=== PATIENT | female | born 1960 | race Caucasian/White ===

== ENCOUNTER → 2020-06-29 17:49 | Outpatient (CLI) | payer MEDICAID, SELFPAY ==
[2020-06-29 18:55] LABS: Hemoglobin A1C 10.7 % (4.0-6.0)
== END ==
PROVIDERS: Visit Provider Family Medicine
DX: I10 Essential (primary) hypertension (principal); E11.9 Type 2 diabetes mellitus without complications; Z79.4 Long term (current) use of insulin
CPT/HCPCS: 83036

== ENCOUNTER 2020-08-17 12:07 | Emergency (ER) | payer MEDICAID, SELFPAY ==
[2020-08-17 12:38] VITALS: BP 177/90; PULSE 77; RESP 16; TEMP 37.2; O2SAT 99; BMI 42.9
--- NOTE | 2020-08-17 13:12 | HMH.EDUTC ---
[facility] Disposition Clinical Impression: Exposure to COVID-19 virus Disposition: Home, Self-Care Condition on Discharge: Good Instructions: Preventing the Spread of Coronavirus Discharge Instructions Additional Instructions: Drink plenty of fluids. Take tylenol for pain or fever. Follow up with your regular doctor. GO TO THE ER FOR ANY WORSENING SYMPTOMS Referrals: Oscar Hauser MD [Primary Care Provider] - Time of Disposition: 13:15 Medical Decision Making - Medical Records Medical records reviewed: No: I reviewed the patient's medical records. - Stevan Inquiry Pt receiving controlled substance: No Vital Signs: 08/17/20 12:38 08/17/20 13:59 Temperature 99 F 99 F Temperature Source Oral Oral Pulse Rate 77 Pulse Rate [Radial] 77 Respiratory Rate 16 16 Blood Pressure 177/90 H Blood Pressure [Right Arm] 177/90 H Blood Pressure Mean [Right Arm] 119 Blood Pressure Source Automatic Cuff Blood Pressure Source [Right Arm] Automatic Cuff Blood Pressure Position Sitting Blood Pressure Position [Right Arm] Sitting 02 Sat by Pulse Oximetry 99 Oxygen Delivery Method Room Air Room Air Orders (Tests/Meds): ORDERS Category Date Time Status Covid-19 Nasal PCR ([facility]) Routine Lab 08/17/20 12:50 Received [facility] HPI - General Stated complaint: Covid exposure Time Seen by Provider: 08/17/20 13:12 - History of Present Illness Provider Complaint: She states that she was exposed to covid by a family member. She denies any symptoms so far. - Related Data Home Medications Medication Instructions Recorded Confirmed albuterol sulfate 90 mcg/actuation INHALATION 05/17/20 06/29/20 aerosol inhaler allopurinol 100 mg tablet 100 mg PO DAILY tab 05/17/20 06/29/20 atorvastatin 80 mg tablet 80 mg PO DAILY tab 05/17/20 06/29/20 blood sugar diagnostic See Rx Instructions .ROUTE 05/17/20 06/29/20 .MEDSUPPLY #10 each buspirone 10 mg tablet 10 mg PO DAILY tab 05/17/20 06/29/20 ergocalciferol (vitamin D2) 1,250 1,250 mcg PO QWEEK cap 05/17/20 06/29/20 mcg (50,000 unit) capsule ferrous sulfate 325 mg (65 mg 325 mg PO DAILY tab 05/17/20 06/29/20 iron) tablet furosemide 80 mg tablet 80 mg PO DAILY tab 05/17/20 06/29/20 ibuprofen 800 mg tablet 800 mg PO TID tab 05/17/20 06/29/20 isosorbide mononitrate 60 mg mg PO 05/17/20 06/29/20 tablet,extended release 24 hr lancets 33 gauge See Rx Instructions .ROUTE 05/17/20 06/29/20 .MEDSUPPLY #100 each losartan 100 mg tablet 100 mg PO DAILY tab 05/17/20 06/29/20 metoprolol tartrate 50 mg tablet 50 mg PO DAILY tab 05/17/20 06/29/20 montelukast 10 mg tablet 10 mg PO QHS tab 05/17/20 06/29/20 omeprazole 20 mg capsule,delayed 20 mg PO DAILY cap 05/17/20 06/29/20 release pen needle, diabetic 31 gauge x See Rx Instructions .ROUTE 05/17/20 06/29/20/16 .MEDSUPPLY #1,200 each potassium chloride 10 mEq 10 meq PO DAILY tab 05/17/20 06/29/20 tablet,extended release(part/cryst) spironolactone 25 mg tablet 25 mg PO DAILY tab 05/17/20 06/29/20 albuterol sulfate 2.5 mg CONTINUOUS NEBULIZATION ml 06/29/20 06/29/20 insulin regular hum U-500 conc 130 unit SQ .AM and PM ml 06/29/20 06/29/20 metformin 500 mg tablet,extended 1,000 mg PO BID tab 06/29/20 06/29/20 release 24 hr nitroglycerin 0.4 mg sublingual mg SUBLINGUAL Q5-15M tab 06/29/20 06/29/20 tablet ranolazine 1,000 mg mg PO BID tab 06/29/20 06/29/20 tablet,extended release,12 hr rosuvastatin 40 mg tablet mg PO DAILY tab 06/29/20 06/29/20 Previous Rx's Medication Instructions Recorded oyuntkvnqs-merecangayjta-ooqjhysl 1 cap PO Q6H PRN #30 cap 05/17/20 50 mg-300 mg-40 mg capsule loratadine 10 mg tablet 10 mg PO DAILY #30 tab 05/17/20 ondansetron HCl 4 mg tablet 4 mg PO Q6H PRN #20 tab 05/17/20 amlodipine 10 mg tablet 10 mg PO DAILY #90 tab 06/29/20 fluoxetine 20 mg capsule 20 mg PO DAILY #90 cap 08/09/20 Allergies Allergy/AdvReac Type Severity Reaction Status D
[2020-08-17 13:59] VITALS: BP 177/90; PULSE 77; RESP 16; TEMP 37.2; O2SAT 99
--- NOTE | 2020-08-17 19:48 | PC.NURSE ---
Patient notified of positive COVID results.
== END 2020-08-17 14:00 | disposition home or self-care (01) ==
PROVIDERS: Emergency Provider Nurse Practitioner Family; PCP Family Medicine
DX: U07.1 COVID-19 (principal); F41.9 Anxiety disorder, unspecified; J44.9 Chronic obstructive pulmonary disease, unspecified; I25.10 Atherosclerotic heart disease of native coronary artery without angina pectoris; E11.9 Type 2 diabetes mellitus without complications; K21.9 Gastro-esophageal reflux disease without esophagitis; E78.5 Hyperlipidemia, unspecified; I10 Essential (primary) hypertension; N28.9 Disorder of kidney and ureter, unspecified; Z79.899 Other long term (current) drug therapy; Z90.710 Acquired absence of both cervix and uterus; Z88.0 Allergy status to penicillin; Z88.5 Allergy status to narcotic agent
CPT/HCPCS: 99201; U0003

== ENCOUNTER → 2020-10-24 07:53 | Outpatient (CLI) | payer MEDICAID, SELFPAY ==
--- NOTE | 2020-10-24 07:54 | US_ITS ---
PROCEDURE: US GALLBLADDER CLINICAL INDICATION: n/v Nausea and vomiting, diarrhea COMPARISON: No exams were available for comparison FINDINGS: Pancreas: Unremarkable/Not well seen Liver: Diffuse increased echogenicity of the liver with poor through transmission of sound consistent with hepatic steatosis. No focal liver lesion demonstrated. There is appropriate direction of blood flow within non dilated portal vein.There is appropriate direction of blood flow within a non dilated portal vein. Right kidney: Unremarkable appearing. No hydronephrosis. Gallbladder: No stones are evident. There is no gallbladder wall thickening. Common duct is normal in diameter. IMPRESSION: Negative gallbladder ultrasound. No stones evident. Fatty liver Dictated by: Dedrick Franklin MD 10/24/2020 11:31 Dedrick Franklin MD in [place] 10/24/2020 11:31
== END ==
PROVIDERS: PCP Family Medicine; Visit Provider Family Medicine
DX: R11.2 Nausea with vomiting, unspecified (principal)
CPT/HCPCS: 76705

== ENCOUNTER → 2021-06-04 15:18 | Outpatient (CLI) | payer MEDICAID, SELFPAY ==
[2021-06-04 15:26] LABS: Chloride 100 mmol/L (98-107)
[2021-06-04 15:27] LABS: Potassium 4.5 mmoL/L (3.5-5.1); Sodium 137 mmol/L (136-145)
[2021-06-04 15:29] LABS: Alanine Aminotransferase 21 U/L (12-78); Alkaline Phosphatase 148 U/L (38-126); Aspartate Amino Transferase 24 U/L (14-36); Bilirubin,Total 0.5 mg/dl (0.2-1.3); Blood Urea Nitrogen 15 mg/dl (7-17); Estimated Glomerular Filt Rate 85 ml/min (>60); GFR (African American) 103 ML/MIN (>60)
[2021-06-04 15:30] LABS: Albumin Level 3.5 g/dl (3.5-5.0); Albumin/Globulin Ratio 1.1 (1.1-1.8); Anion Gap 12.5 mEq/L (5-15); Calcium 8.4 mg/dl (8.4-10.2); Carbon Dioxide 29 mmol/L (22.0-30.0); Globulin 3.1 g/dL (1.3-3.2); Glucose 313 mg/dl (74-100); Total Protein,Serum 6.6 g/dl (6.3-8.2)
== END ==
PROVIDERS: Visit Provider Family Medicine
DX: E11.9 Type 2 diabetes mellitus without complications (principal); Z79.4 Long term (current) use of insulin
CPT/HCPCS: 80053; 83036

== ENCOUNTER 2021-06-14 12:27 | Outpatient (RCR) | payer MEDICAID, SELFPAY ==
--- NOTE | 2021-06-14 13:57 | HMH.SLDYSPHA ---
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 Does Patient Qualify for Service No Qualify/Failure Comment Additional infomation required to determine eligibility for skilled speech therapy services. PAYMENT REP recommending modified barium swallow study to be completed to determine current swallow function and if therapy is warranted. Recommendations PHYSICIAN CERTIFICATION: The specified therapy services are required, authorized, and reviewed every 30 days. Diet Recommendations Normal Liquid Type Recommendations Normal/Thin SL Swallow Guidelines Standard Aspiration Prec., Crush meds as allowed*,Reflux precautions Dysphagia Swallow Precautions/Strategies Sitting Upright (90 deg),Small Bites and Sips Plan Pt/Guardian verbally ack understanding Yes of dx/prognosis/goals Pt/Guardian verbally ack understanding Yes of/consent to tx prog G -code Required No Education Instructions provided General aspiriation precautions: small bites and sips, crushing pills as able, taking pills in pudding or applesauce. Pt/Caregiver able to recall information Able to recall/restate Reinforcement needed No Speech & Language HPI History Present Illness Description of Patient Problem Patient reports chocking with food and liquid following TIA in April. She reports her slurred speech has resolved at this time. Language [place] Lang/Spoken in Home Sinhala General Information General Current Food Consistancy Regular,Thin Liquids Dentition Good Dentition Oxygen Status Room Air Facial Symmetry Symmetrical Patient Orientation Person,Place,Time,Situation Ability to Follow Directions Excellent Communication Ability No Impairment Dysphagia:Food Presentation Evaluation Food Type Pureed,Mechanical Soft,Regular ,Liquid,Pudding Dysphagia Evaluation Summary
== END 2021-06-14 12:30 | disposition home or self-care (01) ==
LOC: ST 12:27
PROVIDERS: PCP Family Medicine; Visit Provider Family Medicine
DX: R47.81 Slurred speech (principal)
CPT/HCPCS: 92610

== ENCOUNTER → 2021-06-19 14:20 | Outpatient (CLI) | payer MEDICAID, SELFPAY ==
[2021-06-19 15:15] LABS: Chol/HDL Ratio 3.7 (1-3.5); Cholesterol 183 mg/dl (140-200); HDL Cholesterol 50 mg/dl (40-60); Triglycerides 232 mg/dl (30-150); VLDL Cholesterol 46 mg/dL (0-40)
[2021-06-19 15:27] LABS: Direct LDL Cholesterol 92.21 mg/dL (100-129)
[2021-06-19 15:28] LABS: 25-OH Vitamin D, Total 27.1 ng/mL (30-100)
[2021-06-19 15:30] LABS: Basophils % 0.3 % (0.1-2.0); Eosinophils # 0.3 K/mm3 (0.0-0.4); Eosinophils % 4.5 % (0.1-12.0); Hematocrit 36.5 % (37.0-47.0); Hemoglobin 11.7 g/dL (12.2-16.2); Lymphocytes # 1.4 K/mm3 (0.7-4.5); Mean Corpuscular HGB Conc 32.1 g/dL (31.8-35.4); Mean Corpuscular Hemoglobin 26.3 pg (27.0-31.2); Monocytes # 0.3 K/mm3 (0.1-1.0); Monocytes % 3.8 % (1.7-9.3); Neutrophils # 5.2 K/mm3 (1.8-7.8); Neutrophils % 72.3 % (37.0-80.0); Platelet Count 264 K/mm3 (142-424); Red Blood Count 4.46 M/mm3 (4.20-5.40); Red Cell Distribution Width 15.6 % (11.5-17.5); White Blood Count 7.1 K/mm3 (4.8-10.8)
[2021-06-19 15:33] LABS: T4 (Thyroxine) 9.2 ug/dl (5.53-11.0)
[2021-06-19 15:47] LABS: Thyroid Stimulating Hormone 0.58 uIU/mL (0.465-4.68)
[2021-06-19 16:17] LABS: Creatinine,Urine Random 78 mg/dL (Not Estab.)
[2021-06-19 20:47] LABS: Microalbumin/Creatinine Ratio 872.9
[2021-06-22 19:46] LABS: C-Peptide 5.9 ng/mL (1.1-4.4)
== END ==
PROVIDERS: Visit Provider Nurse Practitioner Family
DX: E11.9 Type 2 diabetes mellitus without complications (principal); K76.0 Fatty (change of) liver, not elsewhere classified; Z79.4 Long term (current) use of insulin; E55.9 Vitamin D deficiency, unspecified; Z79.899 Other long term (current) drug therapy; R79.82 Elevated C-reactive protein (CRP)
CPT/HCPCS: 80061; 82043; 82306; 82570; 84436; 84443; 84681; 85025

== ENCOUNTER → 2021-11-20 14:53 | Outpatient (CLI) | payer MEDICAID, SELFPAY ==
[2021-11-20 13:17] LABS: Basophils % 0.4 % (0.1-2.0); Eosinophils # 0.4 K/mm3 (0.0-0.4); Eosinophils % 4.6 % (0.1-12.0); Hematocrit 38.5 % (37.0-47.0); Hemoglobin 11.9 g/dL (12.2-16.2); Lymphocytes # 1.5 K/mm3 (0.7-4.5); Lymphocytes % 19.1 % (10-50); Mean Corpuscular Hemoglobin 24.2 pg (27.0-31.2); Mean Corpuscular Volume 77.9 fl (81-99); Mean Platelet Volume 7.5 fl (7.4-10.4); Monocytes # 0.3 K/mm3 (0.1-1.0); Monocytes % 3.6 % (1.7-9.3); Neutrophils # 5.8 K/mm3 (1.8-7.8); Neutrophils % 72.3 % (37.0-80.0); Platelet Count 318 K/mm3 (142-424); Red Blood Count 4.94 M/mm3 (4.20-5.40)
[2021-11-20 14:53] LABS: Hemoglobin A1C 8.2 % (4.0-6.0)
[2021-11-20 15:06] LABS: Chloride 101 mmol/L (98-107); Potassium 4.3 mmoL/L (3.5-5.1); Sodium 133 mmol/L (136-145)
[2021-11-20 15:08] LABS: Alanine Aminotransferase 27 U/L (12-78); Albumin Level 3.8 g/dl (3.5-5.0); Albumin/Globulin Ratio 1.3 (1.1-1.8); Alkaline Phosphatase 132 U/L (38-126); Anion Gap 9.3 mEq/L (5-15); Aspartate Amino Transferase 30 U/L (14-36); Bilirubin,Total 0.5 mg/dl (0.2-1.3); Blood Urea Nitrogen 28 mg/dl (7-17); Carbon Dioxide 27 mmol/L (22.0-30.0); Estimated Glomerular Filt Rate 64 ml/min (>60); GFR (African American) 77 ML/MIN (>60); Total Protein,Serum 6.8 g/dl (6.3-8.2)
[2021-11-20 15:09] LABS: Calcium 8.5 mg/dl (8.4-10.2); Chol/HDL Ratio 4.2 (1-3.5); Cholesterol 262 mg/dl (140-200); Glucose 225 mg/dl (74-100); HDL Cholesterol 63 mg/dl (40-60); Triglycerides 223 mg/dl (30-150); VLDL Cholesterol 45 mg/dL (0-40)
[2021-11-20 15:20] LABS: Direct LDL Cholesterol 152.69 mg/dL (100-129)
[2021-11-20 15:25] LABS: T4 (Thyroxine) 10.3 ug/dl (5.53-11.0)
[2021-11-20 15:38] LABS: Thyroid Stimulating Hormone 0.67 uIU/mL (0.465-4.68)
== END ==
PROVIDERS: Visit Provider Nurse Practitioner Family
DX: E11.9 Type 2 diabetes mellitus without complications (principal); Z79.4 Long term (current) use of insulin
CPT/HCPCS: 80053; 80061; 83036; 84436; 84443; 85025

== ENCOUNTER 2022-03-31 15:41 | Inpatient (IN) | payer MEDICAID, SELFPAY ==
[2022-03-31] VITALS (12 sets, daily range): BP systolic 132–177; BP diastolic 59–81; PULSE 64–75; RESP 15–23; TEMP 36.8–36.9; O2SAT 95–98; BMI 44.9; BMI 43.6
--- NOTE | 2022-03-31 15:44 | PC.NURSE ---
GLADYS IBANEZ at
--- NOTE | 2022-03-31 15:47 | HMH.EDNEU ---
ED Disposition Clinical Impression: Diabetes Cerebrovascular accident Qualifiers: CVA mechanism: unspecified Qualified Code(s): I63.9 - Cerebral infarction, unspecified Disposition: Admitted as Observation Condition on Discharge: Serious - Critical Care Critical Care Time: No Attestation: On , the high probability of a clinically significant, sudden or life threatening deterioration of the following system(s) required my full and direct attention, intervention and personal management. The time I documented below is in addition to time spent performing reported procedures but includes the following listed in this critical care notation. Medical Decision Making - Stevan Inquiry Pt receiving controlled substance: No Vital Signs: 03/31/22 15:42 03/31/22 16:27 03/31/22 16:47 Temperature 98.5 F Temperature Source Oral Pulse Rate 66 70 Pulse Rate [Right Radial] 75 Respiratory Rate 16 19 20 Blood Pressure 172/78 H 163/72 H Blood Pressure [Right Arm] 154/67 H Blood Pressure Mean 93 97 Blood Pressure Mean [Right Arm] 96 Blood Pressure Source [Right Arm] Automatic Cuff Blood Pressure Position [Right Arm] Sitting 02 Sat by Pulse Oximetry 97 96 95 Oxygen Delivery Method Room Air 03/31/22 16:57 Temperature Temperature Source Pulse Rate 65 Pulse Rate [Right Radial] Respiratory Rate 22 Blood Pressure 171/59 H Blood Pressure [Right Arm] Blood Pressure Mean 96 Blood Pressure Mean [Right Arm] Blood Pressure Source [Right Arm] Blood Pressure Position [Right Arm] 02 Sat by Pulse Oximetry 96 Oxygen Delivery Method - Lab Data Lab results reviewed: Yes: I reviewed the patient's lab results. Lab Results 03/31/22 15:52: WBC 9.4, RBC 5.16, Hgb 12.9, Hct 40.9, MCV 79.2 L, MCH 24.9 L, MCHC 31.5 L, RDW 17.2, Plt Count 351, MPV 7.8, Neut % (Auto) 76.0, Lymph % (Auto) 15.2, Jefferson % (Auto) 4.8, Eos % (Auto) 3.1, Baso % (Auto) 0.9, Neut # (Auto) 7.2, Lymph # (Auto) 1.4, Jefferson # (Auto) 0.5, Eos # (Auto) 0.3, Baso # (Auto) 0.1 03/31/22 15:52: Sodium 138, Potassium 3.9, Chloride 103, Carbon Dioxide 30, Anion Gap 8.9, BUN 13, Creatinine 0.90, Estimated Creat Clear 51, Estimated GFR 64, Est GFR ( Amer) 77, Glucose 131 H, Calcium 9.3, Total Bilirubin 0.5, AST 34, ALT 23, Alkaline Phosphatase 119, Troponin I < 0.01, Total Protein 7.6, Albumin 4.0, Globulin 3.6 H, Albumin/Globulin Ratio 1.1 03/31/22 15:52: PT 10.5, INR 0.92, APTT 29.1 03/31/22 15:57: POC Glucose 110 Result diagrams: 03/31/22 15:52 03/31/22 15:52 Orders (Tests/Meds): ORDERS Category Date Time Status Rapid PCR Covid and Flu A/B Stat Lab 03/31/22 16:51 Ordered Troponin I Q3H Lab 03/31/22 19:00 Ordered Troponin I Q3H Lab 03/31/22 22:00 Ordered - CT Data CT Scan: Head Time Received: 16:[address] Reviewed: Yes: I have viewed the radiologist's interpretation Preliminary Findings: Abnormal (Stable lacunar infarcts no acute disease) - ECG Data Tracing #1 I reviewed this ECG and interpreted as documented below: EKG was performed at 1620 p.m. It shows a normal sinus rhythm with a ventricular rate of 63 bpm there are no ST elevations or depressions. There is no acute ischemia. The intervals are otherwise normal. - Physician Consults Physician Consulted: Murtaza Time: 16:53 Reason -: Admission Comment/Response: Dr. Hauser has agreed to admit the patient to his service. He will order the MRI and physical therapy himself. Medical Decision Narrative: The patient presents to the emergency department complaining of left-sided weakness since Thursday. The patient's NIH stroke scale is 4. She is unable to walk. A CT of the head did not show any acute deficits or stroke. However, I suspect that the patient may have a stroke that is not yet visible on CT but could possibly be visible on MRI. Given the fact that the patient is unable to ambulate I feel that the patient needs to be admitted to the hospital for further work-up. I
--- NOTE | 2022-03-31 15:52 | XR_ITS ---
FINAL REPORT CLINICAL HISTORY: CVA, LEFT SIDED WEAKNESS FINDINGS: A single portable view of the chest was obtained. The heart size and pulmonary vascularity are within normal limits. The mediastinum is within normal limits. No acute pulmonary abnormality is identified. The bony thorax is intact. IMPRESSION: No active cardiopulmonary disease. Reviewed, Interpreted and Dictated by Jose Greene III, MD Transcribed by Yulia Howard Authenticated and [facility]
--- NOTE | 2022-03-31 15:52 | PC.NURSE ---
notified rad of CT head stroke protocol
--- NOTE | 2022-03-31 15:53 | CT_ITS ---
FINAL REPORT CLINICAL HISTORY: Left sided weakness (NIH SS 4) COMPARISON: 03/29/2022 FINDINGS: Axial images of the head were obtained without contrast. Coronal reformatted images were also obtained.This study was performed with techniques to keep radiation doses as low as reasonably achievable (ALARA). Individualized dose reduction techniques using automated exposure control or adjustment of mA and/or kV according to the patient''s size were employed. There are chronic lacunar infarcts in the bilateral periventricular white matter as well as a small chronic lacunar infarct at the left head of the caudate, stable from prior exam. There is no evidence of intracranial hemorrhage or mass. The ventricular size is within normal limits. There is no evidence of shift of the midline structures. No abnormal extra axial fluid collection is identified. No skull abnormality is seen on the bone window images. IMPRESSION: Stable, chronic lacunar infarcts. No acute intracranial abnormality. Reviewed, Interpreted and Dictated by Jose Greene III, MD Transcribed by Ashlyn Hopkins Authenticated and [facility]
--- NOTE | 2022-03-31 15:56 | PC.NURSE ---
pt to ct
[2022-03-31 16:04] LABS: POC Glucose,Bedside 110 (70-110)
[2022-03-31 16:05] LABS: Basophils # 0.1 K/mm3 (0-0.2); Basophils % 0.9 % (0.1-2.0); Eosinophils # 0.3 K/mm3 (0.0-0.4); Eosinophils % 3.1 % (0.1-12.0); Hematocrit 40.9 % (37.0-47.0); Hemoglobin 12.9 g/dL (12.2-16.2); Lymphocytes # 1.4 K/mm3 (0.7-4.5); Lymphocytes % 15.2 % (10-50); Mean Corpuscular HGB Conc 31.5 g/dL (31.8-35.4); Mean Corpuscular Hemoglobin 24.9 pg (27.0-31.2); Mean Corpuscular Volume 79.2 fl (81-99); Mean Platelet Volume 7.8 fl (7.4-10.4); Monocytes # 0.5 K/mm3 (0.1-1.0); Monocytes % 4.8 % (1.7-9.3); Neutrophils # 7.2 K/mm3 (1.8-7.8); Platelet Count 351 K/mm3 (142-424); Red Blood Count 5.16 M/mm3 (4.20-5.40); Red Cell Distribution Width 17.2 % (11.5-17.5); White Blood Count 9.4 K/mm3 (4.8-10.8)
[2022-03-31 16:15] LABS: Activated Partial Thrombo Time 29.1 seconds (22.8-30.6); INR 0.92 (0.9-1.1); Prothrombin Time 10.5 seconds (10.1-12.5)
--- NOTE | 2022-03-31 16:20 | ECG_ITS ---
APPROVED REPORT Exam: Resting ECG HR:63 bpm ECG Measurements Heart Rate 63 AXES NM 179 P 58 QRSd 86 QRS 7 QT 441 T 52 QTc 449 Conclusion SINUS RHYTHM MODERATE VOLTAGE CRITERIA FOR LVH, CONSIDER NORMAL VARIANT [MEETS CRITERIA IN ONE OF: R(aVL), S(V1), R(V5), R(V5/V6)+S(V1)] POSSIBLE ANTERIOR MYOCARDIAL INFARCTION , PROBABLY OLD [30 ms Q WAVE IN V3/V4, OR R < 0.2 mV IN V4] BORDERLINE ECG UNCONFIRMED REPORT Electronically signed by : Oliver Garcia MD 04/01/2022 21:38:51
[2022-03-31 16:30] LABS: Chloride 103 mmol/L (98-107)
[2022-03-31 16:31] LABS: Potassium 3.9 mmoL/L (3.5-5.1); Sodium 138 mmol/L (136-145)
[2022-03-31 16:33] LABS: Alanine Aminotransferase 23 U/L (12-78); Albumin/Globulin Ratio 1.1 (1.1-1.8); Alkaline Phosphatase 119 U/L (38-126); Aspartate Amino Transferase 34 U/L (14-36); Bilirubin,Total 0.5 mg/dl (0.2-1.3); Blood Urea Nitrogen 13 mg/dl (7-17); Creatinine Clearance Estimated 51 mL/min (50-200); Estimated Glomerular Filt Rate 64 ml/min (>60); GFR (African American) 77 ML/MIN (>60); Globulin 3.6 g/dL (1.3-3.2); Total Protein,Serum 7.6 g/dl (6.3-8.2)
[2022-03-31 16:34] LABS: Anion Gap 8.9 mEq/L (5-15); Calcium 9.3 mg/dl (8.4-10.2); Carbon Dioxide 30 mmol/L (22.0-30.0); Glucose 131 mg/dl (74-100)
--- NOTE | 2022-03-31 16:50 | PC.NURSE ---
GLADYS IBANEZ speaking with Dr. Hauser
[2022-03-31 16:52] LABS: Troponin I < 0.01 ng/ml (0.00-0.034)
--- NOTE | 2022-03-31 16:53 | PC.NURSE ---
notified warehouse attendant of admission
[2022-03-31 17:08] LABS: Coronavirus 19, PCR Not Detected (NotDetected); Influenza A, PCR Not Detected (NotDetected); Influenza B, PCR Not Detected (NotDetected)
--- NOTE | 2022-03-31 17:41 | PC.NURSE ---
Called report to RANDY Flores
--- NOTE | 2022-03-31 17:50 | PC.NURSE ---
AWAITING ORDERS FROM ER AT THIS TIME. ER STAFF MADE AWARE PT HAS NO MEDICATION ORDERS
--- NOTE | 2022-03-31 19:14 | P.CONPHA_ITS ---
[facility] Pharmacy VTE Monitoring - Patient Demographics Admission date: 03/31/22 Report Date: 03/31/22 Time: 19:15 Allergies/Adverse Reactions: Patient Allergies lisinopril Allergy (Severe, Verified 03/24/22 10:00) Hives strawberry Allergy (Severe, Verified 03/31/22 18:39) Anaphylaxis codeine Adverse Reaction (Severe, Verified 03/24/22 10:00) Vomiting Penicillins Adverse Reaction (Severe, Verified 03/24/22 10:00) Vomiting Height: 1.63 m Weight: 115.269 kg Patient Problems: Current Active Problems Cerebrovascular accident (Acute) Diabetes (Chronic) - VTE Risk Labs: VTE Related Lab Results Hgb 12.9 g/dL (12.2-16.2) 03/31/22 15:52 Hct 40.9 % (37.0-47.0) 03/31/22 15:52 Plt Count 351 K/mm3 (142-424) 03/31/22 15:52 PT 10.5 seconds (10.1-12.5) 03/31/22 15:52 INR 0.92 (0.9-1.1) 03/31/22 15:52 APTT 29.1 seconds (22.8-30.6) 03/31/22 15:52 BUN 13 mg/dl (7-17) 03/31/22 15:52 Creatinine 0.90 mg/dl (0.52-1.04) 03/31/22 15:52 Estimated Creat Clear 51 mL/min (50-200) 03/31/22 15:52 VTE Risk Level: Moderate Risk Clinical Trial Participant: No - Prophylaxis VTE Prophylaxis Ordered?: Yes Types of VTE Prophylaxis: TEDS Knee High
--- NOTE | 2022-03-31 22:51 | PC.NURSE ---
FSBS 159. PT REFUSES INSULIN (ORDERED MISS PER PROTOCOL). PT HAS DEXCOM AND INSULIN PUMP SHE MANAGES AT HOME. WILL RECHECK IN AM SCHEDULED.
[2022-03-31 23:14] LABS: POC Glucose,Bedside 159 (70-110)
[2022-04-01 04:00] VITALS: BP 147/80; PULSE 61; RESP 20; TEMP 36.7; O2SAT 96
[2022-04-01 04:09] VITALS: BMI 43.3
--- NOTE | 2022-04-01 04:57 | PC.NURSE ---
PT HAS RESTED T/O SHIFT WITH NO C/O VOICED. NO ACUTE CHANGES FROM PREVIOUS ASSESSMENT, VITAL SIGNS STABLE. WILL CONTINUE TO MONITOR.
[2022-04-01 06:32] LABS: POC Glucose,Bedside 162 (70-110)
[2022-04-01 08:00] VITALS: BP 143/66; PULSE 64; RESP 18; TEMP 36.6; O2SAT 95
--- NOTE | 2022-04-01 08:17 | CA_ITS ---
FINAL REPORT TECHNIQUE: Color Doppler, duplex Doppler and faustin scale sonography of the bilateral neck arterial vasculature was performed. Velocities were measured in the carotid arteries. Stenosis evaluation based on the validated velocity criteria. CLINICAL HISTORY: L Side weakness, HTN, Heart murmur FINDINGS: The peak systolic velocity of the right common carotid artery is 70 cm/s. The peak systolic velocity of the right internal carotid artery is 73 cm/s and end diastolic velocity 15 cm/s. The ICA/CCA ratio is 1.34. A small amount of plaque is present. The right external carotid artery is patent. The right vertebral artery is patent with antegrade flow. The peak systolic velocity of the left common carotid artery is 64 cm/s. The peak systolic velocity of the left internal carotid artery is 92 cm/s and end diastolic velocity 22 cm/s. The ICA/CCA ratio is 1.60. A small amount of plaque is present. The left external carotid artery is patent.The left vertebral artery is patent with antegrade flow. IMPRESSION: Less than 50% bilateral carotid stenoses. Bilateral patent vertebral arteries with antegrade flow. If indicated, CTA or MRA could further evaluate. Reviewed, Interpreted and Dictated by Jose Greene III, MD Transcribed by Loretta Lancaster Authenticated and [facility]
--- NOTE | 2022-04-01 08:17 | CA_ITS ---
APPROVED REPORT EXAM: Comprehensive 2D, Doppler, and color-flow Echocardiogram Astrobiologist: ADRIANE Castellanos, RVS Ht: 5 ft 4 in Wt: 254lbs BSA: 2.17 BP: 000/00 mmHg Indications: TIA, Murmur, HTN, obesity,DM, COPD, HLD 2D Dimensions Aortic Root 2.91 cm LA Volume 91.00 mL Left Atrium 3.90 cm LA Volume Index 41.90 mL/m2 (M/F) 16-34 LVOT 2.17 cm (M/F) 1.5-2.5 M-Mode Dimensions RVDd 2.14 cm (0.9-2.6) LA Diam 4.60 cm (1.9-4.0) LVDd 5.10 cm (3.5-5.7) Ao Diam 2.95 cm (2.0-3.7) LVDs 3.53 cm (3.5-5.7) IVSd 1.14 cm (0.6-1.1) PWd 1.18 cm (0.6-1.1) EF (Teich) 58.10% EPSs 0.77 cm FS 30.80% EDV (Teich) 123.80 mL TAPSE 1.98 (<1.7) ESV (Teich) 51.90 mL LV Diastology E Decel Time 203.00 (160-240 msec) E/A Ratio 1.28 MED E' 5.60 (< 7 cm/sec) MED A' 6.50 cm/s E'/MED E' Ratio 18.18 (>14) LAT E' 6.40 (<10 cm/sec) LAT A' 6.00 cm/s E/LAT E' Ratio 15.91 (>14) Aortic Valve LVOT Max 112.00 (70-110 cm/s) LVOT VTI 26.29 cm AO Peak GR. 8.10 mmHg AO VTI 170.87 (18-25 cm) Mitral Valve MV A Velocity 79.00 (40-130 cm/s) E/A Ratio 1.28 MV Decel. Time 203.00 (160-240 ms) Pulmonary Valve PV Peak Velocity 97.00 (50-150 cm/s) NV End VMAX 168.00 cm/s Tricuspid Valve TR P. Velocity 233.00 cm/s RAP Estimate 10.00 mmHg RVSP 31.80 mmHg Left Ventricle Left atrium is mildly enlarged, left ventricle is normal size, mild concentric left ventricular, estimated ejection fraction 55% with no regional wall motion abnormality, grade 2 diastolic dysfunction seen with tissue Doppler evidence of raise left atrial pressure. Right Ventricle Right atrium and right ventricle are normal size and contractility. Aortic Valve Aortic valve is minimally thickened and calcified without aortic stenosis or aortic insufficiency. Mitral Valve Mitral valve leaflets are minimally thickened, there is mild mitral regurgitation. Tricuspid Valve Tricuspid grossly normal, there is mild tricuspid regurgitation, tricuspid regurgitation jet velocity is inadequate for calculation of the right ventricular systolic pressure. Pulmonic Valve Pulmonic valve is poorly visualized. Great Vessels Aortic root is normal size. Inferior vena cava is poorly visualized. Pericardium No significant pericardial effusion noted. Conclusion 1. Mildly enlarged atrium, normal left ventricular size mild concentric left ventricular hypertrophy, estimated ejection fraction 55% with no regional wall motion abnormality, grade 2 diastolic dysfunction seen with tissue Doppler evidence of raise left atrial pressure. 2. Mild mitral and tricuspid regurgitation. 3. No significant pericardial effusion noted. 4. Inferior vena cava is poorly visualized. Electronically signed by : Lenny Brooks MD 04/01/2022 18:38:06
[2022-04-01 11:11] LABS: POC Glucose,Bedside 221 (70-110)
[2022-04-01 11:38] VITALS: BP 148/91; PULSE 65; RESP 18; TEMP 36.9; O2SAT 97
--- NOTE | 2022-04-01 13:20 | ECG_ITS ---
APPROVED REPORT Exam: Resting ECG HR:61 bpm ECG Measurements Heart Rate 61 AXES OH 183 P 52 QRSd 85 QRS 3 QT 470 T 66 QTc 474 Conclusion SINUS RHYTHM PROLONGED QT INTERVAL ABNORMAL ECG UNCONFIRMED REPORT Electronically signed by : Oliver Garcia MD 04/02/2022 17:28:27
--- NOTE | 2022-04-01 13:49 | HMH.HP ---
*Admission Date: 03/31/22 *Chief complaint: Left-sided weakness *History of present illness: 61-year-old female patient presented to the [facility] emergency department with reports of left-sided weakness since Thursday, the patient's NIH stroke scale was 4, she was unable to walk. CT of the head did not show any acute activities but did show older lacunar infarcts. She was outside the thrombolytic window as she was last known to be normal 4 days prior. She was seen at another emergency department on Thursday for this and was told it was due to her sciatic nerve. She has had a TIA in the past and has been on Plavix, she also reports missing several doses in the last week. [facility] History I have reviewed the patient's past medical history: Yes Medical History: Reports:: Anxiety, Asthma, Chronic Obstructive Pulmonary Disease (COPD), Coronary Artery Disease, Diabetes Mellitus Type 2, Gastroesophageal Reflux Disease(GERD), Hyperlipidemia, Hypertension, Renal Disease, Transient Ischemic Attacks (TIA) *Have you ever received a pneumonia vaccine?: Yes *Have you received a flu vaccine this season?: Yes Other Medical History: Reports: Arthritis Laterality Cases: Bilateral: Carpal Tunnel Release Other Surgeries: Yes: Hysterectomy-Total, Tubal Ligation Amputation: No Fractures: No - *Social History Smoking Status: Never smoker Alcohol Intake: never Substance Use Type: denies use *Occupational Status:: retired Housing: house *Travel in the last 8 weeks: None - Psychiatric History Pschychiatric History:: Reports:: Anxiety Family Hx:: No significant family history Review of Systems - Review of Systems Review of systems:: pertinent systems reviewed and negative unless documented below - Constitutional Reports fatigue, Denies fever(s) - Eyes Denies blurry vision, Denies double vision, Denies discharge - ENT Denies abnormal hearing, Denies ear discharge, Denies hearing loss - *Cardiovascular Denies chest pain, Denies chest pain at rest - *Respiratory Denies chest congestion, Denies cough, Denies shortness of breath - *Gastrointestinal Denies abdominal pain, Denies change in bowel habits - *Musculoskeletal Denies joint pain, Denies decreased muscle mass - Integumentary/Breasts Denies change in skin color, Denies new lesions - *Neurologic Reports localized weakness, Reports weakness, Denies headache(s) - Psychiatric Denies anxiety, Denies difficulty concentrating, Denies irritability - Endocrine Denies cold intolerance, Denies increased thirst - Hematologic/Lymphatic Denies easy bleeding, Denies easy bruising - Allergic/Immunologic Denies GI upset with certain foods, Denies tongue swelling Meds Home Medications Medication Instructions Recorded Confirmed Type allopurinol 100 mg tablet 100 mg PO DAILY tab 05/17/20 03/31/22 History ferrous sulfate 325 mg (65 mg 325 mg PO BID tab 05/17/20 04/01/22 History iron) tablet spironolactone 25 mg tablet 25 mg PO DAILY tab 05/17/20 03/31/22 History diltiazem HCl 120 mg 120 mg PO DAILY cap 12/03/21 03/31/22 History capsule,extended release 24 hr nitroglycerin 0.4 mg sublingual 0.4 mg SUBLINGUAL Q5-15M PRN #10 12/27/21 03/31/22 Rx tablet tab gabapentin 100 mg capsule 100 mg PO TID PRN #90 cap 03/24/22 03/31/22 Rx Clopidogrel Bisulfate [Plavix] 75 mg PO DAILY 03/31/22 03/31/22 History Famotidine 40 mg PO BID 03/31/22 03/31/22 History Fluoxetine HCl [Prozac] 20 mg PO DAILY 03/31/22 03/31/22 History Hydralazine HCl 50 mg PO TID 03/31/22 03/31/22 History Isosorbide Mononitrate [Isosorbide 120 mg PO DAILY 03/31/22 03/31/22 History Mononitrate ER] Losartan Potassium [Cozaar 100mg 100 mg PO DAILY 03/31/22 03/31/22 History Tablets] Metformin HCl [Metformin HCl ER] 1,000 mg PO BID 03/31/22 03/31/22 History Metoprolol Succinate [Metoprolol 100 mg PO BID 03/31/22 03/31/22 History Succinate 100mg Tablet*] Pramipexole Di-HCl [Mirapex] 0.125 m
[2022-04-01 15:11] VITALS: BMI 43.3
[2022-04-01 16:00] VITALS: BP 162/68; PULSE 65; RESP 18; TEMP 36.9; O2SAT 97
[2022-04-01 16:28] LABS: POC Glucose,Bedside 242 (70-110)
--- NOTE | 2022-04-01 18:34 | PC.NURSE ---
pt was just transferred from ob area to room 203
[2022-04-01 20:00] VITALS: BP 136/62; PULSE 65; RESP 18; TEMP 36.7; O2SAT 96
[2022-04-01 20:58] LABS: POC Glucose,Bedside 197 (70-110)
[2022-04-02 03:57] VITALS: BP 149/69; PULSE 59; RESP 16; TEMP 36.4; O2SAT 97
--- NOTE | 2022-04-02 04:40 | PC.NURSE ---
Pt has rested well tonight. Pt voiced no c/o thus far in shift. Pt has been up multiple times to [place] to void with x2 assist. Pt remains on RA with O2 sat 96-97%.
[2022-04-02 04:55] VITALS: BMI 43.4
[2022-04-02 06:04] LABS: POC Glucose,Bedside 176 (70-110)
[2022-04-02 08:00] VITALS: BP 158/60; PULSE 58; RESP 18; TEMP 36.4; O2SAT 99
--- NOTE | 2022-04-02 09:20 | P.PN_ITS ---
Internal Medicine - PN: Subj *Date: 04/02/22 *Time: 13:43 Interval history: 61-year-old female patient sitting up in bed resting quietly, she denies any chest pain or shortness of breath during the night. Today she does appear weaker in her left upper extremity, is able to lift off the bed several inches and left lower extremity is weak, but able to lift off bed. Exam Vital signs and Labs for Last 24 Hours: Temp Pulse Resp BP Pulse Ox 97.6 F 59 L 16 149/69 H 97 04/02/22 03:57 04/02/22 03:57 04/02/22 03:57 04/02/22 03:57 04/02/22 03:57 Laboratory Results - last 24 hr 04/01/22 11:03: POC Glucose 221 H 04/01/22 16:20: POC Glucose 242 H 04/01/22 20:32: POC Glucose 197 H 04/02/22 05:51: POC Glucose 176 H I & O for Last 24 hours: Intake & Output 03/30/22 03/31/22 04/01/22 04/02/22 23:59 23:59 23:59 23:59 Intake Total 120 / 240 360 / 360 360 / 360 Output Total 400 / 400 Balance 120 / 240 -40 / -40 360 / 360 Weight 254 lb 2 oz 253 lb 15.913 oz 254 lb 6 oz - Constitutional no acute distress - *Routine HEENT Exam Head: Present: normocephalic Eye: Present: EOMI ENT: Present: mucous membranes moist - *Routine Neck Exam Present: trachea midline. Absent: tracheal deviation - *Routine Respiratory Exam Present: CTA bilaterally. Absent: accessory muscle use - *Routine Cardiovascular Exam Present: RRR - *Routine Abdominal Exam Present: soft, normoactive bowel sounds. Absent: tenderness, firm - *Routine Extremities Exam Present: edema. Absent: cyanosis, clubbing, full ROM - *Routine Skin Exam Present: intact, dry. Absent: cyanosis, erythema - *Routine Neurological Exam Present: alert, oriented X3 Weaker than right Able to lift right upper extremity off bed several inches Able to lift left lower extremity off bed several inches - Routine Psychiatric Exam Present: normal affect, normal thought process. Absent: visual hallucinations Assessment and Plan (1) Cerebrovascular accident Status: Acute Qualifiers: CVA mechanism: unspecified Qualified Code(s): I63.9 - Cerebral infarction, unspecified Category: Medical Code(s): I63.9 - Cerebral infarction, unspecified (2) Morbid obesity with body mass index (BMI) of 40.0 to 44.9 in adult Status: Acute Category: Medical Code(s): E66.01 - Morbid (severe) obesity due to excess calories; Z68.41 - Body mass index [BMI] 40.0-44.9, adult (3) Type 2 diabetes mellitus Status: Chronic Qualifiers: Diabetes mellitus nursing home insulin use: with nursing home use Diabetes mellitus complication status: with circulatory complication Diabetes mellitus complication detail: with other circulatory complications Qualified Code(s): E11.59 - Type 2 diabetes mellitus with other circulatory complications Category: Medical Code(s): E11.9 - Type 2 diabetes mellitus without complica tions - Assessment and plan all Dx Assessment and Plan for all problems:: Rounded with Dr. Hutchinson, all orders per Dr. Hutchinson: 1. We will consult PT/OT 2. Consult speech
--- NOTE | 2022-04-02 09:49 | SW/DCPLANNER ---
Addendum entered by Shirley Galicia 04/02/22 14:13: Updated patient information has been faxed to [facility]. Original Note: I spoke with this patient this AM regarding discharge plans. Patient stated that she does reside at home with her daughter. Daughter does work during the day and patient is home alone. Patient is unable to walk at this time: PT/OT has been ordered. I discussed with the patient the need for rehab once medically stable for discharge. I explained how patient could benefit from [facility]: patient is agreeable with this plan. Patient information will be faxed to [facility] this AM.
--- NOTE | 2022-04-02 10:03 | HMH.OTEV ---
OT Inpatient Evaluation Rehab OT IP Evaluation Start: 04/02/22 09:05 Freq: ONCE Status: Complete Protocol: Document 04/02/22 09:53 JUAN LUISYOHANNES (Rec: 04/02/22 10:03 DILIP [id number]) Rehab OT IP Assessment Subjective History 61-year-old female patient presented to the [facility] emergency department with reports of left-sided weakness since Thursday, the patient's NIH stroke scale was 4, she was unable to walk. CT of the head did not show any acute activities but did show older lacunar infarcts. She was outside the thrombolytic window as she was last known to be normal 4 days prior. She was seen at another emergency department on Thursday for this and was told it was due to her sciatic nerve. She has had a TIA in the past and has been on Plavix, she also reports missing several doses in the last week. On 03/31/22, Patient recieved a head CT scan with findings of: Stable, chronic lacunar infarcts. No acute intracranial. abnormality. Patient lives with dtr in a trailer that has 5-6 DARR[address]. Patient stated of occ use a rollator for longer walks for outside appts 2* pain in B knees. Patient was independent with ADLs prior to admission. Patient was currently living with her brother ~2 months to care for him until hospitalized. [facility] History I have reviewed the patient's past medical history: Yes Medical History: Reports:: Anxiety, Asthma, Chronic Obstructive Pulmonary Disease (COPD), Coronary Artery Disease, Diabetes Mellitus Type 2, Gastroesoph
--- NOTE | 2022-04-02 10:27 | PC.NURSE ---
rounded on patient. no concerns noted. stated she felt she understood diagnosis, and medications well. no concerns with care. states shes been offered baths and educated on importance. no needs voiced at this time.
--- NOTE | 2022-04-02 10:33 | PC.NURSE ---
Addendum entered by Maritza Floyd RN 04/02/22 15:23: PT TOLERATED SITTING UP IN THE CHAIR FOR A FEW HOURS THIS SHIFT. Original Note: PT IS RESTING IN BED. NO COMPLAINTS OF DISCOMFORT. CONTINUES TO HAVE SIGNIFICANT LEFT SIDED WEAKNESS. PT IS A 2 ASSIST TO GET UP TO THE BSC AND UNDERSTANDS THE IMPORTANCE OF GETTING OOB MUCH POSSIBLE. PT WILL HAVE A PT/OT EVAL THIS SHIFT. LUNG SOUNDS DIMINISHED. ABDOMEN SOFT/OBESE WITH ACTIVE BOWEL SOUNDS. PT STATED HER LAST BOWEL MOVEMENT WAS YESTERDAY. WILL CONTINUE TO MONITOR.
[2022-04-02 11:07] LABS: POC Glucose,Bedside 253 (70-110)
--- NOTE | 2022-04-02 11:47 | HMH.PTEV ---
Physical Therapy Evaluation Rehab PT IP Evaluation Start: 04/02/22 09:04 Freq: ONCE Status: Active Protocol: Document 04/02/22 11:43 AMELIE (Rec: 04/02/22 11:47 AMELIE [id number]) Subjective/History History History 1-year-old female patient presented to the [facility] emergency department with reports of left-sided weakness since Thursday, the patient's NIH stroke scale was 4, she was unable to walk. CT of the head did not show any acute activities but did show older lacunar infarcts. She was outside the thrombolytic window as she was last known to be normal 4 days prior. She was seen at another emergency department on Thursday for this and was told it was due to her sciatic nerve. She has had a TIA in the past and has been on Plavix, she also reports missing several doses in the last week. Subjective Subjective Pt reports she is having trouble moving LUE and she needs help to sit up and transfer Rehab PT IP Eval Objective Appearance Patient Orientation Place,Name,Birthday,Year, Situation Difficulty following instructions none Speech Pattern Appropriate Ambulation Patient Able to Ambulate Yes Ambulation Observation IP General Gait Pattern Observation Narrow Based Gait,Shuffling Step,Decrease Weight Bear (L) Ambulation Distance (feet) 3 Ambulation Assistive Device None Ambulation Ability Minimal x 1 (25% assist), Moderate x 1 (50% assist) Balance Ability to Arise Unable Sitting Balance Leans or slides in chair Standing Balance Unsteady Dynamic Sitting Balance Ability Fair Dynamic Standing Balance Ability Zero Transfers Bed Transfer Ability Minimal x 1 (25% assist) Chair Transfer Ability Minimal x 1 (25% assist) Sit to Stand Bed Transfer Ability Minimal x 1 (25% assist), Moderate x 1 (50% assist) Sit to Stand Chair Transfer Ability Minimal x 1 (25% assist), Moderate x 1 (50%
[2022-04-02 16:00] VITALS: BP 101/54; PULSE 75; RESP 18; TEMP 36.7; O2SAT 94
--- NOTE | 2022-04-02 16:02 | HMH.SLDYSPHA ---
Speech & Language Evaluation Speech/Language Dysphagia Evaluation Start: 04/02/22 15:53 Freq: ONCE Status: Active Protocol: Document 04/02/22 15:53 KERRIEVERONICAFABIENNEABHISHEK (Rec: 04/02/22 16:02 GERALDINE [id number]) Dysphagia Assess/Goals/Plan Assessment Date of Evaluation: 04/02/22 Evaluation Type Initial Certification Assessment/Problems CVA Does Patient Qualify for Service No Qualify/Failure Comment Based on results of CSE, pt does not require further skilled ST services at this time. Recommendations PHYSICIAN CERTIFICATION: The specified therapy services are required, authorized, and reviewed every 30 days. Diet Recommendations Normal Liquid Type Recommendations Normal/Thin SL Swallow Guidelines Standard Aspiration Prec.,Eat at slow rate,Reflux precautions Dysphagia Swallow Precautions/Strategies Sitting Upright (90 deg),Small Bites and Sips Place Food on Right side of Mouth Plan Pt/Guardian verbally ack understanding Yes of dx/prognosis/goals Pt/Guardian verbally ack understanding Yes of/consent to tx prog G -code Required No Education Instructions provided Pt and family were educated on the results of the CSE and diet recommendations. Pt/Caregiver able to recall information Able to recall/restate Reinforcement needed No Speech & Language HPI History Present Illness Description of Patient Problem Pt is a 61 y.o. female who came from home complaining of left-sided weakness of 4 days prior to arriving at [facility]. Upon arrival, NIH was 4 and was unable to walk. Pt has a Hx of TIA. PMH is significant for anxiety, asthma, COPD, CAD, DM2, GERD, HLD, Renal Disease, TIA. Head CT revealed stable, chronic lacunar infarcts. Chest x-ray was clear. Rehab Services Assessed Speech therapy Is this evaluation r/t stroke? Yes General Information General Current Food Consistancy Regular,Thin Liquids Dentition Good Dentition Oxygen Status Room Air Facial Symmetry Asymmetrical Ability to Follow Directions Excellent Communication Ability No Impairment Dysphagia:Food Presentation Evaluation Food Type Pureed,Regular,Liquid,Pudding Normal/Thin Liquid Response Coughin
[2022-04-02 17:11] LABS: POC Glucose,Bedside 273 (70-110)
[2022-04-02 21:00] LABS: POC Glucose,Bedside 263 (70-110)
[2022-04-03] VITALS: BP 145/77; PULSE 68; RESP 18; TEMP 36.9; O2SAT 94
[2022-04-03 04:00] VITALS: BP 126/67; PULSE 64; RESP 18; TEMP 36.3; O2SAT 98
[2022-04-03 04:55] VITALS: BMI 43.2
[2022-04-03 05:57] LABS: POC Glucose,Bedside 198 (70-110)
--- NOTE | 2022-04-03 06:19 | PC.NURSE ---
Pt rested well this shift. No acute changes. Pt voiced no c/o of discomfort. Left sided weakness remains present. Pt is x2 assist to BSC.
[2022-04-03 07:09] LABS: Basophils % 0.2 % (0.1-2.0); Eosinophils # 0.3 K/mm3 (0.0-0.4); Eosinophils % 2.7 % (0.1-12.0); Hematocrit 38.5 % (37.0-47.0); Hemoglobin 12.3 g/dL (12.2-16.2); Lymphocytes # 1.5 K/mm3 (0.7-4.5); Lymphocytes % 14.9 % (10-50); Mean Corpuscular HGB Conc 31.9 g/dL (31.8-35.4); Mean Corpuscular Hemoglobin 23.9 pg (27.0-31.2); Mean Corpuscular Volume 74.7 fl (81-99); Mean Platelet Volume 7.4 fl (7.4-10.4); Monocytes # 0.5 K/mm3 (0.1-1.0); Monocytes % 5.2 % (1.7-9.3); Neutrophils # 7.5 K/mm3 (1.8-7.8); Neutrophils % 76.8 % (37.0-80.0); Platelet Count 382 K/mm3 (142-424); Red Blood Count 5.15 M/mm3 (4.20-5.40); Red Cell Distribution Width 15.9 % (11.5-17.5); White Blood Count 9.8 K/mm3 (4.8-10.8)
[2022-04-03 07:10] LABS: Chloride 99 mmol/L (98-107); Potassium 4.1 mmoL/L (3.5-5.1); Sodium 135 mmol/L (136-145)
[2022-04-03 07:13] LABS: Blood Urea Nitrogen 41 mg/dl (7-17); Creatinine Clearance Estimated 34 mL/min (50-200); Estimated Glomerular Filt Rate 35 ml/min (>60); GFR (African American) 43 ML/MIN (>60)
[2022-04-03 07:14] LABS: Anion Gap 10.1 mEq/L (5-15); Carbon Dioxide 30 mmol/L (22.0-30.0); Glucose 224 mg/dl (74-100)
[2022-04-03 08:00] VITALS: BP 117/66; PULSE 73; RESP 20; TEMP 36.6; O2SAT 94
--- NOTE | 2022-04-03 10:14 | HMH.ACPN2 ---
Internal Medicine - PN: Subj *Date: 04/03/22 *Time: 10:37 Interval history: 61-year-old female patient sitting up in bed resting quietly, she denies any chest pain or shortness of breath during the night. Continuing with right-sided weakness Exam Vital signs and Labs for Last 24 Hours: Temp Pulse Resp BP Pulse Ox 97.8 F 73 20 117/66 94 L 04/03/22 08:00 04/03/22 08:00 04/03/22 08:00 04/03/22 08:00 04/03/22 08:00 Laboratory Results - last 24 hr 04/02/22 11:00: POC Glucose 253 H 04/02/22 17:03: POC Glucose 273 H 04/02/22 20:28: POC Glucose 263 H 04/03/22 05:48: POC Glucose 198 H 04/03/22 06:30: WBC 9.8, RBC 5.15, Hgb 12.3, Hct 38.5, MCV 74.7 L, MCH 23.9 L, MCHC 31.9, RDW 15.9, Plt Count 382, MPV 7.4, Neut % (Auto) 76.8, Lymph % (Auto) 14.9, [place] % (Auto) 5.2, Eos % (Auto) 2.7, Baso % (Auto) 0.2, Neut # (Auto) 7.5, Lymph # (Auto) 1.5, [place] # (Auto) 0.5, Eos # (Auto) 0.3, Baso # (Auto) 0.0 04/03/22 06:30: Sodium 135 L, Potassium 4.1, Chloride 99, Carbon Dioxide 30, Anion Gap 10.1, BUN 41 H D, Creatinine 1.50 H D, Estimated Creat Clear 34, Estimated GFR 35 L, Est GFR ( Amer) 43 L D, Glucose 224 H, Calcium 9.0 I & O for Last 24 hours: Intake & Output 03/31/22 04/01/22 04/02/22 04/03/22 23:59 23:59 23:59 23:59 Intake Total 120 / 240 360 / 360 1080 / 1080 360 / 360 Output Total 400 / 400 500 / 500 Balance 120 / 240 -40 / -40 580 / 580 360 / 360 Weight 254 lb 2 oz 253 lb 15.913 oz 254 lb 6 oz 253 lb 6 oz - Constitutional no acute distress - *Routine HEENT Exam Head: Present: normocephalic Eye: Present: EOMI ENT: Present: mucous membranes moist - *Routine Neck Exam Present: trachea midline. Absent: tracheal deviation - *Routine Respiratory Exam Present: CTA bilaterally. Absent: accessory muscle use - *Routine Cardiovascular Exam Present: RRR - *Routine Abdominal Exam Present: soft, normoactive bowel sounds. Absent: tenderness, firm - *Routine Extremities Exam Present: edema, full ROM, pulses intact. Absent: cyanosis, clubbing - *Routine Skin Exam Present: intact, dry. Absent: cyanosis, erythema - *Routine Neurological Exam Present: alert, oriented X3 Continuing right-sided weakness - Routine Psychiatric Exam Present: normal affect, normal thought process Assessment and Plan (1) Cerebrovascular accident Status: Acute Qualifiers: CVA mechanism: unspecified Qualified Code(s): I63.9 - Cerebral infarction, unspecified Category: Medical Code(s): I63.9 - Cerebral infarction, unspecified (2) Morbid obesity with body mass index (BMI) of 40.0 to 44.9 in adult Status: Acute Category: Medical Code(s): E66.01 - Morbid (severe) obesity due to excess calories; Z68.41 - Body mass index [BMI] 40.0-44.9, adult (3) Type 2 diabetes mellitus Status: Chronic Qualifiers: Diabetes mellitus long-term insulin use: with long-term use Diabetes mellitus complication status: with circulatory complication Diabetes mellitus complication detail: with other circulatory complications Qualified Code(s): E11.59 - Type 2 diabetes mellitus with other circulatory complications Category: Medical Code(s): E11.9 - Type 2 diabetes mellitus without complications - Assessment and plan all Dx Assessment and Plan for all problems:: Rounded with Dr. Hauser, all orders per Dr. Hauser: 1. Case management working on rehab facility placement
--- NOTE | 2022-04-03 11:44 | DIET.NUTRFU ---
Speech completed swallow study yesterday, regular thin is recommended. Keeping food to right side of mouth d/t left side weakness. Meal intake has been good at 75% at meals and is independent with setup of trays.
[2022-04-03 11:58] LABS: POC Glucose,Bedside 303 (70-110)
[2022-04-03 13:29] VITALS: BP 101/45; PULSE 75
--- NOTE | 2022-04-03 14:23 | PC.NURSE ---
Called and spoke with Elyssa, to make Dr. Hauser aware @ [phone] in RE to pt's L sided weakness and facial droop appearing to be worse. MRI is being scheduled.
--- NOTE | 2022-04-03 14:39 | CARE MANAGER ---
Patient has been accepted by [facility]. They have submitted to insurance and we await authorization.
--- NOTE | 2022-04-03 14:49 | MR_ITS ---
FINAL REPORT CLINICAL HISTORY: CVA.INCREASING WEAKNESS IN LEFT SIDE. FACIAL DROOP. FINDINGS: Multiplanar MR imaging of the brain was performed without contrast. There is mild age-appropriate atrophy. There are scattered foci of increased T2 signal in the cerebral white matter that have a nonspecific appearance but likely represent moderate chronic ischemic/gliotic changes. There is no evidence of intracranial hemorrhage or mass. No abnormal ventricular dilatation is identified. No abnormal extra-axial fluid collection is seen. There are several chronic lacunar infarcts. There is a 20 mm right periventricular focus of restricted diffusion consistent with an acute infarct. The posterior fossa and brainstem are unremarkable. Normal major vessel vascular flow voids are seen. IMPRESSION: Acute infarct in the right periventricular region. Findings were reported to patient's nurse Asha Dave on 04/03/2022 at 4:45 p.m.. Age-appropriate atrophy and moderate chronic ischemic/gliotic changes. Reviewed, Interpreted and Dictated by Jose Greene III, MD Transcribed by Loretta Lancaster Authenticated and [facility]
--- NOTE | 2022-04-03 14:49 | PC.NURSE ---
Dr. Hauser also stated to d/c gabapentin. Noted.
--- NOTE | 2022-04-03 14:56 | PC.NURSE ---
rounded on patient. remains to have l sided weakness. is able to feel touch on left side. eager for mri for hopefully a more conclusive result. no questions or concerns at this time. family off floor. educated for her or family to let us know if any concerns or questions do arise.
--- NOTE | 2022-04-03 15:38 | PC.NURSE ---
Pt off floor at this time for MRI.
[2022-04-03 16:00] VITALS: BP 115/77; PULSE 72; RESP 22; TEMP 36.5; O2SAT 93
[2022-04-03 16:46] LABS: POC Glucose,Bedside 225 (70-110)
--- NOTE | 2022-04-03 19:31 | PC.NURSE ---
Called Dr. Flanagan consulting database administrator with results of the MRI showing an acute infarct per report, Loretta stated infarct was ischemic, from central radiology. Dr. Flanagan did order asa 325 mg x 1 and 81 mg q day.
[2022-04-03 20:00] VITALS: BP 120/62; PULSE 69; RESP 21; TEMP 36.6; O2SAT 96
[2022-04-03 20:35] LABS: POC Glucose,Bedside 232 (70-110)
--- NOTE | 2022-04-04 03:17 | PC.NURSE ---
Patient ambulated to the bedside commode with 2 assist. Left side remains flaccid. Patient states she can feel me touch her. Patient tolerated it fairly. No acute changes thus far.
[2022-04-04 04:00] VITALS: BP 106/39; PULSE 60; RESP 20; TEMP 36.4; O2SAT 95
[2022-04-04 05:00] VITALS: BMI 43.4
[2022-04-04 05:56] LABS: POC Glucose,Bedside 246 (70-110)
[2022-04-04 07:22] LABS: Basophils % 0.3 % (0.1-2.0); Eosinophils # 0.3 K/mm3 (0.0-0.4); Hematocrit 38.2 % (37.0-47.0); Hemoglobin 12.1 g/dL (12.2-16.2); Lymphocytes # 1.6 K/mm3 (0.7-4.5); Lymphocytes % 19.1 % (10-50); Mean Corpuscular HGB Conc 31.8 g/dL (31.8-35.4); Mean Corpuscular Hemoglobin 23.8 pg (27.0-31.2); Mean Corpuscular Volume 75.1 fl (81-99); Mean Platelet Volume 8.1 fl (7.4-10.4); Monocytes # 0.5 K/mm3 (0.1-1.0); Monocytes % 5.4 % (1.7-9.3); Neutrophils # 6.2 K/mm3 (1.8-7.8); Neutrophils % 72.2 % (37.0-80.0); Platelet Count 358 K/mm3 (142-424); Red Blood Count 5.09 M/mm3 (4.20-5.40); Red Cell Distribution Width 15.8 % (11.5-17.5); White Blood Count 8.5 K/mm3 (4.8-10.8)
[2022-04-04 07:39] LABS: Anion Gap 9.5 mEq/L (5-15); Blood Urea Nitrogen 61 mg/dl (7-17); Carbon Dioxide 35 mmol/L (22.0-30.0); Chloride 97 mmol/L (98-107); Creatinine Clearance Estimated 30 mL/min (50-200); Estimated Glomerular Filt Rate 31 ml/min (>60); GFR (African American) 37 ML/MIN (>60); Glucose 221 mg/dl (74-100); Potassium 4.5 mmoL/L (3.5-5.1); Sodium 137 mmol/L (136-145)
[2022-04-04 07:44] VITALS: BP 114/53; PULSE 64; RESP 17; TEMP 36.5; O2SAT 95
[2022-04-04 08:00] VITALS: O2SAT 92
--- NOTE | 2022-04-04 10:39 | PC.NURSE ---
water pitcher Patient received a new fresh water pitcher 1040 04/04/2022 Wilma Mccoy SRNA
--- NOTE | 2022-04-04 10:51 | PC.NURSE ---
Patient in chair Juliane Gray and Soha assisted with putting patient in chair from the bed side. 1052 04/04/2022 Wilma Mccoy SRNA
[2022-04-04 11:33] LABS: POC Glucose,Bedside 236 (70-110)
--- NOTE | 2022-04-04 12:44 | PC.NURSE ---
ROUNDED ON PATIENT. ASSISTED WITH OPENING THINGS ON LUNCH TRAY. SHE FEELS SHE HAS AN UNDERSTANDING OF DIAGNOSIS AND MEDICATIONS. NO COMPLAINTS. DID ASK IF IT WAS POSSIBLE TO DISCHARGE THURSDAY OR THURSDAY. DID EDUCATE THAT USUALLY ONCE MD FELT PATIENT WAS MEDICALLY STABLE HE WOULD DISCHARGE THEN ESPECIALLY WITH A SAFE PLACE TO GO, BUT WOULD MENTION THIS TO CASE MANAGEMENT AND THEY WOULD COME OVER TO ANSWER ANY QUESTIONS OR CONCERNS. NO OTHER NEEDS VOICED AT THIS TIME.
--- NOTE | 2022-04-04 14:59 | CARE MANAGER ---
Addendum entered by Guerita Cates RN 04/04/22 15:02: Call weekend phone with any issues @ [phone]. Original Note: I spoke with Monet at [facility]. Patient has authorization and will have a bed tomorrow, Thursday 04/05. Patient will be going to the stroke unit. Fax DC summary to [phone] and [phone] and call report to [phone].
[2022-04-04 15:16] VITALS: BP 100/42; PULSE 65; RESP 16; TEMP 36.6; O2SAT 92
--- NOTE | 2022-04-04 15:47 | HMH.ACPN2 ---
Internal Medicine - PN: Subj *Date: 04/04/22 *Time: 08:47 Interval history: 61-year-old female patient sitting up in chair, she denies any chest pain or shortness of breath during night. Today she is unable to move her left upper extremity or left lower extremity. MRI revealed acute infarct in the right periventricular area Exam Vital signs and Labs for Last 24 Hours: Temp Pulse Resp BP Pulse Ox 97.8 F 65 16 100/42 L 92 L 04/04/22 15:16 04/04/22 15:16 04/04/22 15:16 04/04/22 15:16 04/04/22 15:16 Laboratory Results - last 24 hr 04/03/22 16:36: POC Glucose 225 H 04/03/22 20:27: POC Glucose 232 H 04/04/22 05:50: POC Glucose 246 H 04/04/22 07:15: WBC 8.5, RBC 5.09, Hgb 12.1 L, Hct 38.2, MCV 75.1 L, MCH 23.8 L, MCHC 31.8, RDW 15.8, Plt Count 358, MPV 8.1, Neut % (Auto) 72.2, Lymph % (Auto) 19.1, [place] % (Auto) 5.4, Eos % (Auto) 3.0, Baso % (Auto) 0.3, Neut # (Auto) 6.2, Lymph # (Auto) 1.6, [place] # (Auto) 0.5, Eos # (Auto) 0.3, Baso # (Auto) 0.0 04/04/22 07:15: Sodium 137, Potassium 4.5, Chloride 97 L, Carbon Dioxide 35 H, Anion Gap 9.5, BUN 61 H D, Creatinine 1.70 H, Estimated Creat Clear 30, Estimated GFR 31 L, Est GFR ( Amer) 37 L, Glucose 221 H, Calcium 9.0 04/04/22 11:24: POC Glucose 236 H I & O for Last 24 hours: Intake & Output 04/01/22 04/02/22 04/03/22 04/04/22 23:59 23:59 23:59 23:59 Intake Total 360 / 360 1080 / 1080 600 / 600 480 / 480 Output Total 400 / 400 500 / 500 Balance -40 / -40 580 / 580 600 / 600 480 / 480 Weight 253 lb 15.913 oz 254 lb 6 oz 253 lb 6 oz 254 lb 2.735 oz - Constitutional no acute distress - *Routine HEENT Exam Head: Present: normocephalic Eye: Present: EOMI ENT: Present: mucous membranes moist - *Routine Neck Exam Present: trachea midline. Absent: tracheal deviation - *Routine Respiratory Exam Present: CTA bilaterally. Absent: accessory muscle use - *Routine Cardiovascular Exam Present: RRR - *Routine Abdominal Exam Present: soft, normoactive bowel sounds. Absent: tenderness, rebound - *Routine Extremities Exam Present: pulses intact. Absent: cyanosis, clubbing, full ROM Comments: Unable to move left upper extremity left lower extremity - *Routine Skin Exam Present: intact, dry. Absent: cyanosis, erythema - *Routine Neurological Exam Present: alert, oriented X3. Absent: normal reflexes Assessment and Plan (1) Cerebrovascular accident Status: Acute Qualifiers: CVA mechanism: unspecified Qualified Code(s): I63.9 - Cerebral infarction, unspecified Category: Medical Code(s): I63.9 - Cerebral infarction, unspecified (2) Morbid obesity with body mass index (BMI) of 40.0 to 44.9 in adult Status: Acute Category: Medical Code(s): E66.01 - Morbid (severe) obesity due to excess calories; Z68.41 - Body mass index [BMI] 40.0-44.9, adult (3) Type 2 diabetes mellitus Status: Chronic Qualifiers: Diabetes mellitus penitentiary insulin use: with long term care administrator use Diabetes mellitus complication status: with circulatory complication Diabetes mellitus complication detail: with other circulatory complications Qualified Code(s): E11.59 - Type 2 diabetes mellitus with other circulatory complications Category: Medical Code(s): E11.9 - Type 2 diabetes mellitus without complications - Assessment and plan all Dx Assessment and Plan for all problems:: Rounded with Dr. Hutchinson, all orders per Dr. Hutchinson: 1. Case management working on placement
[2022-04-04 16:59] LABS: POC Glucose,Bedside 300 (70-110)
--- NOTE | 2022-04-04 17:16 | PC.NURSE ---
patient has been provided with a new ice pitcher and trash has been taken out
--- NOTE | 2022-04-04 17:27 | PC.NURSE ---
Juliane and I gave patient a bath. 1620 04/04/2022 Wilma Mccoy
--- NOTE | 2022-04-04 19:02 | PC.NURSE ---
patient refused taking IV out and placing new one since she is leaving tomorrow for [facility]
[2022-04-04 20:00] VITALS: BP 104/48; PULSE 65; RESP 20; TEMP 36.8; O2SAT 95
[2022-04-04 20:30] VITALS: BP 133/64; PULSE 66; O2SAT 95
[2022-04-04 21:47] LABS: POC Glucose,Bedside 268 (70-110)
[2022-04-05 03:56] VITALS: BP 111/58; PULSE 65; RESP 20; TEMP 36.6; O2SAT 94
--- NOTE | 2022-04-05 04:00 | PC.NURSE ---
pt rested well through the night, pt NIH is at 9; pt is unable to move left arm or leg but still states sensation upon touch; +pedal and radial pulses to left side, pt alert and oriented x4; mild left sided facial droop noted, gag and swallow reflex intact, pt requires 4 assist to get up to bsc, no changes from previous assessment
[2022-04-05 05:00] VITALS: BMI 43.4
[2022-04-05 07:18] LABS: POC Glucose,Bedside 193 (70-110)
[2022-04-05 07:19] LABS: Basophils # 0.1 K/mm3 (0-0.2); Basophils % 1.7 % (0.1-2.0); Eosinophils # 0.3 K/mm3 (0.0-0.4); Eosinophils % 3.6 % (0.1-12.0); Hematocrit 38.2 % (37.0-47.0); Hemoglobin 11.6 g/dL (12.2-16.2); Lymphocytes # 1.4 K/mm3 (0.7-4.5); Lymphocytes % 16.5 % (10-50); Mean Corpuscular HGB Conc 30.3 g/dL (31.8-35.4); Mean Corpuscular Hemoglobin 23.8 pg (27.0-31.2); Mean Corpuscular Volume 78.5 fl (81-99); Mean Platelet Volume 8.2 fl (7.4-10.4); Monocytes # 0.5 K/mm3 (0.1-1.0); Monocytes % 6.4 % (1.7-9.3); Neutrophils # 5.9 K/mm3 (1.8-7.8); Neutrophils % 71.8 % (37.0-80.0); Platelet Count 338 K/mm3 (142-424); Red Blood Count 4.87 M/mm3 (4.20-5.40); Red Cell Distribution Width 17.2 % (11.5-17.5); White Blood Count 8.2 K/mm3 (4.8-10.8)
[2022-04-05 07:25] LABS: Anion Gap 8.7 mEq/L (5-15); Blood Urea Nitrogen 62 mg/dl (7-17); Calcium 8.9 mg/dl (8.4-10.2); Carbon Dioxide 32 mmol/L (22.0-30.0); Chloride 100 mmol/L (98-107); Creatinine Clearance Estimated 36 mL/min (50-200); Estimated Glomerular Filt Rate 38 ml/min (>60); GFR (African American) 46 ML/MIN (>60); Glucose 196 mg/dl (74-100); Potassium 4.7 mmoL/L (3.5-5.1); Sodium 136 mmol/L (136-145)
[2022-04-05 07:37] VITALS: BP 109/49; PULSE 69; RESP 17; TEMP 36.6; O2SAT 92
--- NOTE | 2022-04-05 09:13 | HMH.DCSUM ---
General - General Admission date:: 03/31/22 Discharge date: 04/05/22 HPI HPI: 61-year-old female patient presented to the [facility] emergency department with reports of left-sided weakness since Thursday, the patient's NIH stroke scale was 4, she was unable to walk. CT of the head did not show any acute activities but did show older lacunar infarcts. She was outside the thrombolytic window as she was last known to be normal 4 days prior. She was seen at another emergency department on Thursday for this and was told it was due to her sciatic nerve. She has had a TIA in the past and has been on Plavix, she also reports missing several doses in the last week. Hospital Course Hospital Course: pt was admitted from ed with onset of lt upper and lower weakness with hx of cva in past and on asa and plavix - pt has been compliant with meds - ct in the ed was neg for acute cva- pt with diastolic dysfunction on echo and stable carotid doppler with prolonged qt on ekg with no a fib - pt with progressive sx of cva and has marked dec use of lt upper and lt lower ext and mri showed -rt acute cva - pt will be transferred to [facility] for eval and rehab treatment Objective Vital signs: Temp Pulse Resp BP Pulse Ox 97.8 F 69 17 109/49 L 92 L 04/05/22 07:37 04/05/22 07:37 04/05/22 07:37 04/05/22 07:37 04/05/22 07:37 no acute distress, obese - *Routine HEENT Exam Head: Present: normocephalic Eye: Present: EOMI, PERRL ENT: Present: mucous membranes dry - *Routine Neck Exam Present: supple. Absent: JVD - *Routine Respiratory Exam Present: decreased breath sounds - *Routine Cardiovascular Exam Present: RRR, murmur, S4 - *Routine Abdominal Exam Present: soft - *Routine Extremities Exam Absent: calf tenderness - *Routine Skin Exam Present: intact - *Routine Neurological Exam Present: alert, oriented X3, sensory deficit, motor deficit, facial asymmetry, normal speech. Absent: moving all extremities - Routine Psychiatric Exam Present: cooperative Results Labs on day of discharge: Labs from last 24 hours 04/05/22 04/05/22 04/05/22 06:30 06:26 06:26 WBC 8.2 RBC 4.87 Hgb 11.6 L Hct 38.2 MCV 78.5 L MCH 23.8 L MCHC 30.3 L RDW 17.2 Plt Count 338 MPV 8.2 Neut % (Auto) 71.8 Lymph % (Auto) 16.5 [place] % (Auto) 6.4 Eos % (Auto) 3.6 Baso % (Auto) 1.7 Neut # (Auto) 5.9 Lymph # (Auto) 1.4 [place] # (Auto) 0.5 Eos # (Auto) 0.3 Baso # (Auto) 0.1 Sodium 136 Potassium 4.7 Chloride 100 Carbon Dioxide 32 H Anion Gap 8.7 BUN 62 H Creatinine 1.40 H Estimated Creat Clear 36 Estimated GFR 38 L Est GFR ( Amer) 46 L D Glucose 196 H POC Glucose 193 H Calcium 8.9 04/04/22 04/04/22 04/04/22 20:20 16:51 11:24 WBC RBC Hgb Hct MCV MCH MCHC RDW Plt Count MPV Neut % (Auto) Lymph % (Auto) [place] % (Auto) Eos % (Auto) Baso % (Auto) Neut # (Auto) Lymph # (Auto) [place] # (Auto) Eos # (Auto) Baso # (Auto) Sodium Potassium Chloride Carbon Dioxide Anion Gap BUN Creatinine Estimated Creat Clear Estimated GFR Est GFR ( Amer) Glucose POC Glucose 268 H 300 H 236 H Calcium DS: Diagnosis - Discharge Diagnosis (1) Cerebrovascular accident Status: Acute (2) Morbid obesity with body mass index (BMI) of 40.0 to 44.9 in adult Status: Acute (3) Type 2 diabetes mellitus Status: Chronic (4) Diastolic dysfunction Status: Acute (5) Prolonged Q-T interval on ECG Status: Acute (6) Multiple lacunar infarcts Status: Acute (7) Renal insufficiency Status: Acute Discharge Plan - Patient Discharge Instructions ACTIVITY: Continue current activity DIET: continue same diet Patient Instructions: DI for Stroke-Ischemic, Right B
--- NOTE | 2022-04-05 11:13 | PC.NURSE ---
Called report to wilberto PADILLA
--- NOTE | 2022-04-05 11:20 | PC.NURSE ---
recording clerk called EMS for transport
--- NOTE | 2022-04-05 11:40 | PC.NURSE ---
Called [facility] that EMS has been contacted for transport
--- NOTE | 2022-04-08 14:14 | CARE MANAGER ---
Patient is at [facility] for rehab. Denies any questions or concerns. Rafael PADILLA
== END 2022-04-05 11:52 | DRG 65 ==
LOC: ER 16:56 → 2ND 17:17 → OB 20:01 → 2ND 04-01 15:43
PROVIDERS: Nurse Practitioner Family; Admitting Provider Family Medicine; Emergency Provider Emergency Medicine; PCP Family Medicine; Visit Provider Family Medicine
DX: I63.81 Other cerebral infarction due to occlusion or stenosis of small artery (principal); Z68.41 Body mass index [BMI] 40.0-44.9, adult; G81.94 Hemiplegia, unspecified affecting left nondominant side; E66.01 Morbid (severe) obesity due to excess calories; J44.9 Chronic obstructive pulmonary disease, unspecified; E11.9 Type 2 diabetes mellitus without complications; I25.10 Atherosclerotic heart disease of native coronary artery without angina pectoris; I10 Essential (primary) hypertension; Z79.4 Long term (current) use of insulin; Z79.01 Long term (current) use of anticoagulants; R29.704 NIHSS score 4; Z79.84 Long term (current) use of oral hypoglycemic drugs; K21.9 Gastro-esophageal reflux disease without esophagitis; E78.5 Hyperlipidemia, unspecified; Z86.73 Personal history of transient ischemic attack (TIA), and cerebral infarction without residual deficits; M19.90 Unspecified osteoarthritis, unspecified site
CPT/HCPCS: 36415; 70450; 70551; 71045; 80048; 80053; 82962; 84484; 85025; 85610; 85730; 92610; 93005; 93306; 93880; 97110; 97162; 97165; 97530; 99285; C9803; U0003; U0005

== ENCOUNTER → 2023-05-20 21:42 | Outpatient (CLI) | payer MEDICAID, SELFPAY ==
[2023-05-20 18:57] LABS: Basophils % 0.1 % (0.1-2.0); Eosinophils # 0.2 K/mm3 (0.0-0.4); Eosinophils % 1.5 % (0.1-12.0); Hematocrit 39.9 % (37.0-47.0); Hemoglobin 12.5 g/dL (12.2-16.2); Lymphocytes # 1.2 K/mm3 (0.7-4.5); Mean Corpuscular HGB Conc 31.4 g/dL (31.8-35.4); Mean Corpuscular Hemoglobin 24.8 pg (27.0-31.2); Mean Platelet Volume 8.4 fl (7.4-10.4); Monocytes # 0.4 K/mm3 (0.1-1.0); Monocytes % 4.4 % (1.7-9.3); Neutrophils # 8.2 K/mm3 (1.8-7.8); Neutrophils % 82.1 % (37.0-80.0); Platelet Count 337 K/mm3 (142-424); Red Blood Count 5.05 M/mm3 (4.20-5.40); Red Cell Distribution Width 16.2 % (11.5-17.5)
[2023-05-20 19:07] LABS: Alanine Aminotransferase 22 U/L (12-78); Albumin Level 3.5 g/dl (3.5-5.0); Albumin/Globulin Ratio 1.1 (1.1-1.8); Alkaline Phosphatase 156 U/L (38-126); Anion Gap 13.9 mEq/L (5-15); Aspartate Amino Transferase 23 U/L (14-36); Bilirubin,Total 0.5 mg/dl (0.2-1.3); Blood Urea Nitrogen 17 mg/dl (7-17); Calcium 8.9 mg/dl (8.4-10.2); Carbon Dioxide 30 mmol/L (22.0-30.0); Chloride 97 mmol/L (98-107); Chol/HDL Ratio 5.5 (1-3.5); Cholesterol 246 mg/dl (140-200); Estimated Glomerular Filt Rate 72 ml/min (>60); GFR (African American) 88 ML/MIN (>60); Globulin 3.2 g/dL (1.3-3.2); Glucose 332 mg/dl (74-100); HDL Cholesterol 45 mg/dl (40-60); Potassium 3.9 mmoL/L (3.5-5.1); Sodium 137 mmol/L (136-145); Total Protein,Serum 6.7 g/dl (6.3-8.2); Triglycerides 279 mg/dl (30-150); VLDL Cholesterol 56 mg/dL (0-40)
[2023-05-20 19:18] LABS: Direct LDL Cholesterol 130.01 mg/dL (100-129)
[2023-05-20 19:19] LABS: Hemoglobin A1C 11.8 % (4.0-6.0)
[2023-05-20 19:38] LABS: Thyroid Stimulating Hormone 0.79 uIU/mL (0.465-4.68)
== END ==
PROVIDERS: PCP Family Medicine; Visit Provider Family Medicine
DX: E11.9 Type 2 diabetes mellitus without complications (principal); Z79.4 Long term (current) use of insulin; Z79.899 Other long term (current) drug therapy
CPT/HCPCS: 80053; 80061; 83036; 84443; 85025

== ENCOUNTER → 2023-07-16 23:25 | Outpatient (CLI) | payer MEDICAID, SELFPAY | PROVIDERS: PCP Family Medicine; Visit Provider Family Medicine | DX: N39.0 Urinary tract infection, site not specified (principal); B96.29 Other Escherichia coli [E. coli] as the cause of diseases classified elsewhere | CPT/HCPCS: 87086 ==

== ENCOUNTER 2024-01-26 14:01 | Outpatient (CLI) | payer MEDICAID, SELFPAY ==
[2024-01-26 14:35] LABS: Basophils % 0.5 % (0.1-2.0); Eosinophils # 0.3 K/mm3 (0.0-0.4); Eosinophils % 3.8 % (0.1-12.0); Hematocrit 35.8 % (37.0-47.0); Hemoglobin 11.1 g/dL (12.2-16.2); Lymphocytes # 1.2 K/mm3 (0.7-4.5); Mean Corpuscular Hemoglobin 24.4 pg (27.0-31.2); Mean Corpuscular Volume 78.7 fl (81-99); Mean Platelet Volume 7.9 fl (7.4-10.4); Monocytes # 0.3 K/mm3 (0.1-1.0); Monocytes % 3.9 % (1.7-9.3); Neutrophils # 5.5 K/mm3 (1.8-7.8); Neutrophils % 74.8 % (37.0-80.0); Platelet Count 330 K/mm3 (142-424); Red Blood Count 4.55 M/mm3 (4.20-5.40); Red Cell Distribution Width 16.7 % (11.5-17.5); Reticulocyte % (Auto) 1.8 % (0.9-3.2); White Blood Count 7.4 K/mm3 (4.8-10.8)
[2024-01-26 15:28] LABS: Chloride 103 mmol/L (98-107); Potassium 3.6 mmoL/L (3.5-5.1); Sodium 138 mmol/L (136-145)
[2024-01-26 15:30] LABS: Alanine Aminotransferase 23 U/L (12-78); Aspartate Amino Transferase 25 U/L (14-36); Blood Urea Nitrogen 19 mg/dl (7-17); Estimated Glomerular Filt Rate 72 ml/min (>60); GFR (African American) 88 ML/MIN (>60)
[2024-01-26 15:31] LABS: Albumin Level 3.3 g/dl (3.5-5.0); Alkaline Phosphatase 136 U/L (38-126); Anion Gap 8.6 mEq/L (5-15); Bilirubin,Total 0.5 mg/dl (0.2-1.3); Calcium 8.9 mg/dl (8.4-10.2); Carbon Dioxide 30 mmol/L (22.0-30.0); Globulin 3.2 g/dL (1.3-3.2); Glucose 296 mg/dl (74-100); Iron 48 ug/dL (37-170); Total Protein,Serum 6.5 g/dl (6.3-8.2)
[2024-01-26 15:40] LABS: Total Iron Binding Capacity 196 ug/dL (265-497)
[2024-01-26 16:06] LABS: Ferritin 115 ng/ml (11.1-264)
[2024-01-26 16:52] LABS: Lactate Dehydrogenase 183 U/L (313-618)
[2024-01-26 17:57] LABS: Folate 6.68 ng/mL; Vitamin B12 483 pg/mL (239-931)
[2024-01-28 10:42] LABS: Haptoglobin 323 mg/dL (37-355)
== END 2024-01-26 23:59 | disposition home or self-care (01) ==
LOC: LAB 14:02
PROVIDERS: PCP Family Medicine; Visit Provider Internal Medicine Medical Oncology
DX: D50.9 Iron deficiency anemia, unspecified (principal); D64.9 Anemia, unspecified
CPT/HCPCS: 36415; 80053; 82607; 82728; 82746; 83010; 83540; 83550; 83615; 85025; 85044; 86880

== ENCOUNTER 2024-05-15 15:55 | Emergency (ER) | payer MEDICAID, SELFPAY ==
[2024-05-15 15:55] VITALS: BP 186/88; PULSE 65; RESP 16; TEMP 36.8; O2SAT 94; BMI 42.9
[2024-05-15 15:59] VITALS: BP 184/95; PULSE 61; RESP 16; O2SAT 96
--- NOTE | 2024-05-15 16:00 | ECG_ITS ---
APPROVED REPORT Exam: Resting ECG HR:63 bpm ECG Measurements Heart Rate 63 AXES TN 180 P 51 QRSd 85 QRS -1 QT 439 T 39 QTc 447 Conclusion SINUS RHYTHM MODERATE VOLTAGE CRITERIA FOR LVH, CONSIDER NORMAL VARIANT [MEETS CRITERIA IN ONE OF: R(aVL), S(V1), R(V5), R(V5/V6)+S(V1)] NONSPECIFIC T-WAVE ABNORMALITY BORDERLINE ECG Electronically signed by : PRINCE SHABAZZ, 05/15/2024 23:28:19
--- NOTE | 2024-05-15 16:05 | PC.NURSE ---
DR SHABAZZ AT BEDSIDE
--- NOTE | 2024-05-15 16:10 | CT_ITS ---
PROCEDURE INFORMATION: Exam: CT Head Without Contrast Exam date and time: 05/15/2024 4:26 PM Age: 64 years old Clinical indication: Pain; Headache not specified; Additional info: kirk ALMANZAR stroke TECHNIQUE: Imaging protocol: Computed tomography of the head without contrast. Radiation optimization: All CT scans at this facility use at least one of these dose optimization techniques: automated exposure control; mA and/or kV adjustment per patient size (includes targeted exams where dose is matched to clinical indication); or iterative reconstruction. COMPARISON: MR HEAD/BRAIN WO CON 04/03/2022 3:49 PM FINDINGS: Brain: Age-related involutional changes and chronic microvascular ischemic disease. Small chronic infarct involving the right basal ganglia. No evidence for acute transcortical infarct. No mass effect or midline shift. No extra-axial collection. No acute intracranial hemorrhage. Basal cisterns are patent. Cerebral ventricles: No ventriculomegaly. Paranasal sinuses: Visualized sinuses are unremarkable. No fluid levels. Mastoid air cells: Visualized mastoid air cells are well aerated. Bones: Unremarkable. No acute fracture. Soft tissues: Unremarkable. IMPRESSION: No hydrocephalus, acute intracranial hemorrhage, or mass effect.
--- NOTE | 2024-05-15 16:17 | ED_ITS ---
Discharge Plan Disposition Patient Disposition: Home, Self-Care Chief Complaint: Headache Prescriptions Prescriptions: No Action nitroglycerin 0.4 mg tablet, sublingual 0.4 mg sublingual Q5-15M PRN (Reason: chest pain) Qty: 10 0RF Rx Instructions: do not exceed 3 doses per episode cyanocobalamin (vitamin B-12) 1,000 mcg tablet 1,000 mcg PO DAILY Patient Comments: TAKE ONE TABLET BY MOUTH EVERY DAY exenatide microspheres 2 mg/0.85 mL auto-injector 2 mg SQ WEEKLY Qty: 3.4 10RF hydrocodone-acetaminophen 7.5-325 mg tablet 1 tab PO BID PRN (Reason: pain) Qty: 60 0RF Rx Instructions: use prn pain and half-whole before therapy if needed docusate sodium 100 mg capsule 100 mg PO DAILY Qty: 30 10RF gabapentin 100 mg capsule 100 mg PO TID PRN (Reason: pain) Qty: 90 5RF allopurinol 100 mg tablet 100 mg PO DAILY Qty: 90 3RF aspirin 81 mg tablet,delayed release (DR/EC) 81 mg PO DAILY Qty: 100 3RF isosorbide mononitrate 120 mg tablet extended release 24 hr 120 mg PO DAILY Qty: 90 3RF torsemide 10 mg tablet 10 mg PO DAILY Qty: 90 3RF clopidogrel 75 mg tablet 75 mg PO DAILY Qty: 90 3RF losartan 100 mg tablet 100 mg PO DAILY Qty: 90 3RF loratadine 10 mg tablet 10 mg PO DAILY Qty: 90 3RF metformin 500 mg tablet extended release 24 hr See Rx Instructions .ROUTE .COMPLEX Qty: 180 3RF Dose Instruction: TAKE TWO TABLETS BY MOUTH TWICE DAILY Rx Instructions: TAKE TWO TABLETS BY MOUTH TWICE DAILY metoprolol succinate 100 mg tablet extended release 24 hr 100 mg PO BID Qty: 180 3RF pramipexole 0.125 mg tablet 0.125 mg PO DAILY Qty: 90 3RF atorvastatin [Lipitor] 40 mg tablet 40 mg PO DAILY Qty: 90 3RF trazodone 150 mg tablet 150 mg PO HS Qty: 90 3RF (DME) OneTouch Verio test strips Strip See Rx Instructions .Route Qty: 100 2RF Rx Instructions: Test 4 times daily or As directed albuterol sulfate 2.5 mg /3 mL (0.083 %) solution for nebulization 2.5 mg continuous nebulization Q6H PRN (Reason: shortness of breath or wheezing) Qty: 180 3RF ferrous sulfate [FeroSul] 325 mg (65 mg iron) tablet See Rx Instructions .ROUTE .COMPLEX Qty: 180 3RF Dose Instruction: TAKE ONE TABLET BY MOUTH TWICE DAILY Rx Instructions: TAKE ONE TABLET BY MOUTH TWICE DAILY famotidine 40 mg tablet 40 mg PO BID Qty: 180 3RF fluoxetine 20 mg capsule 20 mg PO DAILY Qty: 90 3RF ranolazine 1,000 mg tablet extended release 12 hr 1,000 mg PO BID Qty: 180 3RF benzonatate 200 mg capsule 200 mg PO TID PRN (Reason: cough) Qty: 90 3RF diltiazem HCl 240 mg capsule,extended release 24hr See Rx Instructions .ROUTE .COMPLEX Qty: 90 3RF Dose Instruction: TAKE ONE CAPSULE BY MOUTH EVERY DAY Rx Instructions: TAKE ONE CAPSULE BY MOUTH EVERY DAY hydralazine 50 mg tablet See Rx Instructions .ROUTE .COMPLEX Qty: 90 3RF Dose Instruction: TAKE ONE TABLET BY MOUTH THREE TIMES DAILY Rx Instructions: TAKE ONE TABLET BY MOUTH THREE TIMES DAILY (DME) Dexcom G6 Transmitter Device See Rx Instructions .ROUTE .COMPLEX Qty: 1 1RF Dose Instruction: APPLY ONE TRANSMITTER DIRECTED ON TOP OF SENSOR AND REPLACE EVERY 90 DAYS Rx Instructions: APPLY ONE TRANSMITTER DIRECTED ON TOP OF SENSOR AND REPLACE EVERY 90 DAYS insulin lispro 100 UNIT/ML cartridge 0 unit SQ DIRECTED Rx Instructions: INSULIN PUMP Referrals Follow up/Referrals: Oscar Hauser MD [Primary Care Provider] - See instructions Activity Restrictions/Add. Instructions Additional Instructions/Restrictions: At this time it was felt you are safe to be discharged home. If new or worsening symptoms please do not hesitate to return the emergency department. Clinical Impressions Clinical Impression: Headache Print Language Print Language: Yoruba Discharge ED Provider: Daniel Foster General Adult HPI General Chief complaint: Headache Stated complaint: MIGRAINE Time Seen by Provider: 05/15/24 16:00 Mode of Arrival: EMS Source of Information: Patient Limitations: No Limitations Description of Symptoms (Recalled from ER Triage Doc. by RN): Patient reports having a migraine since yesterday. Also complains of her chest feeling funny and vomiting. Zofran 4mg given enroute. History of Present Illness HPI narrative: Patient is a 64-year-old female past medical history of recurrent headaches, previous CVA with left-sided residual, insulin-dependent diabetes who presents emergency department for evaluation of headache. Denies cough, dysuria, abdominal pain, chest pain. Of note she stated her chest felt funny to nursing staff but denies chest pain to me. Currently she has a right-sided hemicranial headache that is moderate to severe in intensity. It is refractory to Zofran and Tylenol at home. No trauma. With respect to her functional baseline she is at her baseline, she has no use of her left upper extremity with exception of wiggling her hand, no functional use of her left lower extremity although some muscles are able to fire. She has no reported visual complaints, no reported speech changes or functional status changes. No other acute complaints at this time Related Data Home Medications ?Medication ?Instructions ?Recorded ?Confirmed insulin lispro 100 unit/mL 0 unit SQ DIRECTED Diabetes 04/01/22 01/26/24 subcutaneous cartridge cyanocobalamin (vitamin B-12) 1,000 mcg PO DAILY 06/11/22 01/26/24 1,000 mcg tablet Previous Rx's ?Medication ?Instructions ?Recorded nitroglycerin 0.4 mg sublingual 0.4 mg sublingual Q5-15M PRN chest 12/27/21 tablet pain #10 tabs blood sugar diagnostic (OneTouch #100 ea 05/09/22 Verio test strips) exenatide microspheres 2 mg/0.85 2 mg (0.85 mL) SQ WEEKLY Diabetes 06/20/22 mL subcutaneous auto-injector #3.4 mL albuterol sulfate 2.5 mg/3 mL 2.5 mg (3 mL) continuous 10/15/22 (0.083 %) solution for nebulization nebulization Q6H PRN shortness of breath or wheezing #180 mL allopurinol 100 mg tablet 100 mg PO DAILY GOUT #90 tabs 05/20/23 aspirin 81 mg tablet,delayed 81 mg PO DAILY #100 tabs 05/20/23 release atorvastatin 40 mg tablet (Lipitor) 40 mg PO DAILY #90 tabs 05/20/23 clopidogrel 75 mg tablet 75 mg PO DAILY cva #90 tabs 05/20/23 isosorbide mononitrate 120 mg 120 mg PO DAILY heart #90 tabs 05/20/23 tablet,extended release 24 hr loratadine 10 mg tablet 10 mg PO DAILY #90 tabs 05/20/23 losartan 100 mg tablet 100 mg PO DAILY Cholesterol #90 05/20/23 tabs metformin 500 mg tablet,extended See Rx Instructions .Route 05/20/23 release 24 hr .COMPLEX #180 tabs metoprolol succinate 100 mg 100 mg PO BID High blood pressure 05/20/23 tablet,extended release 24 hr #180 tabs pramipexole 0.125 mg tablet 0.125 mg PO DAILY RLS #90 tabs 05/20/23 torsemide 10 mg tablet 10 mg PO DAILY #90 tabs 05/20/23 trazodone 150 mg tablet 150 mg PO HS #90 tabs 05/20/23 docusate sodium 100 mg capsule 100 mg PO DAILY #30 caps 07/16/23 hydrocodone 7.5 mg-acetaminophen 1 tab PO BID PRN pain #60 tabs 07/16/23 325 mg tablet ferrous sulfate 325 mg (65 mg See Rx Instructions .Route 07/20/23 iron) tablet (FeroSul) .COMPLEX #180 tabs gabapentin 100 mg capsule 100 mg PO TID PRN pain #90 caps 11/25/23 famotidine 40 mg tablet 40 mg PO BID stomach #180 tabs 12/21/23 fluoxetine 20 mg capsule 20 mg PO DAILY mood #90 caps 12/21/23 ranolazine 1,000 mg 1,000 mg PO BID heart #180 tabs 12/21/23 tablet,extended release,12 hr benzonatate 200 mg capsule 200 mg PO TID PRN cough #90 caps 01/18/24 diltiazem HCl 240 mg See Rx Instructions .Route 02/18/24 capsule,extended release 24 hr .COMPLEX #90 caps hydralazine 50 mg tablet See Rx Instructions .Route 02/18/24 .COMPLEX #90 tabs blood-glucose transmitter (Dexcom #1 ea 03/30/24 G6 Transmitter device) Allergies Allergy/AdvReac Type Severity Reaction Status Date / Time lisinopril Allergy Severe Hives Verified 01/26/24 13:36 strawberry Allergy Severe Anaphylaxis Verified 01/26/24 13:36 codeine AdvReac Severe Vomiting Verified 01/26/24 13:36 Penicillins AdvReac Severe Vomiting Verified 01/26/24 13:36 [facility] Disclaimer: The information contained in this section may have been updated after the patient was seen, as this information can be updated by other users. Medical History Arthritis Renal disease HTN (hypertension), benign HLD (hyperlipidemia) GERD (gastroesophageal reflux disease) COPD (chronic obstructive pulmonary disease) Asthma Anxiety Type 2 diabetes mellitus TIA (transient ischemic attack) Surgical History H/O tubal ligation H/O total hysterectomy History of carpal tunnel release of both wrists Social History Smoking Status: Never smoker alcohol intake: never substance use type: denies use current occupational status: retired Travel in the last 8 weeks: None housing: house ROS Obtained: Yes Systems reviewed as appropriate & no additional complaints except as documented Physical Exam General General appearance: alert and in no apparent distress Head Head exam: atraumatic and normocephalic Eye Eye exam: Present PERRL and EOMI ENT ENT exam: Present mucous membranes moist and other (No trismus) Neck Neck exam: Present normal inspection and full ROM Chest Chest inspection: Present normal inspection and symmetric chest wall rise Respiratory Respiratory exam: Present normal lung sounds bilaterally; Absent respiratory distress Cardiovascular Cardiovascular exam: Present regular rate and normal rhythm Abdominal Exam Abdominal exam: Present soft; Absent tenderness Extremities Exam Extremities exam: Present normal inspection Neurological Exam Neurological exam: Present alert, oriented X3, CN II-XII intact and motor sensory deficit (1 out of 5 strength left upper extremity, 0 out of 5 strength left lower extremity. 5 out of 5 strength right upper and right lower extremity.) Psychiatric Psychiatric exam: Present normal affect Skin Skin exam: Present warm and dry Medical Decision Making Stevan Inquiry Pt receiving controlled substance: No Vital Signs: 05/15/24 15:55 05/15/24 15:59 05/15/24 17:00 Temperature 98.2 F Temperature Source Oral Pulse Rate 61 65 Pulse Rate [Radial] 65 Respiratory Rate 16 16 16 Blood Pressure 184/95 H 183/87 H Blood Pressure [Right Arm] 186/88 H Blood Pressure Mean [Right Arm] 120 Blood Pressure Source Automatic Cuff Blood Pressure Source [Right Arm] Automatic Cuff Blood Pressure Position Supine Blood Pressure Position [Right Arm] Sitting 02 Sat by Pulse Oximetry 94 L 96 94 L Oxygen Delivery Method Room Air Room Air Room Air Lab Data Lab Results 05/15/24 15:53: WBC 10.2, RBC 4.70, Hgb 11.5 L, Hct 37.5, MCV 79.6 L, MCH 24.4 L , MCHC 30.7 L, RDW 16.5, Plt Count 345, MPV 8.7, Neut % (Auto) 83.5 H, Lymph % (Auto) 11.2, [place] % (Auto) 2.5, Eos % (Auto) 2.2, Baso % (Auto) 0.6, Neut # (Auto) 8.5 H, Lymph # (Auto) 1.1, [place] # (Auto) 0.3, Eos # (Auto) 0.2, Baso # (Auto) 0.1, Sodium 133 L, Potassium 4.7, Chloride 104, Carbon Dioxide 25, Anion Gap 8.7, BUN 18 H, Creatinine 0.90, Estimated Creat Clear 49, Estimated GFR 63, Est GFR ( Amer) 76, Glucose 329 H, Calcium 8.4, Magnesium 1.8, Total Bilirubin 0.7, AST 31, ALT 21, Alkaline Phosphatase 126, Troponin I < 0.01, Total Protein 6.3, Albumin 3.2 L, Globulin 3.1, Albumin/Globulin Ratio 1.0 L 05/15/24 15:53 05/15/24 15:53 Orders (Tests/Meds): ED MEDICATIONS Discontinued Medications Generic Name Dose Route Start Last Admin Trade Name Manuelitoq PRN Reason Stop Dose Admin Acetaminophen 1,000 mg 05/15/24 16:10 05/15/24 16:37 Acetaminophen 1,000mg/100ml Vial IV 05/15/24 16:11 1,000 mg ONCE ONE Administration Diphenhydramine HCl 25 mg 05/15/24 16:10 05/15/24 16:37 Diphenhydramine 50mg/Ml Vial IV 05/15/24 16:11 25 mg ONCE ONE Administration Lactated Ringer's 1,000 mls @ 999 mls/hr 05/15/24 16:10 05/15/24 16:37 Lactated Ringer's 1000 Ml Bag IV 05/15/24 17:10 999 mls/hr .Q1H1M ONE Administration Prochlorperazine Edisylate 5 mg 05/15/24 16:10 05/15/24 16:37 Prochlorperazine 10mg/2ml Vial IV 05/15/24 16:11 5 mg ONCE ONE Administration ORDERS Category Date Time Status CT head/brain wo con Stat Cat Scan 05/15/24 16:10 Completed CBC w/Auto Diff [Complete Blood Count Auto Diff] Stat Lab 05/15/24 15:53 Completed CMP [Comprehensive Metabolic Panel] Stat Lab 05/15/24 15:53 Completed MG [Magnesium] Stat Lab 05/15/24 15:53 Completed Trop I [Troponin I] Stat Lab 05/15/24 15:53 Completed UA [Urinalysis and Microscopic] Stat Lab 05/15/24 16:11 Ordered ECG Data Tracing #1: Independently interpreted by me rate is 63, rhythm is regular, axis is normal, no ST elevation in anatomical contiguous leads, QTc 447. Medical Decision Narrative: In summary patient is a 64-year-old female past medical history described above presents emergency department for evaluation of a headache. Patient is hemodynamically stable nontoxic-appearing upon arrival, afebrile with a baseline neurologic exam without acute deficits. Differential diagnosis includes hemorrhagic conversion of infarct space from previous stroke, migraine, viral syndrome, among others. Workup be conducted with hematologic labs, urinalysis, CT of the head without IV contrast. Initial inventions include IV Tylenol, Compazine, diphenhydramine, crystalloid bolus. With reports of chest discomfort and nursing had right-sided hemicranial headache atypical ACS will be ruled out with EKG and troponin. Workup reviewed by me, hematologic labs are nonactionable, sugars 329 without elevated anion gap and corrected sodium is normal, no ELIEZER or critical electrolyte abnormality. CT imaging informally visualized by me, no large acute or cranial hemorrhage. Formal read shows no acute pathology. Initial troponin undetectably low. On repeat evaluation patient was resting comfortably in bed with significant improvement in symptoms. Given this patient is appropriate for discharge at this time was given return precautions. Critical Care Critical Care Time Critical Care Time: No
[2024-05-15 16:18] LABS: Basophils # 0.1 K/mm3 (0-0.2); Basophils % 0.6 % (0.1-2.0); Eosinophils # 0.2 K/mm3 (0.0-0.4); Eosinophils % 2.2 % (0.1-12.0); Hematocrit 37.5 % (37.0-47.0); Hemoglobin 11.5 g/dL (12.2-16.2); Lymphocytes # 1.1 K/mm3 (0.7-4.5); Lymphocytes % 11.2 % (10-50); Mean Corpuscular HGB Conc 30.7 g/dL (31.8-35.4); Mean Corpuscular Hemoglobin 24.4 pg (27.0-31.2); Mean Corpuscular Volume 79.6 fl (81-99); Mean Platelet Volume 8.7 fl (7.4-10.4); Monocytes # 0.3 K/mm3 (0.1-1.0); Monocytes % 2.5 % (1.7-9.3); Neutrophils # 8.5 K/mm3 (1.8-7.8); Neutrophils % 83.5 % (37.0-80.0); Platelet Count 345 K/mm3 (142-424); Red Cell Distribution Width 16.5 % (11.5-17.5); White Blood Count 10.2 K/mm3 (4.8-10.8)
--- NOTE | 2024-05-15 16:18 | PC.NURSE ---
PT TO CT
[2024-05-15 16:19] LABS: Chloride 104 mmol/L (98-107)
[2024-05-15 16:20] LABS: Albumin Level 3.2 g/dl (3.5-5.0); Potassium 4.7 mmoL/L (3.5-5.1); Sodium 133 mmol/L (136-145)
[2024-05-15 16:22] LABS: Blood Urea Nitrogen 18 mg/dl (7-17); Creatinine Clearance Estimated 49 mL/min (50-200); Estimated Glomerular Filt Rate 63 ml/min (>60); GFR (African American) 76 ML/MIN (>60)
[2024-05-15 16:23] LABS: Alanine Aminotransferase 21 U/L (12-78); Alkaline Phosphatase 126 U/L (38-126); Anion Gap 8.7 mEq/L (5-15); Aspartate Amino Transferase 31 U/L (14-36); Bilirubin,Total 0.7 mg/dl (0.2-1.3); Calcium 8.4 mg/dl (8.4-10.2); Carbon Dioxide 25 mmol/L (22.0-30.0); Globulin 3.1 g/dL (1.3-3.2); Glucose 329 mg/dl (74-100); Magnesium 1.8 mg/dl (1.6-2.3); Total Protein,Serum 6.3 g/dl (6.3-8.2)
--- NOTE | 2024-05-15 16:29 | PC.NURSE ---
PT RETURNED FROM CT
[2024-05-15] MEDS: diphenhydrAMINE 50MG/ML VIAL 25 MG IV (16:37)
[2024-05-15] MEDS: PROCHLORPERAZINE 10MG/2ML VIAL 5 MG IV (16:37)
[2024-05-15] MEDS: LACTATED RINGERS 1000ML 1,000 ML 999 ML IV (16:37)
[2024-05-15] MEDS: ACETAMINOPHEN 1,000MG/100ML VIAL 1000 MG IV (16:37)
[2024-05-15 16:41] LABS: Troponin I < 0.01 ng/ml (0.00-0.034)
[2024-05-15 17:00] VITALS: BP 183/87; PULSE 65; RESP 16; O2SAT 94
[2024-05-15 18:00] VITALS: BP 175/90; PULSE 63; RESP 18; TEMP 36.7; O2SAT 95
== END 2024-05-15 18:00 | disposition home or self-care (01) ==
PROVIDERS: Emergency Provider Emergency Medicine; PCP Family Medicine
DX: R51.9 Headache, unspecified (principal); E11.65 Type 2 diabetes mellitus with hyperglycemia; K21.9 Gastro-esophageal reflux disease without esophagitis; E78.5 Hyperlipidemia, unspecified; I10 Essential (primary) hypertension; I69.354 Hemiplegia and hemiparesis following cerebral infarction affecting left non-dominant side; Z79.4 Long term (current) use of insulin
CPT/HCPCS: 70450; 80053; 83735; 84484; 85025; 93005; 96361; 96374; 96375; 99284; J0131; J0780; J1200; J7120

== ENCOUNTER 2024-09-27 11:20 | Emergency (ER) | payer MEDICAID, SELFPAY ==
[2024-09-27] VITALS (7 sets, daily range): BP systolic 146–170; BP diastolic 66–95; PULSE 63–71; RESP 16–22; TEMP 36.7–36.8; O2SAT 93–100; BMI 47.2
--- NOTE | 2024-09-27 11:21 | ECG_ITS ---
APPROVED REPORT Exam: Resting ECG HR:68 bpm ECG Measurements Heart Rate 68 AXES ME 189 P 51 QRSd 71 QRS 69 QT 384 T 108 QTc 401 Conclusion SINUS RHYTHM NONSPECIFIC T-WAVE ABNORMALITY BORDERLINE ECG Electronically signed by : PRINCE SHABAZZ, 09/27/2024 15:38:01
--- NOTE | 2024-09-27 11:42 | CT_ITS ---
PROCEDURE INFORMATION: Exam: CTA Chest With Contrast Exam date and time: 09/27/2024 12:29 PM Age: 64 years old Clinical indication: Shortness of breath; Additional info: SOB, self reported clot in neck on ac recently TECHNIQUE: Imaging protocol: Computed tomographic angiography of the chest with contrast. Exam focused on the arteries. 3D rendering (Not supervised by radiologist): MIP and/or 3D reconstructed images were created by the technologist. Radiation optimization: All CT scans at this facility use at least one of these dose optimization techniques: automated exposure control; mA and/or kV adjustment per patient size (includes targeted exams where dose is matched to clinical indication); or iterative reconstruction. Contrast material: ISOVUE 370; Contrast volume: 70 ml; Contrast route: INTRAVENOUS (IV); COMPARISON: CR XR CHEST PORTABLE 03/31/2022 4:06 PM FINDINGS: Pulmonary arteries: Normal. No pulmonary emboli. Aorta: Vascular calcifications of the transverse aorta Veins: Reflux of contrast within the distended hepatic veins Lungs: See Pleural spaces finding. Pleural spaces: Large right and left pleural effusions with basilar consolidation: Atelectasis versus infiltrates. Heart: Cardiomegaly. Small amount of fluid within the superior pericardial recess. Lymph nodes: A number of nonspecific lymph nodes within the mediastinum including the anterior mediastinum. Largest in the region of the aortic pulmonary window of 2 cm. Follow-up. Kidneys: Renal cyst within the visualized portions of the kidneys Bones/joints: Unremarkable. No acute fracture. Soft tissues: Soft tissues are unremarkable. Other findings: No dissection. No visualized embolism as characterized to the proximal segmental level. Consider alternative form of imaging if indicated. Mild thickening of the septa. IMPRESSION: 1. No dissection. No visualized embolism as characterized to the proximal segmental level. Consider alternative form of imaging if indicated. 2. Large right and left pleural effusions with basilar consolidation: Atelectasis versus infiltrates. Prominence of the interstitium. Cardiomegaly. Pulmonary edema. 3. A number of nonspecific lymph nodes within the mediastinum including the anterior mediastinum. Largest in the region of the aortic pulmonary window of 2 cm. Follow-up. COMMENTS: Consistent with the [employer]'s Incidental Findings Committee white paper (J Am Holland Radiol 2018): Any incidental renal lesion less than 1 cm or classified as too small to characterize, or any incidental cystic renal lesion characterized as simple-appearing, is likely benign. No follow-up imaging is recommended for these lesions per consensus recommendations based on imaging criteria.
--- NOTE | 2024-09-27 11:55 | ED_ITS ---
Discharge Plan Disposition Patient Disposition: Home, Self-Care Chief Complaint: Shortness of Breath/Dyspnea Prescriptions Prescriptions: No Action cyanocobalamin (vitamin B-12) 1,000 mcg tablet 1,000 mcg PO DAILY Patient Comments: TAKE ONE TABLET BY MOUTH EVERY DAY exenatide microspheres 2 mg/0.85 mL auto-injector 2 mg SQ WEEKLY Qty: 3.4 10RF docusate sodium 100 mg capsule 100 mg PO DAILY Qty: 30 10RF Nurtec ODT 75 mg tablet,disintegrating 75 mg PO ONCE Qty: 15 10RF Rx Instructions: take at onset of migraine albuterol sulfate 2.5 mg /3 mL (0.083 %) solution for nebulization 2.5 mg continuous nebulization Q6H PRN (Reason: shortness of breath or wheezing) Qty: 180 3RF albuterol sulfate 90 mcg/actuation HFA aerosol inhaler 2 puff inhalation QID PRN (Reason: shortness of breath or wheezing) Qty: 8.5 12RF allopurinol 100 mg tablet 100 mg PO DAILY Qty: 90 3RF aspirin 81 mg tablet,delayed release (DR/EC) 81 mg PO DAILY Qty: 100 3RF atorvastatin [Lipitor] 40 mg tablet 40 mg PO DAILY Qty: 90 3RF clopidogrel 75 mg tablet 75 mg PO DAILY Qty: 90 3RF diltiazem HCl 240 mg capsule,extended release 24hr See Rx Instructions .ROUTE .COMPLEX Qty: 90 3RF Dose Instruction: TAKE ONE CAPSULE BY MOUTH EVERY DAY Rx Instructions: TAKE ONE CAPSULE BY MOUTH EVERY DAY famotidine 40 mg tablet 40 mg PO BID Qty: 180 3RF ferrous sulfate [FeroSul] 325 mg (65 mg iron) tablet See Rx Instructions .ROUTE .COMPLEX Qty: 180 3RF Dose Instruction: TAKE ONE TABLET BY MOUTH TWICE DAILY Rx Instructions: TAKE ONE TABLET BY MOUTH TWICE DAILY fluoxetine 20 mg capsule 20 mg PO DAILY Qty: 90 3RF gabapentin 100 mg capsule 100 mg PO TID PRN (Reason: pain) Qty: 90 5RF hydralazine 50 mg tablet See Rx Instructions .ROUTE .COMPLEX Qty: 90 3RF Dose Instruction: TAKE ONE TABLET BY MOUTH THREE TIMES DAILY Rx Instructions: TAKE ONE TABLET BY MOUTH THREE TIMES DAILY hydrocodone-acetaminophen 7.5-325 mg tablet 1 tab PO BID PRN (Reason: pain) Qty: 60 0RF Rx Instructions: use prn pain and half-whole before therapy if needed isosorbide mononitrate 120 mg tablet extended release 24 hr 120 mg PO DAILY Qty: 90 3RF losartan 100 mg tablet 100 mg PO DAILY Qty: 90 3RF metformin 500 mg tablet extended release 24 hr See Rx Instructions .ROUTE .COMPLEX Qty: 180 0RF Dose Instruction: TAKE TWO TABLETS BY MOUTH TWICE DAILY Rx Instructions: TAKE TWO TABLETS BY MOUTH TWICE DAILY metoprolol succinate 100 mg tablet extended release 24 hr 100 mg PO BID Qty: 180 3RF pramipexole 0.125 mg tablet 0.125 mg PO DAILY Qty: 90 3RF ranolazine 1,000 mg tablet extended release 12 hr 1,000 mg PO BID Qty: 180 3RF torsemide 10 mg tablet 10 mg PO DAILY Qty: 90 3RF (DME) OneTouch Verio test strips Strip See Rx Instructions .Route Qty: 100 2RF Rx Instructions: Test 4 times daily or As directed benzonatate 200 mg capsule 200 mg PO TID PRN (Reason: cough) Qty: 90 3RF (DME) Dexcom G6 Transmitter Device See Rx Instructions .ROUTE .COMPLEX Qty: 1 1RF Dose Instruction: APPLY ONE TRANSMITTER DIRECTED ON TOP OF SENSOR AND REPLACE EVERY 90 DAYS Rx Instructions: APPLY ONE TRANSMITTER DIRECTED ON TOP OF SENSOR AND REPLACE EVERY 90 DAYS loratadine [Allergy Relief (loratadine)] 10 mg tablet See Rx Instructions .ROUTE .COMPLEX Qty: 90 3RF Dose Instruction: TAKE ONE TABLET BY MOUTH EVERY DAY Rx Instructions: TAKE ONE TABLET BY MOUTH EVERY DAY ascorbic acid (vitamin C) 500 mg capsule 500 mg PO .qd Qty: 100 12RF insulin lispro 100 UNIT/ML cartridge 0 unit SQ DIRECTED Rx Instructions: INSULIN PUMP Referrals Follow up/Referrals: Oscar Hauser MD [Primary Care Provider] - See instructions Activity Restrictions/Add. Instructions Additional Instructions/Restrictions: At this time it was felt you are safe to be discharged home. If new or worsening symptoms please do not hesitate to return the emergency department. As discussed please take your torsemide as you were prescribed previously and call and schedule an appointment with your adobe block maker next week to be seen. You have water around your lungs and on your lungs due to heart failure and the water pill should help. It was also noticed that you have a few enlarged lymph nodes in your chest which need to be monitored, just make sure that you are family doctor keeps an eye on these. Clinical Impressions Clinical Impression: CHF (congestive heart failure), Volume overload, Mediastinal adenopathy Print Language Print Language: Vincentian Discharge ED Provider: Daniel Foster HPI General Chief Complaint: Shortness of Breath/Dyspnea Stated Complaint: SOB Time Seen by Provider: 09/27/24 11:24 Mode of Arrival: EMS Source of Information: Patient and EMS Limitations: No Limitations Description of Symptoms (Recalled from ER Triage Doc. by RN): pt began to have worsening soa last night while laying flat, then today began to have neck pain on the right side upon triage, pt has hx of left side deficits from prior stroke, pt was told on 09/09 by [facility] that she has a bloos clot in her neck and she was started on eliquis, pt is alox4 and stable upon triage on 2L of 02 via nasal cannula History of Present Illness HPI narrative: Patient is 64-year-old female with past medical history of CVA with left-sided residual, a clot in her neck on direct oral anticoagulation, insulin-dependent diabetes who presents emergency department for evaluation of shortness of breath. Patient began having shortness of breath last night worse while lying down. She does not have chest pain when asked. However she says she has had some intermittent Anisocoria in her chest as well as pain in the right side of her neck. The clot was found in the left side of her neck and she was reportedly on anticoagulation for this. She denies trauma, asymmetric swelling of her neck, new neurologic deficits compared to her baseline. No other acute complaints at this time. Related Data Home Medications ?Medication ?Instructions ?Recorded ?Confirmed insulin lispro 100 unit/mL 0 unit SQ DIRECTED Diabetes 04/01/22 05/27/24 subcutaneous cartridge cyanocobalamin (vitamin B-12) 1,000 mcg PO DAILY 06/11/22 05/27/24 1,000 mcg tablet Previous Rx's ?Medication ?Instructions ?Recorded blood sugar diagnostic (OneTouch #100 ea 05/09/22 Verio test strips) exenatide microspheres 2 mg/0.85 2 mg (0.85 mL) SQ WEEKLY Diabetes 06/20/22 mL subcutaneous auto-injector #3.4 mL docusate sodium 100 mg capsule 100 mg PO DAILY #30 caps 07/16/23 benzonatate 200 mg capsule 200 mg PO TID PRN cough #90 caps 01/18/24 blood-glucose transmitter (Dexcom #1 ea 03/30/24 G6 Transmitter device) albuterol sulfate 2.5 mg/3 mL 2.5 mg (3 mL) continuous 05/27/24 (0.083 %) solution for nebulization nebulization Q6H PRN shortness of breath or wheezing #180 mL albuterol sulfate 90 mcg/actuation 2 puff inhalation QID PRN 05/27/24 aerosol inhaler shortness of breath or wheezing #8.5 grams allopurinol 100 mg tablet 100 mg PO DAILY GOUT #90 tabs 05/27/24 aspirin 81 mg tablet,delayed 81 mg PO DAILY #100 tabs 05/27/24 release atorvastatin 40 mg tablet (Lipitor) 40 mg PO DAILY #90 tabs 05/27/24 clopidogrel 75 mg tablet 75 mg PO DAILY cva #90 tabs 05/27/24 diltiazem HCl 240 mg See Rx Instructions .Route 05/27/24 capsule,extended release 24 hr .COMPLEX #90 caps famotidine 40 mg tablet 40 mg PO BID stomach #180 tabs 05/27/24 ferrous sulfate 325 mg (65 mg See Rx Instructions .Route 05/27/24 iron) tablet (FeroSul) .COMPLEX #180 tabs fluoxetine 20 mg capsule 20 mg PO DAILY mood #90 caps 05/27/24 gabapentin 100 mg capsule 100 mg PO TID PRN pain #90 caps 05/27/24 hydralazine 50 mg tablet See Rx Instructions .Route 05/27/24 .COMPLEX #90 tabs hydrocodone 7.5 mg-acetaminophen 1 tab PO BID PRN pain #60 tabs 05/27/24 325 mg tablet isosorbide mononitrate 120 mg 120 mg PO DAILY heart #90 tabs 05/27/24 tablet,extended release 24 hr losartan 100 mg tablet 100 mg PO DAILY Cholesterol #90 05/27/24 tabs metformin 500 mg tablet,extended See Rx Instructions .Route 05/27/24 release 24 hr .COMPLEX #180 tabs metoprolol succinate 100 mg 100 mg PO BID High blood pressure 05/27/24 tablet,extended release 24 hr #180 tabs pramipexole 0.125 mg tablet 0.125 mg PO DAILY RLS #90 tabs 05/27/24 ranolazine 1,000 mg 1,000 mg PO BID heart #180 tabs 05/27/24 tablet,extended release,12 hr rimegepant 75 mg disintegrating 75 mg PO ONCE #15 tabs 05/27/24 tablet (Nurtec ODT) torsemide 10 mg tablet 10 mg PO DAILY #90 tabs 05/27/24 loratadine 10 mg tablet (Allergy See Rx Instructions .Route 06/16/24 Relief (loratadine)) .COMPLEX #90 ea ascorbic acid (vitamin C) 500 mg 500 mg PO .qd #100 caps 08/11/24 capsule Allergies Allergy/AdvReac Type Severity Reaction Status Date / Time lisinopril Allergy Severe Hives Verified 05/27/24 15:15 strawberry Allergy Severe Anaphylaxis Verified 05/27/24 15:15 codeine AdvReac Severe Vomiting Verified 05/27/24 15:15 Penicillins AdvReac Severe Vomiting Verified 05/27/24 15:15 [facility] Disclaimer: The information contained in this section may have been updated after the patient was seen, as this information can be updated by other users. Medical History Arthritis Renal disease HTN (hypertension), benign HLD (hyperlipidemia) GERD (gastroesophageal reflux disease) COPD (chronic obstructive pulmonary disease) Asthma Anxiety Type 2 diabetes mellitus TIA (transient ischemic attack) Surgical History H/O tubal ligation H/O total hysterectomy History of carpal tunnel release of both wrists Social History Smoking Status: Never smoker alcohol intake: never substance use type: denies use current occupational status: retired Travel in the last 8 weeks: None housing: house Have you lived/traveled outside [place] in past 30 days?: No Contact w/someone who lives/traveled outside US past 30 days?: No Exposure to someone with infectious disease in past 14 days?: No Do you have a fever (greater than 100.4 F or 38 C)?: No Have you tested positive for COVID-19: No Exposed to someone with COVID-19 in past 14 days?: No Do you have a sore throat?: No Do you have a cough?: No Do you have any weakness?: No Do you have any diarrhea?: No Are you experiencing any unusual bleeding?: No Do you have any muscle aches/pain?: No Do you have any abdominal pain?: No Are you experiencing loss of taste or smell?: No Other Medical History Have you received the Flu Vaccine for this season: No Have you received the Pneumonia Vaccine: No ROS Obtained: Yes Systems reviewed as appropriate & no additional complaints except as documented Physical Exam General General appearance: alert and in no apparent distress Head Head exam: atraumatic and normocephalic Eye Eye exam: Present PERRL and EOMI ENT ENT exam: Present mucous membranes moist Neck Neck exam: Present normal inspection and full ROM; Absent tenderness Chest Chest inspection: Present normal inspection and symmetric chest wall rise Respiratory Respiratory exam: Present normal lung sounds bilaterally; Absent respiratory distress Cardiovascular Cardiovascular exam: Present regular rate and normal rhythm Abdominal Exam Abdominal exam: Present soft; Absent tenderness Extremities Exam Extremities exam: Present normal inspection Neurological Exam Neurological exam: Present alert, oriented X3, CN II-XII intact and other (Left upper extremity left lower extremity. 5 out of 5 strength right upper and right lower extremity.) Psychiatric Psychiatric exam: Present normal affect Skin Skin exam: Present warm and dry HEART Score HEART Score HEART Score assessment performed?: Yes History (anamnesis): Slightly suspicious ECG: Normal Age: 45-65 years Risk factors: Atherosclerosis history Troponin: </= normal limit HEART Score: 3 Critical Care Critical Care Time Critical Care Time: No Medical Decision Making Stevan Inquiry Pt receiving controlled substance: No Vital Signs Vital Signs: 09/27/24 11:20 09/27/24 12:01 09/27/24 12:52 Temperature 98.1 F Temperature Source Oral Pulse Rate 69 69 Pulse Rate [Left Radial] 71 Respiratory Rate 20 22 20 Blood Pressure 146/66 H 157/86 H Blood Pressure [Right Arm] 169/84 H Blood Pressure Mean [Right Arm] 112 02 Sat by Pulse Oximetry 100 97 93 L Oxygen Delivery Method Nasal Cannula Room Air Room Air Lab Data Labs: Lab Results 09/27/24 11:35: WBC 10.6, RBC 3.92 L, Hgb 9.2 L, Hct 30.6 L, MCV 78.1 L, MCH 23.5 L, MCHC 30.1 L, RDW 16.0, Plt Count 364, MPV 10.6 H, Neut % (Auto) 83.8 H, Lymph % (Auto) 9.8 L, Harding % (Auto) 3.0, Eos % (Auto) 2.5, Baso % (Auto) 0.5, N eut # (Auto) 8.9 H, Lymph # (Auto) 1.0, Harding # (Auto) 0.3, Eos # (Auto) 0.3, Baso # (Auto) 0.1, Sodium 131 L, Potassium 4.6, Chloride 103, Carbon Dioxide 24, Anion Gap 8.6, BUN 22 H, Creatinine 1.20 H, Estimated Creat Clear 41, Estimated GFR 45 L, Est GFR ( Amer) 55 L, Glucose 346 H, Calcium 8.5, Total Bilirubin 0.7, AST 27, ALT 19, Alkaline Phosphatase 141 H, Troponin I < 0.01, N T-Pro-B Natriuret Pep 37709 H, Total Protein 6.6, Albumin 3.3 L, Globulin 3.3 H, Albumin/Globulin Ratio 1.0 L 09/27/24 11:45: VBG pH 7.34, VBG pCO2 45.8, VBG pO2 44.8 H, VBG HCO3 24.0, VBG Total CO2 25.4, VBG O2 Saturation 74.7 H, VBG Base Excess -1.8, VBG Lactic Acid 1.6 09/27/24 11:50: SARS-CoV-2 (PCR) Not detected, Influenza A Untype (PCR) Not detected, Influenza Type B (PCR) Not detected 09/27/24 11:35 09/27/24 11:35 Response Orders (Tests/Meds): ED MEDICATIONS Discontinued Medications Generic Name Dose Route Start Last Admin Trade Name Freq PRN Reason Stop Dose Admin Aspirin 324 mg 09/27/24 11:42 09/27/24 12:09 Aspirin 81mg Chewable Tablet PO 09/27/24 11:43 324 mg ONCE ONE Administration Furosemide 40 mg 09/27/24 11:53 09/27/24 12:10 Furosemide 40mg/4ml Vial IV 09/27/24 11:54 40 mg ONCE ONE Administration Iopamidol 150 ml 09/27/24 12:54 09/27/24 12:55 Iopamidol-370 (76%);100ml Bottle IV 09/27/24 12:55 150 ml ONCE ONE Administration Sodium Chloride 10 ml 09/27/24 12:54 09/27/24 12:55 Sodium Chloride 0.9% 10ml Syr (Rad Only) IV 09/27/24 12:55 10 ml ONCE ONE Administration Sodium Chloride 100 ml 09/27/24 12:54 09/27/24 12:55 0.9 % Sodium Chloride 50 Ml Vial IV 09/27/24 12:55 100 ml ONCE ONE Administration ORDERS Category Date Time Status CT angio chest PE protocol Stat Cat Scan 09/27/24 11:[address] angio neck Stat Cat Scan 09/27/24 11:58 Completed POCUS Point of Care (ER Only) Stat Exams 09/27/24 12:25 Ordered BNP [NT Pro Brain Natriuretic Pep.] Stat Lab 09/27/24 11:35 Completed CBC w/Auto Diff [Complete Blood Count Auto Diff] Stat Lab 09/27/24 11:35 Completed CMP [Comprehensive Metabolic Panel] Stat Lab 09/27/24 11:35 Completed Rapid PCR Covid and Flu A/B Stat Lab 09/27/24 11:50 Completed Trop I [Troponin I] Stat Lab 09/27/24 11:35 Completed Troponin I Q3H Lab 09/27/24 14:45 Ordered Troponin I Q3H Lab 09/27/24 17:45 Ordered VBG [Venous Blood Gas] Stat RT 09/27/24 11:45 Completed ECG Data Tracing #1: ECG Narrative: Independently interpreted by me rate is 68, rhythm is regular, axis is normal, no ST elevation in anatomical contiguous leads, QTc 401. MDM Narrative Medical Decision Narrative: In summary patient is 64-year-old female with past medical history described above who presents emergency department for evaluation of chest discomfort shortness of breath while lying down, right-sided neck pain. Patient is hemodynamically stable nontoxic-appearing upon arrival, afebrile. With the specter her chest discomfort and shortness of breath further discussion was had with patient, she does take a water pill that is torsemide for which she has been noncompliant. Given that her shortness of breath is while she lays down I suspect volume overload. She was on 2 L nasal cannula on EMS transport however I remove this upon arrival and she has stable oxygen saturations greater than 90% so it is unclear what happened prehospital either way she is not truly hypoxemic on my evaluation. With the specter neck pain differential includes musculoskeletal strain, spontaneous cervical artery dissection, among others. Differential with regards to chest discomfort and shortness of breath with clot in neck include pulmonary embolism, ACS, CHF, viral syndrome, among others. Overall workup will be conducted with hematologic labs, EKG, serial troponins, CT angio neck and chest. Patient has neurologic exam consistent with her baseline therefore CVA was considered but workup with regards to this will be deferred based on history and physical. Initial inventions include aspirin, Lasix. Initial workup reviewed by me, hematologic labs remarkable for chronic anemia I have any clinical evidence of bleeding, compensated acid-base status. Patient has elevated glucose without evidence of DKA, pseudohyponatremia which when corrected is extremely mild true hyponatremia, BNP is 12,000 initial troponin undetectably low. Upon repeat evaluation patient continued to saturate greater than 90% on room air, viral swab negative. Upon repeat questioning patient continued to have no chest pain throughout her stay in the emergency department. Given that the funny feeling in her chest have been going on for longer than 6 hours I think a single troponin is appropriate to rule out ACS. CT imaging informally visualized by me, bilateral pleural effusions. Formal read shows no evidence of dissection no large PE, large bilateral pleural effusions with cardiomegaly and pulmonary edema as well as nonspecific lymph nodes in the mediastinum which were relayed to the patient. CT angio neck no evidence of acute carotid or vertebral pathology. [id number] ultrasound at bedside shows decreased ejection fraction no large pericardial effusion. Although patient has bilateral pleural effusions she is not significantly tachypneic and is saturating greater than 90% on room air. Patient is appropriate for discharge at this time and will be compliant with her torsemide as it is prescribed and will follow-up with her adobe block maker next week was given multiple return precautions verbalized understanding. [id number] ultrasound of the cardiac region Indication: Shortness of breath Identified cardiac views: Cardiac parasternal long and parasternal short axis Findings: Cardiac activity present, decreased ejection fraction, no large pericardial effusion Impression: From above Images were saved to permanent archive The study was technically adequate CPT: 34014 This study was performed by me, and I personally interpreted all images/videos. Based on my clinical judgement, these images were adequate and did not necessitate further imaging.
[2024-09-27 11:56] LABS: Lactate Venous 1.6 mmol/L (0.4-2.0); VBG Base Excess -1.8 mmol/L (-2.4-2.3); VBG Oxygen Saturation 74.7 % (50-70); VBG PCO2 45.8 mmol/L (35-51); VBG PH 7.34 mmol/L (7.31-7.41); VBG PO2 44.8 mmol/L (28-40); VBG Total CO2 25.4 mmol/L (23-27)
[2024-09-27 11:56] LABS: Chloride 103 mmol/L (98-107)
[2024-09-27 11:57] LABS: Coronavirus 19, PCR Not Detected (NotDetected); Influenza A, PCR Not Detected (NotDetected); Influenza B, PCR Not Detected (NotDetected)
[2024-09-27 11:57] LABS: Albumin Level 3.3 g/dl (3.5-5.0); Potassium 4.6 mmoL/L (3.5-5.1); Sodium 131 mmol/L (136-145)
--- NOTE | 2024-09-27 11:58 | CT_ITS ---
PROCEDURE INFORMATION: Exam: CTA Head With Contrast, Arteriography Exam date and time: 09/27/2024 12:37 PM Age: 64 years old Clinical indication: Pain; Other: Neck; Additional info: R neck pain TECHNIQUE: Imaging protocol: Computed tomographic angiography of the head with contrast. Exam focused on the arteries. 3D rendering (Not supervised by radiologist): MIP and/or 3D reconstructed images were created by the technologist. Radiation optimization: All CT scans at this facility use at least one of these dose optimization techniques: automated exposure control; mA and/or kV adjustment per patient size (includes targeted exams where dose is matched to clinical indication); or iterative reconstruction. COMPARISON: CT HEAD/BRAIN WO CON 05/15/2024 4:26 PM FINDINGS: ANTERIOR CIRCULATION: Right internal carotid artery: Atherosclerotic calcifications are seen involving the right paraclinoid internal carotid artery. There is mild stenosis of the proximal right supraclinoid ICA. Right middle cerebral artery: The right middle cerebral artery is patent. There is moderate stenosis involving multiple right M2 and M3 branches. Right anterior cerebral artery: No occlusion or significant stenosis. No aneurysm. Left internal carotid artery: Atherosclerotic calcifications are seen involving the left paraclinoid ICA. There is no significant stenosis. No aneurysm. Left middle cerebral artery: No occlusion or significant stenosis. No aneurysm. Left anterior cerebral artery: No occlusion or significant stenosis. No aneurysm. POSTERIOR CIRCULATION: Right vertebral artery: Minor calcified plaque is noted in the proximal right V4 segment. There is no significant stenosis. Left vertebral artery: There is minimal atherosclerotic narrowing of the left V4 segment. Basilar artery: No occlusion or significant stenosis. No aneurysm. Right posterior cerebral artery: There is severe stenosis of the proximal right posterior cerebral artery (P2 segment). Left posterior cerebral artery: There is severe stenosis of the proximal left posterior cerebral artery (P2 segment). Veins: The venous sinuses are patent. Brain: No definite mass, cerebral edema, or midline shift. Cerebral ventricles: No ventriculomegaly. Bones/joints: Unremarkable. No acute fracture. Soft tissues: Unremarkable. IMPRESSION: 1. No large vessel occlusion 2. 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 Exam focused on the cervical segments of the vasculature. 3D rendering (Not supervised by radiologist): MIP and/or 3D reconstructed images were created by the technologist. Radiation optimization: All CT scans at this facility use at least one of these dose optimization techniques: automated exposure control; mA and/or kV adjustment per patient size (includes targeted exams where dose is matched to clinical indication); or iterative reconstruction. Contrast material: ISOVUE; Contrast volume: 80 ml; Contrast route: INTRAVENOUS (IV); COMPARISON: CT ANGIO CHEST PE PROTOCOL 09/27/2024 12:29 PM FINDINGS: Right common carotid artery: The distal right common carotid artery is retropharyngeal in location. Right internal carotid artery: Atherosclerotic calcifications are present within the proximal right internal carotid artery. There is no stenosis. Right internal carotid artery is retropharyngeal in location. Right external carotid artery: No occlusion or stenosis of the origin. Left common carotid artery: The distal left common carotid artery is retropharyngeal in location. Left internal carotid artery: The left internal carotid artery is retropharyngeal in location. There is no stenosis. Left external carotid artery: Mild calcified plaque is noted at the left external carotid artery origin. There is no stenosis. Right vertebral artery: No stenosis. No dissection or occlusion. Left vertebral artery: No stenosis. No dissection or occlusion. Soft tissues: Normal. No significant soft tissue swelling. Bones/joints: Moderate degenerative changes of the cervical spine are present. Lungs: Mild pulmonary and interstitial edema is noted. Pleural spaces: Moderate bilateral pleural effusions are present. IMPRESSION: 1. No carotid or vertebral artery stenosis within the neck 2. Pulmonary and interstitial edema with moderate bilateral pleural effusions REFERENCES: NASCET CRITERIA. The degree of stenosis in the cervical segment of the internal carotid artery is based on NASCET criteria. Normal is no stenosis. Mild is less than 50% stenosis. Moderate is 50-69% stenosis. Severe is 70% to 99% stenosis. Total occlusion is no detectable patent lumen.
[2024-09-27 11:59] LABS: Alanine Aminotransferase 19 U/L (12-78); Alkaline Phosphatase 141 U/L (38-126); Anion Gap 8.6 mEq/L (5-15); Aspartate Amino Transferase 27 U/L (14-36); Basophils # 0.1 K/mm3 (0-0.2); Basophils % 0.5 % (0.1-2.0); Bilirubin,Total 0.7 mg/dl (0.2-1.3); Blood Urea Nitrogen 22 mg/dl (7-17); Carbon Dioxide 24 mmol/L (22.0-30.0); Creatinine Clearance Estimated 41 mL/min (50-200); Eosinophils # 0.3 K/mm3 (0.0-0.4); Eosinophils % 2.5 % (0.1-12.0); Estimated Glomerular Filt Rate 45 ml/min (>60); GFR (African American) 55 ML/MIN (>60); Globulin 3.3 g/dL (1.3-3.2); Hematocrit 30.6 % (37.0-47.0); Hemoglobin 9.2 g/dL (12.2-16.2); Lymphocytes % 9.8 % (10-50); Mean Corpuscular HGB Conc 30.1 g/dL (31.8-35.4); Mean Corpuscular Hemoglobin 23.5 pg (27.0-31.2); Mean Corpuscular Volume 78.1 fl (81-99); Mean Platelet Volume 10.6 fl (7.4-10.4); Monocytes # 0.3 K/mm3 (0.1-1.0); Neutrophils # 8.9 K/mm3 (1.8-7.8); Neutrophils % 83.8 % (37.0-80.0); Platelet Count 364 K/mm3 (142-424); Red Blood Count 3.92 M/mm3 (4.20-5.40); Total Protein,Serum 6.6 g/dl (6.3-8.2); White Blood Count 10.6 K/mm3 (4.8-10.8)
[2024-09-27 12:00] LABS: Calcium 8.5 mg/dl (8.4-10.2); Glucose 346 mg/dl (74-100)
[2024-09-27 12:09] LABS: NT Pro Brain Natriuretic Pep. 12000 pg/mL (0-125)
[2024-09-27] MEDS: ASPIRIN 81MG CHEWABLE TABLET 324 MG PO (12:09)
[2024-09-27] MEDS: FUROSEMIDE 40MG/4ML VIAL 40 MG IV (12:10)
[2024-09-27 12:21] LABS: Troponin I < 0.01 ng/ml (0.00-0.034)
[2024-09-27] MEDS: 0.9 % SODIUM CHLORIDE 50 ML VIAL 100 ML IV (12:55)
[2024-09-27] MEDS: IOPAMIDOL-370 (76%);100ML BOTTLE 150 ML IV (12:55)
[2024-09-27] MEDS: SODIUM CHLORIDE 0.9% 10ML SYR (RAD ONLY) 10 ML IV (12:55)
== END 2024-09-27 14:35 | disposition home or self-care (01) ==
PROVIDERS: Emergency Provider Emergency Medicine; PCP Family Medicine
DX: E87.70 Fluid overload, unspecified (principal); I50.9 Heart failure, unspecified; R59.0 Localized enlarged lymph nodes; R06.02 Shortness of breath; M54.2 Cervicalgia; R07.89 Other chest pain
CPT/HCPCS: 70498; 71275; 80053; 82803; 83880; 84484; 85025; 87636; 93005; 96374; 99285; J1940; Q9967

== ENCOUNTER 2024-11-16 13:34 | Inpatient (IN) | payer MEDICAID, SELFPAY ==
[2024-11-16] VITALS (8 sets, daily range): BP systolic 121–171; BP diastolic 67–92; PULSE 62–72; RESP 13–22; TEMP 36.5–37; O2SAT 94–98; BMI 39.4; BMI 40.1
--- NOTE | 2024-11-16 13:42 | ECG_ITS ---
APPROVED REPORT Exam: Resting ECG HR:71 bpm ECG Measurements Heart Rate 71 AXES DE 185 P 45 QRSd 93 QRS 36 QT 441 T 151 QTc 463 Conclusion SINUS RHYTHM NONSPECIFIC T-WAVE ABNORMALITY PROLONGED QT INTERVAL ABNORMAL ECG Electronically signed by : LOC MCGILL, 11/16/2024 15:56:03
[2024-11-16 13:49] LABS: Coronavirus 19, PCR Not Detected (NotDetected); Influenza A, PCR Not Detected (NotDetected); Influenza B, PCR Not Detected (NotDetected)
--- NOTE | 2024-11-16 13:56 | ED_ITS ---
<Statement entered by Laura Stevenson DO - 11/16/24 15:55> I was consulted by the JUANA, and we discussed the complexity of the problems being addressed. I approved the treatment and management plan for this patient's care in the emergency department, thus performing a substantive portion of the medical decision making. I performed bedside cardiac ultrasound, which was concerning for significantly reduced EF when compared to prior echocardiogram. Difficult to determine with limitations of body habitus. Laura Stevenson DO Discharge Plan Disposition Patient Disposition: Admitted Condition: Good Clinical Impressions Clinical Impression: Acute exacerbation of chronic heart failure Discharge ED Provider: Laura Stevenson HPI <PANCHO Lang - Last Filed: 11/16/24 20:43> General Chief Complaint: Shortness of Breath/Dyspnea Stated Complaint: SOA Time Seen by Provider: 11/16/24 13:39 Mode of Arrival: EMS Source of Information: Patient Limitations: Physical Limitations Description of Symptoms (Recalled from ER Triage Doc. by RN): Patient with complaint of increased shortness of breath that started a couple of days ago and just got worse today. History of Present Illness HPI narrative: Patient presents for evaluation of dyspnea. Patient states that she has had dyspnea for a couple of days but it has progressed and significantly worse today. Patient does have a history of CHF although I do unsure what her heart failure status is the last echo I can review was 55% from 2021. Patient however at baseline does not wear oxygen but does have left-sided hemiparesis from a stroke in 2023 and requires distant for all of her activities of daily living including independent ambulation which she cannot do. 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 In any event patient denies fever chills hemoptysis hematochezia melena nausea vomiting diarrhea. Related Data Home Medications ?Medication ?Instructions ?Recorded ?Confirmed insulin lispro 100 unit/mL 0 unit SQ DIRECTED 04/01/22 11/16/24 subcutaneous cartridge albuterol sulfate 90 mcg/actuation 2 puff inhalation Q4HP PRN 11/16/24 11/16/24 aerosol inhaler shortness of breath or wheezing allopurinol 100 mg tablet 100 mg PO DAILY 11/16/24 11/16/24 apixaban 5 mg tablet (Eliquis) 5 mg PO BID 11/16/24 11/16/24 aspirin 81 mg tablet,delayed 81 mg PO DAILY 11/16/24 11/16/24 release budesonide-formoterol HFA 160 2 puff inhalation BID 11/16/24 11/16/24 mcg-4.5 mcg/actuation aerosol inhaler (Symbicort) clopidogrel 75 mg tablet 75 mg PO DAILY 11/16/24 11/16/24 diltiazem HCl 240 mg 240 mg PO DAILY 11/16/24 11/16/24 capsule,extended release 24 hr famotidine 40 mg tablet 40 mg PO BID 11/16/24 11/16/24 ferrous sulfate 325 mg (65 mg 325 mg PO BID 11/16/24 11/16/24 iron) tablet (FeroSul) fluoxetine 20 mg capsule 20 mg PO DAILY 11/16/24 11/16/24 gabapentin 100 mg capsule 100 mg PO TID 11/16/24 11/16/24 hydralazine 50 mg tablet 50 mg PO TID 11/16/24 11/16/24 isosorbide mononitrate 120 mg 120 mg PO DAILY 11/16/24 11/16/24 tablet,extended release 24 hr loratadine 10 mg tablet (Allergy 10 mg PO DAILY 11/16/24 11/16/24 Relief (loratadine)) losartan 100 mg tablet 100 mg PO DAILY 11/16/24 11/16/24 metformin 500 mg tablet,extended 1,000 mg PO BID 11/16/24 11/16/24 release 24 hr metoprolol succinate 100 mg 100 mg PO BID 11/16/24 11/16/24 tablet,extended release 24 hr montelukast 10 mg tablet 10 mg PO PM 11/16/24 11/16/24 pramipexole 0.125 mg tablet 0.125 mg PO DAILY 11/16/24 11/16/24 ranolazine 1,000 mg 1,000 mg PO BID 11/16/24 11/16/24 tablet,extended release,12 hr tiotropium bromide 18 mcg capsule 1 cap inhalation DAILY 11/16/24 11/16/24 with inhalation device (Spiriva with HandiHaler) torsemide 10 mg tablet 20 mg PO DAILY 11/16/24 11/16/24 Previous Rx's ?Medication ?Instructions ?Recorded blood sugar diagnostic (OneTouch #100 ea 05/09/22 Verio test strips) blood-glucose transmitter (Dexcom #1 ea 03/30/24 G6 Transmitter device) atorvastatin 40 mg tablet (Lipitor) 40 mg PO DAILY #90 tabs 05/27/24 Allergies Allergy/AdvReac Type Severity Reaction Status Date / Time lisinopril Allergy Severe Hives Verified 11/16/24 14:58 strawberry Allergy Severe Anaphylaxis Verified 11/16/24 14:58 codeine AdvReac Severe Vomiting Verified 11/16/24 14:58 Penicillins AdvReac Severe Vomiting Verified 11/16/24 14:58 PFS <PANCHO Lang - Last Filed: 11/16/24 20:43> [facility] Disclaimer: The information contained in this section may have been updated after the patient was seen, as this information can be updated by other users. Medical History Arthritis Renal disease HTN (hypertension), benign HLD (hyperlipidemia) GERD (gastroesophageal reflux disease) COPD (chronic obstructive pulmonary disease) Asthma Anxiety Type 2 diabetes mellitus TIA (transient ischemic attack) Surgical History H/O tubal ligation H/O total hysterectomy History of carpal tunnel release of both wrists Social History Smoking Status: Never smoker alcohol intake: never substance use type: denies use current occupational status: retired Travel in the last 8 weeks: None housing: house Have you lived/traveled outside [place] in past 30 days?: No Contact w/someone who lives/traveled outside US past 30 days?: No Exposure to someone with infectious disease in past 14 days?: No Do you have a fever (greater than 100.4 F or 38 C)?: No Have you tested positive for COVID-19: No Exposed to someone with COVID-19 in past 14 days?: No Do you have a sore throat?: No Do you have a cough?: No Do you have any weakness?: No Do you have any diarrhea?: No Are you experiencing any unusual bleeding?: No Do you have any muscle aches/pain?: No Do you have any abdominal pain?: No Are you experiencing loss of taste or smell?: No Other Medical History Have you received the Flu Vaccine for this season: No Have you received the Pneumonia Vaccine: No <PANHCO Lang - Last Filed: 11/16/24 20:43> ROS Obtained: Yes Systems reviewed as appropriate & no additional complaints except as documented Physical Exam <PANCHO Lang - Last Filed: 11/16/24 20:43> General General appearance: alert and in no apparent distress Respiratory Respiratory exam: Absent normal lung sounds bilaterally (End expiratory rales), respiratory distress or accessory muscle use Cardiovascular Cardiovascular exam: Present regular rate Neurological Exam Neurological exam: Present alert and oriented X3 HEART Score <PANCHO Lang - Last Filed: 11/16/24 20:43> HEART Score HEART Score assessment performed?: No History (anamnesis): Slightly suspicious ECG: Normal Age: >65 years Risk factors: Atherosclerosis history Troponin: </= normal limit HEART Score: 4 Procedures <Laura Stevenson DO - Last Filed: 11/16/24 15:54> Limited Ultrasound Findings:: Limited cardiac ultrasound Indication: Shortness of breath Identified cardiac views: [-Cardiac parasternal long axis] [-Cardiac parasternal short axis] Findings: [-Cardiac activity present -Gross wall motion abnormal with concern for CHF, no obvious focal wall motion abnormality -Pericardial effusion absent -Right heart strain absent] Impression: -[From above] Images were saved to permanent archive The study was technically adequate CPT: 08881 This study was performed by me, and I personally interpreted all images/videos. Based on my clinical judgement, these images were adequate and did not necessitate further imaging. Critical Care <PANCHO Lang - Last Filed: 11/16/24 20:43> Critical Care Time Critical Care Time: Yes Attestation: On 11/16/24, the high probability of a clinically significant, sudden or life threatening deterioration of the following system(s) required my full and direct attention, intervention and personal management. The time I documented below is in addition to time spent performing reported procedures but includes the following listed in this critical care notation. Total Time Total Critical Care Time: 35 Medical Decision Making <PANCHO Lang Last Filed: 11/16/24 20:43> Medical Records Medical records reviewed: Yes I reviewed the patient's medical records. Stevan Inquiry Pt receiving controlled substance: No Vital Signs Vital Signs: 11/16/24 13:35 11/16/24 13:50 11/16/24 14:00 Temperature 97.8 F Temperature Source Oral Pulse Rate 70 66 Pulse Rate [Radial] 72 Respiratory Rate 18 13 Blood Pressure 169/90 H 171/90 H Blood Pressure [Right Arm] 130/73 Blood Pressure Mean [Right Arm] 92 Blood Pressure Source [Right Arm] Automatic Cuff Blood Pressure Position [Right Arm] Sitting 02 Sat by Pulse Oximetry 94 L 95 96 Oxygen Delivery Method Room Air 11/16/24 14:31 11/16/24 15:00 11/16/24 16:08 Temperature 98.6 F Temperature Source Pulse Rate 64 62 63 Pulse Rate [Radial] Respiratory Rate 21 22 20 Blood Pressure 155/80 H 132/92 H 148/70 H Blood Pressure [Right Arm] Blood Pressure Mean [Right Arm] Blood Pressure Source [Right Arm] Blood Pressure Position [Right Arm] 02 Sat by Pulse Oximetry 95 96 Oxygen Delivery Method Room Air Lab Data Lab results reviewed: Yes I reviewed the patient's lab results. Labs: Lab Results 11/16/24 13:46: SARS-CoV-2 (PCR) Not detected, Influenza A Untype (PCR) Not detected, Influenza Type B (PCR) Not detected 11/16/24 13:50: WBC 9.9, RBC 4.17 L, Hgb 9.5 L, Hct 31.6 L, MCV 75.8 L, MCH 22.8 L, MCHC 30.1 L, RDW 16.3, Plt Count 349, MPV 10.6 H, Neut % (Auto) 81.6 H, Lymph % (Auto) 12.2, Scott % (Auto) 3.8, Eos % (Auto) 1.6, Baso % (Auto) 0.6, Neut # (Auto) 8.1 H, Lymph # (Auto) 1.2, Scott # (Auto) 0.4, Eos # (Auto) 0.2, Baso # (Auto) 0.1, Sodium 135 L, Potassium 3.5, Chloride 102, Carbon Dioxide 28, Anion Gap 8.5, BUN 18 H, Creatinine 1.20 H, Estimated Creat Clear 78, Estimated GFR 45 L, Est GFR ( Amer) 55 L, Glucose 338 H, Calcium 8.2 L, Total Bilirubin 0.6, AST 22, ALT 17, Alkaline Phosphatase 124, Troponin I < 0.01, NT-Pro-B Natriuret Pep 77484 H, Total Protein 5.9 L, Albumin 3.0 L, Globulin 2.9, A lbumin/Globulin Ratio 1.0 L, HCV Ab JUAN FRANCISCO w/Rflx PCR Qn Negative, HIV Ag/Ab Combo Qual Negative 11/16/24 13:58: VBG pH 7.36, VBG pCO2 46.4, VBG pO2 34.0, VBG HCO3 25.6, VBG Total CO2 27.0, VBG O2 Saturation 57.6, VBG Base Excess 0.2, VBG Lactic Acid 1.6 11/16/24 13:50 11/16/24 13:50 Response Orders (Tests/Meds): ED MEDICATIONS Generic Name Dose Route Start Last Admin Trade Name Freq PRN Reason Stop Dose Admin Acetaminophen 650 mg 11/16/24 18:59 Acetaminophen 325mg Tab PO 12/16/24 18:58 Q4HP PRN Fever or Mild Pain (1-3) Enoxaparin Sodium 40 mg 11/17/24 09:00 Enoxaparin 40mg/0.4ml Syringe SUBCUT 12/17/24 08:59 DAILY [facility] Insulin Human Lispro 0 unit 11/16/24 21:00 Humalog 100 Units/Ml 10ml Vial (Ssi) SUBCUT 12/16/24 20:59 ACHS DEJA Protocol Ondansetron HCl 4 mg 11/16/24 19:05 Ondansetron 4mg/2ml Vial IV 12/16/24 19:04 Q6HP PRN Nausea Discontinued Medications Generic Name Dose Route Start Last Admin Trade Name Freq PRN Reason Stop Dose Admin Furosemide 80 mg 11/16/24 14:39 11/16/24 15:10 Furosemide 40mg/4ml Vial IV 11/16/24 14:40 80 mg ONCE ONE Administration ORDERS Category Date Time Status Chest XR -- portable [XR chest portable] Stat Exams 11/16/24 14:07 Completed POCUS Point of Care (ER Only) Stat Exams 11/16/24 14:51 Completed POCUS Point of Care (ER Only) Stat Exams 11/16/24 15:01 Completed Complete Blood Count Auto Diff Stat Lab 11/16/24 13:50 Completed Comprehensive Metabolic Panel Stat Lab 11/16/24 13:50 Completed HIV Combo Stat Lab 11/16/24 13:50 Completed Hepatitis C Ab Qual. W/ RFX Stat Lab 11/16/24 13:50 Completed NT Pro Brain Natriuretic Pep. Stat Lab 11/16/24 13:50 Completed Rapid PCR Covid and Flu A/B Stat Lab 11/16/24 13:46 Completed Troponin I Q3H Lab 11/16/24 17:13 Completed Troponin I Q3H Lab 11/16/24 20:00 Ordered Troponin I Stat Lab 11/16/24 13:50 Completed VBG [Venous Blood Gas] Stat RT 11/16/24 13:58 Completed MDM Narrative Medical Decision Narrative: In summary patient is a 64-year-old female who presents to the emergency department for evaluation of dyspnea. Patient is hemodynamically stable upon arrival, afebrile. At 94% on room air. Patient has dependent edema +3 patient has end expiratory rales in the bilateral bases of her lungs however she does not have any increased work of breathing. Body habitus precludes accurate assessment of anasarca.. Differential diagnosis includes viral or bacterial upper respiratory tract infection versus CHF exacerbation versus ACS etc. Initial workup will be conducted with hematologic labs twelve-lead EKG plain film chest x-ray POCUS. Initial interventions include supplemental O2 for now continuous pulse oximetry and cardiac monitoring, DuoNeb Decadron. Initial workup reviewed by me shows that her white count is normal hemoglobin hematocrit 9.5 and 31.6 respectively with an absolute neutrophil count of 8.1, VBG shows a pH of 7.36, BUN is 18 creatinine is 1.2 GFR is 45 serum glucose 338 troponins are negative x 2 however her NT proBNP is elevated at 26,700 and COVID and flu are negative. My informal interpretation of her plain film chest x-ray shows vascular crowding versus pulmonary edema but no overt effusions or focal infiltrates and her POCUS showed a decreased ejection fraction but was hard to calculate. At this point I have dosed the patient with 30 mg of Lasix IV push and this appears to be a volume overload situation. Given this I had interactive discussion with hospital medicine regarding patient DELGADO management of findings and she will be admitted for further evaluation and care cardiology consultation and likely echocardiogram <Laura Stevenson, DO - Last Filed: 11/16/24 15:54> Vital Signs Vital Signs: 11/16/24 13:35 11/16/24 13:50 11/16/24 14:00 Temperature 97.8 F Temperature Source Oral Pulse Rate 70 66 Pulse Rate [Radial] 72 Respiratory Rate 18 13 Blood Pressure 169/90 H 171/90 H Blood Pressure [Right Arm] 130/73 Blood Pressure Mean [Right Arm] 92 Blood Pressure Source [Right Arm] Automatic Cuff Blood Pressure Position [Right Arm] Sitting 02 Sat by Pulse Oximetry 94 L 95 96 Oxygen Delivery Method Room Air 11/16/24 14:31 11/16/24 15:00 11/16/24 16:08 Temperature 98.6 F Temperature Source Pulse Rate 64 62 63 Pulse Rate [Radial] Respiratory Rate 21 22 20 Blood Pressure 155/80 H 132/92 H 148/70 H Blood Pressure [Right Arm] Blood Pressure Mean [Right Arm] Blood Pressure Source [Right Arm] Blood Pressure Position [Right Arm] 02 Sat by Pulse Oximetry 95 96 Oxygen Delivery Method Room Air Lab Data Labs: Lab Results 11/16/24 13:46: SARS-CoV-2 (PCR) Not detected, Influenza A Untype (PCR) Not detected, Influenza Type B (PCR) Not detected 11/16/24 13:50: WBC 9.9, RBC 4.17 L, Hgb 9.5 L, Hct 31.6 L, MCV 75.8 L, MCH 22.8 L, MCHC 30.1 L, RDW 16.3, Plt Count 349, MPV 10.6 H, Neut % (Auto) 81.6 H, Lymph % (Auto) 12.2, Scott % (Auto) 3.8, Eos % (Auto) 1.6, Baso % (Auto) 0.6, Neut # (Auto) 8.1 H, Lymph # (Auto) 1.2, Scott # (Auto) 0.4, Eos # (Auto) 0.2, Baso # (Auto) 0.1, Sodium 135 L, Potassium 3.5, Chloride 102, Carbon Dioxide 28, Anion Gap 8.5, BUN 18 H, Creatinine 1.20 H, Estimated Creat Clear 78, Estimated GFR 45 L, Est GFR ( Amer) 55 L, Glucose 338 H, Calcium 8.2 L, Total Bilirubin 0.6, AST 22, ALT 17, Alkaline Phosphatase 124, Troponin I < 0.01, NT-Pro-B Natriuret Pep 33565 H, Total Protein 5.9 L, Albumin 3.0 L, Globulin 2.9, A lbumin/Globulin Ratio 1.0 L, HCV Ab JUAN FRANCISCO w/Rflx PCR Qn Negative, HIV Ag/Ab Combo Qual Negative 11/16/24 13:58: VBG pH 7.36, VBG pCO2 46.4, VBG pO2 34.0, VBG HCO3 25.6, VBG Total CO2 27.0, VBG O2 Saturation 57.6, VBG Base Excess 0.2, VBG Lactic Acid 1.6 Response Orders (Tests/Meds): ED MEDICATIONS Generic Name Dose Route Start Last Admin Trade Name Freq PRN Reason Stop Dose Admin Acetaminophen 650 mg 11/16/24 18:59 Acetaminophen 325mg Tab PO 12/16/24 18:58 Q4HP PRN Fever or Mild Pain (1-3) Enoxaparin Sodium 40 mg 11/17/24 09:00 Enoxaparin 40mg/0.4ml Syringe SUBCUT 12/17/24 08:59 DAILY [facility] Insulin Human Lispro 0 unit 11/16/24 21:00 Humalog 100 Units/Ml 10ml Vial (Ssi) SUBCUT 12/16/24 20:59 ACHS [facility] Protocol Ondansetron HCl 4 mg 11/16/24 19:05 Ondansetron 4mg/2ml Vial IV 12/16/24 19:04 Q6HP PRN Nausea Discontinued Medications Generic Name Dose Route Start Last Admin Trade Name Freq PRN Reason Stop Dose Admin Furosemide 80 mg 11/16/24 14:39 11/16/24 15:10 Furosemide 40mg/4ml Vial IV 11/16/24 14:40 80 mg ONCE ONE Administration ORDERS Category Date Time Status Chest XR -- portable [XR chest portable] Stat Exams 11/16/24 14:07 Completed POCUS Point of Care (ER Only) Stat Exams 11/16/24 14:51 Completed POCUS Point of Care (ER Only) Stat Exams 11/16/24 15:01 Completed Complete Blood Count Auto Diff Stat Lab 11/16/24 13:50 Completed Comprehensive Metabolic Panel Stat Lab 11/16/24 13:50 Completed HIV Combo Stat Lab 11/16/24 13:50 Completed Hepatitis C Ab Qual. W/ RFX Stat Lab 11/16/24 13:50 Completed NT Pro Brain Natriuretic Pep. Stat Lab 11/16/24 13:50 Completed Rapid PCR Covid and Flu A/B Stat Lab 11/16/24 13:46 Completed Troponin I Q3H Lab 11/16/24 17:13 Completed Troponin I Q3H Lab 11/16/24 20:00 Ordered Troponin I Stat Lab 11/16/24 13:50 Completed VBG [Venous Blood Gas] Stat RT 11/16/24 13:58 Completed ECG Data Tracing #1: Attestation: I reviewed this ECG and interpreted as documented below: ECG Narrative: Normal sinus rhythm with a ventricular to 71 bpm. Nonspecific T wave abnormality but no acute STEMI. Prolonged QT interval with a QTc of 463 ms ECG initial impression date: 11/16/24 ECG initial impression time: 13:45
[2024-11-16 14:03] LABS: Basophils # 0.1 K/mm3 (0-0.2); Basophils % 0.6 % (0.1-2.0); Eosinophils # 0.2 K/mm3 (0.0-0.4); Eosinophils % 1.6 % (0.1-12.0); Hematocrit 31.6 % (37.0-47.0); Hemoglobin 9.5 g/dL (12.2-16.2); Lymphocytes # 1.2 K/mm3 (0.7-4.5); Lymphocytes % 12.2 % (10-50); Mean Corpuscular HGB Conc 30.1 g/dL (31.8-35.4); Mean Corpuscular Hemoglobin 22.8 pg (27.0-31.2); Mean Corpuscular Volume 75.8 fl (81-99); Mean Platelet Volume 10.6 fl (7.4-10.4); Monocytes # 0.4 K/mm3 (0.1-1.0); Monocytes % 3.8 % (1.7-9.3); Neutrophils # 8.1 K/mm3 (1.8-7.8); Neutrophils % 81.6 % (37.0-80.0); Platelet Count 349 K/mm3 (142-424); Red Blood Count 4.17 M/mm3 (4.20-5.40); Red Cell Distribution Width 16.3 % (11.5-17.5); White Blood Count 9.9 K/mm3 (4.8-10.8)
--- NOTE | 2024-11-16 14:07 | XR_ITS ---
FINAL REPORT CLINICAL HISTORY: Dyspnea COMPARISON: 03/31/2022 FINDINGS: A portable view of the chest was obtained. Cardiomegaly is present. Mild pulmonary vascular congestion is noted. There are bibasilar opacities, slightly greater on the right than the left, that may represent atelectasis. There is no pleural effusion or pneumothorax. IMPRESSION: Cardiomegaly, with pulmonary vascular congestion and bibasilar opacities that may represent atelectasis. Reviewed, Interpreted and Dictated by Della Koenig MD Transcribed by Ryann Ochoa Authenticated and . [facility]
[2024-11-16 14:10] LABS: Chloride 102 mmol/L (98-107); Sodium 135 mmol/L (136-145)
[2024-11-16 14:11] LABS: Potassium 3.5 mmoL/L (3.5-5.1)
[2024-11-16 14:13] LABS: Alanine Aminotransferase 17 U/L (12-78); Alkaline Phosphatase 124 U/L (38-126); Anion Gap 8.5 mEq/L (5-15); Aspartate Amino Transferase 22 U/L (14-36); Bilirubin,Total 0.6 mg/dl (0.2-1.3); Blood Urea Nitrogen 18 mg/dl (7-17); Carbon Dioxide 28 mmol/L (22.0-30.0); Creatinine Clearance Estimated 78 mL/min (50-200); Estimated Glomerular Filt Rate 45 ml/min (>60); GFR (African American) 55 ML/MIN (>60); Globulin 2.9 g/dL (1.3-3.2); Total Protein,Serum 5.9 g/dl (6.3-8.2)
[2024-11-16 14:14] LABS: Calcium 8.2 mg/dl (8.4-10.2); Glucose 338 mg/dl (74-100)
[2024-11-16 14:16] LABS: Lactate Venous 1.6 mmol/L (0.4-2.0); VBG Base Excess 0.2 mmol/L (-2.4-2.3); VBG HCO3 25.6 mmol/L (23-30); VBG Oxygen Saturation 57.6 % (50-70); VBG PCO2 46.4 mmol/L (35-51); VBG PH 7.36 mmol/L (7.31-7.41)
[2024-11-16 14:23] LABS: NT Pro Brain Natriuretic Pep. 26700 pg/mL (0-125)
[2024-11-16 14:59] LABS: HIV Combo NEGATIVE (Negative)
[2024-11-16 15:08] LABS: Hepatitis C Ab Qual. W/ RFX NEGATIVE (Negative)
[2024-11-16] MEDS: FUROSEMIDE 40MG/4ML VIAL 80 MG IV (15:10)
--- NOTE | 2024-11-16 15:15 | PC.NURSE ---
ROUNDED ON THE PT. THE PT VOICES THAT SHE DOES NOT NEED ANYTHING AT THIS TIME. CALL LIGHT IS WITHIN REACH OF THE PT.
--- NOTE | 2024-11-16 15:40 | PC.NURSE ---
spoke with warehouse worker for bed request
--- NOTE | 2024-11-16 16:07 | HMH.PHAINT1 ---
Pharmacy Intervention Comments: MEDICATION RECONCILIATION COMPLETED ON PATIENT USING EXTERNAL FILL HISTORY FROM PHARMACY, BRANDEN REPORT, AND LIST FROM PCP OFFICE. -CARLA MACDONALDD
--- NOTE | 2024-11-16 16:10 | PC.NURSE ---
called report to jodi rodriguez on 2nd floor rn
--- NOTE | 2024-11-16 16:17 | PC.NURSE ---
Patient in room and needs nothing at this time.
--- NOTE | 2024-11-16 16:23 | PC.NURSE ---
arrived by stretcher from ED
[2024-11-16 17:55] LABS: Troponin I < 0.01 ng/ml (0.00-0.034)
[2024-11-16 20:24] LABS: Troponin I < 0.01 ng/ml (0.00-0.034)
[2024-11-16] MEDS: humaLOG 100 UNITS/ML 10ML VIAL (SSI) SUBCUT (20:38)
[2024-11-16 20:40] LABS: POC Glucose,Bedside 327 (70-110)
--- NOTE | 2024-11-16 21:18 | EXP.HP ---
History of Present Illness *History of present illness: Faiza Waters is a 64-year-old female with a medical history significant for HFpEF, type 2 diabetes, CVA with left-sided weakness, asthma, hypertension who presents with shortness of breath. She states it is more prominent when she is try to fall asleep. Denies fever/chills, coughing, chest pain, abdominal pain. Workup in the ED significant for BNP 26,700, with CXR showing pulmonary edema. Case discussed with ED provider and decision was made to admit patient for HFpEF exacerbation. [facility] Disclaimer: The information contained in this section may have been updated after the patient was seen, as this information can be updated by other users. Medical History Arthritis Renal disease HTN (hypertension), benign HLD (hyperlipidemia) GERD (gastroesophageal reflux disease) COPD (chronic obstructive pulmonary disease) Asthma Anxiety Type 2 diabetes mellitus TIA (transient ischemic attack) Surgical History H/O tubal ligation H/O total hysterectomy History of carpal tunnel release of both wrists Social History Smoking Status: Never smoker alcohol intake: never substance use type: denies use current occupational status: retired Travel in the last 8 weeks: None housing: house Have you lived/traveled outside US in past 30 days?: No Contact w/someone who lives/traveled outside US past 30 days?: No Exposure to someone with infectious disease in past 14 days?: No Do you have a fever (greater than 100.4 F or 38 C)?: No Have you tested positive for COVID-19: No Exposed to someone with COVID-19 in past 14 days?: No Do you have a sore throat?: No Do you have a cough?: No Do you have any weakness?: No Do you have any diarrhea?: No Are you experiencing any unusual bleeding?: No Do you have any muscle aches/pain?: No Do you have any abdominal pain?: No Are you experiencing loss of taste or smell?: No Other Medical History Have you received the Flu Vaccine for this season: No Have you received the Pneumonia Vaccine: No Meds Home Medications and Allergies Home Medications ?Medication ?Instructions ?Recorded ?Confirmed ?Type insulin lispro 100 unit/mL 0 unit SQ DIRECTED 04/01/22 11/16/24 History subcutaneous cartridge blood sugar diagnostic (OneTouch #100 ea 05/09/22 11/16/24 Rx Verio test strips) blood-glucose transmitter (Dexcom #1 ea 03/30/24 11/16/24 Rx G6 Transmitter device) atorvastatin 40 mg tablet (Lipitor) 40 mg PO DAILY #90 tabs 05/27/24 11/16/24 Rx albuterol sulfate 90 mcg/actuation 2 puff inhalation Q4HP PRN 11/16/24 11/16/24 History aerosol inhaler shortness of breath or wheezing allopurinol 100 mg tablet 100 mg PO DAILY 11/16/24 11/16/24 History apixaban 5 mg tablet (Eliquis) 5 mg PO BID 11/16/24 11/16/24 History aspirin 81 mg tablet,delayed 81 mg PO DAILY 11/16/24 11/16/24 History release budesonide-formoterol HFA 160 2 puff inhalation BID 11/16/24 11/16/24 History mcg-4.5 mcg/actuation aerosol inhaler (Symbicort) clopidogrel 75 mg tablet 75 mg PO DAILY 11/16/24 11/16/24 History diltiazem HCl 240 mg 240 mg PO DAILY 11/16/24 11/16/24 History capsule,extended release 24 hr famotidine 40 mg tablet 40 mg PO BID 11/16/24 11/16/24 History ferrous sulfate 325 mg (65 mg 325 mg PO BID 11/16/24 11/16/24 History iron) tablet (FeroSul) fluoxetine 20 mg capsule 20 mg PO DAILY 11/16/24 11/16/24 History gabapentin 100 mg capsule 100 mg PO TID 11/16/24 11/16/24 History hydralazine 50 mg tablet 50 mg PO TID 11/16/24 11/16/24 History isosorbide mononitrate 120 mg 120 mg PO DAILY 11/16/24 11/16/24 History tablet,extended release 24 hr loratadine 10 mg tablet (Allergy 10 mg PO DAILY 11/16/24 11/16/24 History Relief (loratadine)) losartan 100 mg tablet 100 mg PO DAILY 11/16/24 11/16/24 History metformin 500 mg tablet,extended 1,000 mg PO BID 11/16/24 11/16/24 History release 24 hr metoprolol succinate 100 mg 100 mg PO BID 11/16/24 11/16/24 History tablet,extended release 24 hr montelukast 10 mg tablet 10 mg PO PM 11/16/24 11/16/24 History pramipexole 0.125 mg tablet 0.125 mg PO DAILY 11/16/24 11/16/24 History ranolazine 1,000 mg 1,000 mg PO BID 11/16/24 11/16/24 History tablet,extended release,12 hr tiotropium bromide 18 mcg capsule 1 cap inhalation DAILY 11/16/24 11/16/24 History with inhalation device (Spiriva with HandiHaler) torsemide 10 mg tablet 20 mg PO DAILY 11/16/24 11/16/24 History New Prescriptions to Start Prescriptions: Allergies Allergy/AdvReac Type Severity Reaction Status Date / Time lisinopril Allergy Severe Hives Verified 11/16/24 14:58 strawberry Allergy Severe Anaphylaxis Verified 11/16/24 14:58 codeine AdvReac Severe Vomiting Verified 11/16/24 14:58 Penicillins AdvReac Severe Vomiting Verified 11/16/24 14:58 Exam Data for Last 24 hours Vital signs and Labs for Last 24 Hours: Temp Pulse Resp BP Pulse Ox O2 Del Method 97.8 F 62 16 157/72 H 97 Room Air 11/16/24 16:23 11/16/24 16:23 11/16/24 16:23 11/16/24 16:23 11/16/24 16:23 11/16/24 17:00 Laboratory Results - last 24 hr 11/16/24 13:46: SARS-CoV-2 (PCR) Not detected, Influenza A Untype (PCR) Not detected, Influenza Type B (PCR) Not detected 11/16/24 13:50: WBC 9.9, RBC 4.17 L, Hgb 9.5 L, Hct 31.6 L, MCV 75.8 L, MCH 22.8 L, MCHC 30.1 L, RDW 16.3, Plt Count 349, MPV 10.6 H, Neut % (Auto) 81.6 H, Lymph % (Auto) 12.2, [place] % (Auto) 3.8, Eos % (Auto) 1.6, Baso % (Auto) 0.6, Neut # (Auto) 8.1 H, Lymph # (Auto) 1.2, [place] # (Auto) 0.4, Eos # (Auto) 0.2, Baso # (Auto) 0.1, Sodium 135 L, Potassium 3.5, Chloride 102, Carbon Dioxide 28, Anion Gap 8.5, BUN 18 H, Creatinine 1.20 H, Estimated Creat Clear 78, Estimated GFR 45 L, Est GFR ( Amer) 55 L, Glucose 338 H, Calcium 8.2 L, Total Bilirubin 0.6, AST 22, ALT 17, Alkaline Phosphatase 124, Troponin I < 0.01, NT-Pro-B Natriuret Pep 90432 H, Total Protein 5.9 L, Albumin 3.0 L, Globulin 2.9, Albumin/Globulin Ratio 1.0 L, HCV Ab JUAN FRANCISCO w/Rflx PCR Qn Negative, HIV Ag/Ab Combo Qual Negative 11/16/24 13:58: VBG pH 7.36, VBG pCO2 46.4, VBG pO2 34.0, VBG HCO3 25.6, VBG Total CO2 27.0, VBG O2 Saturation 57.6, VBG Base Excess 0.2, VBG Lactic Acid 1.6 11/16/24 17:13: Troponin I < 0.01 11/16/24 20:28: POC Glucose 327 H* I & O for Last 24 hours: Intake & Output 11/13/24 11/14/24 11/15/24 11/16/24 23:59 23:59 23:59 23:59 Intake Total 280 / 280 Balance 280 / 280 Weight 106.623 kg Constitutional Constitutional: no acute distress and obese *Routine HEENT Exam Head: Present normocephalic Eye: Present EOMI and PERRL ENT: Present mucous membranes moist *Routine Neck Exam Neck: Present supple; Absent lymphadenopathy *Routine Respiratory Exam Respiratory: Present CTA bilaterally *Routine Cardiovascular Exam Cardiovascular: Present RRR *Routine Abdominal Exam Abdominal: Present soft and normoactive bowel sounds; Absent tenderness *Routine Rectal Exam Rectal:: deferred *Routine Genitalia Exam Genitalia:: deferred *Routine Extremities Exam Extremities: Absent cyanosis, clubbing or edema *Routine Skin Exam Skin: Present warm; Absent rash *Routine Neurological Exam Neurological: Present alert and oriented X3 Assessment and Plan *Assessment and plan (1) Acute exacerbation of chronic heart failure: Status: Acute Category: Medical Code(s): I50.9 - Heart failure, unspecified Plan Faiza Waters is a 64-year-old female with a medical history significant for HFpEF, type 2 diabetes, CVA with left-sided weakness, asthma, hypertension who presents with shortness of breath. She states it is more prominent when she is try to fall asleep. Denies fever/chills, coughing, chest pain, abdominal pain. Workup in the ED significant for BNP 26,700, with CXR showing pulmonary edema. Case discussed with ED provider and decision was made to admit patient HFpEF exacerbation and orthopnea. #HFpEF exacerbation ? Presents with orthopnea, BNP 26,700, CXR showing pulmonary edema. Currently on room air. ? ECHO in March 2022 revealed grade 2 diastolic dysfunction. ? IV Lasix 40 mg twice daily. Follow-up urine output, kidney function, electrolytes. ? Follow-up repeat ECHO. #Type 2 diabetes ? LDSSI, ACHS glucose checks. ? Lantus 20 units nightly. Continue metformin. ? Follow-up hemoglobin A1c. #History of CVA with left-sided weakness ? Aspirin, statin. Hold Plavix for now. Unclear why patient is on triple therapy. ? Daughter is primary tobacco drying machine operator at home, helps patient get in wheelchair to get around. #? A-fib ? Will need to follow-up with patient regarding diagnosis. ? Rate controlled. Continue metoprolol, Eliquis. Hold diltiazem for now. Full code Eliquis 5 mg twice daily
[2024-11-16 21:51] LABS: Troponin I < 0.01 ng/ml (0.00-0.034)
[2024-11-16] MEDS: INSULIN GLARGINE 100 UNITS/ML 10ML VIAL 20 UNIT SUBCUT (22:24)
[2024-11-16] MEDS: POTASSIUM CHLORIDE 20MEQ/15ML UDC 40 MEQ PO (23:42)
[2024-11-17] VITALS (8 sets, daily range): BP systolic 112–152; BP diastolic 66–83; PULSE 55–71; RESP 16–20; TEMP 36.7–36.8; O2SAT 1–100; BMI 40.1
[2024-11-17] MEDS: POTASSIUM CHLORIDE 20MEQ/15ML UDC 40 MEQ PO (05:15)
--- NOTE | 2024-11-17 06:10 | CA_ITS ---
APPROVED REPORT EXAM: Comprehensive 2D, Doppler, and color-flow Echocardiogram Liquor Maker: ADRIANE Castellanos, RVS Ht: 5 ft 3 in Wt: 235lbs BSA: 2.07 BP: 157/72 mmHg Indications: CHF,MR,TR, DIASTOLIC DYSFUNCTION, CVA W/ left sided weakness, DM, HTN, COPD Echo Enhancing Agent Comments: Limited windows due to body habitua, Patient seated upright in chair with Left arm in fixed position to chest wall. 2D Dimensions IVSd 1.35 cm LVEF (Visual) 26.30 % PWd 1.29 cm LA Volume 128.50 mL LVDd 5.06 cm LA Volume Index 62.678126 mL/m2 (M/F) 16-34 LVDs 4.44 cm Left Atrium 4.70 cm M-Mode Dimensions RVDd 4.04 cm (0.9-2.6) LA Diam 4.33 cm (1.9-4.0) LVDd 4.56 cm (3.5-5.7) LVDs 4.39 cm (3.5-5.7) IVSd 1.50 cm (0.6-1.1) PWd 1.31 cm (0.6-1.1) EF (Teich) 23.80% EPSs 1.55 cm FS 11.00% EDV (Teich) 114.40 mL TAPSE 1.78 (<1.7) ESV (Teich) 87.20 mL LV Diastology E Decel Time 187 (160-240 msec) E/A Ratio 4.07 MED A' 2.90 cm/s LAT A' 4.90 cm/s Aortic Valve LUTHER Index 0.72 cm2/m2 AoV Peak Kameron. 86.0 (50-130 cm/s) AO Peak GR. 2.90 mmHg AO Mean GR. 1.50 (<5 mmHg) AO VTI 13.3 (18-25 cm) LUTHER (VTI) 1.53 (2.5-4.5 cm2) Mitral Valve MV A Velocity 22.0 (40-130 cm/s) E/A Ratio 4.07 Pulmonary Valve ND End VMAX 170.0 cm/s Tricuspid Valve TR P. Velocity 291.00 cm/s RAP Estimate 10.00 mmHg RVSP 44.00 mmHg Left Ventricle The left ventricle is moderately dilated. Left ventricular systolic function is severely decreased. There is increased LV wall thickness There is severe global hypokinesis present. LVEF is 25%. Grade 2 diastolic dysfunction is present. Right Ventricle Right ventricle is mildly dilated. Right ventricle is mildly to moderately hypokinetic. Atria Left atrium is mildly dilated. Right atrium is mildly dilated. There is no Doppler evidence of interatrial shunt. Aortic Valve The aortic valve is mildly thickened. Trace aortic regurgitation. There is no aortic valvular stenosis. Mitral Valve The mitral valve leaflets are mildly thickened. No evidence of mitral valve stenosis. Mild mitral regurgitation. Tricuspid Valve Tricuspid valve is grossly normal in structure and function. Mild tricuspid regurgitation. RVSP is 30-35 mmHg. Pulmonic Valve The pulmonary valve is normal in structure. Mild pulmonic regurgitation. Great Vessels The aortic root is normal in size. The ascending aorta is not well-visualized. The IVC is dilated, collapses < 50% with respirophasic variation. RA pressures estimated at 15 mmHg. Pericardium There is no pericardial effusion. Other Information Study Quality: Fair Conclusion Mild LV dilation with severe reduction in LV systolic function (LVEF 25%). Grade 2 diastolic dysfunction is present. Mild RV dilation with mild to moderate reduction in RV function. Biatrial dilation. MR, mild TR, mild PI. RVSP 30-35 mmHg. Electronically signed by : Adrianne Brown MD 11/17/2024 14:38:10
[2024-11-17] MEDS: humaLOG 100 UNITS/ML 10ML VIAL (SSI) SUBCUT ×4 (06:20→21:35)
[2024-11-17 06:36] LABS: POC Glucose,Bedside 215 (70-110)
[2024-11-17 06:56] LABS: Basophils # 0.1 K/mm3 (0-0.2); Basophils % 0.5 % (0.1-2.0); Eosinophils # 0.3 K/mm3 (0.0-0.4); Eosinophils % 3.3 % (0.1-12.0); Hematocrit 31.6 % (37.0-47.0); Hemoglobin 9.4 g/dL (12.2-16.2); Lymphocytes % 20.3 % (10-50); Mean Corpuscular HGB Conc 29.7 g/dL (31.8-35.4); Mean Corpuscular Hemoglobin 22.5 pg (27.0-31.2); Mean Corpuscular Volume 75.8 fl (81-99); Mean Platelet Volume 10.5 fl (7.4-10.4); Monocytes # 0.5 K/mm3 (0.1-1.0); Monocytes % 5.3 % (1.7-9.3); Neutrophils # 6.7 K/mm3 (1.8-7.8); Neutrophils % 70.1 % (37.0-80.0); Platelet Count 355 K/mm3 (142-424); Red Blood Count 4.17 M/mm3 (4.20-5.40); Red Cell Distribution Width 16.3 % (11.5-17.5); White Blood Count 9.6 K/mm3 (4.8-10.8)
[2024-11-17 07:28] LABS: Albumin Level 2.9 g/dl (3.5-5.0); Chloride 104 mmol/L (98-107)
[2024-11-17 07:29] LABS: Potassium 4.9 mmoL/L (3.5-5.1); Sodium 134 mmol/L (136-145)
[2024-11-17 07:31] LABS: Alanine Aminotransferase 17 U/L (12-78); Alkaline Phosphatase 91 U/L (38-126); Anion Gap 8.9 mEq/L (5-15); Aspartate Amino Transferase 25 U/L (14-36); Bilirubin,Total 0.3 mg/dl (0.2-1.3); Blood Urea Nitrogen 20 mg/dl (7-17); Carbon Dioxide 26 mmol/L (22.0-30.0); Creatinine Clearance Estimated 64 mL/min (50-200); Estimated Glomerular Filt Rate 35 ml/min (>60); GFR (African American) 42 ML/MIN (>60); Globulin 2.9 g/dL (1.3-3.2); Glucose 209 mg/dl (74-100); Total Protein,Serum 5.8 g/dl (6.3-8.2)
[2024-11-17 07:32] LABS: Magnesium 1.6 mg/dl (1.6-2.3)
--- NOTE | 2024-11-17 07:50 | PC.NURSE ---
Pt. is alert and orientated x 4. Pt. on 2 liters [place] oxygen, Pt. had a good night. resting comfortably. Potassium was slightly low ;had 2 doses of oral liquid potassium. Pt, was unable to swallow the pills. Pt. assisted up to chair for breakfast. VSS. Personal items and call sandhu in reach.
[2024-11-17] MEDS: GABAPENTIN 100MG CAPSULE 100 MG PO ×3 (08:39→21:32)
[2024-11-17] MEDS: ALLOPURINOL 100MG TABLET 100 MG PO (08:39)
[2024-11-17] MEDS: CEFTRIAXONE 1 GM 1 GM in 0.9 % SODIUM CHLORIDE 50 ML IV (08:39)
[2024-11-17] MEDS: FLUOXETINE 20MG CAPSULE 20 MG PO (08:40)
[2024-11-17] MEDS: FUROSEMIDE 40MG/4ML VIAL 40 MG IV (08:40)
[2024-11-17] MEDS: METOPROLOL SUCCINATE XL 100MG TABLET 100 MG PO ×2 (08:40→21:39)
[2024-11-17] MEDS: METFORMIN 500MG TABLET 1000 MG PO ×2 (08:40→17:21)
[2024-11-17] MEDS: ENOXAPARIN 40MG/0.4ML SYRINGE 40 MG SUBCUT ×2 (08:42→22:12)
[2024-11-17] MEDS: AZITHROMYCIN 500 MG in 0.9 % SODIUM CHLORIDE 250 ML 250 MG IV (09:35)
[2024-11-17 10:34] LABS: Hemoglobin A1C 11.3 % (4.0-6.0)
--- NOTE | 2024-11-17 11:08 | ECG_ITS ---
APPROVED REPORT Exam: Resting ECG HR:73 bpm ECG Measurements Heart Rate 73 AXES OH 165 P 50 QRSd 76 QRS 48 QT 380 T 92 QTc 406 Conclusion SINUS RHYTHM NONSPECIFIC T-WAVE ABNORMALITY BORDERLINE ECG UNCONFIRMED REPORT Electronically signed by : Oliver Garcia MD 11/18/2024 15:50:16
[2024-11-17 11:32] LABS: POC Glucose,Bedside 258 (70-110)
[2024-11-17 11:52] LABS: Troponin I < 0.01 ng/ml (0.00-0.034)
--- NOTE | 2024-11-17 13:00 | P.CONCA_ITS ---
History of Present Illness History of Present Illness Consult date: 11/17/24 Requesting physician: Mark Esparza Consult reason: congestive heart failure Chief complaint: SOA History of present illness: 64-year-old white female without known cardiovascular disease but BMI of 40, status post CVA 2 years ago with residual left-sided hemiparesis requiring assistance with ADLs. She also has high blood pressure, hypercholesterolemia and very poorly controlled diabetes. Patient has seen cardiology in [place] previously and states she had a heart cath about 6 months ago but everything was okay. She cannot clarify whether she has history of heart failure or any significant valve disease. Patient presented to the emergency room complaining of several months worsening shortness of breath which is severely worse over the past several days. In emergency room she was found to have a proBNP of 26,700. Chest x-ray shows cardiomegaly with pulmonary vascular congestion and bibasilar opacities that may represent atelectasis. Serial troponins are normal. Her A1c is 11. Patient was admitted by hospital service for further workup and management. Preliminary echo this morning shows severely reduced EF which would be a new diagnosis for patient. [facility] Disclaimer: The information contained in this section may have been updated after the patient was seen, as this information can be updated by other users. Medical History Arthritis Renal disease HTN (hypertension), benign HLD (hyperlipidemia) GERD (gastroesophageal reflux disease) COPD (chronic obstructive pulmonary disease) Asthma Anxiety Type 2 diabetes mellitus TIA (transient ischemic attack) Surgical History H/O tubal ligation H/O total hysterectomy History of carpal tunnel release of both wrists Social History Smoking Status: Never smoker alcohol intake: never substance use type: denies use current occupational status: retired Travel in the last 8 weeks: None housing: house Have you lived/traveled outside US in past 30 days?: No Contact w/someone who lives/traveled outside US past 30 days?: No Exposure to someone with infectious disease in past 14 days?: No Do you have a fever (greater than 100.4 F or 38 C)?: No Have you tested positive for COVID-19: No Exposed to someone with COVID-19 in past 14 days?: No Do you have a sore throat?: No Do you have a cough?: No Do you have any weakness?: No Do you have any diarrhea?: No Are you experiencing any unusual bleeding?: No Do you have any muscle aches/pain?: No Do you have any abdominal pain?: No Are you experiencing loss of taste or smell?: No Review of Systems Constitutional Constitutional: Reports fatigue and Reports weakness Eyes Eyes: Denies loss of vision ENT Ears, Nose, Mouth, and Throat: Denies hearing loss and Denies vertigo *Cardiovascular Cardiovascular: Denies chest pain, Reports dyspnea and Denies syncope *Respiratory Respiratory: Denies cough and Reports dyspnea *Gastrointestinal Gastrointestinal: Denies change in stool character, Denies nausea and Denies vomiting *Musculoskeletal Musculoskeletal: Denies muscle weakness Integumentary/Breasts Skin/Breast: Denies changing lesions *Neurologic Neurologic: Denies loss of vision, Denies syncope, Denies vertigo and Reports weakness Endocrine Endocrine: Reports fatigue Exam Data for Last 24 hours Vital signs and Labs for Last 24 Hours: Temp Pulse Resp BP Pulse Ox O2 Del Method O2 Flow Rate 98.3 F 68 19 152/66 H 93 L Room Air 2 11/17/24 08:00 11/17/24 08:00 11/17/24 08:00 11/17/24 08:00 11/17/24 11:00 11/17/24 11:00 11/17/24 09:00 Laboratory Results - last 24 hr 11/16/24 13:46: SARS-CoV-2 (PCR) Not detected, Influenza A Untype (PCR) Not detected, Influenza Type B (PCR) Not detected 11/16/24 13:50: WBC 9.9, RBC 4.17 L, Hgb 9.5 L, Hct 31.6 L, MCV 75.8 L, MCH 22.8 L, MCHC 30.1 L, RDW 16.3, Plt Count 349, MPV 10.6 H, Neut % (Auto) 81.6 H, Lymph % (Auto) 12.2, [place] % (Auto) 3.8, Eos % (Auto) 1.6, Baso % (Auto) 0.6, Neut # (Auto) 8.1 H, Lymph # (Auto) 1.2, [place] # (Auto) 0.4, Eos # (Auto) 0.2, Baso # (Auto) 0.1, Sodium 135 L, Potassium 3.5, Chloride 102, Carbon Dioxide 28, Anion Gap 8.5, BUN 18 H, Creatinine 1.20 H, Estimated Creat Clear 78, Estimated GFR 45 L, Est GFR ( Amer) 55 L, Glucose 338 H, Calcium 8.2 L, Total Bilirubin 0.6, AST 22, ALT 17, Alkaline Phosphatase 124, Troponin I < 0.01, NT-Pro-B Natriuret Pep 75686 H, Total Protein 5.9 L, Albumin 3.0 L, Globulin 2.9, Albumin/Globulin Ratio 1.0 L, HCV Ab JUAN FRANCISCO w/Rflx PCR Qn Negative, HIV Ag/Ab Combo Qual Negative 11/16/24 13:58: VBG pH 7.36, VBG pCO2 46.4, VBG pO2 34.0, VBG HCO3 25.6, VBG Total CO2 27.0, VBG O2 Saturation 57.6, VBG Base Excess 0.2, VBG Lactic Acid 1.6 11/16/24 17:13: Troponin I < 0.01 11/16/24 20:28: POC Glucose 327 H* 11/16/24 21:19: Troponin I < 0.01 11/17/24 06:10: POC Glucose 215 H 11/17/24 06:22: WBC 9.6, RBC 4.17 L, Hgb 9.4 L, Hct 31.6 L, MCV 75.8 L, MCH 22.5 L, MCHC 29.7 L, RDW 16.3, Plt Count 355, MPV 10.5 H, Neut % (Auto) 70.1, Lymph % (Auto) 20.3, [place] % (Auto) 5.3, Eos % (Auto) 3.3, Baso % (Auto) 0.5, Neut # (Auto) 6.7, Lymph # (Auto) 2.0, [place] # (Auto) 0.5, Eos # (Auto) 0.3, Baso # (Auto) 0.1, Sodium 134 L, Potassium 4.9 D, Chloride 104, Carbon Dioxide 26, Anion Gap 8.9, BUN 20 H, Creatinine 1.50 H D, Estimated Creat Clear 64, Estimated GFR 35 L, Est GFR ( Amer) 42 L D, Glucose 209 H D, Hemoglobin A1c 11.3 H, Calcium 8.0 L, Magnesium 1.6, Total Bilirubin 0.3, AST 25, ALT 17, Alkaline Phosphatase 91, Total Protein 5.8 L, Albumin 2.9 L, Globulin 2.9, Albumin/Globulin Ratio 1.0 L 11/17/24 11:19: POC Glucose 258 H, Troponin I < 0.01 I & O for Last 24 hours: Intake & Output 11/14/24 11/15/24 11/16/24 11/17/24 23:59 23:59 23:59 23:59 Intake Total 280 / 640 720 / 720 Output Total 800 / 1300 500 / 500 Balance -520 / -660 220 / 220 Weight 235 lb 1 oz 235 lb 4.8 oz Constitutional Constitutional: no acute distress, obese and cooperative *Routine HEENT Exam Eye: Present PERRL *Routine Respiratory Exam Respiratory: Present CTA bilaterally; Absent accessory muscle use, wheezes or crackles Comments: Reduced breath sounds bilaterally *Routine Cardiovascular Exam Cardiovascular: Present RRR, Normal S1 and Normal S2; Absent murmur, gallop or rubs *Routine Abdominal Exam Abdominal: Present soft; Absent tenderness *Routine Extremities Exam Extremities: Present pulses intact; Absent cyanosis or edema *Routine Skin Exam Skin: Present intact; Absent erythema or wounds *Routine Neurological Exam Neurological: Present alert and oriented X3 Routine Psychiatric Exam Psychiatric: Present cooperative Meds Home Medications and Allergies Home Medications ?Medication ?Instructions ?Recorded ?Confirmed ?Type insulin lispro 100 unit/mL 0 unit SQ DIRECTED 04/01/22 11/16/24 History subcutaneous cartridge blood sugar diagnostic (OneTouch #100 ea 05/09/22 11/16/24 Rx Verio test strips) blood-glucose transmitter (Dexcom #1 ea 03/30/24 11/16/24 Rx G6 Transmitter device) atorvastatin 40 mg tablet (Lipitor) 40 mg PO DAILY #90 tabs 05/27/24 11/16/24 Rx albuterol sulfate 90 mcg/actuation 2 puff inhalation Q4HP PRN 11/16/24 11/16/24 History aerosol inhaler shortness of breath or wheezing allopurinol 100 mg tablet 100 mg PO DAILY 11/16/24 11/16/24 History apixaban 5 mg tablet (Eliquis) 5 mg PO BID 11/16/24 11/16/24 History aspirin 81 mg tablet,delayed 81 mg PO DAILY 11/16/24 11/16/24 History release budesonide-formoterol HFA 160 2 puff inhalation BID 11/16/24 11/16/24 History mcg-4.5 mcg/actuation aerosol inhaler (Symbicort) clopidogrel 75 mg tablet 75 mg PO DAILY 11/16/24 11/16/24 History diltiazem HCl 240 mg 240 mg PO DAILY 11/16/24 11/16/24 History capsule,extended release 24 hr famotidine 40 mg tablet 40 mg PO BID 11/16/24 11/16/24 History ferrous sulfate 325 mg (65 mg 325 mg PO BID 11/16/24 11/16/24 History iron) tablet (FeroSul) fluoxetine 20 mg capsule 20 mg PO DAILY 11/16/24 11/16/24 History gabapentin 100 mg capsule 100 mg PO TID 11/16/24 11/16/24 History hydralazine 50 mg tablet 50 mg PO TID 11/16/24 11/16/24 History isosorbide mononitrate 120 mg 120 mg PO DAILY 11/16/24 11/16/24 History tablet,extended release 24 hr loratadine 10 mg tablet (Allergy 10 mg PO DAILY 11/16/24 11/16/24 History Relief (loratadine)) losartan 100 mg tablet 100 mg PO DAILY 11/16/24 11/16/24 History metformin 500 mg tablet,extended 1,000 mg PO BID 11/16/24 11/16/24 History release 24 hr metoprolol succinate 100 mg 100 mg PO BID 11/16/24 11/16/24 History tablet,extended release 24 hr montelukast 10 mg tablet 10 mg PO PM 11/16/24 11/16/24 History pramipexole 0.125 mg tablet 0.125 mg PO DAILY 11/16/24 11/16/24 History ranolazine 1,000 mg 1,000 mg PO BID 11/16/24 11/16/24 History tablet,extended release,12 hr tiotropium bromide 18 mcg capsule 1 cap inhalation DAILY 11/16/24 11/16/24 History with inhalation device (Spiriva with HandiHaler) torsemide 10 mg tablet 20 mg PO DAILY 11/16/24 11/16/24 History New Prescriptions to Start Prescriptions: Allergies Allergy/AdvReac Type Severity Reaction Status Date / Time lisinopril Allergy Severe Hives Verified 11/16/24 14:58 strawberry Allergy Severe Anaphylaxis Verified 11/16/24 14:58 codeine AdvReac Severe Vomiting Verified 11/16/24 14:58 Penicillins AdvReac Severe Vomiting Verified 11/16/24 14:58 Assessment and Plan *Assessment and plan (1) Acute HFrEF (heart failure with reduced ejection fraction): Status: Acute Category: Medical Code(s): I50.21 - Acute systolic (congestive) heart failure (2) Morbid obesity with body mass index (BMI) of 40.0 to 44.9 in adult: Status: Acute Category: Medical Code(s): E66.01 - Morbid (severe) obesity due to excess calories; Z68.41 - Body mass index [BMI] 40.0-44.9, adult (3) Type 2 diabetes mellitus: Status: Chronic Qualifiers: Diabetes mellitus complication detail: with other circulatory complications Diabetes mellitus complication status: with circulatory complication Diabetes mellitus long-term insulin use: with long-term use Qualified Code(s): E11.59 - Type 2 diabetes mellitus with other circulatory complications Category: Medical Code(s): E11.9 - Type 2 diabetes mellitus without complications (4) Cerebrovascular accident: Status: Acute Qualifiers: CVA mechanism: unspecified Qualified Code(s): I63.9 - Cerebral infarction, unspecified Category: Medical Code(s): I63.9 - Cerebral infarction, unspecified Plan Acute HFrEF - new dx with ProBNP 26, pulm vacsular congestion, GOMEZ, orthopnea - prelim ECHO shows severely reduced EF, final report pending - Plan: change Lasix 40 BID to Bumex 2mg TID. Add Irbesartan, Aldactone. Jardiance and Entresto later. - Obtain LHC/ECHO results from [place] Morbid Obesity, BMI 40 - life limiting - consider GLP-1 outpatient DM-II - poorly controlled with A1C 11 Hx of CVA with left hemiparesis - requires assistance with all ADLs Htn - resume metoprolol - add irbesartan and aldactone Plan: Diurese, med adjustments as above. Further plans pending final ECHO read and review of records from [facility].
[2024-11-17] MEDS: MAGNESIUM SULFATE IN WATER 2 GM/50 ML PIGGYBACK IV ×2 (13:38→14:33)
--- NOTE | 2024-11-17 14:18 | CA_ITS ---
FINAL REPORT TECHNIQUE: Graded compression, spectral analysis and ultrasound images of the venous system of the upper extremity were obtained. CLINICAL HISTORY: Patient states she was diagnosed with a DVT in her neck in September 2024 at outside hospital. She states she began taking Eliquis for treatment, to which she is still taking. DM, obesity, paralysis to left side. Left arm is in a fixed position with limited mobility. Ultrasound is ordered for IJV, subclavian vein, and proximal axillary vein to assess DVT. FINDINGS: The jugular vein, subclavian vein, axillary vein, brachial vein, cephalic vein and basilic venous system are fully compressible and demonstrate no evidence of thrombosis. IMPRESSION: No evidence of thrombosis of the venous system of the left upper extremity. Reviewed, Interpreted and Dictated by Gina Myers MD Transcribed by Loretta Lancaster Authenticated and [facility]
[2024-11-17] MEDS: SPIRONOLACTONE 25MG TABLET 25 MG PO (15:12)
[2024-11-17] MEDS: BUMETANIDE 1 MG TABLET 2 MG PO ×2 (15:13→21:33)
--- NOTE | 2024-11-17 15:36 | EXP.PN ---
Subjective *Date: 11/17/24 *Time: 15:36 Interval history: Patient feels slightly better today, but did have orthopnea overnight. Improved with 2 L nasal cannula. ECHO LVEF 25%, cardiology consulted, aggressively diuresing. May need C. Exam Data for Last 24 hours Vital signs and Labs for Last 24 Hours: Temp Pulse Resp BP Pulse Ox O2 Del Method O2 Flow Rate 98.3 F 68 19 152/66 H 93 L Nasal Cannula 1 11/17/24 08:00 11/17/24 08:00 11/17/24 08:00 11/17/24 08:00 11/17/24 11:00 11/17/24 13:00 11/17/24 13:00 Laboratory Results - last 24 hr 11/16/24 13:50: Troponin I < 0.01 11/16/24 17:13: Troponin I < 0.01 11/16/24 20:28: POC Glucose 327 H* 11/16/24 21:19: Troponin I < 0.01 11/17/24 06:10: POC Glucose 215 H 11/17/24 06:22: WBC 9.6, RBC 4.17 L, Hgb 9.4 L, Hct 31.6 L, MCV 75.8 L, MCH 22.5 L, MCHC 29.7 L, RDW 16.3, Plt Count 355, MPV 10.5 H, Neut % (Auto) 70.1, Lymph % (Auto) 20.3, [place] % (Auto) 5.3, Eos % (Auto) 3.3, Baso % (Auto) 0.5, Neut # (Auto) 6.7, Lymph # (Auto) 2.0, [place] # (Auto) 0.5, Eos # (Auto) 0.3, Baso # (Auto) 0.1, Sodium 134 L, Potassium 4.9 D, Chloride 104, Carbon Dioxide 26, Anion Gap 8.9, BUN 20 H, Creatinine 1.50 H D, Estimated Creat Clear 64, Estimated GFR 35 L, Est GFR ( Amer) 42 L D, Glucose 209 H D, Hemoglobin A1c 11.3 H, Calcium 8.0 L, Magnesium 1.6, Total Bilirubin 0.3, AST 25, ALT 17, Alkaline Phosphatase 91, Total Protein 5.8 L, Albumin 2.9 L, Globulin 2.9, Albumin/Globulin Ratio 1.0 L 11/17/24 11:19: POC Glucose 258 H, Troponin I < 0.01 I & O for Last 24 hours: Intake & Output 11/14/24 11/15/24 11/16/24 11/17/24 23:59 23:59 23:59 23:59 Intake Total 280 / 640 720 / 720 Output Total 800 / 1300 500 / 500 Balance -520 / -660 220 / 220 Weight 106.623 kg 106.73 kg Constitutional Constitutional: no acute distress *Routine HEENT Exam Head: Present normocephalic Eye: Present EOMI and PERRL ENT: Present mucous membranes moist *Routine Neck Exam Neck: Present supple; Absent lymphadenopathy *Routine Respiratory Exam Respiratory: Present CTA bilaterally *Routine Cardiovascular Exam Cardiovascular: Present RRR *Routine Abdominal Exam Abdominal: Present soft and normoactive bowel sounds; Absent tenderness *Routine Extremities Exam Extremities: Absent cyanosis, clubbing or edema *Routine Skin Exam Skin: Present warm; Absent rash *Routine Neurological Exam Neurological: Present alert and oriented X3 Assessment and Plan *Assessment and plan (1) Acute exacerbation of chronic heart failure: Status: Acute Category: Medical Code(s): I50.9 - Heart failure, unspecified Plan Faiza Waters is a 64-year-old female with a medical history significant for HFpEF, type 2 diabetes, CVA with left-sided weakness, asthma, hypertension who presents with shortness of breath. She states it is more prominent when she is try to fall asleep. Denies fever/chills, coughing, chest pain, abdominal pain. Workup in the ED significant for BNP 26,700, with CXR showing pulmonary edema. Case discussed with ED provider and decision was made to admit patient HFpEF exacerbation and orthopnea. #Acute hypoxic respiratory failure #HFrEF exacerbation, new onset ? Presents with orthopnea, BNP 26,700, CXR showing pulmonary edema. ? ECHO in March 2022 revealed grade 2 diastolic dysfunction. ? ECHO 11/17/2024 LVEF 25%, G2DD. ? Discussed with cardiology, swapped Lasix for Bumex, started spironolactone, irbesartan. ? May require inpatient LHC, will further discuss with cardiology. ? Started Bumex 2 mg 3 times daily, spironolactone 25 mg, irbesartan 150 mg (though held this afternoon due to soft pressures). ? Currently on 1 L nasal cannula, wean as tolerated. ? Follow-up urine output, kidney function, electrolytes. #Type 2 diabetes ? Hemoglobin A1c 11.3, well above goal. ? LDSSI, ACHS glucose checks. ? Increased Lantus 30 units nightly. Continue metformin. ? Will consider starting SGLT2i once more euvolemic as above. #History of CVA with left-sided weakness ? Aspirin, statin. Hold Plavix for now. Unclear why patient is on triple therapy. ? Daughter is primary senior foreman at home, helps patient get in wheelchair to get around. #? A-fib ? Will need to follow-up with patient regarding diagnosis. ? Rate controlled. Continue metoprolol, Eliquis. Hold diltiazem for now. Full code Eliquis 5 mg twice daily
--- NOTE | 2024-11-17 15:36 | PC.NURSE ---
at 1100 patient stated she felt dizzy and like she was going to pass out. i assessed vital signs. Blood pressure 94/50, heart rate 68, O2 on 2 LNC 98%. MD notified. EKG and troponin obtained per MD. patients blood sugar was 258, treated per DEC. no pain reported. reassessed patient at 1120, blood pressure 104/60, HR 70s, O2 96% 1LNC. no c/o dizziness during this time.
[2024-11-17 16:58] LABS: D-Dimer 0.64 ug/mL (0.0-0.5)
[2024-11-17 17:25] LABS: POC Glucose,Bedside 203 (70-110)
[2024-11-17] MEDS: BUDESONIDE FORMOTEROL IH (18:39)
[2024-11-17] MEDS: [UNRECOGNIZED DRUG - OTHER] IH (18:39)
--- NOTE | 2024-11-17 19:14 | PC.NURSE ---
o2 room air saturation lying flat was 93% at 1100.
[2024-11-17] MEDS: PRAMIPEXOLE 0.125MG TABLET 0.125 MG PO (21:32)
[2024-11-17] MEDS: ATORVASTATIN 40MG TABLET 40 MG PO (21:32)
[2024-11-17] MEDS: INSULIN GLARGINE 100 UNITS/ML 3ML FLEXPEN 30 UNIT SUBCUT (21:34)
[2024-11-17 21:39] LABS: POC Glucose,Bedside 214 (70-110)
[2024-11-18] VITALS (10 sets, daily range): BP systolic 101–135; BP diastolic 55–76; PULSE 63–85; RESP 16–20; TEMP 36.3–37.2; O2SAT 94–100; BMI 40.4
--- NOTE | 2024-11-18 05:12 | PC.NURSE ---
Pt. has been alert and orientated x 4. Pt. is on 1 liter of oxygen per N/C for comfort. Pt. has had a good shift. She has slept soundly and comfortable. Pt. able to help some with turning side to side. Pt. has a purewick and has had good urine output. Pt. Blood sugers remain elevated covered with Insulin. Pt. was up to chair yesterday and did well. VSS. Personal items and call sandhu in reach.
[2024-11-18] MEDS: [UNRECOGNIZED DRUG - OTHER] IH ×2 (06:01→18:28)
[2024-11-18] MEDS: BUDESONIDE FORMOTEROL IH ×2 (06:01→18:28)
[2024-11-18 06:50] LABS: POC Glucose,Bedside 133 (70-110)
[2024-11-18 07:07] LABS: Chloride 101 mmol/L (98-107); Sodium 135 mmol/L (136-145)
[2024-11-18 07:09] LABS: Alanine Aminotransferase 15 U/L (12-78); Aspartate Amino Transferase 22 U/L (14-36); Blood Urea Nitrogen 25 mg/dl (7-17); Creatinine Clearance Estimated 48 mL/min (50-200); Estimated Glomerular Filt Rate 25 ml/min (>60); GFR (African American) 30 ML/MIN (>60)
[2024-11-18 07:10] LABS: Alkaline Phosphatase 112 U/L (38-126); Bilirubin,Total 0.2 mg/dl (0.2-1.3); Calcium 8.1 mg/dl (8.4-10.2); Carbon Dioxide 28 mmol/L (22.0-30.0); Glucose 130 mg/dl (74-100); Magnesium 2.3 mg/dl (1.6-2.3)
[2024-11-18] MEDS: ENOXAPARIN 40MG/0.4ML SYRINGE 40 MG SUBCUT (07:33)
[2024-11-18] MEDS: FLUOXETINE 20MG CAPSULE 20 MG PO (07:34)
[2024-11-18] MEDS: SPIRONOLACTONE 25MG TABLET 25 MG PO (07:34)
[2024-11-18] MEDS: ALLOPURINOL 100MG TABLET 100 MG PO (07:34)
[2024-11-18] MEDS: IRBESARTAN 150MG TAB 150 MG PO (07:34)
[2024-11-18] MEDS: GABAPENTIN 100MG CAPSULE 100 MG PO ×3 (07:34→20:46)
[2024-11-18] MEDS: BUMETANIDE 1 MG TABLET 2 MG PO ×2 (07:35→07:36)
[2024-11-18] MEDS: METFORMIN 500MG TABLET 1000 MG PO ×2 (07:35→16:03)
[2024-11-18] MEDS: METOPROLOL SUCCINATE XL 100MG TABLET 100 MG PO ×2 (08:03→20:46)
[2024-11-18 08:42] LABS: Basophils # 0.1 K/mm3 (0-0.2); Basophils % 0.6 % (0.1-2.0); Eosinophils # 0.3 K/mm3 (0.0-0.4); Eosinophils % 3.1 % (0.1-12.0); Hemoglobin 9.5 g/dL (12.2-16.2); Lymphocytes # 2.2 K/mm3 (0.7-4.5); Lymphocytes % 24.9 % (10-50); Mean Corpuscular HGB Conc 28.8 g/dL (31.8-35.4); Mean Corpuscular Hemoglobin 22.5 pg (27.0-31.2); Mean Corpuscular Volume 78.2 fl (81-99); Monocytes # 0.4 K/mm3 (0.1-1.0); Monocytes % 4.7 % (1.7-9.3); Neutrophils # 5.8 K/mm3 (1.8-7.8); Neutrophils % 66.5 % (37.0-80.0); Platelet Count 358 K/mm3 (142-424); Red Blood Count 4.22 M/mm3 (4.20-5.40); Red Cell Distribution Width 16.4 % (11.5-17.5); White Blood Count 8.8 K/mm3 (4.8-10.8)
--- NOTE | 2024-11-18 09:53 | P.PN_ITS ---
Subjective Subjective Date: 11/18/24 Time: 09:00 Interval history: Patient reports subjective improvement in shortness of breath but has developed significant cough. Lower extremity edema is resolved. I/O indicates +2 L which I think is an error. Her echo does confirm EF 25% which is global and not a wall motion abnormality. Left upper extremity venous negative for DVT Exam Data for Last 24 hours Vital signs and Labs for Last 24 Hours: Temp Pulse Resp BP Pulse Ox O2 Del Method O2 Flow Rate 98.0 F 67 18 123/70 97 Nasal Cannula 1 11/18/24 07:51 11/18/24 07:51 11/18/24 07:51 11/18/24 07:51 11/18/24 07:51 11/18/24 08:22 11/18/24 08:22 Laboratory Results - last 24 hr 11/17/24 06:22: Hemoglobin A1c 11.3 H 11/17/24 11:19: POC Glucose 258 H, Troponin I < 0.01 11/17/24 14:28: D-Dimer 0.64 H 11/17/24 17:18: POC Glucose 203 H 11/17/24 21:21: POC Glucose 214 H 11/18/24 05:49: WBC 8.8, RBC 4.22, Hgb 9.5 L, Hct 33.0 L, MCV 78.2 L, MCH 22.5 L , MCHC 28.8 L, RDW 16.4, Plt Count 358, MPV 11.0 H, Neut % (Auto) 66.5, Lymph % (Auto) 24.9, [place] % (Auto) 4.7, Eos % (Auto) 3.1, Baso % (Auto) 0.6, Neut # (Auto) 5.8, Lymph # (Auto) 2.2, [place] # (Auto) 0.4, Eos # (Auto) 0.3, Baso # (Auto) 0.1, Sodium 135 L, Chloride 101, Carbon Dioxide 28, BUN 25 H, Creatinine 2.00 H D, Estimated Creat Clear 48, Estimated GFR 25 L, Est GFR ( Amer) 30 L D, Glucose 130 H D, Calcium 8.1 L, Magnesium 2.3 D, Total Bilirubin 0.2, AST 22, ALT 15, Alkaline Phosphatase 112, Total Protein 6.0 L, Albumin 3.0 L, Globulin 3.0, Albumin/Globulin Ratio 1.0 L 11/18/24 06:31: POC Glucose 133 H Temp Pulse Resp BP Pulse Ox O2 Del Method O2 Flow Rate 98.3 F 68 19 152/66 H 93 L Room Air 2 11/17/24 08:00 11/17/24 08:00 11/17/24 08:00 11/17/24 08:00 11/17/24 11:00 11/17/24 11:00 11/17/24 09:00 Laboratory Results - last 24 hr 11/16/24 13:46: SARS-CoV-2 (PCR) Not detected, Influenza A Untype (PCR) Not detected, Influenza Type B (PCR) Not detected 11/16/24 13:50: WBC 9.9, RBC 4.17 L, Hgb 9.5 L, Hct 31.6 L, MCV 75.8 L, MCH 22.8 L, MCHC 30.1 L, RDW 16.3, Plt Count 349, MPV 10.6 H, Neut % (Auto) 81.6 H, Lymph % (Auto) 12.2, [place] % (Auto) 3.8, Eos % (Auto) 1.6, Baso % (Auto) 0.6, Neut # (Auto) 8.1 H, Lymph # (Auto) 1.2, [place] # (Auto) 0.4, Eos # (Auto) 0.2, Baso # (Auto) 0.1, Sodium 135 L, Potassium 3.5, Chloride 102, Carbon Dioxide 28, Anion Gap 8.5, BUN 18 H, Creatinine 1.20 H, Estimated Creat Clear 78, Estimated GFR 45 L, Est GFR ( Amer) 55 L, Glucose 338 H, Calcium 8.2 L, Total Bilirubin 0.6, AST 22, ALT 17, Alkaline Phosphatase 124, Troponin I < 0.01, NT-Pro-B Natriuret Pep 76039 H, Total Protein 5.9 L, Albumin 3.0 L, Globulin 2.9, Albumin/Globulin Ratio 1.0 L, HCV Ab JUAN [place]ANC[place] w/Rflx PCR Qn Negative, HIV Ag/Ab Combo Qual Negative 11/16/24 13:58: VBG pH 7.36, VBG pCO2 46.4, VBG pO2 34.0, VBG HCO3 25.6, VBG Total CO2 27.0, VBG O2 Saturation 57.6, VBG Base Excess 0.2, VBG Lactic Acid 1.6 11/16/24 17:13: Troponin I < 0.01 11/16/24 20:28: POC Glucose 327 H* 11/16/24 21:19: Troponin I < 0.01 11/17/24 06:10: POC Glucose 215 H 11/17/24 06:22: WBC 9.6, RBC 4.17 L, Hgb 9.4 L, Hct 31.6 L, MCV 75.8 L, MCH 22.5 L, MCHC 29.7 L, RDW 16.3, Plt Count 355, MPV 10.5 H, Neut % (Auto) 70.1, Lymph % (Auto) 20.3, [place] % (Auto) 5.3, Eos % (Auto) 3.3, Baso % (Auto) 0.5, Neut # (Auto) 6.7, Lymph # (Auto) 2.0, [place] # (Auto) 0.5, Eos # (Auto) 0.3, Baso # (Auto) 0.1, Sodium 134 L, Potassium 4.9 D, Chloride 104, Carbon Dioxide 26, Anion Gap 8.9, BUN 20 H, Creatinine 1.50 H D, Estimated Creat Clear 64, Estimated GFR 35 L, Est GFR ( Amer) 42 L D, Glucose 209 H D, Hemoglobin A1c 11.3 H, Calcium 8.0 L, Magnesium 1.6, Total Bilirubin 0.3, AST 25, ALT 17, Alkaline Phosphatase 91, Total Protein 5.8 L, Albumin 2.9 L, Globulin 2.9, Albumin/Globulin Ratio 1.0 L 11/17/24 11:19: POC Glucose 258 H, Troponin I < 0.01 I & O for Last 24 hours: Intake & Output 11/15/24 11/16/24 11/17/24 11/18/24 23:59 23:59 23:59 23:59 Intake Total 280 / 640 1500 / 1800 780 / 780 Output Total 800 / 1300 1000 / 1000 550 / 550 Balance -520 / -660 500 / 800 230 / 230 Weight 235 lb 1 oz 235 lb 4.8 oz 236 lb 6.4 oz Intake & Output 11/14/24 11/15/24 11/16/24/13/25 23:59 23:59 23:59 23:59 Intake Total 280 / 640 720 / 720 Output Total 800 / 1300 500 / 500 Balance -520 / -660 220 / 220 Weight 235 lb 1 oz 235 lb 4.8 oz Constitutional Constitutional: no acute distress and cooperative *Routine HEENT Exam Eye: Present PERRL *Routine Respiratory Exam Respiratory: Present CTA bilaterally, wheezes and crackles; Absent accessory muscle use Comments: Reduced breath sounds bilaterally *Routine Cardiovascular Exam Cardiovascular: Present RRR, Normal S1 and Normal S2; Absent murmur, gallop or rubs *Routine Abdominal Exam Abdominal: Present soft; Absent tenderness *Routine Extremities Exam Extremities: Present pulses intact; Absent cyanosis or edema *Routine Skin Exam Skin: Present intact; Absent erythema or wounds *Routine Neurological Exam Neurological: Present alert and oriented X3 Routine Psychiatric Exam Psychiatric: Present cooperative Progress Note: A&P Assessment and plan (1) Acute HFrEF (heart failure with reduced ejection fraction): Status: Acute (2) Type 2 diabetes mellitus: Status: Chronic (3) Cerebrovascular accident: Status: Acute (4) Multiple lacunar infarcts: Status: Acute (5) Morbid obesity with body mass index (BMI) of 40.0 to 44.9 in adult: Status: Acute (6) Deep vein thrombosis (DVT) of left upper extremity: Status: Acute Assessment and Plan Assessment and Plan for All Diagnoses:: Acute HFrEF, NICM - new dx with ProBNP 26k, pulm vacsular congestion, GOMEZ, orthopnea, EF 25% - ECHO shows new globally reduced EF. Was normal on ECHO 06/2024 in [place]. - LHC 07/2024 [place] - Trivial CAD, preserved EDP and LV function - Plan: reduce Bumex to 1mg TID, Change Irbesartan to Entresto, Continue Aldactone, add Jardiance. Pt agreeable to LifeVest. - LHC <6 mo ago showed trivial CAD, no utility in repeating LHC here. Will obtain outpatient cardiac MRI to help evaluate etiology of CM. Morbid Obesity, BMI 40 - life limiting - consider GLP-1 outpatient DM-II - poorly controlled with A1C 11 - add Jardiance for CV benefit - consider GLP-1 given BMI 40 Hx of CVA with left hemiparesis - requires assistance with all ADLs LUE DVT - jugular and subclavian veins per Venous 09[place] - repeat Venous here is neg - continue Eliquis Htn - resume metoprolol - add Entresto and Aldactone Cough/Wheeze - check CT Chest CV Summary 11/18: Continue diuresis, initiate GDMT for HF. Order LifeVest. Evaluate cough/wheeze with CT. I expect she may be here through the weekend.
--- NOTE | 2024-11-18 09:54 | CT_ITS ---
FINAL REPORT CLINICAL HISTORY: soa, wheeze, cough COMPARISON: 09/27/2024 FINDINGS: CT CHEST without contrast TECHNIQUE: Axial CT without contrast There has been resolved interstitial edema since the prior exam. There is resolved pleural effusion since the prior exam. Small pericardial effusion is stable. There is resolved lymphadenopathy since prior exam. Lymphadenopathy was probably related to CHF. Limited images of the upper abdomen revealed a upper pole right renal cyst. IMPRESSION: No acute findings. Resolved CHF from prior exam. This study was performed using automated techniques to achieve radiation exposure as low as reasonably achievable Reviewed, Interpreted and Dictated by Gina Myers MD Transcribed by Loretta Lancaster Authenticated and [facility]
[2024-11-18 10:15] LABS: POC Glucose,Bedside 249 (70-110)
[2024-11-18] MEDS: humaLOG 100 UNITS/ML 10ML VIAL (SSI) SUBCUT ×3 (10:22→20:42)
[2024-11-18 10:47] LABS: Anion Gap 10.1 mEq/L (5-15); Potassium 4.1 mmoL/L (3.5-5.1)
[2024-11-18] MEDS: APIXABAN 5MG TABLET 5 MG PO ×2 (11:27→20:47)
[2024-11-18] MEDS: EMPAGLIFLOZIN 10MG TABLET 10 MG PO (11:27)
[2024-11-18] MEDS: BUMETANIDE 1 MG TABLET PO ×2 (11:39→22:08)
--- NOTE | 2024-11-18 14:57 | PC.NURSE ---
Pt is aox4, 02-1L nc for comfort, fsbg achs, ef 25%, strict I & O's, Left sided weakness from old cva, 20g L FA SL, purewick in place for diuresis, cardiac ada diet, cardiology following and recommends pt have a life vest at d/c.
[2024-11-18 16:11] LABS: POC Glucose,Bedside 208 (70-110)
--- NOTE | 2024-11-18 18:45 | XR_ITS ---
PROCEDURE INFORMATION: Exam: XR Chest Exam date and time: 11/18/2024 6:54 PM Age: 64 years old Clinical indication: Cough and shortness of breath; Additional info: SOB, increased cough TECHNIQUE: Imaging protocol: Radiologic exam of the chest. Views: 1 view. COMPARISON: CT CHEST WO CON 11/18/2024 10:33 AM FINDINGS: Lungs: Bilateral perihilar opacities. Small right lower lobe calcified granuloma. Pleural spaces: No large pleural effusion. No pneumothorax. Heart/Mediastinum: Cardiomegaly. Calcified atherosclerotic changes of the thoracic aorta. Bones/joints: No acute findings. IMPRESSION: 1. Bilateral perihilar opacities which may be seen with pulmonary edema infection in the acute setting. 2. Cardiomegaly.
[2024-11-18] MEDS: IPRATROPIUM/ALBUTEROL 3 ML NEB IH ×2 (19:07→23:51)
[2024-11-18] MEDS: INSULIN GLARGINE 100 UNITS/ML 3ML FLEXPEN 30 UNIT SUBCUT (20:42)
[2024-11-18 20:44] LABS: Adenovirus,PCR Not Detected (NotDetected); Bordetella Pertussis Not Detected (NotDetected); Chlamydophila Pneumoniae, PCR Not Detected (NotDetected); Coronavirus 19, PCR Not Detected (NotDetected); Coronavirus 229E Not Detected (NotDetected); Coronavirus NL63 Not Detected (NotDetected); Coronavirus OC43 Not Detected (NotDetected); Coronovirus HKU1,PCR Not Detected (NotDetected); Human Metapneumovirus Not Detected (NotDetected); Influenza A, PCR Not Detected (NotDetected); Influenza AH1, 2009 Not Detected (NotDetected); Influenza AH1, PCR Not Detected (NotDetected); Influenza AH3,PCR Not Detected (NotDetected); Influenza B, PCR Not Detected (NotDetected); Mycoplasma Pneumoniae, PCR Not Detected (NotDetected); Parainfluenza 1, PCR Not Detected (NotDetected); Parainfluenza 2, PCR Not Detected (NotDetected); Parainfluenza 3, PCR Not Detected (NotDetected); Parainfluenza 4, PCR Not Detected (NotDetected); Respiratory Syncytial Virus Not Detected (NotDetected); Rhinovirus/Enterovirus Not Detected (NotDetected)
[2024-11-18] MEDS: CEFTRIAXONE 1 GM 1 GM in 0.9 % SODIUM CHLORIDE 50 ML IV (20:45)
[2024-11-18] MEDS: DOXYCYCLINE HYCLATE 100 MG in 0.9 % SODIUM CHLORIDE 250 ML 166.667 MG IV (20:45)
[2024-11-18] MEDS: PRAMIPEXOLE 0.125MG TABLET 0.125 MG PO (20:46)
[2024-11-18] MEDS: RANOLAZINE 500MG ER TABLET 1000 MG PO (20:47)
[2024-11-18] MEDS: SACUBITRIL/VALSARTAN 24-26MG TABLET 1 EACH PO (20:47)
[2024-11-18] MEDS: ATORVASTATIN 40MG TABLET 40 MG PO (20:47)
[2024-11-18] MEDS: BENZONATATE 100MG CAPSULE 100 MG PO (20:54)
--- NOTE | 2024-11-18 21:42 | EXP.PN ---
Subjective *Date: 11/24/24 *Time: 18:29 Exam Data for Last 24 hours Vital signs and Labs for Last 24 Hours: Temp Pulse Resp BP Pulse Ox O2 Del Method O2 Flow Rate 97.6 F 77 18 101/55 L 100 Nasal Cannula 2 11/18/24 19:50 11/18/24 19:50 11/18/24 19:50 11/18/24 19:50 11/18/24 19:50 11/18/24 19:50 11/18/24 19:50 Laboratory Results - last 24 hr 11/18/24 05:49: WBC 8.8, RBC 4.22, Hgb 9.5 L, Hct 33.0 L, MCV 78.2 L, MCH 22.5 L, MCHC 28.8 L, RDW 16.4, Plt Count 358, MPV 11.0 H, Neut % (Auto) 66.5, Lymph % (Auto) 24.9, [place] % (Auto) 4.7, Eos % (Auto) 3.1, Baso % (Auto) 0.6, Neut # (Auto) 5.8, Lymph # (Auto) 2.2, [place] # (Auto) 0.4, Eos # (Auto) 0.3, Baso # (Auto) 0.1, Sodium 135 L, Potassium 4.1, Chloride 101, Carbon Dioxide 28, Anion Gap 10.1, BUN 25 H, Creatinine 2.00 H D, Estimated Creat Clear 48, Estimated GFR 25 L, Est GFR ( Amer) 30 L D, Glucose 130 H D, Calcium 8.1 L, Magnesium 2.3 D, Total Bilirubin 0.2, AST 22, ALT 15, Alkaline Phosphatase 112, Total Protein 6.0 L, Albumin 3.0 L, Globulin 3.0, Albumin/Globulin Ratio 1.0 L 11/18/24 06:31: POC Glucose 133 H 11/18/24 10:08: POC Glucose 249 H 11/18/24 16:04: POC Glucose 208 H I & O for Last 24 hours: Intake & Output 11/15/24 11/16/24 11/17/24 11/18/24 23:59 23:59 23:59 23:59 Intake Total 280 / 640 1500 / 1800 1170 / 1170 Output Total 800 / 1300 1000 / 1000 1350 / 1350 Balance -520 / -660 500 / 800 -180 / -180 Weight 106.623 kg 106.73 kg 107.229 kg Constitutional Constitutional: no acute distress *Routine HEENT Exam Head: Present normocephalic Eye: Present EOMI and PERRL ENT: Present mucous membranes moist *Routine Neck Exam Neck: Present supple; Absent lymphadenopathy *Routine Respiratory Exam Respiratory: Present CTA bilaterally *Routine Cardiovascular Exam Cardiovascular: Present RRR *Routine Abdominal Exam Abdominal: Present soft and normoactive bowel sounds; Absent tenderness *Routine Extremities Exam Extremities: Absent cyanosis, clubbing or edema *Routine Skin Exam Skin: Present warm; Absent rash *Routine Neurological Exam Neurological: Present alert and oriented X3 Assessment and Plan *Assessment and plan (1) Acute exacerbation of chronic heart failure: Status: Acute Category: Medical Code(s): I50.9 - Heart failure, unspecified Plan Faiza Waters is a 64-year-old female with a medical history significant for HFpEF, type 2 diabetes, CVA with left-sided weakness, asthma, hypertension who presents with shortness of breath. She states it is more prominent when she is try to fall asleep. Denies fever/chills, coughing, chest pain, abdominal pain. Workup in the ED significant for BNP 26,700, with CXR showing pulmonary edema. Case discussed with ED provider and decision was made to admit patient HFpEF exacerbation and orthopnea. #Acute hypoxic respiratory failure #HFrEF exacerbation, new onset ? Presents with orthopnea, BNP 26,700, CXR showing pulmonary edema. ? ECHO in March 2022 revealed grade 2 diastolic dysfunction. ? ECHO 11/17/2024 LVEF 25%, G2DD. ? Discussed with cardiology, started GDMT today. [facility] 4 months ago with insignificant CAD. ? Decreased Bumex to 1 mg 3 times a day given bump in renal function, continue spironolactone. Cardiology started Entresto Farxiga. ? Patient agreeable to LifeVest. ? Currently on 1 L nasal cannula, wean as tolerated. ? Follow-up urine output, kidney function, electrolytes. #Suspected community-acquired pneumonia ? Continue ceftriaxone, doxycycline day 2. #Type 2 diabetes ? Hemoglobin A1c 11.3, well above goal. ? LDSSI, ACHS glucose checks. ? Increased Lantus 30 units nightly. Continue metformin. ? Will consider starting SGLT2i once more euvolemic as above. #History of CVA with left-sided weakness ? Aspirin, statin. Hold Plavix for now. Unclear why patient is on triple therapy. ? Daughter is primary acute care certified nursing assistant at home, helps patient get in wheelchair to get around. # History of left IJ DVT ? Continue Eliquis 5 mg twice daily. Repeat venous Doppler negative here. Full code Eliquis 5 mg twice daily
[2024-11-18 22:38] LABS: POC Glucose,Bedside 205 (70-110)
[2024-11-19] VITALS (48 sets, daily range): BP systolic 57–163; BP diastolic 35–97; PULSE 32–87; RESP 16–29; TEMP 36.1–38.1; O2SAT 82–100; BMI 40.4; BMI 41.1
[2024-11-19 06:04] LABS: POC Glucose,Bedside 211 (70-110)
[2024-11-19] MEDS: [UNRECOGNIZED DRUG - OTHER] IH (06:31)
[2024-11-19] MEDS: BUDESONIDE FORMOTEROL IH (06:31)
[2024-11-19] MEDS: IPRATROPIUM/ALBUTEROL 3 ML NEB IH ×3 (06:32→18:28)
[2024-11-19] MEDS: humaLOG 100 UNITS/ML 10ML VIAL (SSI) SUBCUT ×2 (06:47→12:11)
--- NOTE | 2024-11-19 06:49 | PC.NURSE ---
pt has been on RA t/o the night. tolerated well with o2 sats above 94%.
[2024-11-19 07:47] LABS: Albumin Level 3.2 g/dl (3.5-5.0); Chloride 100 mmol/L (98-107)
[2024-11-19 07:48] LABS: Potassium 5.4 mmoL/L (3.5-5.1); Sodium 133 mmol/L (136-145)
[2024-11-19 07:50] LABS: Alanine Aminotransferase 45 U/L (12-78); Alkaline Phosphatase 130 U/L (38-126); Anion Gap 15.4 mEq/L (5-15); Aspartate Amino Transferase 96 U/L (14-36); Bilirubin,Total 0.3 mg/dl (0.2-1.3); Blood Urea Nitrogen 36 mg/dl (7-17); Carbon Dioxide 23 mmol/L (22.0-30.0); Creatinine Clearance Estimated 42 mL/min (50-200); Estimated Glomerular Filt Rate 21 ml/min (>60); GFR (African American) 26 ML/MIN (>60)
[2024-11-19 07:51] LABS: Globulin 3.1 g/dL (1.3-3.2); Glucose 221 mg/dl (74-100); Total Protein,Serum 6.3 g/dl (6.3-8.2)
[2024-11-19 07:52] LABS: Basophils % 0.2 % (0.1-2.0); Eosinophils % 0.1 % (0.1-12.0); Hematocrit 34.2 % (37.0-47.0); Hemoglobin 10.2 g/dL (12.2-16.2); Lymphocytes # 0.5 K/mm3 (0.7-4.5); Lymphocytes % 5.4 % (10-50); Mean Corpuscular HGB Conc 29.8 g/dL (31.8-35.4); Mean Corpuscular Hemoglobin 22.2 pg (27.0-31.2); Mean Corpuscular Volume 74.5 fl (81-99); Mean Platelet Volume 10.7 fl (7.4-10.4); Monocytes # 0.4 K/mm3 (0.1-1.0); Monocytes % 4.4 % (1.7-9.3); Neutrophils # 7.4 K/mm3 (1.8-7.8); Neutrophils % 89.3 % (37.0-80.0); Platelet Count 365 K/mm3 (142-424); Red Blood Count 4.59 M/mm3 (4.20-5.40); Red Cell Distribution Width 16.4 % (11.5-17.5); White Blood Count 8.3 K/mm3 (4.8-10.8)
[2024-11-19] MEDS: METFORMIN 500MG TABLET 1000 MG PO ×2 (09:10→16:55)
[2024-11-19] MEDS: EMPAGLIFLOZIN 10MG TABLET 10 MG PO (09:11)
[2024-11-19] MEDS: RANOLAZINE 500MG ER TABLET 1000 MG PO (09:11)
[2024-11-19] MEDS: BENZONATATE 100MG CAPSULE 100 MG PO ×2 (09:11→12:10)
[2024-11-19] MEDS: APIXABAN 5MG TABLET 5 MG PO (09:11)
[2024-11-19] MEDS: ALLOPURINOL 100MG TABLET 100 MG PO (09:11)
[2024-11-19] MEDS: GABAPENTIN 100MG CAPSULE 100 MG PO ×2 (09:11→12:10)
[2024-11-19] MEDS: METOPROLOL SUCCINATE XL 100MG TABLET 100 MG PO (09:11)
[2024-11-19] MEDS: ASPIRIN EC 81MG TABLET 81 MG PO (09:11)
[2024-11-19] MEDS: FLUOXETINE 20MG CAPSULE 20 MG PO (09:11)
[2024-11-19] MEDS: DOXYCYCLINE HYCLATE 100 MG in 0.9 % SODIUM CHLORIDE 250 ML 166.667 MG IV ×2 (09:32→21:15)
--- NOTE | 2024-11-19 13:00 | XR_ITS ---
PROCEDURE INFORMATION: Exam: XR Chest Exam date and time: 11/19/2024 1:14 PM Age: 64 years old Clinical indication: Other: Change in mental status TECHNIQUE: Imaging protocol: Radiologic exam of the chest. Views: 1 view. Total images: 1 COMPARISON: CR XR CHEST PORTABLE 11/18/2024 6:54 PM FINDINGS: Lungs: Atelectatic changes right lung base. No focal pneumonia. Granulomatous density noted within the right lower lobe. Pleural spaces: No pleural effusion. No pneumothorax. Heart/Mediastinum: Heart demonstrates mild diffuse enlargement. Vasculature: Mild atherosclerotic disease. Diaphragm: There is nonspecific elevation of the right hemidiaphragm. Bones/joints: No acute findings IMPRESSION: 1. Mild cardiomegaly. 2. Atelectatic changes right lung base. 3. No focal pneumonia.
--- NOTE | 2024-11-19 13:01 | ECG_ITS ---
APPROVED REPORT Exam: Resting ECG HR:74 bpm ECG Measurements Heart Rate 74 AXES AR 183 P 37 QRSd 93 QRS 19 QT 413 T 95 QTc 440 Conclusion SINUS RHYTHM Late R wave progression NONSPECIFIC T-WAVE ABNORMALITY ABNORMAL ECG UNCONFIRMED REPORT Electronically signed by : Oliver Garcia MD 11/20/2024 13:03:38
--- NOTE | 2024-11-19 13:12 | CT_ITS ---
PROCEDURE INFORMATION: Exam: CT Head Without Contrast Exam date and time: 11/19/2024 1:25 PM Age: 64 years old Clinical indication: Altered mental status/memory loss; Additional info: AMS TECHNIQUE: Imaging protocol: Computed tomography of the head without contrast. Total images: 1118 Radiation optimization: All CT scans at this facility use at least one of these dose optimization techniques: automated exposure control; mA and/or kV adjustment per patient size (includes targeted exams where dose is matched to clinical indication); or iterative reconstruction. COMPARISON: CT HEAD/BRAIN WO CON 05/15/2024 4:26 PM FINDINGS: Brain: Age-related atrophy and chronic white matter ischemic changes, with no evidence of an acute intracranial abnormality. No hemorrhage, mass effect or midline shift. Old lacunar infarctions noted within the left caudate nucleus and right basal ganglia. Cerebral ventricles: No ventriculomegaly. Paranasal sinuses: Visualized sinuses are unremarkable. No fluid levels. Mastoid air cells: Mastoid air cells are clear bilaterally. Nasal cavity: [id number] nasal septal deviation. Bones: Unremarkable. No acute fracture. Soft tissues: No acute changes Vasculature: Mild atherosclerotic disease. IMPRESSION: 1. Age-related atrophy and chronic white matter ischemic changes, with no evidence of an acute intracranial abnormality. 2. No hemorrhage, mass effect or midline shift. 3. Old lacunar infarctions noted within the left caudate nucleus and right basal ganglia.
[2024-11-19 13:20] LABS: Lactate Venous 1.8 mmol/L (0.4-2.0); VBG Base Excess -2.2 mmol/L (-2.4-2.3); VBG HCO3 21.2 mmol/L (23-30); VBG Oxygen Saturation 98.1 % (50-70); VBG PCO2 28.5 mmol/L (35-51); VBG PH 7.49 mmol/L (7.31-7.41); VBG PO2 109.2 mmol/L (28-40); VBG Total CO2 22.1 mmol/L (23-27)
[2024-11-19 13:24] LABS: Chloride 101 mmol/L (98-107); Sodium 132 mmol/L (136-145)
[2024-11-19 13:27] LABS: Blood Urea Nitrogen 36 mg/dl (7-17); Carbon Dioxide 24 mmol/L (22.0-30.0); Creatinine Clearance Estimated 44 mL/min (50-200); Estimated Glomerular Filt Rate 22 ml/min (>60); GFR (African American) 27 ML/MIN (>60)
[2024-11-19 13:28] LABS: Glucose 164 mg/dl (74-100)
[2024-11-19] MEDS: ACETAMINOPHEN 325MG TAB 650 MG PO (16:20)
[2024-11-19] MEDS: VANCOMYCIN CONSULT REQUEST 1 EACH NOTAPPLIC (17:26)
[2024-11-19] MEDS: CEFEPIME HCL 2 GM in 0.9 % SODIUM CHLORIDE 100 ML IV (17:56)
--- NOTE | 2024-11-19 18:12 | P.PN_ITS ---
Subjective *Date: 11/19/24 *Time: 18:12 Interval history: Patient lethargic today with fever 100.5. Started vancomycin, cefepime. Respiratory panel negative. Exam Data for Last 24 hours Vital signs and Labs for Last 24 Hours: Temp Pulse Resp BP Pulse Ox O2 Del Method O2 Flow Rate 100.5 F H 64 18 117/94 H 95 Room Air 2 11/19/24 16:00 11/19/24 16:00 11/19/24 16:00 11/19/24 16:00 11/19/24 16:00 11/19/24 17:00 11/18/24 19:50 Laboratory Results - last 24 hr 11/18/24 19:40: Chlamy pneumoniae PCR Not detected, Adenovirus (PCR) Not detected, B. pertussis DNA (PCR) Not detected, Coronavirus OC43 (PCR) Not detected, Coronavirus HKU1 (PCR) Not detected, Coronavirus 229E (PCR) Not detected, SARS-CoV-2 (PCR) Not detected, Coronavirus NL63 (PCR) Not detected, Human Metapneumovir PCR Not detected, Influenza A (H1) PCR Not detected, Influ A (H1N1/09) PCR Not detected, Influenza A (H3) PCR Not detected, Influenza Type A (PCR) Not detected, Influenza Type B (PCR) Not detected, M. pneumoniae (PCR) Not detected, Parainfluenza 1 (PCR) Not detected, Parainfluenza 2 (PCR) Not detected, Parainfluenza 3 (PCR) Not detected, Parainfluenza 4 (PCR) Not detected, RSV (PCR) Not detected, Entero/Rhino (PCR) Not detected 11/18/24 20:35: POC Glucose 205 H 11/19/24 05:46: POC Glucose 211 H 11/19/24 07:15: WBC 8.3, RBC 4.59, Hgb 10.2 L, Hct 34.2 L, MCV 74.5 L, MCH 22.2 L, MCHC 29.8 L, RDW 16.4, Plt Count 365, MPV 10.7 H, Neut % (Auto) 89.3 H, Lymph % (Auto) 5.4 L, [place] % (Auto) 4.4, Eos % (Auto) 0.1, Baso % (Auto) 0.2, Neut # (Auto) 7.4, Lymph # (Auto) 0.5 L, [place] # (Auto) 0.4, Eos # (Auto) 0.0, Baso # (Auto) 0.0, Sodium 133 L, Potassium 5.4 H D, Chloride 100, Carbon Dioxide 23, Anion Gap 15.4 H, BUN 36 H D, Creatinine 2.30 H, Estimated Creat Clear 42, Estimated GFR 21 L, Est GFR ( Amer) 26 L, Glucose 221 H, Calcium 8.0 L, Magnesium 2.0 D, Total Bilirubin 0.3, AST 96 H D, ALT 45 D, Alkaline Phosphatase 130 H, Total Protein 6.3, Albumin 3.2 L, Globulin 3.1, Albumin/Globulin Ratio 1.0 L 11/19/24 13:01: VBG pH 7.49 H, VBG pCO2 28.5 L, VBG pO2 109.2 H, VBG HCO3 21.2 L , VBG Total CO2 22.1 L, VBG O2 Saturation 98.1 H, VBG Base Excess -2.2, VBG Lactic Acid 1.8 11/19/24 13:09: Sodium 132 L, Potassium 5.0, Chloride 101, Carbon Dioxide 24, Anion Gap 12.0, BUN 36 H, Creatinine 2.20 H, Estimated Creat Clear 44, Estimated GFR 22 L, Est GFR ( Amer) 27 L, Glucose 164 H D, Calcium 8.0 L I & O for Last 24 hours: Intake & Output 11/16/24 11/17/24 11/18/24 11/19/24 23:59 23:59 23:59 23:59 Intake Total 280 / 640 1500 / 1800 1170 / 1170 420 / 420 Output Total 800 / 1300 1000 / 1000 1350 / 1350 1200 / 1200 Balance -520 / -660 500 / 800 -180 / -180 -780 / -780 Weight 106.623 kg 106.73 kg 107.229 kg 107.558 kg Constitutional Comments: Very somnolent, but arousable. Answering questions. *Routine HEENT Exam Head: Present normocephalic Eye: Present EOMI and PERRL ENT: Present mucous membranes moist *Routine Neck Exam Neck: Present supple; Absent lymphadenopathy *Routine Respiratory Exam Respiratory: Present CTA bilaterally *Routine Cardiovascular Exam Cardiovascular: Present RRR *Routine Abdominal Exam Abdominal: Present soft and normoactive bowel sounds; Absent tenderness *Routine Extremities Exam Extremities: Absent cyanosis, clubbing or edema Comments: Chronic left-sided weakness from CVA. *Routine Skin Exam Skin: Present warm; Absent rash *Routine Neurological Exam Neurological: Present alert Assessment and Plan *Assessment and plan (1) Acute exacerbation of chronic heart failure: Status: Acute Category: Medical Code(s): I50.9 - Heart failure, unspecified Plan Faiza Waters is a 64-year-old female with a medical history significant for HFpEF, type 2 diabetes, CVA with left-sided weakness, asthma, hypertension who presents with shortness of breath. She states it is more prominent when she is try to fall asleep. Denies fever/chills, coughing, chest pain, abdominal pain. Workup in the ED significant for BNP 26,700, with CXR showing pulmonary edema. Case discussed with ED provider and decision was made to admit patient HFpEF exacerbation and orthopnea. #Acute metabolic encephalopathy #Fever of unknown origin #Suspected community-acquired pneumonia ? Patient more lethargic today. ? CBC, CMP, VBG, CT head unremarkable to suggest etiology. Respiratory panel negative yesterday. ? Patient's creatinine did bump from 2-2.3 overnight, holding acute gabapentin in the setting of renal failure which may be contributory. ? However, patient did have a fever of 100.5 this afternoon. ? Follow-up blood, sputum cultures. ? Started vancomycin, cefepime day 1. Continue doxycycline. Discontinued ceftriaxone. ? Continue to monitor. Follow-up repeat CBC in the morning. #Acute hypoxic respiratory failure #HFrEF exacerbation, new onset ? Presents with orthopnea, BNP 26,700, CXR showing pulmonary edema. ? ECHO in March 2022 revealed grade 2 diastolic dysfunction. ? ECHO 11/17/2024 LVEF 25%, G2DD. ? Discussed with cardiology, started GDMT. [facility] 4 months ago with insignificant CAD so no plans to repeat. ? Continue Entresto, Farxiga 10 mg. ? LifeVest ordered and ready to be placed. Will contact rep tomorrow if patient is more stable. ? Weaned to room air saturating 95%. ? Follow-up urine output, kidney function, electrolytes. #Type 2 diabetes ? Hemoglobin A1c 11.3, well above goal. ? LDSSI, ACHS glucose checks. ? Increased Lantus 35 units nightly. Continue metformin, Farxiga. #History of CVA with left-sided weakness ? Aspirin, statin. Hold Plavix for now. Unclear why patient is on triple therapy. ? Daughter is primary ignition specialist at home, helps patient get in wheelchair to get around. # History of left IJ DVT ? Continue Eliquis 5 mg twice daily. Repeat venous Doppler negative here. Full code Eliquis 5 mg twice daily
[2024-11-19] MEDS: VANCOMYCIN HCL 2,000 MG in 0.9 % SODIUM CHLORIDE 250 ML 125 MG IV (18:31)
--- NOTE | 2024-11-19 18:52 | PC.NURSE ---
Patient has slept all day. Patient will wake up when you say her name and is able to answer all orientation questions appropriately. MD notified earlier today around 1230 and multiple orders entered (VBG, CT of head, chest xray, EKG, vitals obtained, FSBS) and carried out. VSS throughout the day. Fever was noted on 1600 vitals and MD notified. Blood cultures obtained and antibiotics broadened. Urinalysis ordered but no urine output. Asked MD if he wanted to straight cath patient and was told not to. New respiratory swab also obtained. Oxygen stable on room air all day. Daughter aware of patient's changes and request whomever is the nurse taking care of her to be called for any changes/updates.
--- NOTE | 2024-11-19 20:21 | PC.NURSE ---
Patient's blood pressure on the automatic datascope for 20:00 vital signs was 82/40. I took a manual blood pressure for the patient; the reading was 82/59. Glucose was checked and the reading was 107. Currently, patient's blood pressure was taken to adjust her to the datascope to take every 2 hours. The additional automatic reading was 69/39. Other vital signs were stable (see vital sign assessment for 20:20). Arie LUI was paged at this time to inform her about this occurrence. Patient remains lethargic and is difficult to arouse; eyes open for a few seconds before the patient falls back to resting. No verbal responses at this time. Patient transferred to the ICU per Arie LUI request. Pending new orders.
--- NOTE | 2024-11-19 20:47 | PC.NURSE ---
Pt arrived to ICU unit via bed @20:30
[2024-11-19 20:51] LABS: Basophils % 0.2 % (0.1-2.0); Hematocrit 31.5 % (37.0-47.0); Hemoglobin 9.4 g/dL (12.2-16.2); Lymphocytes % 16.4 % (10-50); Mean Corpuscular HGB Conc 29.8 g/dL (31.8-35.4); Mean Corpuscular Hemoglobin 22.5 pg (27.0-31.2); Mean Corpuscular Volume 75.4 fl (81-99); Mean Platelet Volume 10.5 fl (7.4-10.4); Monocytes # 0.7 K/mm3 (0.1-1.0); Monocytes % 11.7 % (1.7-9.3); Neutrophils # 4.1 K/mm3 (1.8-7.8); Neutrophils % 71.2 % (37.0-80.0); Platelet Count 282 K/mm3 (142-424); Red Blood Count 4.18 M/mm3 (4.20-5.40); Red Cell Distribution Width 16.5 % (11.5-17.5); White Blood Count 5.8 K/mm3 (4.8-10.8)
--- NOTE | 2024-11-19 20:51 | PC.NURSE ---
Arie LUI requested [id number] that the patient's PO medications (patient unable to swallow due to lethargy/mentation at this time) and insulins are to be held at this time. Intravenous antibiotics to be given as accordingly per DEC.
[2024-11-19 20:53] LABS: VBG Base Excess -5.4 mmol/L (-2.4-2.3); VBG HCO3 18.2 mmol/L (23-30); VBG Oxygen Saturation 96.5 % (50-70); VBG PCO2 25.4 mmol/L (35-51); VBG PH 7.47 mmol/L (7.31-7.41); VBG PO2 83.6 mmol/L (28-40)
[2024-11-19 21:01] LABS: Anion Gap 15.8 mEq/L (5-15); Blood Urea Nitrogen 42 mg/dl (7-17); Calcium 7.8 mg/dl (8.4-10.2); Carbon Dioxide 21 mmol/L (22.0-30.0); Chloride 99 mmol/L (98-107); Creatinine Clearance Estimated 42 mL/min (50-200); Estimated Glomerular Filt Rate 21 ml/min (>60); GFR (African American) 26 ML/MIN (>60); Glucose 101 mg/dl (74-100); Potassium 4.8 mmoL/L (3.5-5.1); Sodium 131 mmol/L (136-145)
[2024-11-19 21:05] LABS: Lactic Acid 2.4 mmol/L (0.7-2.1)
[2024-11-19 21:06] LABS: C-Reactive Protein 23.3 mg/L (0-4)
[2024-11-19] MEDS: VANCOMYCIN HCL 750 MG in 0.9 % SODIUM CHLORIDE 250 ML 125 MG IV (21:15)
[2024-11-19 21:19] LABS: POC Glucose,Bedside 123 (70-110)
[2024-11-19 21:19] LABS: POC Glucose,Bedside 92 (70-110)
[2024-11-19 21:20] LABS: Procalcitonin 0.974 ng/mL (0.0-2.0)
[2024-11-19 21:24] LABS: Erythrocyte Sedimentation Rate 57 mm/hr (0-30)
--- NOTE | 2024-11-19 21:24 | PC.NURSE ---
Edouard Catheter placed @21:00 by Rafael PADILLA
[2024-11-19] MEDS: DEXTROSE 50% 50ML SYRINGE (CRASH CART) 50 ML IVP (21:28)
[2024-11-19] MEDS: 0.9 % SODIUM CHLORIDE 250 ML IV (21:30)
[2024-11-19] MEDS: NOREPINEPHRINE BITARTRATE/D5W 8 MG/250 ML PLAST..BAG 15 MG IV (21:54)
[2024-11-19 22:10] LABS: Microscopic, Urine URINE MICROSCOPIC (MICROSCOPIC)
[2024-11-19] MEDS: HYDROCORTISONE SOD SUCCINATE 100MG VIAL 100 MG IV (22:12)
[2024-11-19] MEDS: DOBUTAMINE HCL/D5W 250 ML 8.2 MG IV (22:12)
[2024-11-19 22:13] LABS: Appearance,Urine CLEAR (Clear); Bilirubin,Urine Negative (Negative); Blood, Urine TRACE-I (Negative); Color,Urine YELLOW (Yellow); Glucose,Urine (UA) 3+ (Negative); Ketones,Urine Negative (Negative); Leukocyte Esterase,Urine Negative (Negative); Nitrate,Urine Negative (Negative); PH,Urine 5.5 (5.0-8.5); Protein,Urine 3+ (Negative); Specific Gravity, Urine 1.025 (1.005-1.030); Urobilinogen,Urine 0.2 EU/dl (0.2)
[2024-11-19 22:14] LABS: Albumin Level 2.8 g/dl (3.5-5.0)
[2024-11-19 22:17] LABS: Alanine Aminotransferase 86 U/L (12-78); Aspartate Amino Transferase 160 U/L (14-36); Bilirubin,Unconjugated 0.1 mg/dL (0.0-1.1); Total Protein,Serum 5.6 g/dl (6.3-8.2)
[2024-11-19 22:18] LABS: Alkaline Phosphatase 94 U/L (38-126); Bilirubin,Direct 0.2 mg/dl (0.0-0.4); Bilirubin,Total 0.2 mg/dl (0.2-1.3)
[2024-11-19 22:23] LABS: Barbiturates Screen,Urine Negative ng/ml (<200)
[2024-11-19 22:24] LABS: Amphetamine/Metha Screen,Urine Negative ng/ml (<1000); Benzodiazepines Screen,Urine Negative ng/ml (<200)
[2024-11-19 22:25] LABS: Cannabinoid Screen,Urine Negative ng/ml (<50)
[2024-11-19 22:26] LABS: Cocaine Screen,Urine Negative ng/ml (<300); Methadone Screen,Urine Negative ng/ml (<300); WBC,Urine Occasional #/hpf (0-3)
[2024-11-19 22:27] LABS: Bacteria,Urine Trace /lpf; Opiate Screen,Urine Negative ng/ml (<300); Phencyclidine Screen,Urine Negative ng/ml (<25)
[2024-11-19] MEDS: VASOPRESSIN 40 UNIT in 0.9 % SODIUM CHLORIDE 100 ML 4.59 UNIT IV (22:57)
[2024-11-19 23:00] LABS: Ammonia 44 umol/L (9-30)
[2024-11-20] VITALS (75 sets, daily range): BP systolic 103–174; BP diastolic 43–94; PULSE 44–91; RESP 14–30; TEMP 36.5–38.8; O2SAT 85–99; BMI 41.1; BMI 41.0
[2024-11-20] MEDS: IPRATROPIUM/ALBUTEROL 3 ML NEB IH ×4 (00:10→18:19)
[2024-11-20 00:43] LABS: ABG Base Excess -15.6 mmol/L (-2.4-2.3); ABG HCO3 11.5 mmhg (22.0-26.0); ABG Oxygen Saturation 93 % (90-100); ABG PCO2 26.5 mmhg (35.0-45.0); ABG PH 7.26 mmol/L (7.35-7.45); ABG PO2 80.2 mmhg (80-100); ABG TCO2 12.3 mmhg (23-27)
[2024-11-20 00:54] LABS: Reflex Lactic Add Lactic Reflex
--- NOTE | 2024-11-20 00:56 | EXP.EVENT.NO ---
I was asked to bedside of this patient by the hospitalist who was requesting arterial line placement. I briefly reviewed the patient's records which demonstrates she is admitted for CHF exacerbation. Hospitalist reported that patient had decompensated and was started on vasopressors and they were having difficulty obtaining consistent peripheral cuff blood pressures. She was requesting arterial line for continued blood pressure monitoring, ABGs. I initially went to bedside around 2315 and evaluated the patient, prepared for arterial line placement. Unfortunately I was then called away from bedside back to the ER due to a trauma alert. I returned to bedside around 0020 and again prepared for arterial line. Arterial line was successfully placed and patient tolerated procedure well with good waveform confirmed. See procedure note below. Procedure: Arterial line Indication: Unstable cuff pressures, multiple vasopressors, need for close blood pressure monitoring and frequent ABGs Consent: Emergent situation Procedure details: Appropriate vessel was identified using ultrasound. Most appropriate location was right femoral due to vessel accessibility and caliber Site was cleaned multiple times with chlorhexidine which was allowed to dry. Maximum sterile technique was followed. Patient was appropriately draped. Ultrasound probe cover was used along with sterile gel. Ultrasound images were saved to the permanent archive. Real-time ultrasound guidance was used for placement of right femoral arterial line. Seldinger technique. 18-gauge, 16 cm right femoral line placed on first attempt. Biopatch applied. Sutured in place. Waveform confirmed. Sterile Tegaderm applied. Post procedure details: Peripheral pulses intact, no evidence of hematoma or active bleeding at the site. Neurovascular status unchanged. Patient tolerated procedure well.
[2024-11-20] MEDS: SODIUM BICARB 8.4% 50ML SYRINGE (CRASH CART) 100 MEQ IV (01:01)
[2024-11-20 01:08] LABS: Basophils % 0.4 % (0.1-2.0); Hematocrit 41.1 % (37.0-47.0); Lymphocytes # 1.1 K/mm3 (0.7-4.5); Lymphocytes % 10.1 % (10-50); Mean Corpuscular HGB Conc 28.7 g/dL (31.8-35.4); Mean Corpuscular Hemoglobin 22.5 pg (27.0-31.2); Mean Corpuscular Volume 78.3 fl (81-99); Monocytes # 0.6 K/mm3 (0.1-1.0); Monocytes % 5.7 % (1.7-9.3); Neutrophils # 9.2 K/mm3 (1.8-7.8); Neutrophils % 82.2 % (37.0-80.0); Platelet Count 370 K/mm3 (142-424); Red Blood Count 5.25 M/mm3 (4.20-5.40); Red Cell Distribution Width 16.9 % (11.5-17.5); White Blood Count 11.2 K/mm3 (4.8-10.8)
--- NOTE | 2024-11-20 01:08 | PC.NURSE ---
Arterial line (right femoral access) performed by Sveta Price MD at the bedside (see MD event note).
[2024-11-20 01:15] LABS: Hemoglobin 11.8 g/dL (12.2-16.2)
[2024-11-20 01:19] LABS: Anion Gap 25.7 mEq/L (5-15); Blood Urea Nitrogen 41 mg/dl (7-17); Chloride 101 mmol/L (98-107); Creatinine Clearance Estimated 20 mL/min (50-200); Estimated Glomerular Filt Rate 20 ml/min (>60); GFR (African American) 25 ML/MIN (>60); Glucose 155 mg/dl (74-100); INR 1.38 (0.9-1.1); Sodium 129 mmol/L (136-145)
[2024-11-20 01:21] LABS: Carbon Dioxide 10 mmol/L (22.0-30.0)
[2024-11-20] MEDS: 0.9 % SODIUM CHLORIDE 1000ML 1,000 ML 999 ML IV (01:21)
[2024-11-20 01:22] LABS: Potassium 7.7 mmoL/L (3.5-5.1)
[2024-11-20] MEDS: INSULIN HUMAN REGULAR 100 UNITS/ML 10ML VIAL 10 UNIT IVP ×2 (01:30→06:44)
[2024-11-20] MEDS: DEXTROSE 50% 50ML SYRINGE (CRASH CART) 50 ML IVP ×2 (01:31→06:48)
[2024-11-20] MEDS: CALCIUM GLUC IN NACL, ISO-OSM 1 GM/50 ML BAG IV ×2 (01:35→06:45)
[2024-11-20 01:47] LABS: POC Glucose,Bedside 107 (70-110)
[2024-11-20 01:47] LABS: POC Glucose,Bedside 128 (70-110)
[2024-11-20 01:47] LABS: POC Glucose,Bedside 180 (70-110)
[2024-11-20] MEDS: ALBUTEROL SULFATE 1.25 MG/3 ML VIAL.NEB IH (01:48)
[2024-11-20] MEDS: ALBUTEROL 0.083% 2.5 MG/3 ML NEB IH (01:49)
[2024-11-20 02:20] LABS: POC Glucose,Bedside 243 (70-110)
--- NOTE | 2024-11-20 02:38 | P.EN_ITS ---
Notified by bedside RN last night of blood pressure of 81/40 with repeat blood pressure of 60 systolic. Patient moved to the ICU for higher level of care. Patient was noted earlier in the day to be encephalopathic and workup initiated. Patient is being treated currently with broad-spectrum antibiotics. Levophed initiated with mild improvement in blood pressure. After conversation with overnight attending, it was felt that patient may be in cardiogenic shock versus septic shock. Labs obtained and notable for respiratory alkalosis, potassium of 4.8, creatinine of 2.3, lactic of 2.4. Mildly elevated CRP and ESR. Dobutamine initiated for contractility but no improvement noted in blood pressure. Patient then transitioned over to Levophed and vasopressin with improvement in blood pressure. Given labile noninvasive pressures, arterial line was placed for hemodynamic monitoring by ER provider. First set of labs and ABG obtained at that time and notable for now metabolic acidosis with pH of 7.24, potassium of 7.7, lactic acid of 7. Notable peaked T waves on bedside monitor. Patient medicated with bicarb, IV fluids, insulin, D50, calcium gluconate and albuterol. Patient did have improvement in cardiac rhythm at the bedside. Patient remains on Levophed and vasopressin, after speaking again with our overnight attending, it was felt that she would benefit from milrinone given likely cardiogenic shock, ordered. Ampicillin was also added to cover for [employer] infections empirically. Medical optimization is ongoing. Spoke with patient's daughter Jennifer who also spoke with her sister and they wish for everything possibly done for their mother. She remains a full code at this time.
[2024-11-20 03:31] LABS: ABG HCO3 15.5 mmhg (22.0-26.0); ABG Oxygen Saturation 99 % (90-100); ABG PCO2 28.5 mmhg (35.0-45.0); ABG PH 7.35 mmol/L (7.35-7.45); ABG PO2 146.4 mmhg (80-100); ABG TCO2 16.4 mmhg (23-27); Oxygen 4 %
[2024-11-20] MEDS: MILRINONE LACTATE 20 MG in 0.9 % SODIUM CHLORIDE 80 ML 4.1 MG IV (04:16)
[2024-11-20] MEDS: ACETAMINOPHEN 650MG SUPPOSITORY 650 MG RC (04:38)
[2024-11-20 05:12] LABS: POC Glucose,Bedside 163 (70-110)
[2024-11-20 05:55] LABS: Basophils % 0.2 % (0.1-2.0); Hematocrit 37.9 % (37.0-47.0); Hemoglobin 11.3 g/dL (12.2-16.2); Lymphocytes # 0.8 K/mm3 (0.7-4.5); Lymphocytes % 2.8 % (10-50); Mean Corpuscular HGB Conc 29.8 g/dL (31.8-35.4); Mean Corpuscular Hemoglobin 22.5 pg (27.0-31.2); Mean Corpuscular Volume 75.5 fl (81-99); Mean Platelet Volume 10.6 fl (7.4-10.4); Monocytes % 3.6 % (1.7-9.3); Neutrophils # 24.4 K/mm3 (1.8-7.8); Neutrophils % 92.3 % (37.0-80.0); Platelet Count 405 K/mm3 (142-424); Red Blood Count 5.02 M/mm3 (4.20-5.40); Red Cell Distribution Width 16.7 % (11.5-17.5); White Blood Count 26.4 K/mm3 (4.8-10.8)
[2024-11-20 05:56] LABS: MANUAL DIFFERENTIAL MANUAL DIFFERENTIAL (MANUAL DIFF)
--- NOTE | 2024-11-20 06:00 | XR_ITS ---
PROCEDURE INFORMATION: Exam: XR Chest Exam date and time: 11/20/2024 2:06 AM Age: 64 years old Clinical indication: Shortness of breath TECHNIQUE: Imaging protocol: Radiologic exam of the chest. Views: 1 view. COMPARISON: CR XR CHEST PORTABLE 11/19/2024 1:14 PM FINDINGS: Lungs: Possible bibasilar atelectasis. Tiny calcified granuloma right lung base. No consolidation. Pleural spaces: Unremarkable. No pleural effusion. No pneumothorax. Heart/Mediastinum: Mild cardiomegaly. Vasculature: Unremarkable. Bones/joints: Unremarkable. IMPRESSION: No focal infiltrate or overt failure.
[2024-11-20 06:06] LABS: Albumin Level 2.8 g/dl (3.5-5.0); Chloride 102 mmol/L (98-107); Sodium 131 mmol/L (136-145)
[2024-11-20 06:08] LABS: Anion Gap 19.2 mEq/L (5-15); Blood Urea Nitrogen 46 mg/dl (7-17); Carbon Dioxide 16 mmol/L (22.0-30.0); Creatinine Clearance Estimated 19 mL/min (50-200); Estimated Glomerular Filt Rate 19 ml/min (>60); GFR (African American) 22 ML/MIN (>60)
[2024-11-20 06:09] LABS: Alanine Aminotransferase 418 U/L (12-78); Alkaline Phosphatase 105 U/L (38-126); Bilirubin,Total 0.6 mg/dl (0.2-1.3); Calcium 7.1 mg/dl (8.4-10.2); Glucose 161 mg/dl (74-100); Total Protein,Serum 5.6 g/dl (6.3-8.2)
[2024-11-20 06:18] LABS: Aspartate Amino Transferase 1180 U/L (14-36)
[2024-11-20 06:19] LABS: Lactic Acid 4.1 mmol/L (0.7-2.1); Potassium 6.2 mmoL/L (3.5-5.1)
[2024-11-20 06:20] LABS: Globulin 2.8 g/dL (1.3-3.2)
[2024-11-20 07:02] LABS: ABG Base Excess -9.4 mmol/L (-2.4-2.3); ABG HCO3 16.4 mmhg (22.0-26.0); ABG Oxygen Saturation 100 % (90-100); ABG PCO2 31.2 mmhg (35.0-45.0); ABG PH 7.34 mmol/L (7.35-7.45); ABG PO2 321.1 mmhg (80-100); ABG TCO2 17.4 mmhg (23-27)
[2024-11-20 07:03] LABS: Allen's Test Non Applicable; Oxygen 4LPM NC %; Source A-Line
[2024-11-20 07:11] LABS: Anisocytosis 1+; Lymphocytes % 2 % (10-50); Monocytes % 1 % (2-9); Neutrophils % 97 % (42-76); Platelet Estimate Normal; Total Cells Counted 100
--- NOTE | 2024-11-20 07:47 | CT_ITS ---
PROCEDURE INFORMATION: Exam: CT Abdomen And Pelvis Without Contrast Exam date and time: 11/20/2024 10:31 AM Age: 64 years old Clinical indication: Other: Septic shock TECHNIQUE: Imaging protocol: Computed tomography of the abdomen and pelvis without contrast. Radiation optimization: All CT scans at this facility use at least one of these dose optimization techniques: automated exposure control; mA and/or kV adjustment per patient size (includes targeted exams where dose is matched to clinical indication); or iterative reconstruction. COMPARISON: CT CHEST WO CON 11/18/2024 10:33 AM FINDINGS: Tubes, catheters and devices: Arterial catheter in the right groin with its tip in the external iliac artery. Lungs: New atelectasis adjacent to the major fissure involving the right middle lobe having the appearance of minimal atelectasis incompletely visualized. Pleural spaces: Small new right pleural effusion. Heart: Small pericardial effusion which appears similar to the previous CT scan. Liver: Liver is enlarged at 200 mm. Gallbladder and biliary ducts: Questionable small gallstone. No ductal dilation. Pancreas: The pancreas appears atrophic. Inflammatory changes in the right upper quadrant including surrounding the pancreas with a small amount of fluid in the superior aspect of the left paracolic gutter. Raises the question of possible pancreatitis. Spleen: Normal. No splenomegaly. Adrenal glands: Normal. No mass. Kidneys and ureters: No hydronephrosis. No nephrolithiasis. 31 x 30 mm lesion at the superior pole the right kidney having [place] -6. Possibly a cyst but indeterminate without contrast. Stomach and bowel: Diverticula without evidence of acute diverticulitis. Appendix: No evidence of appendicitis. Intraperitoneal space: Unremarkable. No free air. No significant fluid collection. Vasculature: Unremarkable. No abdominal aortic aneurysm. Lymph nodes: Unremarkable. No enlarged lymph nodes. Urinary bladder: Edouard catheter in a decompressed urinary bladder. Reproductive: Unremarkable as visualized. Bones/joints: Arthritic changes noted in the spine without definite fracture on the limited evaluation of the sagittal imaging which was performed to the table and not the patient who was rotated. Soft tissues: Unremarkable. IMPRESSION: 1. Haziness in the mesentery on this noncontrast study in the right upper quadrant including around an atrophic appearing pancreas. Questionable pancreatitis or other mesenteric inflammatory process. 2. Indeterminate right superior pole renal lesion. Presumptively a cyst but not definitively evaluated without contrast study. 3. Small gallstone? 4. Lung base abnormalities with a pericardial effusion as above. COMMENTS: Consistent with the [employer]'s Incidental Findings Committee white paper (J Am [employer] Radiol 2018): Any incidental renal lesion less than 1 cm or classified as too small to characterize, or any incidental cystic renal lesion characterized as simple-appearing, is likely benign. No follow-up imaging is recommended for these lesions per consensus recommendations based on imaging criteria.
[2024-11-20] MEDS: LACTATED RINGERS 1000ML 1,000 ML 70 ML IV (08:28)
--- NOTE | 2024-11-20 08:33 | PC.NURSE ---
nasal cannula turned down to 1L at 0808
[2024-11-20 08:40] LABS: Adenovirus,PCR Not Detected (NotDetected); Bordetella Pertussis Not Detected (NotDetected); Chlamydophila Pneumoniae, PCR Not Detected (NotDetected); Coronavirus 19, PCR Not Detected (NotDetected); Coronavirus 229E Not Detected (NotDetected); Coronavirus NL63 Not Detected (NotDetected); Coronavirus OC43 Not Detected (NotDetected); Coronovirus HKU1,PCR Not Detected (NotDetected); Human Metapneumovirus Not Detected (NotDetected); Influenza A, PCR Not Detected (NotDetected); Influenza AH1, PCR Not Detected (NotDetected); Influenza AH3,PCR Not Detected (NotDetected); Influenza B, PCR Not Detected (NotDetected); Mycoplasma Pneumoniae, PCR Not Detected (NotDetected); Parainfluenza 1, PCR Not Detected (NotDetected); Parainfluenza 2, PCR Not Detected (NotDetected); Parainfluenza 3, PCR Not Detected (NotDetected); Parainfluenza 4, PCR Not Detected (NotDetected); Respiratory Syncytial Virus Not Detected (NotDetected); Rhinovirus/Enterovirus Not Detected (NotDetected)
[2024-11-20 08:51] LABS: Erythrocyte Sedimentation Rate 14 mm/hr (0-30)
[2024-11-20 09:08] LABS: Procalcitonin 1.94 ng/mL (0.0-2.0)
[2024-11-20] MEDS: CEFEPIME HCL 1 GM in 0.9 % SODIUM CHLORIDE 50 ML IV ×2 (09:13→20:59)
--- NOTE | 2024-11-20 09:14 | P.CONPHA_ITS ---
Pharmacy Consult Date: 11/20/24 Time: 09:14 Referring provider: DR. MCKEON Reason for Consult:: VANCOMYCIN DOSING Allergies Allergy/AdvReac Type Severity Reaction Status Date / Time lisinopril Allergy Severe Hives Verified 11/16/24 14:58 strawberry Allergy Severe Anaphylaxis Verified 11/16/24 14:58 codeine AdvReac Severe Vomiting Verified 11/16/24 14:58 Penicillins AdvReac Severe Vomiting Verified 11/16/24 14:58 Home Medications ?Medication ?Instructions ?Recorded ?Confirmed ?Type insulin lispro 100 unit/mL 0 unit SQ DIRECTED 04/01/22 11/16/24 History subcutaneous cartridge blood sugar diagnostic (OneTouch #100 ea 05/09/22 11/16/24 Rx Verio test strips) blood-glucose transmitter (Dexcom #1 ea 03/30/24 11/16/24 Rx G6 Transmitter device) atorvastatin 40 mg tablet (Lipitor) 40 mg PO DAILY #90 tabs 05/27/24 11/16/24 Rx albuterol sulfate 90 mcg/actuation 2 puff inhalation Q4HP PRN 11/16/24 11/16/24 History aerosol inhaler shortness of breath or wheezing allopurinol 100 mg tablet 100 mg PO DAILY 11/16/24 11/16/24 History apixaban 5 mg tablet (Eliquis) 5 mg PO BID 11/16/24 11/16/24 History aspirin 81 mg tablet,delayed 81 mg PO DAILY 11/16/24 11/16/24 History release budesonide-formoterol HFA 160 2 puff inhalation BID 11/16/24 11/16/24 History mcg-4.5 mcg/actuation aerosol inhaler (Symbicort) clopidogrel 75 mg tablet 75 mg PO DAILY 11/16/24 11/16/24 History diltiazem HCl 240 mg 240 mg PO DAILY 11/16/24 11/16/24 History capsule,extended release 24 hr famotidine 40 mg tablet 40 mg PO BID 11/16/24 11/16/24 History ferrous sulfate 325 mg (65 mg 325 mg PO BID 11/16/24 11/16/24 History iron) tablet (FeroSul) fluoxetine 20 mg capsule 20 mg PO DAILY 11/16/24 11/16/24 History gabapentin 100 mg capsule 100 mg PO TID 11/16/24 11/16/24 History hydralazine 50 mg tablet 50 mg PO TID 11/16/24 11/16/24 History isosorbide mononitrate 120 mg 120 mg PO DAILY 11/16/24 11/16/24 History tablet,extended release 24 hr loratadine 10 mg tablet (Allergy 10 mg PO DAILY 11/16/24 11/16/24 History Relief (loratadine)) losartan 100 mg tablet 100 mg PO DAILY 11/16/24 11/16/24 History metformin 500 mg tablet,extended 1,000 mg PO BID 11/16/24 11/16/24 History release 24 hr metoprolol succinate 100 mg 100 mg PO BID 11/16/24 11/16/24 History tablet,extended release 24 hr montelukast 10 mg tablet 10 mg PO PM 11/16/24 11/16/24 History pramipexole 0.125 mg tablet 0.125 mg PO DAILY 11/16/24 11/16/24 History ranolazine 1,000 mg 1,000 mg PO BID 11/16/24 11/16/24 History tablet,extended release,12 hr tiotropium bromide 18 mcg capsule 1 cap inhalation DAILY 11/16/24 11/16/24 History with inhalation device (Spiriva with HandiHaler) torsemide 10 mg tablet 20 mg PO DAILY 11/16/24 11/16/24 History New Prescriptions to Start Prescriptions: Height: 1.63 m Weight: 109.361 kg Laboratory Results:: Laboratory Results - last 24 hr 11/19/24 11:21: POC Glucose 180 H 11/19/24 13:01: VBG pH 7.49 H, VBG pCO2 28.5 L, VBG pO2 109.2 H, VBG HCO3 21.2 L , VBG Total CO2 22.1 L, VBG O2 Saturation 98.1 H, VBG Base Excess -2.2, VBG Lactic Acid 1.8 11/19/24 13:09: Sodium 132 L, Potassium 5.0, Chloride 101, Carbon Dioxide 24, Anion Gap 12.0, BUN 36 H, Creatinine 2.20 H, Estimated Creat Clear 44, Estimated GFR 22 L, Est GFR ( Amer) 27 L, Glucose 164 H D, Calcium 8.0 L 11/19/24 16:49: POC Glucose 128 H 11/19/24 20:11: POC Glucose 107 11/19/24 20:18: VBG pH 7.47 H, VBG pCO2 25.4 L, VBG pO2 83.6 H, VBG HCO3 18.2 L, VBG Total CO2 19.0 L, VBG O2 Saturation 96.5 H, VBG Base Excess -5.4 L, VBG Lactic Acid 3.0 H 11/19/24 20:40: WBC 5.8 D, RBC 4.18 L, Hgb 9.4 L, Hct 31.5 L, MCV 75.4 L, MCH 22.5 L, MCHC 29.8 L, RDW 16.5, Plt Count 282, MPV 10.5 H, Neut % (Auto) 71.2, Lymph % (Auto) 16.4, [place] % (Auto) 11.7 H, Eos % (Auto) 0.0 L, Baso % (Auto) 0.2, Neut # (Auto) 4.1, Lymph # (Auto) 1.0, [place] # (Auto) 0.7, Eos # (Auto) 0.0, Baso # (Auto) 0.0, ESR 57 H, Sodium 131 L, Potassium 4.8, Chloride 99, Carbon Dioxide 21 L, Anion Gap 15.8 H, BUN 42 H, Creatinine 2.30 H, Estimated Creat Clear 42, Estimated GFR 21 L, Est GFR ( Amer) 26 L, Glucose 101 H D, Lactate 2.4 H, Calcium 7.8 L, Total Bilirubin 0.2, Direct Bilirubin 0.2, Conjugated Bilirubin 0.0, Indirect Bilirubin 0.0, Unconjugated Bilirubin 0.1, AST 160 H D, ALT 86 H D, Alkaline Phosphatase 94, C-Reactive Protein 23.3 H, Tot al Protein 5.6 L, Albumin 2.8 L D, Procalcitonin 0.974 11/19/24 20:54: POC Glucose 92 11/19/24 21:00: Urine Color Yellow, Urine Appearance Clear, Urine pH 5.5, Ur Specific [place] 1.025, Urine Protein 3+ A, Urine Glucose (UA) 3+, Urine Ketones Negative, Urine Blood Trace-i, Urine Nitrate Negative, Urine Bilirubin Negative, Urine Urobilinogen 0.2, Ur Leukocyte Esterase Negative, Urine RBC 3-5, Urine WBC Occasional, Ur Squamous Epith Cells 3-5, Urine Bacteria Trace, Urine Opiates Screen Negative, Urine Methadone Screen Negative, Ur Barbituates Screen Negative, Ur Phencyclidine Scrn Negative, Ur Amphetamines Screen Negative, U Benzodiazepines Scrn Negative, Urine Cocaine Screen Negative, U Marijuana (THC) Screen Negative 11/19/24 21:12: POC Glucose 123 H 11/19/24 22:01: POC Glucose 243 H 11/19/24 22:45: Ammonia 44 H 11/20/24 00:41: ABG pH 7.26 L, ABG pCO2 26.5 L, ABG pO2 80.2, ABG HCO3 11.5 L, ABG Total CO2 12.3 L, ABG O2 Saturation 93, ABG Base Excess -15.6 L 11/20/24 00:50: WBC 11.2 H D, RBC 5.25 D, Hgb 11.8 L D, Hct 41.1, MCV 78.3 L, MCH 22.5 L, MCHC 28.7 L, RDW 16.9, Plt Count 370 D, MPV 11.0 H, Neut % (Auto) 82.2 H, Lymph % (Auto) 10.1, [place] % (Auto) 5.7, Eos % (Auto) 0.0 L, Baso % (Auto) 0.4, Neut # (Auto) 9.2 H, Lymph # (Auto) 1.1, [place] # (Auto) 0.6, Eos # (Auto) 0.0, Baso # (Auto) 0.0, PT 15.0 H, INR 1.38 H, Sodium 129 L, Potassium 7.7 H* D, Chloride 101, Carbon Dioxide 10 L D, Anion Gap 25.7 H, BUN 41 H, Creatinine 2.40 H, Estimated Creat Clear 20, Estimated GFR 20 L, Est GFR ( Amer) 25 L, Glucose 155 H D, Lactate 6.0 H, Calcium 7.0 L 11/20/24 03:30: Specimen Source al, O2 % 4, ABG pH 7.35, ABG pCO2 28.5 L, ABG pO2 146.4 H, ABG HCO3 15.5 L, ABG Total CO2 16.4 L, ABG O2 Saturation 99, ABG Base Excess -10.0 L 11/20/24 05:05: POC Glucose 163 H 11/20/24 05:45: WBC 26.4 H* D, RBC 5.02, Hgb 11.3 L, Hct 37.9, MCV 75.5 L, MCH 22.5 L, MCHC 29.8 L, RDW 16.7, Plt Count 405, MPV 10.6 H, Neut % (Auto) 92.3 H, Lymph % (Auto) 2.8 L, [place] % (Auto) 3.6, Eos % (Auto) 0.0 L, Baso % (Auto) 0.2, Neut # (Auto) 24.4 H, Lymph # (Auto) 0.8, [place] # (Auto) 1.0, Eos # (Auto) 0.0, Baso # (Auto) 0.0, Total Counted 100, Neutrophils % (Manual) 97 H, Lymphocytes % (Manual) 2 L, Monocytes % (Manual) 1 L, Platelet Estimate Normal, Anisocytosis 1+, ESR 14, Sodium 131 L, Potassium 6.2 H*, Chloride 102, Carbon Dioxide 16 L, Anion Gap 19.2 H, BUN 46 H, Creatinine 2.60 H, Estimated Creat Clear 19, Estimated GFR 19 L*, Est GFR ( Amer) 22 L, Glucose 161 H, Lactate 4.1 H, Calcium 7.1 L, Magnesium 2.0, Total Bilirubin 0.6, AST 1180 H* D, ALT 418 H*, Alkaline Phosphatase 105, C-Reactive Protein 21.0 H, Total Protein 5.6 L, Albumin 2.8 L, Globulin 2.8, Albumin/Globulin Ratio 1.0 L 11/20/24 06:23: Specimen Source A-line, O2 % 4lpm nc, ABG pH 7.34 L, ABG pCO2 31.2 L, ABG pO2 321.1 H, ABG HCO3 16.4 L, ABG Total CO2 17.4 L, ABG O2 Saturation 100, ABG Base Excess -9.4 L, Dedrick Test Non applicable Medical History: Medical History (Updated 11/18/24 @ 09:56 by PANCHO Dubon) Arthritis Renal disease HTN (hypertension), benign HLD (hyperlipidemia) GERD (gastroesophageal reflux disease) COPD (chronic obstructive pulmonary disease) Asthma Anxiety Type 2 diabetes mellitus TIA (transient ischemic attack) Assessment and Plan Assessment and plan all Dx Assessment and Plan for all problems:: Pharmacokinetic dosing service Objective: Patient: Floor: Age: 64 yo Serum creatinine: 2.6 mg/dL Height: 64.2 Inches Weight (kg): 109.4 Assessment: IBW (kg): 55.16 Dosing wt(kg): 109.4 Estimated Creatinine clearance (ml/min): 19.0 CRCL method: Cockcroft and Gault using ibw(default). Drug selected: Vancomycin Loading dose (mg): 0 Vd (liters): 87.5 (factor used: 0.8 L/kg) Cole (hr-1): 0.020 Half life (hrs): 34.66 Recommended dose: 2000 mg Interval: 48 hrs Infusion time (hrs): 2.0 Predicted peak (mcg/mL): 36.3 Predicted trough (mcg/mL): 14.47 Total body weight is being used for vancomycin dosing. Recommendations: Give Vancomycin 2000 mg q 48 hrs with an expected Cpeak of 36.3 mcg/ml and an expected Ctrough of 14.47 mcg/ml ----Vanco only - ignore for aminoglycosides----- CLvanco= 1.75 L/hr AUC 0-24 /ASHLEY Data: ASHLEY 0.5 mcg/mL: AUC/ASHLEY: 1142.9 ASHLEY 1.0 mcg/mL: AUC/ASHLEY: 571.4 --------- ASHLEY 1.5 mcg/mL: AUC/ASHLEY: 381.0 ASHLEY 2.0 mcg/mL: AUC/ASHLEY: 285.7
[2024-11-20] MEDS: AMPICILLIN/SULBACTAM 3 GM in 0.9 % SODIUM CHLORIDE 100 ML IV ×2 (09:52→20:58)
--- NOTE | 2024-11-20 11:12 | PC.NURSE ---
0751 - Art line zeroed at this time. Site inspected. 1104 - After returning back from CT, art line zeroed and line inspected.
[2024-11-20 11:37] LABS: POC Glucose,Bedside 195 (70-110)
[2024-11-20] MEDS: humaLOG 100 UNITS/ML 10ML VIAL (SSI) SUBCUT ×3 (11:37→21:09)
--- NOTE | 2024-11-20 12:15 | PC.NURSE ---
Pt awake, alert but does not remember the events/timeline of yesterday into this morning. Re-oriented pt easily. Pt requested to call daughter on her cell phone, nurse assisted pt in doing so. Pt sat up in bed conversing w/ daughter appropriately. Pt weaned to room air as well, w/ no s/s of resp distress. Pressors weaned appropriately per protocol. PT currently sitting up in bed being fed lunch by staff. Call sandhu w/in reach. Bed alarm in place. Plan of care ongoing.
[2024-11-20 13:45] LABS: Influenza AH1, 2009 Detected (NotDetected)
[2024-11-20] MEDS: BENZONATATE 100MG CAPSULE 100 MG PO (13:45)
[2024-11-20] MEDS: NOREPINEPHRINE BITARTRATE/D5W 8 MG/250 ML PLAST..BAG 7.5 MG IV (14:03)
[2024-11-20] MEDS: VASOPRESSIN 40 UNIT in 0.9 % SODIUM CHLORIDE 100 ML IV (14:39)
[2024-11-20] MEDS: OSELTAMIVIR PHOSPHATE 6MG/ML ORAL SUSP 60ML 30 MG PO (14:40)
[2024-11-20 15:14] LABS: Albumin Level 2.7 g/dl (3.5-5.0); Chloride 101 mmol/L (98-107); Potassium 5.1 mmoL/L (3.5-5.1); Sodium 133 mmol/L (136-145)
[2024-11-20 15:17] LABS: Alkaline Phosphatase 102 U/L (38-126); Anion Gap 15.1 mEq/L (5-15); Bilirubin,Total 0.4 mg/dl (0.2-1.3); Blood Urea Nitrogen 52 mg/dl (7-17); Carbon Dioxide 22 mmol/L (22.0-30.0); Creatinine Clearance Estimated 18 mL/min (50-200); Estimated Glomerular Filt Rate 18 ml/min (>60); GFR (African American) 21 ML/MIN (>60); Globulin 2.7 g/dL (1.3-3.2); Total Protein,Serum 5.4 g/dl (6.3-8.2)
[2024-11-20 15:18] LABS: Calcium 7.4 mg/dl (8.4-10.2); Glucose 231 mg/dl (74-100)
[2024-11-20 15:35] LABS: Alanine Aminotransferase 958 U/L (12-78); Aspartate Amino Transferase 2654 U/L (14-36)
--- NOTE | 2024-11-20 15:50 | PC.NURSE ---
Stanley on hold @ [address] Pascal @ 2037
[2024-11-20 16:45] LABS: PTT Heparin (inpatient only) 32.6 Seconds (50-75)
[2024-11-20] MEDS: HEPARIN DRIP CONSULT 1 EACH NOTAPPLIC (16:50)
[2024-11-20 16:59] LABS: POC Glucose,Bedside 225 (70-110)
[2024-11-20] MEDS: 0.9 % SODIUM CHLORIDE 1000ML 500 ML 999 ML IV (17:23)
[2024-11-20] MEDS: HEPARIN SODIUM,PORCINE/D5W 500 ML 10 UNIT IV (17:34)
[2024-11-20] MEDS: HEPARIN SODIUM 5,000 UNIT/ML VIAL 5000 UNIT IV (17:34)
[2024-11-20 17:59] LABS: Lipase 20 U/L (23-300)
[2024-11-20] MEDS: PRAMIPEXOLE 0.125MG TABLET 0.125 MG PO (20:59)
[2024-11-20] MEDS: INSULIN GLARGINE 100 UNITS/ML 3ML FLEXPEN 30 UNIT SUBCUT (21:06)
[2024-11-20 21:53] LABS: Albumin Level 2.5 g/dl (3.5-5.0); Chloride 100 mmol/L (98-107); Potassium 4.8 mmoL/L (3.5-5.1); Sodium 132 mmol/L (136-145)
[2024-11-20 21:56] LABS: Albumin/Globulin Ratio 0.9 (1.1-1.8); Alkaline Phosphatase 93 U/L (38-126); Anion Gap 11.8 mEq/L (5-15); Bilirubin,Total 0.4 mg/dl (0.2-1.3); Blood Urea Nitrogen 53 mg/dl (7-17); Calcium 7.2 mg/dl (8.4-10.2); Carbon Dioxide 25 mmol/L (22.0-30.0); Creatinine Clearance Estimated 18 mL/min (50-200); Estimated Glomerular Filt Rate 17 ml/min (>60); GFR (African American) 21 ML/MIN (>60); Globulin 2.7 g/dL (1.3-3.2); Glucose 214 mg/dl (74-100); Total Protein,Serum 5.2 g/dl (6.3-8.2)
[2024-11-20 22:05] LABS: Alanine Aminotransferase 1006 U/L (12-78); PTT Heparin (inpatient only) 50.2 Seconds (50-75)
--- NOTE | 2024-11-20 22:10 | P.PN_ITS ---
Subjective *Date: 11/20/24 *Time: 22:10 Interval history: Patient's mentation has significantly improved today, back to baseline. No abdominal pain, chest pain, shortness of breath. LFTs plateaued, reassuring for stabilizing ischemic hepatitis. Possible Budd-Chiari syndrome, meningitis. N.p.o. at midnight for LP in the morning. Exam Data for Last 24 hours Vital signs and Labs for Last 24 Hours: Temp Pulse Resp BP Pulse Ox O2 Del Method O2 Flow Rate 97.9 F 61 16 119/61 95 Room Air 1 11/20/24 21:00 11/20/24 21:00 11/20/24 21:00 11/20/24 21:00 11/20/24 21:00 11/20/24 21:00 11/20/24 12:30 Laboratory Results - last 24 hr 11/19/24 11:21: POC Glucose 180 H 11/19/24 16:49: POC Glucose 128 H 11/19/24 20:11: POC Glucose 107 11/19/24 20:40: Total Bilirubin 0.2, Direct Bilirubin 0.2, Conjugated Bilirubin 0.0, Indirect Bilirubin 0.0, Unconjugated Bilirubin 0.1, AST 160 H D, ALT 86 H D , Alkaline Phosphatase 94, Total Protein 5.6 L, Albumin 2.8 L D 11/19/24 21:00: Urine Color Yellow, Urine Appearance Clear, Urine pH 5.5, Ur Specific [place] 1.025, Urine Protein 3+ A, Urine Glucose (UA) 3+, Urine Ketones Negative, Urine Blood Trace-i, Urine Nitrate Negative, Urine Bilirubin Negative, Urine Urobilinogen 0.2, Ur Leukocyte Esterase Negative, Urine RBC 3-5, Urine WBC Occasional, Ur Squamous Epith Cells 3-5, Urine Bacteria Trace, Urine Opiates Screen Negative, Urine Methadone Screen Negative, Ur Barbituates Screen Negative, Ur Phencyclidine Scrn Negative, Ur Amphetamines Screen Negative, U Benzodiazepines Scrn Negative, Urine Cocaine Screen Negative, U Marijuana (THC) Screen Negative 11/19/24 22:01: POC Glucose 243 H 11/19/24 22:45: Ammonia 44 H 11/20/24 00:41: ABG pH 7.26 L, ABG pCO2 26.5 L, ABG pO2 80.2, ABG HCO3 11.5 L, ABG Total CO2 12.3 L, ABG O2 Saturation 93, ABG Base Excess -15.6 L 11/20/24 00:50: WBC 11.2 H D, RBC 5.25 D, Hgb 11.8 L D, Hct 41.1, MCV 78.3 L, MCH 22.5 L, MCHC 28.7 L, RDW 16.9, Plt Count 370 D, MPV 11.0 H, Neut % (Auto) 82.2 H, Lymph % (Auto) 10.1, [place] % (Auto) 5.7, Eos % (Auto) 0.0 L, Baso % (Auto) 0.4, Neut # (Auto) 9.2 H, Lymph # (Auto) 1.1, [place] # (Auto) 0.6, Eos # (Auto) 0.0, Baso # (Auto) 0.0, PT 15.0 H, INR 1.38 H, Sodium 129 L, Potassium 7.7 H* D, Chloride 101, Carbon Dioxide 10 L D, Anion Gap 25.7 H, BUN 41 H, Creatinine 2.40 H, Estimated Creat Clear 20, Estimated GFR 20 L, Est GFR ( Amer) 25 L, Glucose 155 H D, Lactate 6.0 H, Calcium 7.0 L 11/20/24 03:30: Specimen Source al, O2 % 4, ABG pH 7.35, ABG pCO2 28.5 L, ABG pO2 146.4 H, ABG HCO3 15.5 L, ABG Total CO2 16.4 L, ABG O2 Saturation 99, ABG Base Excess -10.0 L 11/20/24 05:05: POC Glucose 163 H 11/20/24 05:45: WBC 26.4 H* D, RBC 5.02, Hgb 11.3 L, Hct 37.9, MCV 75.5 L, MCH 22.5 L, MCHC 29.8 L, RDW 16.7, Plt Count 405, MPV 10.6 H, Neut % (Auto) 92.3 H, Lymph % (Auto) 2.8 L, [place] % (Auto) 3.6, Eos % (Auto) 0.0 L, Baso % (Auto) 0.2, Neut # (Auto) 24.4 H, Lymph # (Auto) 0.8, [place] # (Auto) 1.0, Eos # (Auto) 0.0, Baso # (Auto) 0.0, Total Counted 100, Neutrophils % (Manual) 97 H, Lymphocytes % (Manual) 2 L, Monocytes % (Manual) 1 L, Platelet Estimate Normal, Anisocytosis 1+, ESR 14, Sodium 131 L, Potassium 6.2 H*, Chloride 102, Carbon Dioxide 16 L, Anion Gap 19.2 H, BUN 46 H, Creatinine 2.60 H, Estimated Creat Clear 19, Estimated GFR 19 L*, Est GFR ( Amer) 22 L, Glucose 161 H, Lactate 4.1 H, Calcium 7.1 L, Magnesium 2.0, Total Bilirubin 0.6, AST 1180 H* D, ALT 418 H*, Alkaline Phosphatase 105, C-Reactive Protein 21.0 H, Total Protein 5.6 L, Albumin 2.8 L, Globulin 2.8, Albumin/Globulin Ratio 1.0 L, Procalcitonin 1.94 11/20/24 06:23: Specimen Source A-line, O2 % 4lpm nc, ABG pH 7.34 L, ABG pCO2 31.2 L, ABG pO2 321.1 H, ABG HCO3 16.4 L, ABG Total CO2 17.4 L, ABG O2 Saturation 100, ABG Base Excess -9.4 L, Dedrick Test Non applicable 11/20/24 08:15: Chlamy pneumoniae PCR Not detected, Adenovirus (PCR) Not detected, B. pertussis DNA (PCR) Not detected, Coronavirus OC43 (PCR) Not detected, Coronavirus HKU1 (PCR) Not detected, Coronavirus 229E (PCR) Not detected, SARS-CoV-2 (PCR) Not detected, Coronavirus NL63 (PCR) Not detected, Human Metapneumovir PCR Not detected, Influenza A (H1) PCR Not detected, Influ A (H1N1/09) PCR Detected A, Influenza A (H3) PCR Not detected, Influenza Type A (PCR) Not detected, Influenza Type B (PCR) Not detected, M. pneumoniae (PCR) Not detected, Parainfluenza 1 (PCR) Not detected, Parainfluenza 2 (PCR) Not detected, Parainfluenza 3 (PCR) Not detected, Parainfluenza 4 (PCR) Not detected, RSV (PCR) Not detected, Entero/Rhino (PCR) Not detected 11/20/24 11:30: POC Glucose 195 H 11/20/24 15:00: Sodium 133 L, Potassium 5.1, Chloride 101, Carbon Dioxide 22, Anion Gap 15.1 H, BUN 52 H, Creatinine 2.70 H, Estimated Creat Clear 18, Estimated GFR 18 L*, Est GFR ( Amer) 21 L, Glucose 231 H D, Calcium 7.4 L , Total Bilirubin 0.4, AST 2654 H* D, ALT 958 H*, Alkaline Phosphatase 102, Total Protein 5.4 L, Albumin 2.7 L, Globulin 2.7, Albumin/Globulin Ratio 1.0 L, Lipase 20 L 11/20/24 16:10: APTT 32.6 L 11/20/24 16:51: POC Glucose 225 H 11/20/24 21:40: APTT 50.2, Sodium 132 L, Potassium 4.8, Chloride 100, Carbon Dioxide 25, Anion Gap 11.8, BUN 53 H, Creatinine 2.80 H, Estimated Creat Clear 18, Estimated GFR 17 L*, Est GFR ( Amer) 21 L, Glucose 214 H, Calcium 7.2 L, Total Bilirubin 0.4, ALT 1006 H*, Alkaline Phosphatase 93, Total Protein 5.2 L, Albumin 2.5 L, Globulin 2.7, Albumin/Globulin Ratio 0.9 L I & O for Last 24 hours: Intake & Output 11/17/24 11/18/24 11/19/24 11/20/24 23:59 23:59 23:59 23:59 Intake Total 1500 / 1800 1170 / 1170 488.284 / 1025.999 9579.837 / 2820.837 Output Total 1000 / 1000 1350 / 1350 1440 / 1440 800 / 800 Balance 500 / 800 -180 / -180 -951.716 / -284.316 8056.837 / 2020.837 Weight 106.73 kg 107.229 kg 109.361 kg 109 kg Microbiology Reports for the Last 24 Hours: Microbiology 11/19/24 18:00 Blood Blood Culture - Preliminary NO GROWTH AFTER 24 HOURS 11/19/24 17:50 Blood Blood Culture - Preliminary NO GROWTH AFTER 24 HOURS *Routine HEENT Exam Head: Present normocephalic Eye: Present EOMI and PERRL ENT: Present mucous membranes moist *Routine Neck Exam Neck: Present supple; Absent lymphadenopathy *Routine Respiratory Exam Respiratory: Present CTA bilaterally *Routine Cardiovascular Exam Cardiovascular: Present RRR *Routine Abdominal Exam Abdominal: Present soft and normoactive bowel sounds; Absent tenderness *Routine Extremities Exam Extremities: Absent cyanosis, clubbing or edema Comments: Chronic left-sided weakness from CVA. *Routine Skin Exam Skin: Present warm; Absent rash *Routine Neurological Exam Neurological: Present alert Assessment and Plan *Assessment and plan (1) Acute exacerbation of chronic heart failure: Status: Acute Category: Medical Code(s): I50.9 - Heart failure, unspecified Plan Faiza Waters is a 64-year-old female with a medical history significant for HFpEF, type 2 diabetes, CVA with left-sided weakness, asthma, hypertension who presents with shortness of breath. She states it is more prominent when she is try to fall asleep. Denies fever/chills, coughing, chest pain, abdominal pain. Workup in the ED significant for BNP 26,700, with CXR showing pulmonary edema. Case discussed with ED provider and decision was made to admit patient HFpEF exacerbation and orthopnea. 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 On 11/19/2024, patient exhibited lethargy, very somnolent. Further workup with CT head, CT chest, CBC, CMP, VBG did not reveal remarkable findings at that time. However, patient did have a fever of 100.5 later in the afternoon. Started vancomycin, cefepime. Later in the evening, patient's pressures dropped to MAPs mid 50s. Transferred to ICU, maxed on Levophed but had continued hypotension. Given HFrEF, started dobutamine which worsened hypotension. Discontinued. Started vasopressin with improvement in MAP greater than 65. Also received hydrocortisone 100 mg at stress dose steroid. Small fluid boluses were also administered as patient likely got over diuresed and is now in ATN. Spoke with Dr. Hernandez and agreed with plan of care. Patient's mentation eventually improved, back to baseline this morning. Tested positive for influenza A. ? Weaned off Levophed, vasopressin, milrinone. ? However, AST/ALT greatly elevated today. Bilirubin, ALP normal. AST 2398/ALT 1006 currently, slowly improving. Likely ischemic hepatitis given profound hypertension last night. Continue IV and oral fluid rehydration. ? CT abdomen/pelvis noncontrast revealed nonspecific RUQ findings, atrophic pancreas, and likely right renal infarct. No gross signs of infection. ? Patient's LFTs were worsening earlier in the day in spite of normal pressures. Concern for Budd-Chiari syndrome. After extensive discussion with Dr. Barone, decision was made to start empiric heparin drip and follow-up with liver Doppler in the morning. Unable to do this over the weekend. ? WBC 26.4, though patient received hydrocortisone 100 mg last night. ? Though influenza might have played a role in septic shock, at this time it seems out of proportion. Meningitis still a concern. Will consult anesthesiology for lumbar puncture in the morning. N.p.o. at midnight. ? Continue vancomycin, cefepime, ampicillin for empiric meningitis coverage. ? Continue Tamiflu day 10/09. ? Continue NAC 6000 mg daily. ? Follow-up liver Doppler. ? Fire Sprinkler Designer consulted, pending further perspective. #ELIEZER, ATN ? Worsened renal failure likely secondary to initial overdiuresis, then profound hypotension overnight. ? Creatinine 2.8, baseline 1.2. ? Hyperkalemia treated, currently stable at 4.8. Currently auto diuresing, appropriate urine output. ? Continue IV and oral fluid rehydration. ? Follow-up morning CMP. Closely follow urine output, electrolytes. ? Hold diuretics. #HFrEF ? ECHO in March 2022 revealed grade 2 diastolic dysfunction. ? ECHO 11/17/2024 LVEF 25%, G2DD. ? Was initially started on GDMT and diuresis, holding these at this time given sepsis, ATN, ischemic hepatitis. #Type 2 diabetes ? Hemoglobin A1c 11.3, well above goal. ? LDSSI, ACHS glucose checks. ? Continue Lantus 35 units nightly. Discontinued metformin, Farxiga at this time given above . #History of CVA with left-sided weakness ? Aspirin, holding statin. Hold Plavix for now. Unclear why patient is on triple therapy. ? Daughter is primary dragline engineer at home, helps patient get in wheelchair to get around. # History of left IJ DVT ?Heparin drip for now. Repeat venous Doppler negative here. Full code Heparin drip
[2024-11-20 22:17] LABS: Aspartate Amino Transferase 2398 U/L (14-36)
[2024-11-21] VITALS (47 sets, daily range): BP systolic 110–197; BP diastolic 49–105; PULSE 62–83; RESP 14–26; TEMP 36.6–39.5; O2SAT 87–99; BMI 42.1
--- NOTE | 2024-11-21 | US_ITS ---
FINAL REPORT TECHNIQUE: Sonographic images of the right upper quadrant were obtained. CLINICAL HISTORY: E[facility]ATED LABS - ? BUDD CHIARI SYNDROME COMPARISON: CT dated 11/20/2024 and ultrasound dated 10/24/2020 FINDINGS: PANCREAS: Unremarkable. LIVER: Homogeneous. No focal hepatic lesion. No intrahepatic biliary ductal dilatation. The portal and hepatic veins are patent with normal directional flow. GALLBLADDER: The gallbladder is present. No gallstones are visualized. The gallbladder wall is thickened. There is possibly a small amount of pericholecystic fluid. COMMON DUCT: 4 mm. Normal for age. RIGHT KIDNEY: The right kidney measures 12.4 cm. There is no hydronephrosis. There are several renal cysts. FREE FLUID: None. IMPRESSION: Gallbladder wall thickening and a small amount of pericholecystic fluid, no gallstones but acalculous, cholecystitis not excluded. Right renal cysts. Portal and hepatic veins patent with normal directional flow. Reviewed, Interpreted and Dictated by Della Koenig MD Transcribed by Jennifer Young Authenticated and [facility]
[2024-11-21] MEDS: IPRATROPIUM/ALBUTEROL 3 ML NEB IH ×4 (00:30→18:39)
[2024-11-21 05:03] LABS: Basophils % 0.1 % (0.1-2.0); Hematocrit 31.5 % (37.0-47.0); Lymphocytes % 10.9 % (10-50); Mean Corpuscular HGB Conc 29.8 g/dL (31.8-35.4); Mean Corpuscular Hemoglobin 22.3 pg (27.0-31.2); Mean Corpuscular Volume 74.6 fl (81-99); Mean Platelet Volume 11.6 fl (7.4-10.4); Monocytes # 0.3 K/mm3 (0.1-1.0); Monocytes % 2.7 % (1.7-9.3); Neutrophils # 8.2 K/mm3 (1.8-7.8); Platelet Count 256 K/mm3 (142-424); Red Blood Count 4.22 M/mm3 (4.20-5.40); Red Cell Distribution Width 16.6 % (11.5-17.5); White Blood Count 9.5 K/mm3 (4.8-10.8)
[2024-11-21 05:09] LABS: Hemoglobin 9.4 g/dL (12.2-16.2)
[2024-11-21 05:10] LABS: Albumin Level 2.5 g/dl (3.5-5.0); Chloride 102 mmol/L (98-107); Potassium 5.4 mmoL/L (3.5-5.1); Sodium 133 mmol/L (136-145)
[2024-11-21 05:13] LABS: Albumin/Globulin Ratio 0.8 (1.1-1.8); Alkaline Phosphatase 64 U/L (38-126); Anion Gap 9.4 mEq/L (5-15); Bilirubin,Total 0.7 mg/dl (0.2-1.3); Blood Urea Nitrogen 57 mg/dl (7-17); Calcium 7.1 mg/dl (8.4-10.2); Carbon Dioxide 27 mmol/L (22.0-30.0); Creatinine Clearance Estimated 19 mL/min (50-200); Estimated Glomerular Filt Rate 19 ml/min (>60); GFR (African American) 22 ML/MIN (>60); Glucose 108 mg/dl (74-100); Total Protein,Serum 5.5 g/dl (6.3-8.2)
[2024-11-21 05:17] LABS: PTT Heparin (inpatient only) 33.9 Seconds (50-75)
[2024-11-21 05:23] LABS: Alanine Aminotransferase 1167 U/L (12-78)
--- NOTE | 2024-11-21 05:29 | PC.NURSE ---
Pharmacist called from [facility] pharmacy and reports they are changing heparin gtt to 20ml/hr and ordering a 4000 unit heparin bolus per protocol.
[2024-11-21 05:34] LABS: Aspartate Amino Transferase 2790 U/L (14-36)
[2024-11-21] MEDS: HEPARIN SODIUM 5,000 UNIT/ML VIAL 4000 UNIT IV (05:40)
[2024-11-21] MEDS: HEPARIN SODIUM,PORCINE/D5W 500 ML 20 UNIT IV (05:53)
[2024-11-21 05:54] LABS: POC Glucose,Bedside 109 (70-110)
--- NOTE | 2024-11-21 06:16 | PC.NURSE ---
contacted wilberto hassan for temp of 100.9 , she is aware and no orders at this time.
[2024-11-21] MEDS: [UNRECOGNIZED DRUG - OTHER] IH (07:09)
[2024-11-21] MEDS: BUDESONIDE FORMOTEROL IH (07:09)
--- NOTE | 2024-11-21 08:03 | P.CONPHA_ITS ---
[facility] Heparin Dosing Demographic Data Admission date:: 11/16/24 Date: 11/21/24 Time: 08:03 Allergies Allergy/AdvReac Type Severity Reaction Status Date / Time lisinopril Allergy Severe Hives Verified 11/16/24 14:58 strawberry Allergy Severe Anaphylaxis Verified 11/16/24 14:58 codeine AdvReac Severe Vomiting Verified 11/16/24 14:58 Penicillins AdvReac Severe Vomiting Verified 11/16/24 14:58 Height: 1.63 m Weight: 112 kg Indication Medication therapy:: Heparin Current Active Problems (Updated 11/21/24 @ 11:40 by Matthew Barone MD) Septic shock (Acute) Ischemic hepatitis (Acute) Influenza A with pneumonia (Acute) Acute HFrEF (heart failure with reduced ejection fraction) (Acute) Acute exacerbation of chronic heart failure (Acute) Type 2 diabetes mellitus (Chronic) Cerebrovascular accident (Acute) Morbid obesity with body mass index (BMI) of 40.0 to 44.9 in adult (Acute) CVA?: No Bleeding problem?: No Kidney disease?: No CT?: No Desired PTT range:: 50-75 seconds Labs Anticoagulation Lab Results:: 11/21/24 04:50 Hgb 9.4 L D Hct 31.5 L Plt Count 256 D Monitoring Dose Monitor 1: Date: 11/20/24 Time: 16:10 PTT Result:: 32.6 (BASELINE) Infusion Rate:: 500 UNITS/HR Comment:: 5,000 UNIT BOLUS Dose Monitor 2: Date: 11/20/24 Time: 21:40 PTT Result:: 50.2 Infusion Rate:: 500 UNITS/HR Dose Monitor 3: Date: 11/21/24 Time: 04:50 PTT Result:: 33.9 Infusion Rate:: INCREASE RATE TO 1000 UNITS/HR Comment:: 4,000 UNIT BOLUS Dose Monitor 4: Date: 11/21/24 Time: 11:30 Comment:: ELIQUIS RESTARTED Core Measures Is INR > or = 2 at discharge?: No Most Recent Labs:: Laboratory Results - last 24 hr 11/20/24 05:45: ESR 14, C-Reactive Protein 21.0 H, Procalcitonin 1.94 11/20/24 08:15: Chlamy pneumoniae PCR Not detected, Adenovirus (PCR) Not detected, B. pertussis DNA (PCR) Not detected, Coronavirus OC43 (PCR) Not detected, Coronavirus HKU1 (PCR) Not detected, Coronavirus 229E (PCR) Not detected, SARS-CoV-2 (PCR) Not detected, Coronavirus NL63 (PCR) Not detected, Human Metapneumovir PCR Not detected, Influenza A (H1) PCR Not detected, Influ A (H1N1/09) PCR Detected A, Influenza A (H3) PCR Not detected, Influenza Type A (PCR) Not detected, Influenza Type B (PCR) Not detected, M. pneumoniae (PCR) Not detected, Parainfluenza 1 (PCR) Not detected, Parainfluenza 2 (PCR) Not detected, Parainfluenza 3 (PCR) Not detected, Parainfluenza 4 (PCR) Not detected, RSV (PCR) Not detected, Entero/Rhino (PCR) Not detected 11/20/24 11:30: POC Glucose 195 H 11/20/24 15:00: Sodium 133 L, Potassium 5.1, Chloride 101, Carbon Dioxide 22, Anion Gap 15.1 H, BUN 52 H, Creatinine 2.70 H, Estimated Creat Clear 18, Estimated GFR 18 L*, Est GFR ( Amer) 21 L, Glucose 231 H D, Calcium 7.4 L , Total Bilirubin 0.4, AST 2654 H* D, ALT 958 H*, Alkaline Phosphatase 102, Total Protein 5.4 L, Albumin 2.7 L, Globulin 2.7, Albumin/Globulin Ratio 1.0 L, Lipase 20 L 11/20/24 16:10: APTT 32.6 L 11/20/24 16:51: POC Glucose 225 H 11/20/24 21:40: APTT 50.2, Sodium 132 L, Potassium 4.8, Chloride 100, Carbon Dioxide 25, Anion Gap 11.8, BUN 53 H, Creatinine 2.80 H, Estimated Creat Clear 18, Estimated GFR 17 L*, Est GFR ( Amer) 21 L, Glucose 214 H, Calcium 7.2 L, Total Bilirubin 0.4, AST 2398 H*, ALT 1006 H*, Alkaline Phosphatase 93, Total Protein 5.2 L, Albumin 2.5 L, Globulin 2.7, Albumin/Globulin Ratio 0.9 L 11/21/24 04:50: WBC 9.5 D, RBC 4.22, Hgb 9.4 L D, Hct 31.5 L, MCV 74.6 L, MCH 22.3 L, MCHC 29.8 L, RDW 16.6, Plt Count 256 D, MPV 11.6 H, Neut % (Auto) 86.0 H, Lymph % (Auto) 10.9, [place] % (Auto) 2.7, Eos % (Auto) 0.0 L, Baso % (Auto) 0.1, Neut # (Auto) 8.2 H, Lymph # (Auto) 1.0, [place] # (Auto) 0.3, Eos # (Auto) 0.0, Baso # (Auto) 0.0, APTT 33.9 L, Sodium 133 L, Potassium 5.4 H, Chloride 102, Carbon Dioxide 27, Anion Gap 9.4, BUN 57 H, Creatinine 2.60 H, Estimated Creat Clear 19, Estimated GFR 19 L*, Est GFR ( Amer) 22 L, Glucose 108 H D, Calcium 7.1 L, Magnesium 2.0, Total Bilirubin 0.7, AST 2790 H*, ALT 1167 H*, Alkaline Phosphatase 64, Total Protein 5.5 L, Albumin 2.5 L, Globulin 3.0, Albumin/Globulin Ratio 0.8 L 11/21/24 05:45: POC Glucose 109 Were Heparin and Warfarin started on the same day?: No If not, why?: PATIENT WAS CHANGED BACK TO [facility] AFTER PROCEDURE
[2024-11-21] MEDS: AMPICILLIN/SULBACTAM 3 GM in 0.9 % SODIUM CHLORIDE 100 ML IV ×2 (08:13→20:55)
[2024-11-21 08:15] LABS: Iron 56 ug/dL (37-170)
[2024-11-21 08:24] LABS: Total Iron Binding Capacity 209 ug/dL (265-497)
[2024-11-21] MEDS: CEFEPIME HCL 1 GM in 0.9 % SODIUM CHLORIDE 50 ML IV ×2 (09:20→20:55)
--- NOTE | 2024-11-21 10:24 | PC.NURSE ---
heparin gtt held per md in anticipation of possible lumbar puncture at 1000
[2024-11-21] MEDS: ACETYLCYSTEINE 20% 30ML BOTTLE 6000 MG PO (10:25)
[2024-11-21] MEDS: OSELTAMIVIR PHOSPHATE 6MG/ML ORAL SUSP 60ML 30 MG PO (10:28)
[2024-11-21 10:32] LABS: Folate > 20.00 ng/mL
--- NOTE | 2024-11-21 10:33 | PC.NURSE ---
aware of temperature, no new orders
[2024-11-21 10:41] LABS: Vitamin B12 914 pg/mL (239-931)
[2024-11-21 10:58] LABS: POC Glucose,Bedside 95 (70-110)
[2024-11-21 11:30] LABS: Ferritin 7100 ng/ml (11.1-264)
--- NOTE | 2024-11-21 11:31 | P.CONS_ITS ---
History of Present Illness History of present illness: Mr. Waters is a 64-year-old female no significant smoking history, using inhalers on as-needed basis at baseline carries a diagnosis of asthma not any oxygen supplementation initially presented to the hospital worsening respiratory's found to be in heart failure exacerbation, relatively stable up until a week. Patient noted acute decline in her clinical status potential shock needing 3 vasopressors to maintain her MAP at 65 and above possible ischemic hepatitis for further evaluation and management. [facility] Disclaimer: The information contained in this section may have been updated after the patient was seen, as this information can be updated by other users. Medical History (Updated 11/21/24 @ 11:40 by Matthew Barone MD) Septic shock Ischemic hepatitis Influenza A with pneumonia Arthritis Renal disease HTN (hypertension), benign HLD (hyperlipidemia) GERD (gastroesophageal reflux disease) COPD (chronic obstructive pulmonary disease) Asthma Anxiety Type 2 diabetes mellitus TIA (transient ischemic attack) Surgical History H/O tubal ligation H/O total hysterectomy History of carpal tunnel release of both wrists Social History Smoking Status: Never smoker alcohol intake: never substance use type: denies use current occupational status: retired Travel in the last 8 weeks: None housing: house Review of Systems Constitutional Constitutional: Reports fatigue *Cardiovascular Cardiovascular: Reports dyspnea and Reports dyspnea on exertion *Respiratory Respiratory: Reports chest congestion, Reports cough, Reports dyspnea, Reports dyspnea on exertion, Denies excessive phlegm production and Denies wheezing *Gastrointestinal Gastrointestinal: Denies abdominal pain, Denies belching and Denies cramping Psychiatric Psychiatric: Denies homicidal ideation and Denies suicidal ideation Endocrine Endocrine: Reports fatigue and Denies heat intolerance Hematologic/Lymphatic Hematologic/Lymphatic: Denies easy bleeding and Denies lymphadenopathy Allergic/Immunologic Allergic/Immunologic: Denies wheezing Pulmonology Exam Inpatient Vital signs and Labs for Last 24 Hours: Temp Pulse Resp BP Pulse Ox O2 Del Method O2 Flow Rate 102.4 F H 71 18 160/67 H 93 L Room Air 11/21/24 11:11/21/24 11:01 11/21/24 11:01 11/21/24 11:01 11/21/24 11:01 11/21/24 11:20 11/21/24 04:35 Laboratory Results - last 24 hr 11/20/24 08:15: Chlamy pneumoniae PCR Not detected, Adenovirus (PCR) Not detected, B. pertussis DNA (PCR) Not detected, Coronavirus OC43 (PCR) Not detected, Coronavirus HKU1 (PCR) Not detected, Coronavirus 229E (PCR) Not detected, SARS-CoV-2 (PCR) Not detected, Coronavirus NL63 (PCR) Not detected, Human Metapneumovir PCR Not detected, Influenza A (H1) PCR Not detected, Influ A (H1N1/09) PCR Detected A, Influenza A (H3) PCR Not detected, Influenza Type A (PCR) Not detected, Influenza Type B (PCR) Not detected, M. pneumoniae (PCR) Not detected, Parainfluenza 1 (PCR) Not detected, Parainfluenza 2 (PCR) Not detected, Parainfluenza 3 (PCR) Not detected, Parainfluenza 4 (PCR) Not detected, RSV (PCR) Not detected, Entero/Rhino (PCR) Not detected 11/20/24 11:30: POC Glucose 195 H 11/20/24 15:00: Sodium 133 L, Potassium 5.1, Chloride 101, Carbon Dioxide 22, A nion Gap 15.1 H, BUN 52 H, Creatinine 2.70 H, Estimated Creat Clear 18, E stimated GFR 18 L*, Est GFR ( Amer) 21 L, Glucose 231 H D, Calcium 7.4 L, Total Bilirubin 0.4, AST 2654 H* D, ALT 958 H*, Alkaline Phosphatase 102, Total Protein 5.4 L, Albumin 2.7 L, Globulin 2.7, Albumin/Globulin Ratio 1.0 L, Lipase 20 L 11/20/24 16:10: APTT 32.6 L 11/20/24 16:51: POC Glucose 225 H 11/20/24 21:40: APTT 50.2, Sodium 132 L, Potassium 4.8, Chloride 100, Carbon Dioxide 25, Anion Gap 11.8, BUN 53 H, Creatinine 2.80 H, Estimated Creat Clear 18, Estimated GFR 17 L*, Est GFR ( Amer) 21 L, Glucose 214 H, Calcium 7.2 L, Total Bilirubin 0.4, AST 2398 H*, ALT 1006 H*, Alkaline Phosphatase 93, Total Protein 5.2 L, Albumin 2.5 L, Globulin 2.7, Albumin/Globulin Ratio 0.9 L 11/21/24 04:50: WBC 9.5 D, RBC 4.22, Hgb 9.4 L D, Hct 31.5 L, MCV 74.6 L, MCH 22.3 L, MCHC 29.8 L, RDW 16.6, Plt Count 256 D, MPV 11.6 H, Neut % (Auto) 86.0 H, Lymph % (Auto) 10.9, Larue % (Auto) 2.7, Eos % (Auto) 0.0 L, Baso % (Auto) 0.1, Neut # (Auto) 8.2 H, Lymph # (Auto) 1.0, Larue # (Auto) 0.3, Eos # (Auto) 0.0, Baso # (Auto) 0.0, APTT 33.9 L, Sodium 133 L, Potassium 5.4 H, Chloride 102, Carbon Dioxide 27, Anion Gap 9.4, BUN 57 H, Creatinine 2.60 H, Estimated Creat Clear 19, Estimated GFR 19 L*, Est GFR ( Amer) 22 L, Glucose 108 H D, Calcium 7.1 L, Magnesium 2.0, Iron 56, TIBC 209 L, Iron Saturation 26.56950, Ferritin 7100 H D, Total Bilirubin 0.7, AST 2790 H*, ALT 1167 H*, Alkaline Phosphatase 64, Total Protein 5.5 L, Albumin 2.5 L, Globulin 3.0, A lbumin/Globulin Ratio 0.8 L, Vitamin B12 914 11/21/24 05:45: POC Glucose 109 11/21/24 08:43: Folate > 20.00 11/21/24 10:52: POC Glucose 95 I & O for Labs for Last 24 Hours: Intake & Output 11/18/24 11/19/24 11/20/24 11/21/24 23:59 23:59 23:59 23:59 Intake Total 1170 / 1170 488.284 / 6301.548 1147.837 / 3085.837 330.875 / 330.875 Output Total 1350 / 1350 1440 / 1440 950 / 950 700 / 700 Balance -180 / -180 -951.716 / -085.446 8654.837 / 2135.837 -369.125 / -369.125 Weight 236 lb 6.4 oz 241 lb 1.6 oz 240 lb 4.862 oz 246 lb 14.684 oz Microbiology Reports for the Last 24 Hours: Microbiology 11/20/24 05:45 Rectum CRE Surveillance Culture - Final 11/19/24 18:00 Blood Blood Culture - Preliminary NO GROWTH AFTER 24 HOURS 11/19/24 17:50 Blood Blood Culture - Preliminary NO GROWTH AFTER 24 HOURS Constitutional: Present severe distress Head: Present normocephalic and atraumatic ENT: Present normal exam, normal oropharynx and mucous membranes moist Neck: Present normal inspection and full ROM Respiratory: Present crackles, diminished air movement and able to speak in complete sentences; Absent prolonged expiratory phase, rhonchi or wheezes Cardiac: Present S1/S2, Tachycardia and radial pulses present GI: Present soft and distention; Absent tenderness or guarding Rectal (female): Present deferred (female): Present deferred Skin: Present intact; Absent cyanosis or jaundice Neuro: Present awake; Absent alert or oriented x 3 Extremities: Present normal inspection; Absent clubbing or cyanosis Psychiatric: Present normal affect and cooperative Meds Home Medications and Allergies Home Medications ?Medication ?Instructions ?Recorded ?Confirmed ?Type insulin lispro 100 unit/mL 0 unit SQ DIRECTED 04/01/22 11/16/24 History subcutaneous cartridge blood sugar diagnostic (OneTouch #100 ea 05/09/22 11/16/24 Rx Verio test strips) blood-glucose transmitter (Dexcom #1 ea 03/30/24 11/16/24 Rx G6 Transmitter device) atorvastatin 40 mg tablet (Lipitor) 40 mg PO DAILY #90 tabs 05/27/24 11/16/24 Rx albuterol sulfate 90 mcg/actuation 2 puff inhalation Q4HP PRN 11/16/24 11/16/24 History aerosol inhaler shortness of breath or wheezing allopurinol 100 mg tablet 100 mg PO DAILY 11/16/24 11/16/24 History apixaban 5 mg tablet (Eliquis) 5 mg PO BID 11/16/24 11/16/24 History aspirin 81 mg tablet,delayed 81 mg PO DAILY 11/16/24 11/16/24 History release budesonide-formoterol HFA 160 2 puff inhalation BID 11/16/24 11/16/24 History mcg-4.5 mcg/actuation aerosol inhaler (Symbicort) clopidogrel 75 mg tablet 75 mg PO DAILY 11/16/24 11/16/24 History diltiazem HCl 240 mg 240 mg PO DAILY 11/16/24 11/16/24 History capsule,extended release 24 hr famotidine 40 mg tablet 40 mg PO BID 11/16/24 11/16/24 History ferrous sulfate 325 mg (65 mg 325 mg PO BID 11/16/24 11/16/24 History iron) tablet (FeroSul) fluoxetine 20 mg capsule 20 mg PO DAILY 11/16/24 11/16/24 History gabapentin 100 mg capsule 100 mg PO TID 11/16/24 11/16/24 History hydralazine 50 mg tablet 50 mg PO TID 11/16/24 11/16/24 History isosorbide mononitrate 120 mg 120 mg PO DAILY 11/16/24 11/16/24 History tablet,extended release 24 hr loratadine 10 mg tablet (Allergy 10 mg PO DAILY 11/16/24 11/16/24 History Relief (loratadine)) losartan 100 mg tablet 100 mg PO DAILY 11/16/24 11/16/24 History metformin 500 mg tablet,extended 1,000 mg PO BID 11/16/24 11/16/24 History release 24 hr metoprolol succinate 100 mg 100 mg PO BID 11/16/24 11/16/24 History tablet,extended release 24 hr montelukast 10 mg tablet 10 mg PO PM 11/16/24 11/16/24 History pramipexole 0.125 mg tablet 0.125 mg PO DAILY 11/16/24 11/16/24 History ranolazine 1,000 mg 1,000 mg PO BID 11/16/24 11/16/24 History tablet,extended release,12 hr tiotropium bromide 18 mcg capsule 1 cap inhalation DAILY 11/16/24 11/16/24 History with inhalation device (Spiriva with HandiHaler) torsemide 10 mg tablet 20 mg PO DAILY 11/16/24 11/16/24 History New Prescriptions to Start Prescriptions: Allergies Allergy/AdvReac Type Severity Reaction Status Date / Time lisinopril Allergy Severe Hives Verified 11/16/24 14:58 strawberry Allergy Severe Anaphylaxis Verified 11/16/24 14:58 codeine AdvReac Severe Vomiting Verified 11/16/24 14:58 Penicillins AdvReac Severe Vomiting Verified 11/16/24 14:58 Results Laboratory Findings 11/21/24 04:50 11/21/24 04:50 ABG ABG pH 7.34 mmol/L (7.35-7.45) L 11/20/24 06:23 ABG pCO2 31.2 mmhg (35.0-45.0) L 11/20/24 06:23 ABG pO2 321.1 mmhg (80-100) H 11/20/24 06:23 ABG O2 Saturation 100 % (90-100) 11/20/24 06:23 PT/INR, D-dimer PT 15.0 seconds (10.1-12.5) H 11/20/24 00:50 INR 1.38 (0.9-1.1) H 11/20/24 00:50 D-Dimer 0.64 ug/mL (0.0-0.5) H 11/17/24 14:28 Abnormal lab findings: Abnormal Labs 11/16/24 11/16/24 11/17/24 13:50 20:28 06:10 WBC RBC 4.17 L Hgb 9.5 L Hct 31.6 L MCV 75.8 L MCH 22.8 L MCHC 30.1 L MPV 10.6 H Neut % (Auto) 81.6 H Lymph % (Auto) Larue % (Auto) Eos % (Auto) Neut # (Auto) 8.1 H Lymph # (Auto) Neutrophils % (Manual) Lymphocytes % (Manual) Monocytes % (Manual) ESR PT INR APTT D-Dimer ABG pH ABG pCO2 ABG pO2 ABG HCO3 ABG Total CO2 ABG Base Excess VBG pH VBG pCO2 VBG pO2 VBG HCO3 VBG Total CO2 VBG O2 Saturation VBG Base Excess VBG Lactic Acid Sodium 135 L Potassium Carbon Dioxide Anion Gap BUN 18 H Creatinine 1.20 H Estimated GFR 45 L Est GFR ( Amer) 55 L Glucose 338 H POC Glucose 327 H* 215 H Hemoglobin A1c Lactate Calcium 8.2 L TIBC Ferritin AST ALT Alkaline Phosphatase Ammonia C-Reactive Protein NT-Pro-B Natriuret Pep 88687 H Total Protein 5.9 L Albumin 3.0 L Albumin/Globulin Ratio 1.0 L Lipase Urine Protein Influ A (H1N1/09) PCR 11/17/24 11/17/24 11/17/24 06:22 11:19 14:28 WBC RBC 4.17 L Hgb 9.4 L Hct 31.6 L MCV 75.8 L MCH 22.5 L MCHC 29.7 L MPV 10.5 H Neut % (Auto) Lymph % (Auto) Larue % (Auto) Eos % (Auto) Neut # (Auto) Lymph # (Auto) Neutrophils % (Manual) Lymphocytes % (Manual) Monocytes % (Manual) ESR PT INR APTT D-Dimer 0.64 H ABG pH ABG pCO2 ABG pO2 ABG HCO3 ABG Total CO2 ABG Base Excess VBG pH VBG pCO2 VBG pO2 VBG HCO3 VBG Total CO2 VBG O2 Saturation VBG Base Excess VBG Lactic Acid Sodium 134 L Potassium Carbon Dioxide Anion Gap BUN 20 H Creatinine 1.50 H D Estimated GFR 35 L Est GFR ( Amer) 42 L D Glucose 209 H D POC Glucose 258 H Hemoglobin A1c 11.3 H Lactate Calcium 8.0 L TIBC Ferritin AST ALT Alkaline Phosphatase Ammonia C-Reactive Protein NT-Pro-B Natriuret Pep Total Protein 5.8 L Albumin 2.9 L Albumin/Globulin Ratio 1.0 L Lipase Urine Protein Influ A (H1N1/09) PCR 11/17/24 11/17/24 11/18/24 17:18 21:21 05:49 WBC RBC Hgb 9.5 L Hct 33.0 L MCV 78.2 L MCH 22.5 L MCHC 28.8 L MPV 11.0 H Neut % (Auto) Lymph % (Auto) Larue % (Auto) Eos % (Auto) Neut # (Auto) Lymph # (Auto) Neutrophils % (Manual) Lymphocytes % (Manual) Monocytes % (Manual) ESR PT INR APTT D-Dimer ABG pH ABG pCO2 ABG pO2 ABG HCO3 ABG Total CO2 ABG Base Excess VBG pH VBG pCO2 VBG pO2 VBG HCO3 VBG Total CO2 VBG O2 Saturation VBG Base Excess VBG Lactic Acid Sodium 135 L Potassium Carbon Dioxide Anion Gap BUN 25 H Creatinine 2.00 H D Estimated GFR 25 L Est GFR ( Amer) 30 L D Glucose 130 H D POC Glucose 203 H 214 H Hemoglobin A1c Lactate Calcium 8.1 L TIBC Ferritin AST ALT Alkaline Phosphatase Ammonia C-Reactive Protein NT-Pro-B Natriuret Pep Total Protein 6.0 L Albumin 3.0 L Albumin/Globulin Ratio 1.0 L Lipase Urine Protein Influ A (H1N1) PCR 11/18/24 11/18/24 11/18/24 06:31 10:08 16:04 WBC RBC Hgb Hct MCV MCH MCHC MPV Neut % (Auto) Lymph % (Auto) Larue % (Auto) Eos % (Auto) Neut # (Auto) Lymph # (Auto) Neutrophils % (Manual) Lymphocytes % (Manual) Monocytes % (Manual) ESR PT INR APTT D-Dimer ABG pH ABG pCO2 ABG pO2 ABG HCO3 ABG Total CO2 ABG Base Excess VBG pH VBG pCO2 VBG pO2 VBG HCO3 VBG Total CO2 VBG O2 Saturation VBG Base Excess VBG Lactic Acid Sodium Potassium Carbon Dioxide Anion Gap BUN Creatinine Estimated GFR Est GFR ( Amer) Glucose POC Glucose 133 H 249 H 208 H Hemoglobin A1c Lactate Calcium TIBC Ferritin AST ALT Alkaline Phosphatase Ammonia C-Reactive Protein NT-Pro-B Natriuret Pep Total Protein Albumin Albumin/Globulin Ratio Lipase Urine Protein Influ A (H1N1) PCR 11/18/24 11/19/24 11/19/24 20:35 05:46 07:15 WBC RBC Hgb 10.2 L Hct 34.2 L MCV 74.5 L MCH 22.2 L MCHC 29.8 L MPV 10.7 H Neut % (Auto) 89.3 H Lymph % (Auto) 5.4 L Larue % (Auto) Eos % (Auto) Neut # (Auto) Lymph # (Auto) 0.5 L Neutrophils % (Manual) Lymphocytes % (Manual) Monocytes % (Manual) ESR PT INR APTT D-Dimer ABG pH ABG pCO2 ABG pO2 ABG HCO3 ABG Total CO2 ABG Base Excess VBG pH VBG pCO2 VBG pO2 VBG HCO3 VBG Total CO2 VBG O2 Saturation VBG Base Excess VBG Lactic Acid Sodium 133 L Potassium 5.4 H D Carbon Dioxide Anion Gap 15.4 H BUN 36 H D Creatinine 2.30 H Estimated GFR 21 L Est GFR ( Amer) 26 L Glucose 221 H POC Glucose 205 H 211 H Hemoglobin A1c Lactate Calcium 8.0 L TIBC Ferritin AST 96 H D ALT Alkaline Phosphatase 130 H Ammonia C-Reactive Protein NT-Pro-B Natriuret Pep Total Protein Albumin 3.2 L Albumin/Globulin Ratio 1.0 L Lipase Urine Protein Influ A (H1N1/09) PCR 11/19/24 11/19/24 11/19/24 11:21 13:01 13:09 WBC RBC Hgb Hct MCV MCH MCHC MPV Neut % (Auto) Lymph % (Auto) Larue % (Auto) Eos % (Auto) Neut # (Auto) Lymph # (Auto) Neutrophils % (Manual) Lymphocytes % (Manual) Monocytes % (Manual) ESR PT INR APTT D-Dimer ABG pH ABG pCO2 ABG pO2 ABG HCO3 ABG Total CO2 ABG Base Excess VBG pH 7.49 H VBG pCO2 28.5 L VBG pO2 109.2 H VBG HCO3 21.2 L VBG Total CO2 22.1 L VBG O2 Saturation 98.1 H VBG Base Excess VBG Lactic Acid Sodium 132 L Potassium Carbon Dioxide Anion Gap BUN 36 H Creatinine 2.20 H Estimated GFR 22 L Est GFR ( Amer) 27 L Glucose 164 H D POC Glucose 180 H Hemoglobin A1c Lactate Calcium 8.0 L TIBC Ferritin AST ALT Alkaline Phosphatase Ammonia C-Reactive Protein NT-Pro-B Natriuret Pep Total Protein Albumin Albumin/Globulin Ratio Lipase Urine Protein Influ A (H1N1) PCR 11/19/24 11/19/24 11/19/24 16:49 20:18 20:40 WBC RBC 4.18 L Hgb 9.4 L Hct 31.5 L MCV 75.4 L MCH 22.5 L MCHC 29.8 L MPV 10.5 H Neut % (Auto) Lymph % (Auto) Larue % (Auto) 11.7 H Eos % (Auto) 0.0 L Neut # (Auto) Lymph # (Auto) Neutrophils % (Manual) Lymphocytes % (Manual) Monocytes % (Manual) ESR 57 H PT INR APTT D-Dimer ABG pH ABG pCO2 ABG pO2 ABG HCO3 ABG Total CO2 ABG Base Excess VBG pH 7.47 H VBG pCO2 25.4 L VBG pO2 83.6 H VBG HCO3 18.2 L VBG Total CO2 19.0 L VBG O2 Saturation 96.5 H VBG Base Excess -5.4 L VBG Lactic Acid 3.0 H Sodium 131 L Potassium Carbon Dioxide 21 L Anion Gap 15.8 H BUN 42 H Creatinine 2.30 H Estimated GFR 21 L Est GFR ( Amer) 26 L Glucose 101 H D POC Glucose 128 H Hemoglobin A1c Lactate 2.4 H Calcium 7.8 L TIBC Ferritin AST 160 H D ALT 86 H D Alkaline Phosphatase Ammonia C-Reactive Protein 23.3 H NT-Pro-B Natriuret Pep Total Protein 5.6 L Albumin 2.8 L D Albumin/Globulin Ratio Lipase Urine Protein Influ A (H1N1/) PCR 11/19/24 11/19/24 11/19/24 21:00 21:12 22:01 WBC RBC Hgb Hct MCV MCH MCHC MPV Neut % (Auto) Lymph % (Auto) Larue % (Auto) Eos % (Auto) Neut # (Auto) Lymph # (Auto) Neutrophils % (Manual) Lymphocytes % (Manual) Monocytes % (Manual) ESR PT INR APTT D-Dimer ABG pH ABG pCO2 ABG pO2 ABG HCO3 ABG Total CO2 ABG Base Excess VBG pH VBG pCO2 VBG pO2 VBG HCO3 VBG Total CO2 VBG O2 Saturation VBG Base Excess VBG Lactic Acid Sodium Potassium Carbon Dioxide Anion Gap BUN Creatinine Estimated GFR Est GFR ( Amer) Glucose POC Glucose 123 H 243 H Hemoglobin A1c Lactate Calcium TIBC Ferritin AST ALT Alkaline Phosphatase Ammonia C-Reactive Protein NT-Pro-B Natriuret Pep Total Protein Albumin Albumin/Globulin Ratio Lipase Urine Protein 3+ A Influ A (H1N1) PCR 11/19/24 11/20/24 11/20/24 22:45 00:41 00:50 WBC 11.2 H D RBC Hgb 11.8 L D Hct MCV 78.3 L MCH 22.5 L MCHC 28.7 L MPV 11.0 H Neut % (Auto) 82.2 H Lymph % (Auto) Larue % (Auto) Eos % (Auto) 0.0 L Neut # (Auto) 9.2 H Lymph # (Auto) Neutrophils % (Manual) Lymphocytes % (Manual) Monocytes % (Manual) ESR PT 15.0 H INR 1.38 H APTT D-Dimer ABG pH 7.26 L ABG pCO2 26.5 L ABG pO2 ABG HCO3 11.5 L ABG Total CO2 12.3 L ABG Base Excess -15.6 L VBG pH VBG pCO2 VBG pO2 VBG HCO3 VBG Total CO2 VBG O2 Saturation VBG Base Excess VBG Lactic Acid Sodium 129 L Potassium 7.7 H* D Carbon Dioxide 10 L D Anion Gap 25.7 H BUN 41 H Creatinine 2.40 H Estimated GFR 20 L Est GFR ( Amer) 25 L Glucose 155 H D POC Glucose Hemoglobin A1c Lactate 6.0 H Calcium 7.0 L TIBC Ferritin AST ALT Alkaline Phosphatase Ammonia 44 H C-Reactive Protein NT-Pro-B Natriuret Pep Total Protein Albumin Albumin/Globulin Ratio Lipase Urine Protein Influ A (H1N1/) 11/20/24 11/20/24 11/20/24 03:30 05:05 05:45 WBC 26.4 H* D RBC Hgb 11.3 L Hct MCV 75.5 L MCH 22.5 L MCHC 29.8 L MPV 10.6 H Neut % (Auto) 92.3 H Lymph % (Auto) 2.8 L Larue % (Auto) Eos % (Auto) 0.0 L Neut # (Auto) 24.4 H Lymph # (Auto) Neutrophils % (Manual) 97 H Lymphocytes % (Manual) 2 L Monocytes % (Manual) 1 L ESR PT INR APTT D-Dimer ABG pH ABG pCO2 28.5 L ABG pO2 146.4 H ABG HCO3 15.5 L ABG Total CO2 16.4 L ABG Base Excess -10.0 L VBG pH VBG pCO2 VBG pO2 VBG HCO3 VBG Total CO2 VBG O2 Saturation VBG Base Excess VBG Lactic Acid Sodium 131 L Potassium 6.2 H* Carbon Dioxide 16 L Anion Gap 19.2 H BUN 46 H Creatinine 2.60 H Estimated GFR 19 L* Est GFR ( Amer) 22 L Glucose 161 H POC Glucose 163 H Hemoglobin A1c Lactate 4.1 H Calcium 7.1 L TIBC Ferritin AST 1180 H* D ALT 418 H* Alkaline Phosphatase Ammonia C-Reactive Protein 21.0 H NT-Pro-B Natriuret Pep Total Protein 5.6 L Albumin 2.8 L Albumin/Globulin Ratio 1.0 L Lipase Urine Protein Influ A (H1N1) 11/20/24 11/20/24 11/20/24 06:23 08:15 11:30 WBC RBC Hgb Hct MCV MCH MCHC MPV Neut % (Auto) Lymph % (Auto) Larue % (Auto) Eos % (Auto) Neut # (Auto) Lymph # (Auto) Neutrophils % (Manual) Lymphocytes % (Manual) Monocytes % (Manual) ESR PT INR APTT D-Dimer ABG pH 7.34 L ABG pCO2 31.2 L ABG pO2 321.1 H ABG HCO3 16.4 L ABG Total CO2 17.4 L ABG Base Excess -9.4 L VBG pH VBG pCO2 VBG pO2 VBG HCO3 VBG Total CO2 VBG O2 Saturation VBG Base Excess VBG Lactic Acid Sodium Potassium Carbon Dioxide Anion Gap BUN Creatinine Estimated GFR Est GFR ( Amer) Glucose POC Glucose 195 H Hemoglobin A1c Lactate Calcium TIBC Ferritin AST ALT Alkaline Phosphatase Ammonia C-Reactive Protein NT-Pro-B Natriuret Pep Total Protein Albumin Albumin/Globulin Ratio Lipase Urine Protein Influ A (H1N1) PCR Detected A 11/20/24 11/20/24 11/20/24 15:00 16:10 16:51 WBC RBC Hgb Hct MCV MCH MCHC MPV Neut % (Auto) Lymph % (Auto) Larue % (Auto) Eos % (Auto) Neut # (Auto) Lymph # (Auto) Neutrophils % (Manual) Lymphocytes % (Manual) Monocytes % (Manual) ESR PT INR APTT 32.6 L D-Dimer ABG pH ABG pCO2 ABG pO2 ABG HCO3 ABG Total CO2 ABG Base Excess VBG pH VBG pCO2 VBG pO2 VBG HCO3 VBG Total CO2 VBG O2 Saturation VBG Base Excess VBG Lactic Acid Sodium 133 L Potassium Carbon Dioxide Anion Gap 15.1 H BUN 52 H Creatinine 2.70 H Estimated GFR 18 L* Est GFR ( Amer) 21 L Glucose 231 H D POC Glucose 225 H Hemoglobin A1c Lactate Calcium 7.4 L TIBC Ferritin AST 2654 H* D ALT 958 H* Alkaline Phosphatase Ammonia C-Reactive Protein NT-Pro-B Natriuret Pep Total Protein 5.4 L Albumin 2.7 L Albumin/Globulin Ratio 1.0 L Lipase 20 L Urine Protein Influ A (H1N1) PCR 11/20/24 11/21/24 21:40 04:50 WBC RBC Hgb 9.4 L D Hct 31.5 L MCV 74.6 L MCH 22.3 L MCHC 29.8 L MPV 11.6 H Neut % (Auto) 86.0 H Lymph % (Auto) Larue % (Auto) Eos % (Auto) 0.0 L Neut # (Auto) 8.2 H Lymph # (Auto) Neutrophils % (Manual) Lymphocytes % (Manual) Monocytes % (Manual) ESR PT INR APTT 33.9 L D-Dimer ABG pH ABG pCO2 ABG pO2 ABG HCO3 ABG Total CO2 ABG Base Excess VBG pH VBG pCO2 VBG pO2 VBG HCO3 VBG Total CO2 VBG O2 Saturation VBG Base Excess VBG Lactic Acid Sodium 132 L 133 L Potassium 5.4 H Carbon Dioxide Anion Gap BUN 53 H 57 H Creatinine 2.80 H 2.60 H Estimated GFR 17 L* 19 L* Est GFR ( Amer) 21 L 22 L Glucose 214 H 108 H D POC Glucose Hemoglobin A1c Lactate Calcium 7.2 L 7.1 L TIBC 209 L Ferritin 7100 H D AST 2398 H* 2790 H* ALT 1006 H* 1167 H* Alkaline Phosphatase Ammonia C-Reactive Protein NT-Pro-B Natriuret Pep Total Protein 5.2 L 5.5 L Albumin 2.5 L 2.5 L Albumin/Globulin Ratio 0.9 L 0.8 L Lipase Urine Protein Influ A (H1N1/) PCR Assessment and Plan *Assessment and plan (1) Influenza A with pneumonia: Status: Acute Category: Medical Code(s): J09.X1 - Influenza due to identified novel influenza A virus with pneumonia (2) Ischemic hepatitis: Status: Acute Category: Medical Code(s): K72.00 - Acute and subacute hepatic failure without coma (3) Septic shock: Status: Acute Category: Medical Code(s): A41.9 - Sepsis, unspecified organism; R65.21 - Severe sepsis with septic shock Plan Mr. Waters is a 64-year-old female no significant smoking history, using inhalers on as-needed basis at baseline carries a diagnosis of asthma not any oxygen supplementation initially presented to the hospital worsening respiratory's found to be in heart failure exacerbation, relatively stable up until a week. Patient noted acute decline in her clinical status potential shock needing 3 vasopressors to maintain her MAP at 65 and above possible ischemic hepatitis for further evaluation and management. Patient respiratory viral PCR panel upon admission negative however repeat PCR panel positive for influenza pneumonia. Her echo does show reduced EF at 25%. Patient on examination today appeared to be in moderate respiratory distress. Saturating 94%. No significant wheezing noted on auscultation. Initiate broad- spectrum antibiotics including vancomycin and cefepime. Lipase and platelet counts within normal limits. Alk phos and total bili within normal limits. CRP mildly elevated at 21 Leukocytosis improving. Continue to have febrile episodes Tmax of 102. Arterial Doppler right upper quadrant not concerning for splenic vein thrombosis. Repeat chest x-ray and CT abdomen no obvious alternate source of infection. Chest x-ray no new consolidative/airspace changes noted. Appeared to be confused. Pending LP, also receiving receiving Ampicillin Plan: -Continue Tamiflu renally dosed for influenza pneumonia -Continue vancomycin, cefepime and Ampicillin renally dosed pending blood culture results, LP results and nasal MRSA PCR. Blood cultures no growth 24 hours. -Wean vasopressors, MAP at goal at greater than 65 this morning -Anticoagulation can be weaned to Eliquis for her DVT after invasive procedures are performed.
--- NOTE | 2024-11-21 13:24 | P.PN_ITS ---
Subjective Subjective Date: 11/21/24 Time: 09:00 Interval history: Patient stayed over the weekend and developed fever to 102.4 Fahrenheit, she is positive for flu A, developed shock with severe hypotension warranting pressors and hepatic congestion with liver enzymes greater than 2000. She received a 1.5 L fluid bolus and saw improvement in her pressures and is currently off pressors this morning. She still has some altered mental status. She is in sinus r hythm. Exam Data for Last 24 hours Vital signs and Labs for Last 24 Hours: Temp Pulse Resp BP Pulse Ox O2 Del Method O2 Flow Rate 102.4 F H 71 18 160/67 H 93 L Room Air 11/21/24 11:01 11/21/24 11:01 11/21/24 11:01 11/21/24 11:01 11/21/24 11:01 11/21/24 11:20 11/21/24 04:35 Laboratory Results - last 24 hr 11/20/24 08:15: Chlamy pneumoniae PCR Not detected, Adenovirus (PCR) Not detected, B. pertussis DNA (PCR) Not detected, Coronavirus OC43 (PCR) Not detected, Coronavirus HKU1 (PCR) Not detected, Coronavirus 229E (PCR) Not detected, SARS-CoV-2 (PCR) Not detected, Coronavirus NL63 (PCR) Not detected, Human Metapneumovir PCR Not detected, Influenza A (H1) PCR Not detected, Influ A (H1N1/09) PCR Detected A, Influenza A (H3) PCR Not detected, Influenza Type A (PCR) Not detected, Influenza Type B (PCR) Not detected, M. pneumoniae (PCR) Not detected, Parainfluenza 1 (PCR) Not detected, Parainfluenza 2 (PCR) Not detected, Parainfluenza 3 (PCR) Not detected, Parainfluenza 4 (PCR) Not detect ed, RSV (PCR) Not detected, Entero/Rhino (PCR) Not detected 11/20/24 15:00: Sodium 133 L, Potassium 5.1, Chloride 101, Carbon Dioxide 22, Anion Gap 15.1 H, BUN 52 H, Creatinine 2.70 H, Estimated Creat Clear 18, Estimated GFR 18 L*, Est GFR ( Amer) 21 L, Glucose 231 H D, Calcium 7.4 L , Total Bilirubin 0.4, AST 2654 H* D, ALT 958 H*, Alkaline Phosphatase 102, Total Protein 5.4 L, Albumin 2.7 L, Globulin 2.7, Albumin/Globulin Ratio 1.0 L, Lipase 20 L 11/20/24 16:10: APTT 32.6 L 11/20/24 16:51: POC Glucose 225 H 11/20/24 21:40: APTT 50.2, Sodium 132 L, Potassium 4.8, Chloride 100, Carbon Dioxide 25, Anion Gap 11.8, BUN 53 H, Creatinine 2.80 H, Estimated Creat Clear 18, Estimated GFR 17 L*, Est GFR ( Amer) 21 L, Glucose 214 H, Calcium 7.2 L, Total Bilirubin 0.4, AST 2398 H*, ALT 1006 H*, Alkaline Phosphatase 93, Total Protein 5.2 L, Albumin 2.5 L, Globulin 2.7, Albumin/Globulin Ratio 0.9 L 11/21/24 04:50: WBC 9.5 D, RBC 4.22, Hgb 9.4 L D, Hct 31.5 L, MCV 74.6 L, MCH 22.3 L, MCHC 29.8 L, RDW 16.6, Plt Count 256 D, MPV 11.6 H, Neut % (Auto) 86.0 H, Lymph % (Auto) 10.9, [place] % (Auto) 2.7, Eos % (Auto) 0.0 L, Baso % (Auto) 0.1, Neut # (Auto) 8.2 H, Lymph # (Auto) 1.0, [place] # (Auto) 0.3, Eos # (Auto) 0.0, Baso # (Auto) 0.0, APTT 33.9 L, Sodium 133 L, Potassium 5.4 H, Chloride 102, Carbon Dioxide 27, Anion Gap 9.4, BUN 57 H, Creatinine 2.60 H, Estimated Creat Clear 19, Estimated GFR 19 L*, Est GFR ( Amer) 22 L, Glucose 108 H D, Calcium 7.1 L, Magnesium 2.0, Iron 56, TIBC 209 L, Iron Saturation 26.45060, Ferritin 7100 H D, Total Bilirubin 0.7, AST 2790 H*, ALT 1167 H*, Alkaline Phosphatase 64, Total Protein 5.5 L, Albumin 2.5 L, Globulin 3.0, Albumin/Globulin Ratio 0.8 L, Vitamin B12 914 11/21/24 05:45: POC Glucose 109 11/21/24 08:43: Folate > 20.00 11/21/24 10:52: POC Glucose 95 I & O for Last 24 hours: Intake & Output 11/18/24 11/19/24 11/20/24 11/21/24 23:59 23:59 23:59 23:59 Intake Total 1170 / 1170 488.284 / 5058.318 7510.837 / 3085.837 330.875 / 330.875 Output Total 1350 / 1350 1440 / 1440 950 / 950 700 / 700 Balance -180 / -180 -951.716 / -547.564 8036.837 / 2135.837 -369.125 / -369.125 Weight 236 lb 6.4 oz 241 lb 1.6 oz 240 lb 4.862 oz 246 lb 14.684 oz Microbiology Reports for the Last 24 Hours: Microbiology 11/20/24 05:45 Rectum CRE Surveillance Culture - Final 11/19/24 18:00 Blood Blood Culture - Preliminary NO GROWTH AFTER 24 HOURS 11/19/24 17:50 Blood Blood Culture - Preliminary NO GROWTH AFTER 24 HOURS Constitutional Constitutional: no acute distress and cooperative *Routine HEENT Exam Eye: Present PERRL *Routine Respiratory Exam Respiratory: Present CTA bilaterally; Absent accessory muscle use, wheezes or crackles *Routine Cardiovascular Exam Cardiovascular: Present RRR, Normal S1 and Normal S2; Absent murmur, gallop or rubs *Routine Abdominal Exam Abdominal: Present soft; Absent tenderness *Routine Extremities Exam Extremities: Present pulses intact; Absent cyanosis or edema *Routine Skin Exam Skin: Present intact; Absent erythema or wounds *Routine Neurological Exam Neurological: Present alert Comments: unable to name hospital or year Routine Psychiatric Exam Psychiatric: Present cooperative Progress Note: A&P Assessment and plan (1) Influenza A with pneumonia: Status: Acute (2) Septic shock: Status: Acute (3) Acute HFrEF (heart failure with reduced ejection fraction): Status: Acute (4) Deep vein thrombosis (DVT) of left upper extremity: Status: Acute (5) Mediastinal adenopathy: Status: Acute (6) Cerebrovascular accident: Status: Acute (7) Morbid obesity with body mass index (BMI) of 40.0 to 44.9 in adult: Status: Acute Assessment and Plan Assessment and Plan for All Diagnoses:: Septic shock/multi-organ failure due to Influenza A - EF 25% - Severe hypotension - ELIEZER - Cr up from 1.5 to 2.8 - Transaminitis with AST/ALT >2k - AMS Acute HFrEF, NICM - new dx with ProBNP 26k, pulm vacsular congestion, GOMEZ, orthopnea, EF 25% - ECHO shows new globally reduced EF. Was normal on ECHO 06/2024 in [facility]. - LHC 07/2024 [facility] - Trivial CAD, preserved EDP and LV function - LHC <6 mo ago showed trivial CAD, no utility in repeating LHC here. Will obtain outpatient cardiac MRI to help evaluate etiology of CM. - 11/18: reduce Bumex to 1mg TID, Change Irbesartan to Entresto, Continue Aldactone, add Jardiance. Pt agreeable to LifeVest. - 11/11: GDMT on hold due to septic shock. Monitor volume status. Currently euvolemic ELIEZER on CKD - baseline Cr 1.5, up to 2.8 - due to hypotension - 11/21: improved slightly to 2.6 after vol resuscitation. Cont to monitor and dose adjust meds. Transaminitis - likely hepatic congestion from CHF - improving with vol resuscitation AMS - likely metabolic encephalopathy from septic shock Morbid Obesity, BMI 40 - life limiting - consider GLP-1 outpatient DM-II - poorly controlled with A1C 11 - add Jardiance for CV benefit - consider GLP-1 given BMI 40 Hx of CVA with left hemiparesis - requires assistance with all ADLs Hx of LUE DVT - jugular and subclavian veins per Venous 09/27 [facility] - repeat Venous here is neg - continue Eliquis Htn - resume metoprolol - add Entresto and Aldactone Cough/Wheeze - check CT Chest 11/21: Pt appears euvolemic. GDMT on hold. Continue telemetry. Keep MAP >65. Continue I/O. Flu treatment.
[2024-11-21] MEDS: VANCOMYCIN HCL 2,000 MG in 0.9 % SODIUM CHLORIDE 250 ML 125 MG IV (14:16)
--- NOTE | 2024-11-21 14:40 | PC.NURSE ---
art line removed at 1225, patient tolerated well, manual pressure held until homeostasis achieved.
[2024-11-21 14:47] LABS: Activated Partial Thrombo Time 38.5 seconds (22.5-28.5); INR 1.33 (0.9-1.1); Prothrombin Time 14.2 seconds (9.2-12.1)
[2024-11-21] MEDS: SODIUM CHLORIDE 3% 15ML NEB 3 ML IH (14:55)
[2024-11-21 15:37] LABS: Calcium, Ionized 3.9 mg/dL (4.5-5.6)
--- NOTE | 2024-11-21 15:53 | P.CONS_ITS ---
History of Present Illness *Admission Date: 11/16/24 *History of present illness: Faiza Waters is a 64-year-old female with a medical history significant for HFpEF, type 2 diabetes, CVA with left-sided weakness, asthma, hypertension who presents with shortness of breath. She states it is more prominent when she is try to fall asleep. Denies fever/chills, coughing, chest pain, abdominal pain. Workup in the ED significant for BNP 26,700, with CXR showing pulmonary edema. Case discussed with ED provider and decision was made to admit patient for HFpEF exacerbation. Per admission H&P - This is a 64-year-old female admitted for heart failure exacerbation with BNP over 26,000. She was aggressively diuresed. Late 11/19?early 11/20, patient became acutely hypotensive, spiked a fever (Tmax 102), found to have influenza pneumonia, treated with vancomycin, cefepime, ampicillin. Systolic blood pressure below 80, started on Levophed and vasopressin. Single dose of hydrocortisone and started on Tamiflu. Soon after acute event, patient found to have elevations in AST and ALT at 160/86 with normal bilirubin and alk phos. That increased to bilirubin 0.7, AST of 2790, ALT of 1167, and alk phos of 64 this morning. Concern for ischemic hepatitis secondary to profound hypotension. Liver Doppler completed with concern for Budd-Chiari showed no signs of hepatic infarct or obstruction today. She does have a history of fatty liver disease but no signs of underlying cirrhosis. Patient also found to have renal dysfunction and acute encephalopathy after significant hypotensive/hypoperfusion event. Since initial event, patient has been gradually weaned off of vasopressors and is maintaining MAP above 65 independently. She is scheduled for LP with concern for encephalopathy in a febrile patient. [facility] Disclaimer: The information contained in this section may have been updated after the patient was seen, as this information can be updated by other users. Medical History (Updated 11/21/24 @ 11:40 by Matthew Barone MD) Septic shock Ischemic hepatitis Influenza A with pneumonia Arthritis Renal disease HTN (hypertension), benign HLD (hyperlipidemia) GERD (gastroesophageal reflux disease) COPD (chronic obstructive pulmonary disease) Asthma Anxiety Type 2 diabetes mellitus TIA (transient ischemic attack) Surgical History H/O tubal ligation H/O total hysterectomy History of carpal tunnel release of both wrists Social History Smoking Status: Never smoker alcohol intake: never substance use type: denies use current occupational status: retired Travel in the last 8 weeks: None housing: house Review of Systems Review of Systems Review of systems:: unable to obtain Review of systems (narrative): Patient unable to provide ROS. No family at bedside. Most review from family responses in admission notes Constitutional Constitutional: Reports system reviewed and no additional complaints, except as documented and Reports weakness Eyes Eyes: Reports system reviewed and no additional complaints, except as documented and Denies loss of vision ENT Ears, Nose, Mouth, and Throat: Reports system reviewed and no additional complaints, except as documented and Denies vertigo *Cardiovascular Cardiovascular: Reports system reviewed and no additional complaints, except as documented, Reports dyspnea and Denies syncope *Respiratory Respiratory: Reports dyspnea *Gastrointestinal Gastrointestinal: Reports system reviewed and no additional complaints, except as documented *Musculoskeletal Musculoskeletal: Reports system reviewed and no additional complaints, except as documented *Neurologic Neurologic: Reports system reviewed and no additional complaints, except as documented, Denies loss of vision, Denies syncope, Denies vertigo and Reports weakness Meds Home Medications and Allergies Home Medications ?Medication ?Instructions ?Recorded ?Confirmed ?Type insulin lispro 100 unit/mL 0 unit SQ DIRECTED 04/01/22 11/16/24 History subcutaneous cartridge blood sugar diagnostic (OneTouch #100 ea 05/09/22 11/16/24 Rx Verio test strips) blood-glucose transmitter (Dexcom #1 ea 03/30/24 11/16/24 Rx G6 Transmitter device) atorvastatin 40 mg tablet (Lipitor) 40 mg PO DAILY #90 tabs 05/27/24 11/16/24 Rx albuterol sulfate 90 mcg/actuation 2 puff inhalation Q4HP PRN 11/16/24 11/16/24 History aerosol inhaler shortness of breath or wheezing allopurinol 100 mg tablet 100 mg PO DAILY 11/16/24 11/16/24 History apixaban 5 mg tablet (Eliquis) 5 mg PO BID 11/16/24 11/16/24 History aspirin 81 mg tablet,delayed 81 mg PO DAILY 11/16/24 11/16/24 History release budesonide-formoterol HFA 160 2 puff inhalation BID 11/16/24 11/16/24 History mcg-4.5 mcg/actuation aerosol inhaler (Symbicort) clopidogrel 75 mg tablet 75 mg PO DAILY 11/16/24 11/16/24 History diltiazem HCl 240 mg 240 mg PO DAILY 11/16/24 11/16/24 History capsule,extended release 24 hr famotidine 40 mg tablet 40 mg PO BID 11/16/24 11/16/24 History ferrous sulfate 325 mg (65 mg 325 mg PO BID 11/16/24 11/16/24 History iron) tablet (FeroSul) fluoxetine 20 mg capsule 20 mg PO DAILY 11/16/24 11/16/24 History gabapentin 100 mg capsule 100 mg PO TID 11/16/24 11/16/24 History hydralazine 50 mg tablet 50 mg PO TID 11/16/24 11/16/24 History isosorbide mononitrate 120 mg 120 mg PO DAILY 11/16/24 11/16/24 History tablet,extended release 24 hr loratadine 10 mg tablet (Allergy 10 mg PO DAILY 11/16/24 11/16/24 History Relief (loratadine)) losartan 100 mg tablet 100 mg PO DAILY 11/16/24 11/16/24 History metformin 500 mg tablet,extended 1,000 mg PO BID 11/16/24 11/16/24 History release 24 hr metoprolol succinate 100 mg 100 mg PO BID 11/16/24 11/16/24 History tablet,extended release 24 hr montelukast 10 mg tablet 10 mg PO PM 11/16/24 11/16/24 History pramipexole 0.125 mg tablet 0.125 mg PO DAILY 11/16/24 11/16/24 History ranolazine 1,000 mg 1,000 mg PO BID 11/16/24 11/16/24 History tablet,extended release,12 hr tiotropium bromide 18 mcg capsule 1 cap inhalation DAILY 11/16/24 11/16/24 History with inhalation device (Spiriva with HandiHaler) torsemide 10 mg tablet 20 mg PO DAILY 11/16/24 11/16/24 History New Prescriptions to Start Prescriptions: Allergies Allergy/AdvReac Type Severity Reaction Status Date / Time lisinopril Allergy Severe Hives Verified 11/16/24 14:58 strawberry Allergy Severe Anaphylaxis Verified 11/16/24 14:58 codeine AdvReac Severe Vomiting Verified 11/16/24 14:58 Penicillins AdvReac Severe Vomiting Verified 11/16/24 14:58 Exam (Inpt) Vital signs and Labs for Last 24 Hours: Temp Pulse Resp BP Pulse Ox O2 Del Method O2 Flow Rate 102.4 F H 72 20 161/81 H 95 Room Air 25 11/21/24 14:31 11/21/24 14:55 11/21/24 14:31 11/21/24 14:01 11/21/24 14:31 11/21/24 14:01 11/21/24 04:35 Laboratory Results - last 24 hr 11/20/24 00:50: Ionized Calcium 3.9 L 11/20/24 15:00: Lipase 20 L 11/20/24 16:10: APTT 32.6 L 11/20/24 16:51: POC Glucose 225 H 11/20/24 21:40: APTT 50.2, Sodium 132 L, Potassium 4.8, Chloride 100, Carbon Dioxide 25, Anion Gap 11.8, BUN 53 H, Creatinine 2.80 H, Estimated Creat Clear 18, Estimated GFR 17 L*, Est GFR ( Amer) 21 L, Glucose 214 H, Calcium 7.2 L, Total Bilirubin 0.4, AST 2398 H*, ALT 1006 H*, Alkaline Phosphatase 93, Total Protein 5.2 L, Albumin 2.5 L, Globulin 2.7, Albumin/Globulin Ratio 0.9 L 11/21/24 04:50: WBC 9.5 D, RBC 4.22, Hgb 9.4 L D, Hct 31.5 L, MCV 74.6 L, MCH 22.3 L, MCHC 29.8 L, RDW 16.6, Plt Count 256 D, MPV 11.6 H, Neut % (Auto) 86.0 H, Lymph % (Auto) 10.9, [place] % (Auto) 2.7, Eos % (Auto) 0.0 L, Baso % (Auto) 0.1, Neut # (Auto) 8.2 H, Lymph # (Auto) 1.0, [place] # (Auto) 0.3, Eos # (Auto) 0.0, Baso # (Auto) 0.0, APTT 33.9 L, Sodium 133 L, Potassium 5.4 H, Chloride 102, Carbon Dioxide 27, Anion Gap 9.4, BUN 57 H, Creatinine 2.60 H, Estimated Creat Clear 19, Estimated GFR 19 L*, Est GFR ( Amer) 22 L, Glucose 108 H D, Calcium 7.1 L, Magnesium 2.0, Iron 56, TIBC 209 L, Iron Saturation 26.21138, Ferritin 7100 H D, Total Bilirubin 0.7, AST 2790 H*, ALT 1167 H*, Alkaline Phosphatase 64, Total Protein 5.5 L, Albumin 2.5 L, Globulin 3.0, A lbumin/Globulin Ratio 0.8 L, Vitamin B12 914 11/21/24 05:45: POC Glucose 109 11/21/24 08:43: Folate > 20.00 11/21/24 10:52: POC Glucose 95 11/21/24 14:13: PT 14.2 H, INR 1.33 H, APTT 38.5 H I & O for Labs for Last 24 Hours: Intake & Output 11/19/24 11/20/24 11/21/2418/25 11:59 11:59 11:59 11:59 Intake Total 630 1044.275 0932.207 250 Output Total 1100 1105 1185 Balance -470 714.789 660.207 250 Weight 107.32 kg 109.361 kg 112 kg Microbiology Reports for the Last 24 Hours: Microbiology 11/20/24 05:45 Rectum CRE Surveillance Culture - Final 11/19/24 18:00 Blood Blood Culture - Preliminary NO GROWTH AFTER 24 HOURS 11/19/24 17:50 Blood Blood Culture - Preliminary NO GROWTH AFTER 24 HOURS Constitutional: morbidly obese and agitated (Mildly agitated and confused) Head: Present normocephalic and atraumatic Neck: Present normal inspection Respiratory: Present decreased breath sounds Cardiac: Present Reg Rate and Rhythm GI: Present soft and normal bowel sounds; Absent tenderness or guarding Skin: Present intact Neuro: Present alert and awake Comment:: A&O x 2 but unable to answer other questions Results Labs 11/21/24 04:50 11/21/24 04:50 Labs: Laboratory Results - last 24 hr 11/20/24 00:50: Ionized Calcium 3.9 L 11/20/24 15:00: Lipase 20 L 11/20/24 16:10: APTT 32.6 L 11/20/24 16:51: POC Glucose 225 H 11/20/24 21:40: APTT 50.2, Sodium 132 L, Potassium 4.8, Chloride 100, Carbon Dioxide 25, Anion Gap 11.8, BUN 53 H, Creatinine 2.80 H, Estimated Creat Clear 18, Estimated GFR 17 L*, Est GFR ( Amer) 21 L, Glucose 214 H, Calcium 7.2 L, Total Bilirubin 0.4, AST 2398 H*, ALT 1006 H*, Alkaline Phosphatase 93, Total Protein 5.2 L, Albumin 2.5 L, Globulin 2.7, Albumin/Globulin Ratio 0.9 L 11/21/24 04:50: WBC 9.5 D, RBC 4.22, Hgb 9.4 L D, Hct 31.5 L, MCV 74.6 L, MCH 22.3 L, MCHC 29.8 L, RDW 16.6, Plt Count 256 D, MPV 11.6 H, Neut % (Auto) 86.0 H, Lymph % (Auto) 10.9, [place] % (Auto) 2.7, Eos % (Auto) 0.0 L, Baso % (Auto) 0.1, Neut # (Auto) 8.2 H, Lymph # (Auto) 1.0, [place] # (Auto) 0.3, Eos # (Auto) 0.0, Baso # (Auto) 0.0, APTT 33.9 L, Sodium 133 L, Potassium 5.4 H, Chloride 102, Carbon Dioxide 27, Anion Gap 9.4, BUN 57 H, Creatinine 2.60 H, Estimated Creat Clear 19, Estimated GFR 19 L*, Est GFR ( Amer) 22 L, Glucose 108 H D, Calcium 7.1 L, Magnesium 2.0, Iron 56, TIBC 209 L, Iron Saturation 26.13908, Ferritin 7100 H D, Total Bilirubin 0.7, AST 2790 H*, ALT 1167 H*, Alkaline Phosphatase 64, Total Protein 5.5 L, Albumin 2.5 L, Globulin 3.0, A lbumin/Globulin Ratio 0.8 L, Vitamin B12 914 11/21/24 05:45: POC Glucose 109 11/21/24 08:43: Folate > 20.00 11/21/24 10:52: POC Glucose 95 11/21/24 14:13: PT 14.2 H, INR 1.33 H, APTT 38.5 H Assessment and Plan *Assessment and plan (1) Ischemic hepatitis: Status: Acute Category: Medical Code(s): K72.00 - Acute and subacute hepatic failure without coma (2) Septic shock: Status: Acute Category: Medical Code(s): A41.9 - Sepsis, unspecified organism; R65.21 - Severe sepsis with septic shock (3) Influenza A with pneumonia: Status: Acute Category: Medical Code(s): J09.X1 - Influenza due to identified novel influenza A virus with pneumonia (4) Acute HFrEF (heart failure with reduced ejection fraction): Status: Acute Category: Medical Code(s): I50.21 - Acute systolic (congestive) heart failure (5) Acute exacerbation of chronic heart failure: Status: Acute Category: Medical Code(s): I50.9 - Heart failure, unspecified Plan 1. Ischemic hepatitis/septic shock/heart failure exacerbation Significant jump in transaminases with normal bilirubin and alk phos started 2 days ago. Upon arrival, LFTs within normal limits. No obstruction or infarction seen on imaging. Unlikely Budd-Chiari. Currently appears to be classic ischemic hepatitis secondary to acute hypoperfusion event (CHF exacerbation with diuresis plus septic shock). Elevated LFTs usually peak between 1 and 3 days and then begin their return to normal which can occur over 7 to 10 days, assuming insult has resolved. Patient is normotensive and was able to wean off of pressors. May expect bilirubin to increase after the AST/ALT starts to decrease. Acute hypoperfusion on top of underlying heart failure exacerbation puts patient at increased risk of poor prognosis. There is no specific treatment for ischemic hepatitis but for elimination of the underlying insult. Will continue to monitor bilirubin and prothrombin time to rule out development of acute liver failure. Will monitor LFTs, PT and check lactate dehydrogenase.
[2024-11-21 16:35] LABS: POC Glucose,Bedside 98 (70-110)
--- NOTE | 2024-11-21 18:30 | PC.NURSE ---
pt has done well since this rn took over care. she states that he feels like she is cooling off. remains alert and oriented. sinclair draining straw colored urine
[2024-11-21 20:21] LABS: POC Glucose,Bedside 95 (70-110)
[2024-11-21 20:49] LABS: Ammonia < 9 umol/L (9-30)
[2024-11-21] MEDS: PRAMIPEXOLE 0.125MG TABLET 0.125 MG PO (20:55)
--- NOTE | 2024-11-21 21:18 | P.PN_ITS ---
Subjective *Date: 11/21/24 *Time: 21:18 Interval history: Patient's mentation was back to baseline yesterday. Today, slightly confused and little more somnolent. Possibly hospital-acquired confusion. Will continue monitor closely. LP planned for the morning. Hold Eliquis. Exam Data for Last 24 hours Vital signs and Labs for Last 24 Hours: Temp Pulse Resp BP Pulse Ox O2 Del Method O2 Flow Rate 97.8 F 79 18 195/91 H 92 L Room Air 11/21/24 20:00 11/21/24 20:00 11/21/24 20:00 11/21/24 20:00 11/21/24 20:00 11/21/24 20:00 11/21/24 04:35 Laboratory Results - last 24 hr 11/20/24 00:50: Ionized Calcium 3.9 L 11/20/24 21:40: APTT 50.2, Sodium 132 L, Potassium 4.8, Chloride 100, Carbon Dioxide 25, Anion Gap 11.8, BUN 53 H, Creatinine 2.80 H, Estimated Creat Clear 18, Estimated GFR 17 L*, Est GFR ( Amer) 21 L, Glucose 214 H, Calcium 7.2 L, Total Bilirubin 0.4, AST 2398 H*, ALT 1006 H*, Alkaline Phosphatase 93, Total Protein 5.2 L, Albumin 2.5 L, Globulin 2.7, Albumin/Globulin Ratio 0.9 L 11/21/24 04:50: WBC 9.5 D, RBC 4.22, Hgb 9.4 L D, Hct 31.5 L, MCV 74.6 L, MCH 22.3 L, MCHC 29.8 L, RDW 16.6, Plt Count 256 D, MPV 11.6 H, Neut % (Auto) 86.0 H, Lymph % (Auto) 10.9, [place] % (Auto) 2.7, Eos % (Auto) 0.0 L, Baso % (Auto) 0.1, Neut # (Auto) 8.2 H, Lymph # (Auto) 1.0, [place] # (Auto) 0.3, Eos # (Auto) 0.0, Baso # (Auto) 0.0, APTT 33.9 L, Sodium 133 L, Potassium 5.4 H, Chloride 102, Carbon Dioxide 27, Anion Gap 9.4, BUN 57 H, Creatinine 2.60 H, Estimated Creat Clear 19, Estimated GFR 19 L*, Est GFR ( Amer) 22 L, Glucose 108 H D, Calcium 7.1 L, Magnesium 2.0, Iron 56, TIBC 209 L, Iron Saturation 26.63727, Ferritin 7100 H D, Total Bilirubin 0.7, AST 2790 H*, ALT 1167 H*, Alkaline Phosphatase 64, Total Protein 5.5 L, Albumin 2.5 L, Globulin 3.0, Albumin/Globulin Ratio 0.8 L, Vitamin B12 914 11/21/24 05:45: POC Glucose 109 11/21/24 08:43: Folate > 20.00 11/21/24 10:52: POC Glucose 95 11/21/24 14:13: PT 14.2 H, INR 1.33 H, APTT 38.5 H 11/21/24 16:27: POC Glucose 98 11/21/24 20:14: POC Glucose 95 11/21/24 20:28: Ammonia < 9 L I & O for Last 24 hours: Intake & Output 11/18/24 11/19/24 11/20/24 11/21/24 23:59 23:59 23:59 23:59 Intake Total 1170 / 1170 488.284 / 0037.183 4022.837 / 3085.837 640.875 / 640.875 Output Total 1350 / 1350 1440 / 1440 950 / 950 1050 / 1050 Balance -180 / -180 -951.716 / -938.167 9070.837 / 2135.837 -409.125 / -409.125 Weight 107.229 kg 109.361 kg 109 kg 112 kg Microbiology Reports for the Last 24 Hours: Microbiology 11/19/24 17:50 Blood Blood Culture - Preliminary NO GROWTH AFTER 48 HOURS 11/19/24 18:00 Blood Blood Culture - Preliminary NO GROWTH AFTER 48 HOURS 11/20/24 05:45 Rectum CRE Surveillance Culture - Final Constitutional Constitutional: no acute distress *Routine HEENT Exam Head: Present normocephalic Eye: Present EOMI and PERRL ENT: Present mucous membranes moist *Routine Neck Exam Neck: Present supple; Absent lymphadenopathy *Routine Respiratory Exam Respiratory: Present CTA bilaterally *Routine Cardiovascular Exam Cardiovascular: Present RRR *Routine Abdominal Exam Abdominal: Present soft and normoactive bowel sounds; Absent tenderness *Routine Extremities Exam Extremities: Absent cyanosis, clubbing or edema *Routine Skin Exam Skin: Present warm; Absent rash *Routine Neurological Exam Neurological: Present alert Assessment and Plan *Assessment and plan (1) Acute exacerbation of chronic heart failure: Status: Acute Category: Medical Code(s): I50.9 - Heart failure, unspecified (2) Septic shock: Status: Acute Category: Medical Code(s): A41.9 - Sepsis, unspecified organism; R65.21 - Severe sepsis with septic shock (3) Ischemic hepatitis: Status: Acute Category: Medical Code(s): K72.00 - Acute and subacute hepatic failure without coma (4) Influenza A with pneumonia: Status: Acute Category: Medical Code(s): J09.X1 - Influenza due to identified novel influenza A virus with pneumonia (5) Deep vein thrombosis (DVT) of left upper extremity: Status: Acute Category: Medical Code(s): I82.622 - Acute embolism and thrombosis of deep veins of left upper extremity (6) Acute HFrEF (heart failure with reduced ejection fraction): Status: Acute Category: Medical Code(s): I50.21 - Acute systolic (congestive) heart failure Plan Faiza Waters is a 64-year-old female with a medical history significant for HFpEF, type 2 diabetes, CVA with left-sided weakness, asthma, hypertension who presents with shortness of breath. She states it is more prominent when she is try to fall asleep. Denies fever/chills, coughing, chest pain, abdominal pain. Workup in the ED significant for BNP 26,700, with CXR showing pulmonary edema. Case discussed with ED provider and decision was made to admit patient HFpEF exacerbation and orthopnea. #Acute metabolic encephalopathy #Influenza A #Septic shock #Ischemic hepatitis, shock liver #Possible meningitis ? On 11/19/2024, patient exhibited lethargy, very somnolent. Further workup with CT head, CT chest, CBC, CMP, VBG did not reveal remarkable findings at that time. However, patient did have a fever of 100.5 later in the afternoon. Started vancomycin, cefepime. Later in the evening, patient's pressures dropped to MAPs mid 50s. Transferred to ICU, maxed on Levophed but had continued hypotension. Given HFrEF, started dobutamine which worsened hypotension. Dis continued. Started vasopressin with improvement in MAP greater than 65. Also started milrinone. Received hydrocortisone 100 mg at stress dose steroid. Small fluid boluses were also administered as patient likely got over diuresed and is now in ATN. Spoke with Dr. Hernandez and agreed with plan of care. Patient's mentation eventually improved, back to baseline this morning. Tested positive for influenza A. Weaned off Levophed, vasopressin, milrinone. ? AST/ALT bumped again today, 2790/1167. Bilirubin, ALP normal. Discussed with GI, advised this can be normal for ischemic hepatitis?LFTs may get worse before gets better. No RUQ pain. ? Liver Doppler ruled out thrombosis/Budd-Chiari syndrome. Did show gallbladder wall thickening, acalculous cystitis not ruled out. However, patient has no abdominal pain whatsoever. ? WBC initially bumped to 26.4, though patient received hydrocortisone 100 mg. Improved to 9.5 today. ? Though influenza might have played a role in septic shock, at this time it seems out of proportion. Meningitis still a concern. LP was planned for today, but we will reschedule for tomorrow due to elevated PTT from heparin drip. ? Continue vancomycin, cefepime, ampicillin day 2 for empiric meningitis coverage. ? Continue Tamiflu day 2/5. ? Continue NAC 6000 mg daily. #ELIEZER, ATN ? Worsened renal failure likely secondary to initial overdiuresis, then profound hypotension overnight. ? Creatinine 2.6, baseline 1.2. ? Hyperkalemia treated, currently stable at 4.8. Currently auto diuresing, appropriate urine output. ? Continue oral fluid rehydration. ? Follow-up morning CMP. Closely follow urine output, electrolytes. ? Hold diuretics. #HFrEF ? ECHO in March 2022 revealed grade 2 diastolic dysfunction. ? ECHO 11/17/2024 LVEF 25%, G2DD. ? Was initially started on GDMT and diuresis, holding these at this time given sepsis, ATN, ischemic hepatitis. ? Started metoprolol succinate 25 mg today. #Type 2 diabetes ? Hemoglobin A1c 11.3, well above goal. ? LDSSI, ACHS glucose checks. ? Will hold Lantus 35 units nightly due to low normal blood sugars without it. Discontinued metformin, Farxiga at this time given above . #History of CVA with left-sided weakness ? Aspirin, holding statin due to ischemic hepatitis. Hold Plavix for now. Unclear why patient is on triple therapy. ? Daughter is primary survey data technician at home, helps patient get in wheelchair to get around. # History of left IJ DVT ? Hold Eliquis for LP tomorrow. Full code SCDs
[2024-11-22] VITALS (15 sets, daily range): BP systolic 111–165; BP diastolic 57–78; PULSE 68–80; RESP 16–25; TEMP 36.2–37.1; O2SAT 90–98; BMI 41.9
[2024-11-22] MEDS: IPRATROPIUM/ALBUTEROL 3 ML NEB IH ×4 (00:08→18:17)
[2024-11-22 00:27] LABS: Lactate Venous 1.9 mmol/L (0.4-2.0); VBG Base Excess -4.5 mmol/L (-2.4-2.3); VBG HCO3 19.2 mmol/L (23-30); VBG Oxygen Saturation 98.6 % (50-70); VBG PCO2 27.1 mmol/L (35-51); VBG PH 7.47 mmol/L (7.31-7.41); VBG PO2 137.8 mmol/L (28-40)
--- NOTE | 2024-11-22 04:48 | PC.NURSE ---
Patient is alert to self and place, patient has been able to tell me the year on and off through night. Q2 turn due to redness on bottom. O2 sat >90%, patient was placed on 2L NC during shift, O2 sat remaining 88%, placed on 2L, O2 sat >90%. Patient then took NC off, has been >90% since this. Arie LUI aware of need for oxygen and stated this was okay. Arie LUI aware of patient not being able to get words out or mumbling her speech, came to bedside to assess, ammonia and VBG obtained, no new orders. IV antibiotics given. SCDs applied, patient kicked off right leg SCD, reapplied, kicked off again, left off at this time. Patient requested water throughout night, gave drinks when ask. Lung sounds wheezing with crackles. [place]ou[place] in place and draining. Call light in reach. Bed alarm on.
[2024-11-22 05:56] LABS: POC Glucose,Bedside 129 (70-110)
[2024-11-22 06:22] LABS: HBsAg Screen Negative (Negative); HCV Ab Non Reactive (Non Reactive); Hep A Ab, IGM Negative (Negative); Hep B Core Ab, IgM Negative (Negative)
[2024-11-22] MEDS: AMPICILLIN SODIUM 2 GM in 0.9 % SODIUM CHLORIDE 100 ML IV ×3 (06:30→21:50)
[2024-11-22 07:02] LABS: Ammonia 11 umol/L (9-30)
[2024-11-22 07:08] LABS: C-Reactive Protein 27.8 mg/L (0-4)
[2024-11-22 07:10] LABS: Basophils % 0.2 % (0.1-2.0); Hematocrit 32.9 % (37.0-47.0); Hemoglobin 9.6 g/dL (12.2-16.2); Lymphocytes # 0.5 K/mm3 (0.7-4.5); Lymphocytes % 7.6 % (10-50); Mean Corpuscular HGB Conc 29.2 g/dL (31.8-35.4); Mean Corpuscular Hemoglobin 22.2 pg (27.0-31.2); Mean Platelet Volume 11.3 fl (7.4-10.4); Monocytes # 0.3 K/mm3 (0.1-1.0); Monocytes % 4.9 % (1.7-9.3); Neutrophils # 5.7 K/mm3 (1.8-7.8); Neutrophils % 86.8 % (37.0-80.0); Platelet Count 213 K/mm3 (142-424); Red Blood Count 4.33 M/mm3 (4.20-5.40); Red Cell Distribution Width 16.8 % (11.5-17.5); White Blood Count 6.6 K/mm3 (4.8-10.8)
[2024-11-22 07:15] LABS: Chloride 106 mmol/L (98-107)
[2024-11-22 07:16] LABS: Albumin Level 2.6 g/dl (3.5-5.0); Potassium 5.3 mmoL/L (3.5-5.1); Sodium 135 mmol/L (136-145)
[2024-11-22 07:18] LABS: Anion Gap 18.3 mEq/L (5-15); Blood Urea Nitrogen 59 mg/dl (7-17); Carbon Dioxide 16 mmol/L (22.0-30.0); Creatinine Clearance Estimated 19 mL/min (50-200); Estimated Glomerular Filt Rate 19 ml/min (>60); GFR (African American) 22 ML/MIN (>60)
[2024-11-22 07:19] LABS: Activated Partial Thrombo Time 32.1 seconds (22.5-28.5); Alkaline Phosphatase 128 U/L (38-126); Bilirubin,Total 0.7 mg/dl (0.2-1.3); Calcium 7.4 mg/dl (8.4-10.2); Globulin 2.7 g/dL (1.3-3.2); Glucose 110 mg/dl (74-100); INR 1.32 (0.9-1.1); Prothrombin Time 14.1 seconds (9.2-12.1); Total Protein,Serum 5.3 g/dl (6.3-8.2)
[2024-11-22 08:01] LABS: Alanine Aminotransferase 2934 U/L (12-78)
[2024-11-22] MEDS: OSELTAMIVIR PHOSPHATE 6MG/ML ORAL SUSP 60ML 30 MG PO (08:58)
[2024-11-22] MEDS: ALLOPURINOL 100MG TABLET 100 MG PO (08:58)
[2024-11-22] MEDS: CEFEPIME HCL 1 GM in 0.9 % SODIUM CHLORIDE 50 ML IV ×2 (08:59→21:13)
--- NOTE | 2024-11-22 09:11 | XR_ITS ---
FINAL REPORT CLINICAL HISTORY: CHF, COPD COMPARISON: 11/20/2024 FINDINGS: A single PA view of the chest was obtained. Cardiomegaly is stable. The mediastinum is unremarkable. There are low lung volumes with bibasilar opacities, favor atelectasis. There is no effusion or pneumothorax. IMPRESSION: Favor bibasilar atelectasis. Reviewed, Interpreted and Dictated by Della Koenig MD Transcribed by Loretta Lancaster Authenticated and [facility]
[2024-11-22 09:31] LABS: Aspartate Amino Transferase 7421 U/L (14-36)
[2024-11-22 09:52] LABS: NT Pro Brain Natriuretic Pep. 18200 pg/mL (0-125)
[2024-11-22] MEDS: ACETYLCYSTEINE 20% 30ML BOTTLE 6000 MG PO (10:27)
--- NOTE | 2024-11-22 10:58 | EXP.PULM.PN ---
Subjective *Date: 11/22/24 *Time: 13:01 Interval history: No acute respiratory events overnight. Pulmonology Exam Inpatient Vital signs and Labs for Last 24 Hours: Temp Pulse Resp BP Pulse Ox O2 Del Method O2 Flow Rate 97.4 F L 73 18 137/67 90 L Room Air 2 11/22/24 08:00 11/22/24 10:00 11/22/24 10:00 11/22/24 10:00 11/22/24 10:00 11/22/24 10:00 11/22/24 06:48 Laboratory Results - last 24 hr 11/20/24 00:50: Ionized Calcium 3.9 L 11/21/24 04:50: Ferritin 7100 H D, Hepatitis A IgM Ab Negative, Hep Bs Antigen Negative, Hep B Core IgM Ab Negative, Hepatitis C Antibody Non reactive, HCV RNA PCR Test Info Comment 11/21/24 10:52: POC Glucose 95 11/21/24 14:13: PT 14.2 H, INR 1.33 H, APTT 38.5 H 11/21/24 16:27: POC Glucose 98 11/21/24 20:14: POC Glucose 95 11/21/24 20:28: Ammonia < 9 L 11/22/24 00:08: VBG pH 7.47 H, VBG pCO2 27.1 L, VBG pO2 137.8 H, VBG HCO3 19.2 L, VBG Total CO2 20.0 L, VBG O2 Saturation 98.6 H, VBG Base Excess -4.5 L, VBG Lactic Acid 1.9 11/22/24 05:49: POC Glucose 129 H 11/22/24 06:18: WBC 6.6 D, RBC 4.33, Hgb 9.6 L, Hct 32.9 L, MCV 76.0 L, MCH 22.2 L, MCHC 29.2 L, RDW 16.8, Plt Count 213, MPV 11.3 H, Neut % (Auto) 86.8 H, Lymph % (Auto) 7.6 L, [place] % (Auto) 4.9, Eos % (Auto) 0.0 L, Baso % (Auto) 0.2, Neut # (Auto) 5.7, Lymph # (Auto) 0.5 L, [place] # (Auto) 0.3, Eos # (Auto) 0.0, Baso # (Auto) 0.0, PT 14.1 H, INR 1.32 H, APTT 32.1 H, Sodium 135 L, Potassium 5.3 H, Chloride 106, Carbon Dioxide 16 L, Anion Gap 18.3 H, BUN 59 H, Creatinine 2.60 H, Estimated Creat Clear 19, Estimated GFR 19 L*, Est GFR ( Amer) 22 L, Glucose 110 H, Calcium 7.4 L, Magnesium 2.0, Total Bilirubin 0.7, AST 7421 H* D, ALT 2934 H*, Alkaline Phosphatase 128 H, Ammonia 11, C-Reactive Protein 27.8 H D, NT-Pro-B Natriuret Pep 13411 H, Total Protein 5.3 L, Albumin 2.6 L, Globulin 2.7, Albumin/Globulin Ratio 1.0 L Temp Pulse Resp BP Pulse Ox O2 Del Method O2 Flow Rate 102.4 F H 71 18 160/67 H 93 L Room Air 11/21/24 11:01 11/21/24 11:01 11/21/24 11:01 11/21/24 11:01 11/21/24 11:01 11/21/24 11:20 11/21/24 04:35 Laboratory Results - last 24 hr 11/20/24 08:15: Chlamy pneumoniae PCR Not detected, Adenovirus (PCR) Not detected, B. pertussis DNA (PCR) Not detected, Coronavirus OC43 (PCR) Not detected, Coronavirus HKU1 (PCR) Not detected, Coronavirus 229E (PCR) Not detected, SARS-CoV-2 (PCR) Not detected, Coronavirus NL63 (PCR) Not detected, Human Metapneumovir PCR Not detected, Influenza A (H1) PCR Not detected, Influ A (H1N1/09) PCR Detected A, Influenza A (H3) PCR Not detected, Influenza Type A (PCR) Not detected, Influenza Type B (PCR) Not detected, M. pneumoniae (PCR) Not detected, Parainfluenza 1 (PCR) Not detected, Parainfluenza 2 (PCR) Not detected, Parainfluenza 3 (PCR) Not detected, Parainfluenza 4 (PCR) Not detected, RSV (PCR) Not detected, Entero/Rhino (PCR) Not detected 11/20/24 11:30: POC Glucose 195 H 11/20/24 15:00: Sodium 133 L, Potassium 5.1, Chloride 101, Carbon Dioxide 22, Anion Gap 15.1 H, BUN 52 H, Creatinine 2.70 H, Estimated Creat Clear 18, Estimated GFR 18 L*, Est GFR ( Amer) 21 L, Glucose 231 H D, Calcium 7.4 L, Total Bilirubin 0.4, AST 2654 H* D, ALT 958 H*, Alkaline Phosphatase 102, Total Protein 5.4 L, Albumin 2.7 L, Globulin 2.7, Albumin/Globulin Ratio 1.0 L, Lipase 20 L 11/20/24 16:10: APTT 32.6 L 11/20/24 16:51: POC Glucose 225 H 11/20/24 21:40: APTT 50.2, Sodium 132 L, Potassium 4.8, Chloride 100, Carbon Dioxide 25, Anion Gap 11.8, BUN 53 H, Creatinine 2.80 H, Estimated Creat Clear 18, Estimated GFR 17 L*, Est GFR ( Amer) 21 L, Glucose 214 H, Calcium 7.2 L, Total Bilirubin 0.4, AST 2398 H*, ALT 1006 H*, Alkaline Phosphatase 93, Total Protein 5.2 L, Albumin 2.5 L, Globulin 2.7, Albumin/Globulin Ratio 0.9 L 11/21/24 04:50: WBC 9.5 D, RBC 4.22, Hgb 9.4 L D, Hct 31.5 L, MCV 74.6 L, MCH 22.3 L, MCHC 29.8 L, RDW 16.6, Plt Count 256 D, MPV 11.6 H, Neut % (Auto) 86.0 H, Lymph % (Auto) 10.9, [place] % (Auto) 2.7, Eos % (Auto) 0.0 L, Baso % (Auto) 0.1, Neut # (Auto) 8.2 H, Lymph # (Auto) 1.0, [place] # (Auto) 0.3, Eos # (Auto) 0.0, Baso # (Auto) 0.0, APTT 33.9 L, Sodium 133 L, Potassium 5.4 H, Chloride 102, Carbon Dioxide 27, Anion Gap 9.4, BUN 57 H, Creatinine 2.60 H, Estimated Creat Clear 19, Estimated GFR 19 L*, Est GFR ( Amer) 22 L, Glucose 108 H D, Calcium 7.1 L, Magnesium 2.0, Iron 56, TIBC 209 L, Iron Saturation 26.92487, Ferritin 7100 H D, Total Bilirubin 0.7, AST 2790 H*, ALT 1167 H*, Alkaline Phosphatase 64, Total Protein 5.5 L, Albumin 2.5 L, Globulin 3.0, Albumin/Globulin Ratio 0.8 L, Vitamin B12 914 11/21/24 05:45: POC Glucose 109 11/21/24 08:43: Folate > 20.00 11/21/24 10:52: POC Glucose 95 I & O for Labs for Last 24 Hours: Intake & Output 11/19/24 11/20/24 11/21/24 11/22/24 23:59 23:59 23:59 23:59 Intake Total 488.284 / 2898.856 1588.837 / 3085.837 640.875 / 970.875 330 / 330 Output Total 1440 / 1440 950 / 950 1050 / 1050 600 / 600 Balance -951.716 / -484.116 8344.837 / 2135.837 -409.125 / -79.125 -270 / -270 Weight 241 lb 1.6 oz 240 lb 4.862 oz 246 lb 14.684 oz 245 lb 9.519 oz Intake & Output 11/18/24 11/19/24 11/20/24 11/21/24 23:59 23:59 23:59 23:59 Intake Total 1170 / 1170 488.284 / 0132.307 1013.837 / 3085.837 330.875 / 330.875 Output Total 1350 / 1350 1440 / 1440 950 / 950 700 / 700 Balance -180 / -180 -951.716 / -127.505 4109.837 / 2135.837 -369.125 / -369.125 Weight 236 lb 6.4 oz 241 lb 1.6 oz 240 lb 4.862 oz 246 lb 14.684 oz Microbiology Reports for the Last 24 Hours: Microbiology 11/19/24 17:50 Blood Blood Culture - Preliminary NO GROWTH AFTER 48 HOURS 11/19/24 18:00 Blood Blood Culture - Preliminary NO GROWTH AFTER 48 HOURS 11/20/24 05:45 Rectum CRE Surveillance Culture - Final Microbiology 11/20/24 05:45 Rectum CRE Surveillance Culture - Final 11/19/24 18:00 Blood Blood Culture - Preliminary NO GROWTH AFTER 24 HOURS 11/19/24 17:50 Blood Blood Culture - Preliminary NO GROWTH AFTER 24 HOURS Constitutional: Present severe distress Head: Present normocephalic and atraumatic ENT: Present normal exam, normal oropharynx and mucous membranes moist Neck: Present normal inspection and full ROM Respiratory: Present crackles, diminished air movement and able to speak in complete sentences; Absent prolonged expiratory phase, rhonchi or wheezes Cardiac: Present S1/S2, Tachycardia and radial pulses present GI: Present soft and distention; Absent tenderness or guarding Rectal (female): Present deferred (female): Present deferred Skin: Present intact; Absent cyanosis or jaundice Neuro: Present awake; Absent alert or oriented x 3 Extremities: Present normal inspection; Absent clubbing or cyanosis Psychiatric: Present normal affect and cooperative Assessment and Plan *Assessment and plan (1) Influenza A with pneumonia: Status: Acute Category: Medical Code(s): J09.X1 - Influenza due to identified novel influenza A virus with pneumonia (2) Ischemic hepatitis: Status: Acute Category: Medical Code(s): K72.00 - Acute and subacute hepatic failure without coma (3) Septic shock: Status: Acute Category: Medical Code(s): A41.9 - Sepsis, unspecified organism; R65.21 - Severe sepsis with septic shock Plan Mr. Waters is a 64-year-old female no significant smoking history, using inhalers on as-needed basis at baseline carries a diagnosis of asthma not any oxygen supplementation initially presented to the hospital worsening respiratory's found to be in heart failure exacerbation, relatively stable up until a week. Patient noted acute decline in her clinical status potential shock needing 3 vasopressors to maintain her MAP at 65 and above possible ischemic hepatitis for further evaluation and management. Patient respiratory viral PCR panel upon admission negative however repeat PCR panel positive for influenza pneumonia. Her echo does show reduced EF at 25%. Patient on examination today appeared to be in moderate respiratory distress. Saturating 94%. No significant wheezing noted on auscultation. Initiate broad-spectrum antibiotics including vancomycin and cefepime. Lipase and platelet counts within normal limits. Alk phos and total bili within normal limits. CRP mildly elevated at 21 Leukocytosis improving. Continue to have febrile episodes Tmax of 102. Arterial Doppler right upper quadrant not concerning for splenic vein thrombosis. Repeat chest x-ray and CT abdomen no obvious alternate source of infection. Interval update: No acute respiratory vents overnight. Continue to remain on room air. Continue to receive Tamiflu. Appeared lethargic. Serum ammonia within normal continue to receive vancomycin and cefepime and ampicillin pending LP. Significant elevation in AST ALT from this morning. Blood cultures no growth 48 hours. Off pressors with MAP greater than 70 Worsening BUN. Plan: -Continue Tamiflu renally dosed for influenza pneumonia -Continue vancomycin, cefepime and Ampicillin renally dosed pending blood culture results, LP results and nasal MRSA PCR. Blood cultures no growth 24 hours. -Anticoagulation can be weaned to Eliquis for her DVT after invasive procedures are performed. -DuoNebs 4 times daily scheduled
[2024-11-22 11:55] LABS: POC Glucose,Bedside 135 (70-110)
[2024-11-22 12:16] LABS: Lactate Dehydrogenase 9783 U/L (313-618)
--- NOTE | 2024-11-22 12:26 | EXP.CARD.PN ---
Subjective Subjective Date: 11/22/24 Time: 09:30 Interval history: Improved overnight. Out of ICU. She is still responsive but altered and somnolent. Cr trending down to 2.6. ALT up further to 2934. She has diuresed another -600mL in the past 2 days. Exam Data for Last 24 hours Vital signs and Labs for Last 24 Hours: Temp Pulse Resp BP Pulse Ox O2 Del Method O2 Flow Rate 97.4 F L 72 18 128/67 91 L Room Air 2 11/22/24 08:00 11/22/24 12:00 11/22/24 12:00 11/22/24 12:00 11/22/24 12:00 11/22/24 12:00 11/22/24 06:48 Laboratory Results - last 24 hr 11/20/24 00:50: Ionized Calcium 3.9 L 11/21/24 04:50: Hepatitis A IgM Ab Negative, Hep Bs Antigen Negative, Hep B Core IgM Ab Negative, Hepatitis C Antibody Non reactive, HCV RNA PCR Test Info Comment 11/21/24 14:13: PT 14.2 H, INR 1.33 H, APTT 38.5 H 11/21/24 16:27: POC Glucose 98 11/21/24 20:14: POC Glucose 95 11/21/24 20:28: Ammonia < 9 L 11/22/24 00:08: VBG pH 7.47 H, VBG pCO2 27.1 L, VBG pO2 137.8 H, VBG HCO3 19.2 L, VBG Total CO2 20.0 L, VBG O2 Saturation 98.6 H, VBG Base Excess -4.5 L, VBG Lactic Acid 1.9 11/22/24 05:49: POC Glucose 129 H 11/22/24 06:18: WBC 6.6 D, RBC 4.33, Hgb 9.6 L, Hct 32.9 L, MCV 76.0 L, MCH 22.2 L, MCHC 29.2 L, RDW 16.8, Plt Count 213, MPV 11.3 H, Neut % (Auto) 86.8 H, Lymph % (Auto) 7.6 L, Dolores % (Auto) 4.9, Eos % (Auto) 0.0 L, Baso % (Auto) 0.2, Neut # (Auto) 5.7, Lymph # (Auto) 0.5 L, Dolores # (Auto) 0.3, Eos # (Auto) 0.0, Baso # (Auto) 0.0, PT 14.1 H, INR 1.32 H, APTT 32.1 H, Sodium 135 L, Potassium 5.3 H, Chloride 106, Carbon Dioxide 16 L, Anion Gap 18.3 H, BUN 59 H, Creatinine 2.60 H, Estimated Creat Clear 19, Estimated GFR 19 L*, Est GFR ( Amer) 22 L, Glucose 110 H, Calcium 7.4 L, Magnesium 2.0, Total Bilirubin 0.7, AST 7421 H* D, ALT 2934 H*, Alkaline Phosphatase 128 H, Ammonia 11, Lactate Dehydrogenase 9783 H, C-Reactive Protein 27.8 H D, NT-Pro-B Natriuret Pep 73337 H, Total Protein 5.3 L, Albumin 2.6 L, Globulin 2.7, Albumin/Globulin Ratio 1.0 L 11/22/24 11:48: POC Glucose 135 H I & O for Last 24 hours: Intake & Output 11/19/24 11/20/24 11/21/24 11/22/24 23:59 23:59 23:59 23:59 Intake Total 488.284 / 9718.117 9602.837 / 3085.837 640.875 / 970.875 330 / 330 Output Total 1440 / 1440 950 / 950 1050 / 1050 600 / 600 Balance -951.716 / -367.674 7570.837 / 2135.837 -409.125 / -79.125 -270 / -270 Weight 241 lb 1.6 oz 240 lb 4.862 oz 246 lb 14.684 oz 245 lb 9.519 oz Microbiology Reports for the Last 24 Hours: Microbiology 11/19/24 17:50 Blood Blood Culture - Preliminary NO GROWTH AFTER 48 HOURS 11/19/24 18:00 Blood Blood Culture - Preliminary NO GROWTH AFTER 48 HOURS 11/20/24 05:45 Rectum CRE Surveillance Culture - Final Constitutional Constitutional: no acute distress and cooperative *Routine HEENT Exam Eye: Present PERRL *Routine Respiratory Exam Respiratory: Present CTA bilaterally; Absent accessory muscle use, wheezes or crackles *Routine Cardiovascular Exam Cardiovascular: Present RRR, Normal S1 and Normal S2; Absent murmur, gallop or rubs *Routine Abdominal Exam Abdominal: Present soft; Absent tenderness *Routine Extremities Exam Extremities: Present pulses intact; Absent cyanosis or edema *Routine Skin Exam Skin: Present intact; Absent erythema or wounds *Routine Neurological Exam Neurological: Present alert Comments: unable to name hospital or year Routine Psychiatric Exam Psychiatric: Present cooperative Progress Note: A&P Assessment and plan (1) Influenza A with pneumonia: Status: Acute (2) Septic shock: Status: Acute (3) Deep vein thrombosis (DVT) of left upper extremity: Status: Acute (4) Acute HFrEF (heart failure with reduced ejection fraction): Status: Acute (5) Mediastinal adenopathy: Status: Acute Assessment and Plan Assessment and Plan for All Diagnoses:: Septic shock/multi-organ failure due to Influenza A - EF 25% 11/22: Stable - Severe hypotension 11/22: improving, off pressors - ELIEZER - Cr up from 1.5 to 2.8 11/22: improving to 2.6 - Transaminitis with AST/ALT >2k 11/22: worsening with ALT 2934 - AMS 11/22: improving slightly Acute HFrEF, NICM - new dx with ProBNP 26k, pulm vacsular congestion, GOMEZ, orthopnea, EF 25% - ECHO shows new globally reduced EF. Was normal on ECHO 06/2024 in [place]. - LHC 07/2024 [place] - Trivial CAD, preserved EDP and LV function - LHC <6 mo ago showed trivial CAD, no utility in repeating LHC here. Will obtain outpatient cardiac MRI to help evaluate etiology of CM. - 11/18: reduce Bumex to 1mg TID, Change Irbesartan to Entresto, Continue Aldactone, add Jardiance. Pt agreeable to LifeVest. - 11/21: GDMT on hold due to septic shock. Monitor volume status. Currently euvolemic - 11/22: GDMT still on hold due to recovering shock. ProBNP down from 26,700 to 18,200. No pulm effusion or edema on CXR. Appears euvolemic. LifeVest on hold until day of discharge. ELIEZER on CKD - baseline Cr 1.5, up to 2.8 - due to hypotension - 11/21: improved slightly to 2.6 after vol resuscitation. Cont to monitor and dose adjust meds. - 11/22: stable at 2.6 Transaminitis - likely hepatic congestion from CHF - improving with vol resuscitation - 11/22: worsening with ALT up to 2934. Abdominal ultrasound cannot rule out cholecystitis. CT abdomen-atrophic pancreas, cannot rule out pancreatitis or other mesenteric inflammatory process. Plans per Hospitalist. Consider GI consult. AMS - likely metabolic encephalopathy from septic shock - 11/22: Improving slightly Morbid Obesity, BMI 40 - life limiting - consider GLP-1 outpatient DM-II - poorly controlled with A1C 11 - add Jardiance for CV benefit - consider GLP-1 given BMI 40 Hx of CVA with left hemiparesis - requires assistance with all ADLs at baseline Hx of LUE DVT - jugular and subclavian veins per Venous 09/27 - repeat Venous here is neg - 11/22: Heparin DC yesterday for LP. Resume IVAN. Htn - 11/22: meds on hold due to shock/hypotension
--- NOTE | 2024-11-22 13:41 | EXP.MED.FU ---
Subjective *Date: 11/22/24 *Time: 16:30 Interval history: Patient with continued altered mental status requires physical stimuli to wake up. Is A and O x 1. Bilirubin normal at 0.7, AST up to 7421, ALT at 2934, alk phos barely above normal at 128. Lactate dehydrogenase over 9000. BNP slight improvement to 18,200. Hemoglobin stable at 9.6. PT stable at 14.1. On a side note, per nursing, patient has not had a bowel movement 5 days. Exam Data for Last 24 hours Vital signs and Labs for Last 24 Hours: Temp Pulse Resp BP Pulse Ox O2 Del Method O2 Flow Rate 97.8 F 72 18 128/67 91 L Room Air 2 11/22/24 12:00 11/22/24 12:00 11/22/24 12:00 11/22/24 12:00 11/22/24 12:00 11/22/24 12:00 11/22/24 06:48 Laboratory Results - last 24 hr 11/20/24 00:50: Ionized Calcium 3.9 L 11/21/24 04:50: Hepatitis A IgM Ab Negative, Hep Bs Antigen Negative, Hep B Core IgM Ab Negative, Hepatitis C Antibody Non reactive, HCV RNA PCR Test Info Comment 11/21/24 14:13: PT 14.2 H, INR 1.33 H, APTT 38.5 H 11/21/24 16:27: POC Glucose 98 11/21/24 20:14: POC Glucose 95 11/21/24 20:28: Ammonia < 9 L 11/22/24 00:08: VBG pH 7.47 H, VBG pCO2 27.1 L, VBG pO2 137.8 H, VBG HCO3 19.2 L, VBG Total CO2 20.0 L, VBG O2 Saturation 98.6 H, VBG Base Excess -4.5 L, VBG Lactic Acid 1.9 11/22/24 05:49: POC Glucose 129 H 11/22/24 06:18: WBC 6.6 D, RBC 4.33, Hgb 9.6 L, Hct 32.9 L, MCV 76.0 L, MCH 22.2 L, MCHC 29.2 L, RDW 16.8, Plt Count 213, MPV 11.3 H, Neut % (Auto) 86.8 H, Lymph % (Auto) 7.6 L, Fajardo % (Auto) 4.9, Eos % (Auto) 0.0 L, Baso % (Auto) 0.2, Neut # (Auto) 5.7, Lymph # (Auto) 0.5 L, [place]ardo # (Auto) 0.3, Eos # (Auto) 0.0, Baso # (Auto) 0.0, PT 14.1 H, INR 1.32 H, APTT 32.1 H, Sodium 135 L, Potassium 5.3 H, Chloride 106, Carbon Dioxide 16 L, Anion Gap 18.3 H, BUN 59 H, Creatinine 2.60 H, Estimated Creat Clear 19, Estimated GFR 19 L*, Est GFR ( Amer) 22 L, Glucose 110 H, Calcium 7.4 L, Magnesium 2.0, Total Bilirubin 0.7, AST 7421 H* D, ALT 2934 H*, Alkaline Phosphatase 128 H, Ammonia 11, Lactate Dehydrogenase 9783 H, C-Reactive Protein 27.8 H D, NT-Pro-B Natriuret Pep 79130 H, Total Protein 5.3 L, Albumin 2.6 L, Globulin 2.7, Albumin/Globulin Ratio 1.0 L 11/22/24 11:48: POC Glucose 135 H I & O for Last 24 hours: Intake & Output 11/20/24 11/21/24 11/22/24 11/23/24 11:59 11:59 11:59 11:59 Intake Total 1084.612 9268.207 640 Output Total 1105 1185 950 Balance 714.789 660.207 -310 Weight 109.361 kg 112 kg 111.4 kg Microbiology Reports for the Last 24 Hours: Microbiology 11/19/24 17:50 Blood Blood Culture - Preliminary NO GROWTH AFTER 48 HOURS 11/19/24 18:00 Blood Blood Culture - Preliminary NO GROWTH AFTER 48 HOURS 11/20/24 05:45 Rectum CRE Surveillance Culture - Final *Routine HEENT Exam Head: Present normocephalic and atraumatic ENT: Present mucous membranes dry *Routine Respiratory Exam Respiratory: Present accessory muscle use and decreased breath sounds *Routine Cardiovascular Exam Cardiovascular: Present Normal S1 and Normal S2 *Routine Abdominal Exam Abdominal: Present soft and distended (Significantly distended with gas/bloat) *Routine Extremities Exam Extremities: Present edema (non pitting edema) *Routine Skin Exam Skin: Present intact and dry Assessment and Plan *Assessment and plan (1) Ischemic hepatitis: Status: Acute Category: Medical Code(s): K72.00 - Acute and subacute hepatic failure without coma (2) Septic shock: Status: Acute Category: Medical Code(s): A41.9 - Sepsis, unspecified organism; R65.21 - Severe sepsis with septic shock (3) Acute HFrEF (heart failure with reduced ejection fraction): Status: Acute Category: Medical Code(s): I50.21 - Acute systolic (congestive) heart failure (4) Obstipation: Status: Acute Category: Medical Code(s): K59.00 - Constipation, unspecified Plan 1. Ischemic hepatitis/septic shock/heart failure exacerbation Significant jump in transaminases with normal bilirubin and alk phos started 2 days ago. Upon arrival, LFTs within normal limits. No obstruction or infarction seen on imaging. Unlikely Budd-Chiari. Currently appears to be classic ischemic hepatitis secondary to acute hypoperfusion event (CHF exacerbation with diuresis plus septic shock). Development of ATN and significantly elevated lactate dehydrogenase consistent with ischemic hepatitis. Elevated LFTs usually peak between 1 and 3 days and then begin their return to normal which can occur over 7 to 10 days, assuming insult has resolved. Patient is normotensive and was able to wean off of pressors. May expect bilirubin to increase after the AST/ALT starts to decrease. Acute hypoperfusion on top of underlying heart failure exacerbation puts patient at increased risk of poor prognosis. There is no specific treatment for ischemic hepatitis but for elimination of the underlying insult. However, given the significant increase in AST and ALT today there is some evidence that use of N-acetylcysteine may be helpful in acute liver injury situations. Will discuss dosing with pharmacy. Will continue to monitor bilirubin and prothrombin time to rule out development of acute liver failure. Will monitor LFTs, PT.
[2024-11-22 16:49] LABS: POC Glucose,Bedside 136 (70-110)
--- NOTE | 2024-11-22 16:51 | PC.NURSE ---
Pt has remained A&O x2. Has remained drowsy most of shift. She responds to voice. VS have remained stable. Denies any discomfort. Medication administered per dec. F/C draining to bedside. Call light within reach. Safety measures in place.
--- NOTE | 2024-11-22 18:53 | EXP.ACUTE.PN ---
Subjective *Date: 11/22/24 *Time: 23:45 Interval history: Patient fatigued today. Awoke to voice. Denies significant abdominal pain, nausea, fever. Stable on 2 L oxygen. Remains quite weak. Medical Exam Vital signs and Labs for Last 24 Hours: Vital Signs Temp Pulse Pulse Resp BP Pulse Ox O2 Del Method 11/22/24 18:48 73 11/22/24 18:48 74 11/22/24 18:00 69 17 127/71 93 L Room Air 11/22/24 17:00 Room Air 11/22/24 16:00 70 11/22/24 16:00 97.2 F L 11/22/24 16:00 68 16 165/67 H 92 L Room Air 11/22/24 15:00 Room Air 11/22/24 14:00 68 20 121/60 92 L Room Air 11/22/24 14:00 Room Air 11/22/24 13:00 Room Air 11/22/24 12:00 70 11/22/24 12:00 97.8 F 11/22/24 12:00 72 18 128/67 91 L Room Air 11/22/24 11:00 Room Air 11/22/24 10:00 73 18 137/67 90 L Room Air 11/22/24 09:00 Room Air 11/22/24 08:00 73 16 128/76 91 L Room Air 11/22/24 08:00 70 11/22/24 08:00 97.4 F L 11/22/24 07:45 Room Air 11/22/24 06:48 Nasal Cannula 11/22/24 06:25 77 11/22/24 06:25 76 11/22/24 06:25 92 L Nasal Cannula 11/22/24 06:00 76 25 H 133/67 93 L Nasal Cannula 11/22/24 04:56 Room Air 11/22/24 04:00 97.6 F 80 20 115/68 97 Room Air 11/22/24 04:00 75 11/22/24 02:58 Room Air 11/22/24 02:00 Room Air 11/22/24 02:00 76 21 111/78 96 Room Air 11/22/24 01:00 Room Air 11/22/24 00:09 69 11/22/24 00:09 70 11/22/24 00:09 96 Nasal Cannula 11/22/24 00:00 70 02/18/25 00:00 98.8 F 70 22 115/67 94 L Nasal Cannula 11/21/24 23:00 Room Air 11/21/24 22:00 83 22 197/90 H 92 L Room Air 11/21/24 21:00 Room Air 11/21/24 20:00 80 11/21/24 20:00 Room Air 11/21/24 20:00 97.8 F 79 18 195/91 H 92 L Room Air 11/21/24 18:58 Room Air O2 Flow Rate 11/22/24 18:48 11/22/24 18:48 11/22/24 18:00 11/22/24 17:00 11/22/24 16:00 11/22/24 16:00 11/22/24 16:00 11/22/24 15:00 11/22/24 14:00 11/22/24 14:00 11/22/24 13:00 11/22/24 12:00 11/22/24 12:00 11/22/24 12:00 11/22/24 11:00 11/22/24 10:00 11/22/24 09:00 11/22/24 08:00 11/22/24 08:00 11/22/24 08:00 11/22/24 07:45 11/22/24 06:48 2 11/22/24 06:25 11/22/24 06:25 11/22/24 06:25 2 11/22/24 06:00 2 11/22/24 04:56 11/22/24 04:00 11/22/24 04:00 11/22/24 02:58 11/22/24 02:00 11/22/24 02:00 11/22/24 01:00 11/22/24 00:09 11/22/24 00:09 11/22/24 00:09 2 11/22/24 00:00 11/22/24 00:00 2 11/21/24 23:00 11/21/24 22:00 11/21/24 21:00 11/21/24 20:00 11/21/24 20:00 11/21/24 20:00 11/21/24 18:58 Intake and Output 11/22/24 11/22/24 11/22/24 07:59 15:59 23:59 Intake Total 330 / 700 100 / 700 270 / 700 Output Total 600 / 600 0 / 600 Balance -270 / 100 100 / 100 270 / 100 Intake: Intake, Oral Amount 180 / 450 270 / 450 Intake, Total IV Amount 150 / 250 100 / 250 Ampicillin Sodium 2 gm In 0.9 % 100 / 100 Sodium Chloride 100 ml @ 200 mls/hr IV Q12 [facility] Rx#:[id number] Ampicillin/Sulbactam 3 gm In 0. 100 / 100 9 % Sodium Chloride 100 ml @ 200 mls/hr IV Q12H [facility] Rx#: [id number] Cefepime HCl 1 gm In 0.9 % 50 / 50 Sodium Chloride 50 ml @ 100 mls /hr IV Q12H [facility] Rx#:[id number] Output: Output, Urine Amount 600 / 600 0 / 600 Other: Number of Voids 0 Number of Unmeasured Voids 0 0 Weight 111.4 kg Patient Weight 11/22/24 23:59 Weight 111.4 kg Laboratory Results - last 24 hr 11/21/24 04:50: Hepatitis A IgM Ab Negative, Hep Bs Antigen Negative, Hep B Core IgM Ab Negative, Hepatitis C Antibody Non reactive, HCV RNA PCR Test Info Comment 11/21/24 20:14: POC Glucose 95 11/21/24 20:28: Ammonia < 9 L 11/22/24 00:08: VBG pH 7.47 H, VBG pCO2 27.1 L, VBG pO2 137.8 H, VBG HCO3 19.2 L, VBG Total CO2 20.0 L, VBG O2 Saturation 98.6 H, VBG Base Excess -4.5 L, VBG Lactic Acid 1.9 11/22/24 05:49: POC Glucose 129 H 11/22/24 06:18: WBC 6.6 D, RBC 4.33, Hgb 9.6 L, Hct 32.9 L, MCV 76.0 L, MCH 22.2 L, MCHC 29.2 L, RDW 16.8, Plt Count 213, MPV 11.3 H, Neut % (Auto) 86.8 H, Lymph % (Auto) 7.6 L, Cherry % (Auto) 4.9, Eos % (Auto) 0.0 L, Baso % (Auto) 0.2, Neut # (Auto) 5.7, Lymph # (Auto) 0.5 L, Cherry # (Auto) 0.3, Eos # (Auto) 0.0, Baso # (Auto) 0.0, PT 14.1 H, INR 1.32 H, APTT 32.1 H, Sodium 135 L, Potassium 5.3 H, Chloride 106, Carbon Dioxide 16 L, Anion Gap 18.3 H, BUN 59 H, Creatinine 2.60 H, Estimated Creat Clear 19, Estimated GFR 19 L*, Est GFR ( Amer) 22 L, Glucose 110 H, Calcium 7.4 L, Magnesium 2.0, Total Bilirubin 0.7, AST 7421 H* D, ALT 2934 H*, Alkaline Phosphatase 128 H, Ammonia 11, Lactate Dehydrogenase 9783 H, C-Reactive Protein 27.8 H D, NT-Pro-B Natriuret Pep 59270 H, Total Protein 5.3 L, Albumin 2.6 L, Globulin 2.7, Albumin/Globulin Ratio 1.0 L 11/22/24 11:48: POC Glucose 135 H 11/22/24 16:17: POC Glucose 136 H I & O for Labs for Last 24 Hours: Intake & Output 11/19/24 11/20/24 11/21/24 11/22/24 23:59 23:59 23:59 23:59 Intake Total 488.284 / 0083.158 8959.837 / 3085.837 640.875 / 970.875 700 / 700 Output Total 1440 / 1440 950 / 950 1050 / 1050 600 / 600 Balance -951.716 / -367.598 0228.837 / 2135.837 -409.125 / -79.125 100 / 100 Weight 109.361 kg 109 kg 112 kg 111.4 kg Microbiology Reports for the Last 24 Hours: Microbiology 11/19/24 17:50 Blood Blood Culture - Preliminary NO GROWTH AFTER 48 HOURS 11/19/24 18:00 Blood Blood Culture - Preliminary NO GROWTH AFTER 48 HOURS Constitutional: Present mild distress, morbidly obese, chronically ill appearing and cooperative Head: Present atraumatic and normocephalic ENT: Present normal exam Respiratory: Present normal respiratory effort; Absent rhonchi, wheezes or crackles Cardiac: Present Regular Rhythm and Tachycardia GI: Present soft, distention and normal bowel sounds; Absent tenderness Extremities: Present normal inspection and full ROM Skin: Present intact; Absent erythema Neuro: Present Grossly Intact, alert, awake and moves all extremities Comment:: oriented to self and place Assessment and Plan *Assessment and plan (1) Ischemic hepatitis: Status: Acute Category: Medical Code(s): K72.00 - Acute and subacute hepatic failure without coma (2) Acute exacerbation of chronic heart failure: Status: Acute Category: Medical Code(s): I50.9 - Heart failure, unspecified (3) Septic shock: Status: Acute Category: Medical Code(s): A41.9 - Sepsis, unspecified organism; R65.21 - Severe sepsis with septic shock (4) Influenza A with pneumonia: Status: Acute Category: Medical Code(s): J09.X1 - Influenza due to identified novel influenza A virus with pneumonia (5) Deep vein thrombosis (DVT) of left upper extremity: Status: Acute Category: Medical Code(s): I82.622 - Acute embolism and thrombosis of deep veins of left upper extremity (6) Acute HFrEF (heart failure with reduced ejection fraction): Status: Acute Category: Medical Code(s): I50.21 - Acute systolic (congestive) heart failure Plan Faiza Waters is a 64-year-old female with a medical history significant for HFpEF, type 2 diabetes, CVA with left-sided weakness, asthma, hypertension who presents with shortness of breath. She states it is more prominent when she is try to fall asleep. Denies fever/chills, coughing, chest pain, abdominal pain. Workup in the ED significant for BNP 26,700, with CXR showing pulmonary edema. Case discussed with ED provider and decision was made to admit patient HFpEF exacerbation and orthopnea. Patient remains critically ill. Severe elevation of liver enzymes. Pulmonology, cardiology, GI assisting with care. Prognosis guarded. #Acute metabolic encephalopathy #Influenza A #Septic shock #Ischemic hepatitis, shock liver #encephalopathy ? On 11/19/2024, patient exhibited lethargy, very somnolent. Further workup with CT head, CT chest, CBC, CMP, VBG did not reveal remarkable findings at that time. However, patient did have a fever of 100.5 later in the afternoon. Started vancomycin, cefepime. Later in the evening, patient's pressures dropped to MAPs mid 50s. Transferred to ICU, maxed on Levophed but had continued hypotension. Given HFrEF, started dobutamine which worsened hypotension. Discontinued. Started vasopressin with improvement in MAP greater than 65. Also started milrinone. Received hydrocortisone 100 mg at stress dose steroid. Small fluid boluses were also administered as patient likely got over diuresed and is now in ATN. -Liver enzymes continuing to increase. Bilirubin 0.7, AST 7400, ALT 2900, alkaline phosphatase 128. - Liver Doppler ruled out thrombosis/Budd-Chiari syndrome. Did show gallbladder wall thickening, acalculous cystitis not ruled out. However, patient has no abdominal pain whatsoever. ? WBC normal at 6.6. Hemoglobin 9.6. Platelets 213. INR 1.3. CRP 27. Hepatitis panel negative - Though influenza might have played a role in septic shock, at this time it seems out of proportion. Meningitis on differential however given elevation in INR and PTT, will hold on LP today. Discussed case with anesthesia, would like to see those levels be normal. Continuing broad-spectrum antibiotics with vancomycin and cefepime and ampicillin empirically. Day 3. -Continue Tamiflu day 3 of 5 ? Continue NAC 6000 mg daily. #ELIEZER, ATN ? Kidney function with no worsening today. BUN 59, creatinine 2.6. Baseline 1.2. Potassium stable at 5.3. Sodium 135. -Repeat CBC, CMP, magnesium ordered for the morning. ? Hold diuretics. #HFrEF ? ECHO in March 2022 revealed grade 2 diastolic dysfunction. ? ECHO 11/17/2024 LVEF 25%, G2DD. ? Was initially started on GDMT and diuresis, holding these at this time given sepsis, ATN, ischemic hepatitis. ? Continue metoprolol succinate 25 mg today. #Type 2 diabetes ? Hemoglobin A1c 11.3, well above goal. ? LDSSI, ACHS glucose checks. ? Will hold Lantus 35 units nightly due to low normal blood sugars without it. Discontinued metformin, Farxiga at this time given above . #History of CVA with left-sided weakness ? Aspirin, holding statin due to ischemic hepatitis. Hold Plavix for now. Holding statin due to shock liver. Unclear why patient is on triple therapy. ? Daughter is primary electrical journeyman at home, helps patient get in wheelchair to get around. # History of left IJ DVT ? Hold Eliquis while awaiting possible LP Full code SCDs
[2024-11-22] MEDS: PRAMIPEXOLE 0.125MG TABLET 0.125 MG PO (21:13)
[2024-11-22] MEDS: humaLOG 100 UNITS/ML 10ML VIAL (SSI) SUBCUT (21:31)
[2024-11-23] VITALS (26 sets, daily range): BP systolic 103–137; BP diastolic 56–96; PULSE 60–144; RESP 16–20; TEMP 35.8–37; O2SAT 90–99; BMI 41.8
[2024-11-23] MEDS: IPRATROPIUM/ALBUTEROL 3 ML NEB IH ×4 (00:13→23:37)
--- NOTE | 2024-11-23 05:26 | PC.NURSE ---
Addendum entered by Caitlin Cabrera RN 11/23/24 05:49: Metoprolol given, HR 120s, Jonatan LUI aware, states to wait 15 minutes and monitor BP Addendum entered by Caitlin Cabrera RN 11/23/24 05:47: Patient has no complaints, states she feels good during event. Addendum entered by Caitlin Cabrera RN 11/23/24 05:44: Afib RVR on EKG, Jonatan LUI at bedside, order metoprolol IV 5mg now Original Note: HR maintaining 130s, notified Jonatan LUI, EKG stat verbal order
--- NOTE | 2024-11-23 05:30 | ECG_ITS ---
APPROVED REPORT Exam: Resting ECG HR:128 bpm ECG Measurements Heart Rate 128 AXES QRSd 82 QRS 3 QT 306 T 0 QTc 382 Conclusion ATRIAL FIBRILLATION WITH RAPID VENTRICULAR RESPONSE LOW QRS VOLTAGE IN PRECORDIAL LEADS [QRS DEFLECTION < 1.0 mV IN CHEST LEADS] MODERATE ST DEPRESSION [0.05+ mV ST DEPRESSION] ABNORMAL ECG UNCONFIRMED REPORT Electronically signed by : Oliver Garcia MD 11/23/2024 17:23:59
[2024-11-23] MEDS: METOPROLOL TARTRATE 5MG/5ML VIAL 5 MG IV ×4 (05:39→20:12)
--- NOTE | 2024-11-23 05:39 | EXP.EVENT.NO ---
Problem nursing notified me that after cleaning and straighten the patient up she went into atrial fibs with a rate in the 120s, patient remained alert and oriented stating she felt no increase in shortness of breath or any chest pain, exam. Patient is alert oriented breathing well having no difficulty at this time plan we used metoprolol 5 mg IV 1 time to see if we can bring the rate closer to 100 from 120. Her blood pressure remains good at the present time, if not improving will consider calcium channel onofre here if this does not work. 0600: Patient remains in A-fib heart rate going between 11/04/1939 will repeat metoprolol 5 mg IV push now, blood pressure systolic still at 119 0645 heart rate still going from 120 but mainly held in the 130s to 140s will repeat metoprolol 1 more time., Patient is stable in no distress at this time
[2024-11-23 06:15] LABS: Basophils % 0.2 % (0.1-2.0); Eosinophils % 0.2 % (0.1-12.0); Hematocrit 31.2 % (37.0-47.0); Hemoglobin 9.2 g/dL (12.2-16.2); Mean Corpuscular HGB Conc 29.5 g/dL (31.8-35.4); Mean Corpuscular Hemoglobin 21.9 pg (27.0-31.2); Mean Corpuscular Volume 74.3 fl (81-99); Monocytes # 0.2 K/mm3 (0.1-1.0); Monocytes % 4.3 % (1.7-9.3); Neutrophils # 3.2 K/mm3 (1.8-7.8); Neutrophils % 72.2 % (37.0-80.0); Platelet Count 163 K/mm3 (142-424); White Blood Count 4.4 K/mm3 (4.8-10.8)
[2024-11-23 06:20] LABS: Chloride 108 mmol/L (98-107)
[2024-11-23 06:21] LABS: Albumin Level 2.7 g/dl (3.5-5.0); Potassium 3.9 mmoL/L (3.5-5.1); Sodium 138 mmol/L (136-145)
[2024-11-23 06:23] LABS: Blood Urea Nitrogen 59 mg/dl (7-17); Creatinine Clearance Estimated 20 mL/min (50-200); Estimated Glomerular Filt Rate 20 ml/min (>60); GFR (African American) 25 ML/MIN (>60)
[2024-11-23 06:24] LABS: Albumin/Globulin Ratio 0.9 (1.1-1.8); Alkaline Phosphatase 125 U/L (38-126); Anion Gap 11.9 mEq/L (5-15); Bilirubin,Total 0.7 mg/dl (0.2-1.3); Calcium 7.4 mg/dl (8.4-10.2); Carbon Dioxide 22 mmol/L (22.0-30.0); Globulin 2.9 g/dL (1.3-3.2); Glucose 87 mg/dl (74-100); Total Protein,Serum 5.6 g/dl (6.3-8.2)
--- NOTE | 2024-11-23 06:32 | PC.NURSE ---
2nd dose of metoprolol given, HR remains 130s, Jonatan LUI aware, stated to wait for Masha to come in to decide next move, patient is asymptomatic at this time
[2024-11-23] MEDS: AMPICILLIN SODIUM 2 GM in 0.9 % SODIUM CHLORIDE 100 ML IV ×3 (06:41→21:56)
[2024-11-23 06:43] LABS: Magnesium 2.2 mg/dl (1.6-2.3)
--- NOTE | 2024-11-23 06:52 | PC.NURSE ---
3rd dose metoprolol given, HR 135 at this time.
--- NOTE | 2024-11-23 06:53 | PC.NURSE ---
Alert and oriented throughout night, patient rested well throughout night. Edouard in place. Wheezing and crackles noted in lung. Turned at request. Remained on room air throughout the night. No complaints from patient. See previous notes on change in telemetry. Call light in reach.
[2024-11-23 07:03] LABS: Alanine Aminotransferase 2716 U/L (12-78); Aspartate Amino Transferase 5557 U/L (14-36)
--- NOTE | 2024-11-23 08:14 | P.PN_ITS ---
Subjective *Date: 11/23/24 *Time: 20:31 Interval history: Patient denies any abdominal pain today. Stable on room air. No nausea or vomiting. Still is not had a bowel movement. Last bowel movement was 11/17. Denies any discomfort. Has active bowel sounds. Passing gas. Afebrile. Sta ble on room air Medical Exam Vital signs and Labs for Last 24 Hours: Vital Signs Temp Pulse Pulse Resp BP Pulse Ox O2 Del Method 11/23/24 06:48 133 H 103/68 L 11/23/24 06:41 133 H 11/23/24 06:38 Room Air 11/23/24 06:25 131 H 116/80 11/23/24 06:05 133 H 109/72 L 11/23/24 06:00 126 H 16 110/77 95 Room Air 11/23/24 05:30 129 H 20 119/81 94 L Room Air 11/23/24 05:00 Room Air 11/23/24 04:00 98.6 F 11/23/24 04:00 68 20 119/59 L 98 Room Air 11/23/24 04:00 70 11/23/24 03:00 Room Air 11/23/24 02:00 68 20 132/65 98 Room Air 11/23/24 02:00 Room Air 11/23/24 01:20 77 11/23/24 01:20 76 11/23/24 01:00 Room Air 11/23/24 00:00 60 11/23/24 00:00 98.3 F 67 16 114/62 98 Room Air 11/22/24 23:00 Room Air 11/22/24 22:00 68 18 116/57 L 98 Room Air 11/22/24 21:00 Room Air 11/22/24 20:00 70 11/22/24 20:00 Room Air 11/22/24 20:00 97.3 F L 11/22/24 20:00 72 20 139/78 95 Room Air 11/22/24 19:00 Room Air 11/22/24 18:48 73 11/22/24 18:48 74 11/22/24 18:00 69 17 127/71 93 L Room Air 11/22/24 17:00 Room Air 11/22/24 16:00 70 11/22/24 16:00 97.2 F L 11/22/24 16:00 68 16 165/67 H 92 L Room Air 11/22/24 15:00 Room Air 11/22/24 14:00 68 20 121/60 92 L Room Air 11/22/24 14:00 Room Air 11/22/24 13:00 Room Air 11/22/24 12:00 70 11/22/24 12:00 97.8 F 11/22/24 12:00 72 18 128/67 91 L Room Air 11/22/24 11:00 Room Air 11/22/24 10:00 73 18 137/67 90 L Room Air 11/22/24 09:00 Room Air Intake and Output 11/22/24 11/23/24 11/23/24 23:59 07:59 15:59 Intake Total 270 / 850 250 / 250 Output Total 1100 / 1100 Balance 270 / 250 -850 / -850 Intake: Intake, Oral Amount 270 / 450 Intake, Total IV Amount 250 / 250 Ampicillin Sodium 2 gm In 0.9 % 200 / 200 Sodium Chloride 100 ml @ 200 mls/hr IV Q8H [facility] Rx#:[id number] Cefepime HCl 1 gm In 0.9 % 50 / 50 Sodium Chloride 50 ml @ 100 mls /hr IV Q12H [facility] Rx#:[id number] Output: Output, Urine Amount 1100 / 1100 Other: Number of Unmeasured Voids 0 Weight 111.266 kg Patient Weight 11/23/24 23:59 Weight 111.266 kg Laboratory Results - last 24 hr 11/22/24 06:18: AST 7421 H* D, Lactate Dehydrogenase 9783 H, NT-Pro-B Natriuret Pep 23395 H 11/22/24 11:48: POC Glucose 135 H 11/22/24 16:17: POC Glucose 136 H 11/23/24 05:28: WBC 4.4 L D, RBC 4.20, Hgb 9.2 L, Hct 31.2 L, MCV 74.3 L, MCH 21.9 L, MCHC 29.5 L, RDW 17.0, Plt Count 163, MPV 11.0 H, Neut % (Auto) 72.2, Lymph % (Auto) 22.0, [place] % (Auto) 4.3, Eos % (Auto) 0.2, Baso % (Auto) 0.2, Neut # (Auto) 3.2, Lymph # (Auto) 1.0, [place] # (Auto) 0.2, Eos # (Auto) 0.0, Baso # (Auto) 0.0, Sodium 138, Potassium 3.9 D, Chloride 108 H, Carbon Dioxide 22, Anion Gap 11.9, BUN 59 H, Creatinine 2.40 H, Estimated Creat Clear 20, Estimated GFR 20 L, Est GFR ( Amer) 25 L, Glucose 87 D, Calcium 7.4 L, Magnesium 2.2, Total Bilirubin 0.7, AST 5557 H* D, ALT 2716 H*, Alkaline Phosphatase 125, Total Protein 5.6 L, Albumin 2.7 L, Globulin 2.9, Albumin/Globulin Ratio 0.9 L I & O for Labs for Last 24 Hours: Intake & Output 11/20/24 11/21/24 11/22/24 11/23/24 23:59 23:59 23:59 23:59 Intake Total 3085.837 / 3085.837 640.875 / 970.875 700 / 850 250 / 250 Output Total 950 / 950 1050 / 1050 600 / 600 1100 / 1100 Balance 2135.837 / 2135.837 -409.125 / -79.125 100 / 250 -850 / -850 Weight 109 kg 112 kg 111.4 kg 111.266 kg Constitutional: Present mild distress, morbidly obese, chronically ill appearing and cooperative Head: Present atraumatic and normocephalic ENT: Present normal exam Respiratory: Present normal respiratory effort; Absent rhonchi, wheezes or crackles Cardiac: Present Regular Rhythm and Tachycardia GI: Present soft, distention and normal bowel sounds; Absent tenderness Extremities: Present normal inspection and full ROM Skin: Present intact; Absent erythema Neuro: Present Grossly Intact, alert, awake and moves all extremities Comment:: oriented to self and place Assessment and Plan *Assessment and plan (1) Ischemic hepatitis: Status: Acute Category: Medical Code(s): K72.00 - Acute and subacute hepatic failure without coma (2) Acute exacerbation of chronic heart failure: Status: Acute Category: Medical Code(s): I50.9 - Heart failure, unspecified (3) Septic shock: Status: Acute Category: Medical Code(s): A41.9 - Sepsis, unspecified organism; R65.21 - Severe sepsis with septic shock (4) Influenza A with pneumonia: Status: Acute Category: Medical Code(s): J09.X1 - Influenza due to identified novel influenza A virus with pneumonia (5) Deep vein thrombosis (DVT) of left upper extremity: Status: Acute Category: Medical Code(s): I82.622 - Acute embolism and thrombosis of deep veins of left upper extremity (6) Acute HFrEF (heart failure with reduced ejection fraction): Status: Acute Category: Medical Code(s): I50.21 - Acute systolic (congestive) heart failure Plan Faiza Waters is a 64-year-old female with a medical history significant for HFpEF, type 2 diabetes, CVA with left-sided weakness, asthma, hypertension who presents with shortness of breath. She states it is more prominent when she is try to fall asleep. Denies fever/chills, coughing, chest pain, abdominal pain. Workup in the ED significant for BNP 26,700, with CXR showing pulmonary edema. Case discussed with ED provider and decision was made to admit patient HFpEF exacerbation and orthopnea. Patient condition stabilizing, starting to see a trend down in the liver enzymes. Continues to require stepdown level of care. Denies nausea or vomiting. Pulmonology, cardiology, GI assisting with care. Prognosis guarded. Problems addressed as follows: #Acute metabolic encephalopathy, improving #Influenza A #Septic shock #Ischemic hepatitis, shock liver #encephalopathy ? On 11/19/2024, patient exhibited lethargy, very somnolent. Further workup with CT head, CT chest, CBC, CMP, VBG did not reveal remarkable findings at that time. However, patient did have a fever of 100.5 later in the afternoon. Started vancomycin, cefepime. Later in the evening, patient's pressures dropped to MAPs mid 50s. Transferred to ICU, maxed on Levophed but had continued hypotension. Given HFrEF, started dobutamine which worsened hypotension. Disc ontinued. Started vasopressin with improvement in MAP greater than 65. Also started milrinone. Received hydrocortisone 100 mg at stress dose steroid. Small fluid boluses were also administered as patient likely got over diuresed and is now in ATN. - Liver enzymes peaked yesterday with AST of 7400, ALT 2900, showing some improvement today with AST 5500 and ALT 2700. Alkaline phosphatase normal at 125. Bilirubin 0.7. Will monitor liver enzymes twice daily until consistently improving. - Liver Doppler ruled out thrombosis/Budd-Chiari syndrome. Did show gallbladder wall thickening, acalculous cystitis not ruled out. However, patient has no abdominal pain whatsoever. ? WBC normal at 4.4, hemoglobin 9.2, platelets 163. Repeat CBC, CMP, magnesium ordered for the morning - Though influenza might have played a role in septic shock, at this time it seems out of proportion. Meningitis on differential however given elevation in INR and PTT, will hold on LP today. Discussed case with anesthesia, would like to see those levels be normal. Continuing broad-spectrum antibiotics with vancomycin and cefepime and ampicillin empirically. Day 4. -Continue Tamiflu day 4 of 5 ? Continue NAC 6000 mg daily. - given improvement in mentation, will cancel LP orders #ELIEZER, ATN ? Kidney function with no worsening today. BUN 59, creatinine 2.4. Sodium 138. Potassium 3.9; baseline creatinine 1.2. ? Hold diuretics. #HFrEF # Atrial fibrillation ? ECHO in March 2022 revealed grade 2 diastolic dysfunction. ? ECHO 11/17/2024 LVEF 25%, G2DD. ? Was initially started on GDMT and diuresis, holding these at this time given sepsis, ATN, ischemic hepatitis. ? Continue metoprolol succinate increased to 25 mg this morning. Will increase to 100 mg tomorrow due to persistent tachyarrhythmia. -Discussed case with cardiology today, recommend initiating digoxin. Loaded with 250 mcg, will continue 125 mcg daily. #Type 2 diabetes ? Hemoglobin A1c 11.3, well above goal. ? LDSSI, ACHS glucose checks. ? Will hold Lantus 35 units nightly due to low normal blood sugars without it. Discontinued metformin, Farxiga at this time given above . #History of CVA with left-sided weakness ? continue Aspirin, holding statin due to ischemic hepatitis. Hold Plavix for now. Holding statin due to shock liver. Unclear why patient is on triple therapy. ? Daughter is primary plastic parts designer at home, helps patient get in wheelchair to get around. # History of left IJ DVT ? Resume Eliquis. Full code SCDs
[2024-11-23] MEDS: CEFEPIME HCL 1 GM in 0.9 % SODIUM CHLORIDE 50 ML IV ×2 (08:23→20:12)
[2024-11-23] MEDS: OSELTAMIVIR PHOSPHATE 6MG/ML ORAL SUSP 60ML 30 MG PO (08:23)
[2024-11-23] MEDS: ALLOPURINOL 100MG TABLET 100 MG PO (08:24)
[2024-11-23] MEDS: ACETYLCYSTEINE 20% 30ML BOTTLE 6000 MG PO (08:24)
[2024-11-23] MEDS: METOPROLOL SUCCINATE XL 50MG TABLET 50 MG PO ×2 (08:24→17:02)
--- NOTE | 2024-11-23 09:22 | EXP.PHA.PN ---
Subjective *Date: 11/23/24 *Time: 09:22 Medical Exam Vital signs and Labs for Last 24 Hours: Vital Signs Temp Pulse Pulse Resp BP Pulse Ox O2 Del Method 11/23/24 08:00 97.8 F 11/23/24 06:48 133 H 103/68 L 11/23/24 06:41 133 H 11/23/24 06:38 Room Air 11/23/24 06:25 131 H 116/80 11/23/24 06:05 133 H 109/72 L 11/23/24 06:00 126 H 16 110/77 95 Room Air 11/23/24 05:30 129 H 20 119/81 94 L Room Air 11/23/24 05:00 Room Air 11/23/24 04:00 98.6 F 11/23/24 04:00 68 20 119/59 L 98 Room Air 11/23/24 04:00 70 11/23/24 03:00 Room Air 11/23/24 02:00 68 20 132/65 98 Room Air 11/23/24 02:00 Room Air 11/23/24 01:20 77 11/23/24 01:20 76 11/23/24 01:00 Room Air 11/23/24 00:00 60 11/23/24 00:00 98.3 F 67 16 114/62 98 Room Air 11/22/24 23:00 Room Air 11/22/24 22:00 68 18 116/57 L 98 Room Air 11/22/24 21:00 Room Air 11/22/24 20:00 70 11/22/24 20:00 Room Air 11/22/24 20:00 97.3 F L 11/22/24 20:00 72 20 139/78 95 Room Air 11/22/24 19:00 Room Air 11/22/24 18:48 73 11/22/24 18:48 74 11/22/24 18:00 69 17 127/71 93 L Room Air 11/22/24 17:00 Room Air 11/22/24 16:00 70 11/22/24 16:00 97.2 F L 11/22/24 16:00 68 16 165/67 H 92 L Room Air 11/22/24 15:00 Room Air 11/22/24 14:00 68 20 121/60 92 L Room Air 11/22/24 14:00 Room Air 11/22/24 13:00 Room Air 11/22/24 12:00 70 11/22/24 12:00 97.8 F 11/22/24 12:00 72 18 128/67 91 L Room Air 11/22/24 11:00 Room Air 11/22/24 10:00 73 18 137/67 90 L Room Air Intake and Output 11/22/24 11/23/24 11/23/24 23:59 07:59 15:59 Intake Total 270 / 850 250 / 250 Output Total 1100 / 1100 Balance 270 / 250 -850 / -850 Intake: Intake, Oral Amount 270 / 450 Intake, Total IV Amount 250 / 250 Ampicillin Sodium 2 gm In 0.9 % 200 / 200 Sodium Chloride 100 ml @ 200 mls/hr IV Q8H [facility] Rx#:[id number] Cefepime HCl 1 gm In 0.9 % 50 / 50 Sodium Chloride 50 ml @ 100 mls /hr IV Q12H [facility] Rx#:[id number] Output: Output, Urine Amount 1100 / 1100 Other: Number of Unmeasured Voids 0 Weight 111.266 kg Patient Weight 11/23/24 23:59 Weight 111.266 kg Laboratory Results - last 24 hr 11/22/24 06:18: AST 7421 H* D, Lactate Dehydrogenase 9783 H, NT-Pro-B Natriuret Pep 64653 H 11/22/24 11:48: POC Glucose 135 H 11/22/24 16:17: POC Glucose 136 H 11/23/24 05:28: WBC 4.4 L D, RBC 4.20, Hgb 9.2 L, Hct 31.2 L, MCV 74.3 L, MCH 21.9 L, MCHC 29.5 L, RDW 17.0, Plt Count 163, MPV 11.0 H, Neut % (Auto) 72.2, Lymph % (Auto) 22.0, [place] % (Auto) 4.3, Eos % (Auto) 0.2, Baso % (Auto) 0.2, Neut # (Auto) 3.2, Lymph # (Auto) 1.0, [place] # (Auto) 0.2, Eos # (Auto) 0.0, Baso # (Auto) 0.0, Sodium 138, Potassium 3.9 D, Chloride 108 H, Carbon Dioxide 22, Anion Gap 11.9, BUN 59 H, Creatinine 2.40 H, Estimated Creat Clear 20, Estimated GFR 20 L, Est GFR ( Amer) 25 L, Glucose 87 D, Calcium 7.4 L, Magnesium 2.2, Total Bilirubin 0.7, AST 5557 H* D, ALT 2716 H*, Alkaline Phosphatase 125, Total Protein 5.6 L, Albumin 2.7 L, Globulin 2.9, Albumin/Globulin Ratio 0.9 L I & O for Labs for Last 24 Hours: Intake & Output 11/20/24 11/21/24 11/22/24 11/23/24 23:59 23:59 23:59 23:59 Intake Total 3085.837 / 3085.837 640.875 / 970.875 700 / 850 250 / 250 Output Total 950 / 950 1050 / 1050 600 / 600 1100 / 1100 Balance 2135.837 / 2135.837 -409.125 / -79.125 100 / 250 -850 / -850 Weight 109 kg 112 kg 111.4 kg 111.266 kg The patient's infection will respond to the chosen ABx?: Yes Is the patient receiving the right drug, dose, and route?: Yes Could a more targeted ABx be ordered?: No (AFEBRILE, WBC WNL-DECREASED FROM 26.4K, CONT. CURRENT.)
--- NOTE | 2024-11-23 10:10 | DIET.NUTRFU ---
RD reviewed patient care with nursing, she has not had BM since 11/17, no meds in place. Her intake has been poor-fair also with some refusals yesterday. Continue to monitor my benefit form glucerna until appetite improves.
[2024-11-23 11:30] LABS: POC Glucose,Bedside 87 (70-110)
--- NOTE | 2024-11-23 11:36 | EXP.CARD.PN ---
Subjective Subjective Date: 11/23/24 Time: 09:30 Interval history: AST downtrending overnight Pt still somnolent New A-fib RVR overnight. Exam Data for Last 24 hours Vital signs and Labs for Last 24 Hours: Temp Pulse Resp BP Pulse Ox O2 Del Method O2 Flow Rate 96.4 F L 134 H 17 125/68 95 Room Air 2 11/23/24 10:00 11/23/24 10:59 11/23/24 10:00 11/23/24 10:00 11/23/24 10:59 11/23/24 10:59 11/22/24 06:48 Laboratory Results - last 24 hr 11/22/24 06:18: Lactate Dehydrogenase 9783 H 11/22/24 11:48: POC Glucose 135 H 11/22/24 16:17: POC Glucose 136 H 11/23/24 05:28: WBC 4.4 L D, RBC 4.20, Hgb 9.2 L, Hct 31.2 L, MCV 74.3 L, MCH 21.9 L, MCHC 29.5 L, RDW 17.0, Plt Count 163, MPV 11.0 H, Neut % (Auto) 72.2, Lymph % (Auto) 22.0, [place] % (Auto) 4.3, Eos % (Auto) 0.2, Baso % (Auto) 0.2, Neut # (Auto) 3.2, Lymph # (Auto) 1.0, [place] # (Auto) 0.2, Eos # (Auto) 0.0, Baso # (Auto) 0.0, Sodium 138, Potassium 3.9 D, Chloride 108 H, Carbon Dioxide 22, Anion Gap 11.9, BUN 59 H, Creatinine 2.40 H, Estimated Creat Clear 20, Estimated GFR 20 L, Est GFR ( Amer) 25 L, Glucose 87 D, Calcium 7.4 L, Magnesium 2.2, Total Bilirubin 0.7, AST 5557 H* D, ALT 2716 H*, Alkaline Phosphatase 125, Total Protein 5.6 L, Albumin 2.7 L, Globulin 2.9, Albumin/Globulin Ratio 0.9 L 11/23/24 11:14: POC Glucose 87 I & O for Last 24 hours: Intake & Output 11/20/24 11/21/24 11/22/24 11/23/24 23:59 23:59 23:59 23:59 Intake Total 3085.837 / 3085.837 640.875 / 970.875 700 / 850 295 / 295 Output Total 950 / 950 1050 / 1050 600 / 600 1100 / 1100 Balance 2135.837 / 2135.837 -409.125 / -79.125 100 / 250 -805 / -805 Weight 240 lb 4.862 oz 246 lb 14.684 oz 245 lb 9.519 oz 245 lb 4.8 oz Microbiology Reports for the Last 24 Hours: Microbiology 11/21/24 15:44 Nose - Nasal MRSA Culture - Final Negative Constitutional Constitutional: no acute distress and cooperative *Routine HEENT Exam Eye: Present PERRL *Routine Respiratory Exam Respiratory: Present CTA bilaterally; Absent accessory muscle use, wheezes or crackles *Routine Cardiovascular Exam Cardiovascular: Present RRR, Normal S1 and Normal S2; Absent murmur, gallop or rubs *Routine Abdominal Exam Abdominal: Present soft; Absent tenderness *Routine Extremities Exam Extremities: Present pulses intact; Absent cyanosis or edema *Routine Skin Exam Skin: Present intact; Absent erythema or wounds *Routine Neurological Exam Neurological: Present alert Comments: unable to name hospital or year Routine Psychiatric Exam Psychiatric: Present cooperative Progress Note: A&P Assessment and plan (1) Ischemic hepatitis: Status: Acute (2) Acute exacerbation of chronic heart failure: Status: Acute (3) Septic shock: Status: Acute (4) Influenza A with pneumonia: Status: Acute (5) Deep vein thrombosis (DVT) of left upper extremity: Status: Acute (6) Acute HFrEF (heart failure with reduced ejection fraction): Status: Acute (7) Atrial fibrillation with rapid ventricular response: Status: Acute Assessment and Plan Assessment and Plan for All Diagnoses:: Septic shock/multi-organ failure due to Influenza A - EF 25% 11/22: Stable 11/23: Stable - Severe hypotension 11/22: improving, off pressors 11/23: stable back on BB - ELIEZER - Cr up from 1.5 to 2.8 2: improving to 2.6 11/23: trending down to 2.4 - Transaminitis with AST/ALT >2k 11/22: worsening with ALT 2934 11/23: peaked at 7,421 now trending down - AMS 11/22: improving slightly 11/23: remains somnolent Acute HFrEF, NICM - new dx with ProBNP 26k, pulm vacsular congestion, GOMEZ, orthopnea, EF 25% - ECHO shows new globally reduced EF. Was normal on ECHO 06/2024 in [place]. - LHC 07/2024 [place] - Trivial CAD, preserved EDP and LV function - LHC <6 mo ago showed trivial CAD, no utility in repeating LHC here. Will obtain outpatient cardiac MRI to help evaluate etiology of CM. - 11/18: reduce Bumex to 1mg TID, Change Irbesartan to Entresto, Continue Aldactone, add Jardiance. Pt agreeable to LifeVest. - 11/21: GDMT on hold due to septic shock. Monitor volume status. Currently euvolemic - 11/22: GDMT still on hold due to recovering shock. ProBNP down from 26,700 to 18,200. No pulm effusion or edema on CXR. Appears euvolemic. LifeVest on hold until day of discharge. - 11/23: Euvolemic. GDMT still on hold Paroxysmal Atrial Fibrillation - New diagnosis this admission - Resumed BB but HR still 130-140s - pt asymptomatic - Start Dig 250mcg now then 125 daily starting tonight - Resume OAC (was previously on this due to LUE DVT) ELIEZER on CKD - baseline Cr 1.5, up to 2.8 - due to hypotension - 11/21: improved slightly to 2.6 after vol resuscitation. Cont to monitor and dose adjust meds. - 11/22: stable at 2.6 - 11/23: improving to 2.4 Transaminitis - Shock Liver - likely hepatic congestion from CHF - improving with vol resuscitation - 11/22: worsening with ALT up to 2934. Abdominal ultrasound cannot rule out cholecystitis. CT abdomen-atrophic pancreas, cannot rule out pancreatitis or other mesenteric inflammatory process. Plans per Hospitalist. Consider GI consult. - 11/23: peaked at 7,421, last was 5.557. Abd US and CT unrevealing. Ammonia normal. INR 1.3. Most likely etiology is shock liver in setting of EF 25% in setting of septic shock from Flu A. Continue to dose adjust meds. AMS - likely metabolic encephalopathy from septic shock - 11/22: Improving slightly - 11/23: Remains somnolent Morbid Obesity, BMI 40 - life limiting - consider GLP-1 outpatient DM-II - poorly controlled with A1C 11 - add Jardiance for CV benefit - consider GLP-1 given BMI 40 Hx of CVA with left hemiparesis - requires assistance with all ADLs at baseline Hx of LUE DVT - jugular and subclavian veins per Venous 09/27 - repeat Venous here is neg - 11/22: Heparin DC yesterday for LP. Resume IVAN - 11/23: Discussed with Hospitalist. Ok to resume OAC today. Htn - 11/22: meds on hold due to shock/hypotension 11/23 CV summary: Appears euvolemic. New A-fib - adding BB and Dig. Resume OAC. Liver enzymes improving.
[2024-11-23] MEDS: POLYETHYLENE GLYCOL 3350 17 GM PACKET PO (11:52)
[2024-11-23] MEDS: DIGOXIN 0.125MG TABLET 250 MCG PO (11:52)
[2024-11-23] MEDS: APIXABAN 5MG TABLET 5 MG PO ×2 (11:54→20:12)
--- NOTE | 2024-11-23 13:23 | P.PN_ITS ---
Subjective *Date: 11/23/24 *Time: 15:25 Interval history: Patient awake and alert today. She is A&O x 3. Patient has been on acetylcysteine. AST has decreased to 5557. ALT decreased to 2716. Alk phos normal at 125 and bilirubin normal at 0.7. Patient given dose of MiraLAX this morning and scheduled for lactulose this afternoon. No bowel movement today. Hemoglobin stable at 9.2 but microcytic and hypochromic. Exam Data for Last 24 hours Vital signs and Labs for Last 24 Hours: Temp Pulse Resp BP Pulse Ox O2 Del Method O2 Flow Rate 98.4 F 127 H 17 116/56 L 96 Room Air 2 11/23/24 12:00 11/23/24 12:00 11/23/24 12:00 11/23/24 12:00 11/23/24 12:00 11/23/24 12:00 11/22/24 06:48 Laboratory Results - last 24 hr 11/22/24 16:17: POC Glucose 136 H 11/23/24 05:28: WBC 4.4 L D, RBC 4.20, Hgb 9.2 L, Hct 31.2 L, MCV 74.3 L, MCH 21.9 L, MCHC 29.5 L, RDW 17.0, Plt Count 163, MPV 11.0 H, Neut % (Auto) 72.2, Lymph % (Auto) 22.0, [place] % (Auto) 4.3, Eos % (Auto) 0.2, Baso % (Auto) 0.2, Neut # (Auto) 3.2, Lymph # (Auto) 1.0, [place] # (Auto) 0.2, Eos # (Auto) 0.0, Baso # (Auto) 0.0, Sodium 138, Potassium 3.9 D, Chloride 108 H, Carbon Dioxide 22, Anion Gap 11.9, BUN 59 H, Creatinine 2.40 H, Estimated Creat Clear 20, Estimated GFR 20 L, Est GFR ( Amer) 25 L, Glucose 87 D, Calcium 7.4 L, Magnesium 2.2, Total Bilirubin 0.7, AST 5557 H* D, ALT 2716 H*, Alkaline Phosphatase 125, Total Protein 5.6 L, Albumin 2.7 L, Globulin 2.9, Albumin/Globulin Ratio 0.9 L 11/23/24 11:14: POC Glucose 87 I & O for Last 24 hours: Intake & Output 11/21/24 11/22/24 11/23/24 11/24/24 11:59 11:59 11:59 11:59 Intake Total 1845.207 640 665 Output Total 7734 089 5241 Balance 660.207 -633 -408 Weight 112 kg 111.4 kg 111.266 kg Microbiology Reports for the Last 24 Hours: Microbiology 11/21/24 15:44 Nose - Nasal MRSA Culture - Final Negative Constitutional Constitutional: no acute distress and obese *Routine HEENT Exam Head: Present normocephalic and atraumatic *Routine Respiratory Exam Respiratory: Present decreased breath sounds (mild decreased BS bilat lower lobes) *Routine Cardiovascular Exam Cardiovascular: Present tachycardia *Routine Abdominal Exam Abdominal: Present soft and distended (Moderate distention throughout abdomen); Absent tenderness *Routine Neurological Exam Neurological: Present alert and oriented X3 Assessment and Plan *Assessment and plan (1) Obstipation: Status: Acute Category: Medical Code(s): K59.00 - Constipation, unspecified (2) Ischemic hepatitis: Status: Acute Category: Medical Code(s): K72.00 - Acute and subacute hepatic failure without coma (3) Septic shock: Status: Acute Category: Medical Code(s): A41.9 - Sepsis, unspecified organism; R65.21 - Severe sepsis with septic shock (4) Acute HFrEF (heart failure with reduced ejection fraction): Status: Acute Category: Medical Code(s): I50.21 - Acute systolic (congestive) heart failure (5) Anemia: Status: Acute Category: Medical Code(s): D64.9 - Anemia, unspecified Plan 1. Ischemic hepatitis/septic shock/heart failure exacerbation Significant jump in transaminases with normal bilirubin and alk phos started 2 days ago. Upon arrival, LFTs within normal limits. No obstruction or in farction seen on imaging. Unlikely Budd-Chiari. Currently appears to be classic ischemic hepatitis secondary to acute hypoperfusion event (CHF exacerbation with diuresis plus septic shock). Development of ATN and significantly elevated lactate dehydrogenase consistent with ischemic hepatitis. Patient remains normotensive off of pressors. AST decreased to 5557 today. ALT decreased to 2716 today. Normal bilirubin 0.7, alk phos 125. Patient currently on acetylcysteine. Will continue to monitor bilirubin and prothrombin time to rule out development of acute liver failure. Will monitor LFTs, PT. 2. Anemia Hemoglobin relatively steady at 9.2 today. Microcytic and hypochromic. Will check iron levels and Hemoccult.
[2024-11-23] MEDS: LACTULOSE 20GM/30ML UDC 20 GM PO ×2 (13:31→17:02)
--- NOTE | 2024-11-23 15:46 | PC.NURSE ---
SPOKE WITH AR IN LAB REGARDING 1200 VANC TROUGH THAT WAS DRAWN AND HAS NOT RESULTED. ANALYZER IS DOWN. WILL RESULT AND HAVE VANC TO ADMINISTER IVAN. DOSE WILL BE LATE.
[2024-11-23 16:41] LABS: Vancomycin,Trough 16.8 ug/mL (5.0-10.0)
[2024-11-23] MEDS: DIGOXIN 0.125MG TABLET 125 MCG PO ×2 (17:03→21:55)
--- NOTE | 2024-11-23 17:34 | PC.NURSE ---
PT RESTING SUPINE IN BED. PT HAS REFUSED TO BE TURNED THIS SHIFT OR TO GET IN THE CHAIR DUE TO BEING COMFORTABLE . HR HAS REMAINED 120S-140S DESPITE NUMEROUS DOSES OF DIGOXIN AND METOPROLOL. PT ASYMPTOMATIC. ABX GIVEN PER DEC. PT STILL HAS NOT HAD A BM. RECEIVING MIRALAX AND LACTULOSE. PT HAS NO COMPLAINTS OF PAIN. TOLERATING RA WITH SATS >90%. NO NEEDS AT THIS TIME. CALL LIGHT WITHIN REACH.
[2024-11-23 17:35] LABS: Albumin Level 2.5 g/dl (3.5-5.0); Albumin/Globulin Ratio 0.9 (1.1-1.8); Alkaline Phosphatase 108 U/L (38-126); Anion Gap 11.1 mEq/L (5-15); Bilirubin,Total 0.6 mg/dl (0.2-1.3); Blood Urea Nitrogen 55 mg/dl (7-17); Calcium 7.6 mg/dl (8.4-10.2); Carbon Dioxide 22 mmol/L (22.0-30.0); Chloride 108 mmol/L (98-107); Creatinine Clearance Estimated 21 mL/min (50-200); Estimated Glomerular Filt Rate 21 ml/min (>60); GFR (African American) 26 ML/MIN (>60); Globulin 2.9 g/dL (1.3-3.2); Glucose 100 mg/dl (74-100); Potassium 4.1 mmoL/L (3.5-5.1); Sodium 137 mmol/L (136-145); Total Protein,Serum 5.4 g/dl (6.3-8.2)
[2024-11-23 17:39] LABS: POC Glucose,Bedside 103 (70-110)
--- NOTE | 2024-11-23 17:51 | PC.NURSE ---
[facility] CONTACTED REGARDING VANC TROUGH LEVEL. ADVISED TO HANG 2G .
[2024-11-23] MEDS: VANCOMYCIN HCL 2,000 MG in 0.9 % SODIUM CHLORIDE 250 ML 125 MG IV (18:02)
[2024-11-23 18:10] LABS: Alanine Aminotransferase 2229 U/L (12-78)
[2024-11-23 20:01] LABS: Occult Blood,Stool Negative (Negative)
[2024-11-23] MEDS: PRAMIPEXOLE 0.125MG TABLET 0.125 MG PO (20:12)
[2024-11-23 20:13] LABS: POC Glucose,Bedside 111 (70-110)
[2024-11-23 21:21] LABS: Aspartate Amino Transferase 3912 U/L (14-36)
[2024-11-24] VITALS (15 sets, daily range): BP systolic 123–157; BP diastolic 77–102; PULSE 96–146; RESP 16–29; TEMP 36.3–36.9; O2SAT 94–100; BMI 42.0
[2024-11-24] MEDS: METOPROLOL TARTRATE 5MG/5ML VIAL 5 MG IV ×2 (01:25→21:10)
--- NOTE | 2024-11-24 03:34 | PC.NURSE ---
patient is alert and oriented X3, patient has been restless throughout the shift, patient has refused to be turned. patients HR has remained in the 120s-140s throughout the shift, [employer] is aware, PRN metoprolol was given per mar without success, [employer] RE[employer]UITER ordered one time dose of digoxin, it was administered without success. patient has expressed that she would like all the leads to be taken off, stating she can't get comfortable with all the wires, this nurse educated patient on the importance of monitoring, patient agreeable to leaving monitor on for now. patient has multiple bowel movements this shift. sinclair catheter in place and draining adequately. patient tolerating room air with O2 sats remaining >90%. no complaints of pain. bed alarm is on and functioning. call button is in reach.
[2024-11-24 05:38] LABS: POC Glucose,Bedside 113 (70-110)
[2024-11-24] MEDS: IPRATROPIUM/ALBUTEROL 3 ML NEB IH ×3 (06:29→23:22)
[2024-11-24 06:36] LABS: Basophils % 0.3 % (0.1-2.0); Eosinophils # 0.1 K/mm3 (0.0-0.4); Eosinophils % 0.7 % (0.1-12.0); Hematocrit 32.1 % (37.0-47.0); Hemoglobin 9.5 g/dL (12.2-16.2); Lymphocytes % 14.2 % (10-50); Mean Corpuscular HGB Conc 29.6 g/dL (31.8-35.4); Mean Corpuscular Hemoglobin 22.1 pg (27.0-31.2); Mean Corpuscular Volume 74.7 fl (81-99); Mean Platelet Volume 11.4 fl (7.4-10.4); Monocytes # 0.3 K/mm3 (0.1-1.0); Monocytes % 4.3 % (1.7-9.3); Neutrophils # 5.3 K/mm3 (1.8-7.8); Neutrophils % 80.1 % (37.0-80.0); Platelet Count 173 K/mm3 (142-424); Red Cell Distribution Width 17.2 % (11.5-17.5); White Blood Count 6.7 K/mm3 (4.8-10.8)
[2024-11-24 06:50] LABS: Albumin Level 2.8 g/dl (3.5-5.0); Chloride 108 mmol/L (98-107); Sodium 136 mmol/L (136-145)
[2024-11-24] MEDS: AMPICILLIN SODIUM 2 GM in 0.9 % SODIUM CHLORIDE 100 ML IV (06:51)
[2024-11-24 06:52] LABS: Blood Urea Nitrogen 51 mg/dl (7-17); Creatinine Clearance Estimated 23 mL/min (50-200); Estimated Glomerular Filt Rate 24 ml/min (>60); GFR (African American) 29 ML/MIN (>60)
[2024-11-24 06:53] LABS: Albumin/Globulin Ratio 0.9 (1.1-1.8); Alkaline Phosphatase 152 U/L (38-126); Bilirubin,Total 0.8 mg/dl (0.2-1.3); Calcium 7.7 mg/dl (8.4-10.2); Carbon Dioxide 19 mmol/L (22.0-30.0); Globulin 3.2 g/dL (1.3-3.2); Glucose 116 mg/dl (74-100)
[2024-11-24 07:03] LABS: INR 1.11 (0.9-1.1); Prothrombin Time 12.1 seconds (9.2-12.1)
[2024-11-24 07:06] LABS: Iron 47 ug/dL (37-170); Magnesium 2.1 mg/dl (1.6-2.3)
[2024-11-24 07:16] LABS: Total Iron Binding Capacity 225 ug/dL (265-497)
[2024-11-24 07:26] LABS: Alanine Aminotransferase 1967 U/L (12-78)
--- NOTE | 2024-11-24 08:19 | EXP.PHA.CONS ---
Pharmacy Consult Date: 11/24/24 Time: 08:20 Referring provider: DR. OTTO Reason for Consult:: VANCOMYCIN TROUGH LEVEL Allergies Allergy/AdvReac Type Severity Reaction Status Date / Time lisinopril Allergy Severe Hives Verified 11/16/24 14:58 strawberry Allergy Severe Anaphylaxis Verified 11/16/24 14:58 codeine AdvReac Severe Vomiting Verified 11/16/24 14:58 Penicillins AdvReac Severe Vomiting Verified 11/16/24 14:58 Home Medications ?Medication ?Instructions ?Recorded ?Confirmed ?Type insulin lispro 100 unit/mL 0 unit SQ DIRECTED 04/01/22 11/16/24 History subcutaneous cartridge blood sugar diagnostic (OneTouch #100 ea 05/09/22 11/16/24 Rx Verio test strips) blood-glucose transmitter (Dexcom #1 ea 03/30/24 11/16/24 Rx G6 Transmitter device) atorvastatin 40 mg tablet (Lipitor) 40 mg PO DAILY #90 tabs 05/27/24 11/16/24 Rx albuterol sulfate 90 mcg/actuation 2 puff inhalation Q4HP PRN 11/16/24 11/16/24 History aerosol inhaler shortness of breath or wheezing allopurinol 100 mg tablet 100 mg PO DAILY 11/16/24 11/16/24 History apixaban 5 mg tablet (Eliquis) 5 mg PO BID 11/16/24 11/16/24 History aspirin 81 mg tablet,delayed 81 mg PO DAILY 11/16/24 11/16/24 History release budesonide-formoterol HFA 160 2 puff inhalation BID 11/16/24 11/16/24 History mcg-4.5 mcg/actuation aerosol inhaler (Symbicort) clopidogrel 75 mg tablet 75 mg PO DAILY 11/16/24 11/16/24 History diltiazem HCl 240 mg 240 mg PO DAILY 11/16/24 11/16/24 History capsule,extended release 24 hr famotidine 40 mg tablet 40 mg PO BID 11/16/24 11/16/24 History ferrous sulfate 325 mg (65 mg 325 mg PO BID 11/16/24 11/16/24 History iron) tablet (FeroSul) fluoxetine 20 mg capsule 20 mg PO DAILY 11/16/24 11/16/24 History gabapentin 100 mg capsule 100 mg PO TID 11/16/24 11/16/24 History hydralazine 50 mg tablet 50 mg PO TID 11/16/24 11/16/24 History isosorbide mononitrate 120 mg 120 mg PO DAILY 11/16/24 11/16/24 History tablet,extended release 24 hr loratadine 10 mg tablet (Allergy 10 mg PO DAILY 11/16/24 11/16/24 History Relief (loratadine)) losartan 100 mg tablet 100 mg PO DAILY 11/16/24 11/16/24 History metformin 500 mg tablet,extended 1,000 mg PO BID 11/16/24 11/16/24 History release 24 hr metoprolol succinate 100 mg 100 mg PO BID 11/16/24 11/16/24 History tablet,extended release 24 hr montelukast 10 mg tablet 10 mg PO PM 11/16/24 11/16/24 History pramipexole 0.125 mg tablet 0.125 mg PO DAILY 11/16/24 11/16/24 History ranolazine 1,000 mg 1,000 mg PO BID 11/16/24 11/16/24 History tablet,extended release,12 hr tiotropium bromide 18 mcg capsule 1 cap inhalation DAILY 11/16/24 11/16/24 History with inhalation device (Spiriva with HandiHaler) torsemide 10 mg tablet 20 mg PO DAILY 11/16/24 11/16/24 History New Prescriptions to Start Prescriptions: Height: 1.63 m Weight: 111.584 kg Laboratory Results:: Laboratory Results - last 24 hr 11/23/24 11:14: POC Glucose 87 11/23/24 12:55: Vancomycin Trough 16.8 H 11/23/24 16:58: Sodium 137, Potassium 4.1, Chloride 108 H, Carbon Dioxide 22, Anion Gap 11.1, BUN 55 H, Creatinine 2.30 H, Estimated Creat Clear 21, Estimated GFR 21 L, Est GFR ( Amer) 26 L, Glucose 100, Calcium 7.6 L, Total Bilirubin 0.6, AST 3912 H* D, ALT 2229 H*, Alkaline Phosphatase 108, Total Protein 5.4 L, Albumin 2.5 L, Globulin 2.9, Albumin/Globulin Ratio 0.9 L 11/23/24 17:32: POC Glucose 103 11/23/24 18:00: Stool Occult Blood Negative 11/23/24 20:05: POC Glucose 111 H 11/24/24 05:27: POC Glucose 113 H 11/24/24 06:20: WBC 6.7 D, RBC 4.30, Hgb 9.5 L, Hct 32.1 L, MCV 74.7 L, MCH 22.1 L, MCHC 29.6 L, RDW 17.2, Plt Count 173, MPV 11.4 H, Neut % (Auto) 80.1 H, Lymph % (Auto) 14.2, [place] % (Auto) 4.3, Eos % (Auto) 0.7, Baso % (Auto) 0.3, Neut # (Auto) 5.3, Lymph # (Auto) 1.0, [place] # (Auto) 0.3, Eos # (Auto) 0.1, Baso # (Auto) 0.0, PT 12.1, INR 1.11 H, Sodium 136, Potassium 4.0, Chloride 108 H, Carbon Dioxide 19 L, Anion Gap 13.0, BUN 51 H, Creatinine 2.10 H, Estimated Creat Clear 23, Estimated GFR 24 L, Est GFR ( Amer) 29 L, Glucose 116 H, Calcium 7.7 L, Magnesium 2.1, Iron 47, TIBC 225 L, Iron Saturation 20.42961, Total Bilirubin 0.8, ALT 1967 H*, Alkaline Phosphatase 152 H, Total Protein 6.0 L, Albumin 2.8 L D, Globulin 3.2, Albumin/Globulin Ratio 0.9 L Medical History: Medical History (Updated 11/23/24 @ 16:07 by Gerda Montero APRN) Septic shock Ischemic hepatitis Influenza A with pneumonia Arthritis Renal disease HTN (hypertension), benign HLD (hyperlipidemia) GERD (gastroesophageal reflux disease) COPD (chronic obstructive pulmonary disease) Asthma Anxiety Type 2 diabetes mellitus TIA (transient ischemic attack) Assessment and Plan Assessment and plan all Dx Assessment and Plan for all problems:: BASED ON PATIENT FACTORS AND VANCOMYCIN TROUGH LEVEL OF 16.8, RECOMMEND CONTINUING CURRENT DOSE OF VANCOMYCIN AT 2,000MG EVERY 48 HOURS. PHARMACY WILL CONTINUE TO MONITOR AND ADJUST DOSE APPROPRIATE. -[place] SPENCER, CARLAD
--- NOTE | 2024-11-24 08:25 | EXP.PHA.PN ---
Subjective *Date: 11/24/24 *Time: 08:25 Medical Exam Vital signs and Labs for Last 24 Hours: Vital Signs Temp Pulse Pulse Pulse Pulse Pulse Resp 11/24/24 08:16 147 H 70 65 11/24/24 06:59 11/24/24 06:30 113 H 11/24/24 06:30 124 H 11/24/24 06:00 132 H 20 11/24/24 05:00 11/24/24 04:00 97.8 F 11/24/24 04:00 130 H 18 11/24/24 04:00 130 H 11/24/24 03:00 11/24/24 02:00 131 H 18 11/24/24 02:00 131 H 11/24/24 01:00 11/24/24 00:00 145 H 18 11/24/24 00:00 120 H 11/24/24 00:00 97.6 F 11/23/24 23:37 122 H 11/23/24 23:37 126 H 11/23/24 23:00 11/23/24 22:00 125 H 19 11/23/24 21:55 135 H 11/23/24 21:00 11/23/24 20:00 144 H 20 11/23/24 20:00 144 H 11/23/24 20:00 130 H 11/23/24 19:56 97.7 F 11/23/24 18:39 11/23/24 18:27 127 H 11/23/24 18:27 123 H 11/23/24 18:00 139 H 18 11/23/24 17:03 123 H 11/23/24 17:00 11/23/24 16:10 130 H 11/23/24 16:00 97.9 F 11/23/24 16:00 122 H 17 11/23/24 15:00 11/23/24 14:00 11/23/24 14:00 134 H 16 11/23/24 13:00 11/23/24 12:00 130 H 11/23/24 12:00 98.4 F 11/23/24 12:00 127 H 17 11/23/24 11:52 141 H 11/23/24 11:00 11/23/24 10:59 134 H 11/23/24 10:59 128 H 11/23/24 10:59 11/23/24 10:00 96.4 F L 80 17 11/23/24 09:00 BP BP BP BP Pulse Ox O2 Del Method 11/24/24 08:16 87/61 L 74/39 L 87/51 L 11/24/24 06:59 Room Air 11/24/24 06:30 11/24/24 06:30 11/24/24 06:00 123/79 97 Room Air 11/24/24 05:00 Room Air 11/24/24 04:00 11/24/24 04:00 123/77 95 Room Air 11/24/24 04:00 11/24/24 03:00 Room Air 11/24/24 02:00 157/91 H 98 Room Air 11/24/24 02:00 96 Room Air 11/24/24 01:00 Room Air 11/24/24 00:00 130/83 97 Room Air 11/24/24 00:00 11/24/24 00:00 11/23/24 23:37 11/23/24 23:37 11/23/24 23:00 Room Air 11/23/24 22:00 137/77 93 L Room Air 11/23/24 21:55 11/23/24 21:00 Room Air 11/23/24 20:00 136/90 95 Room Air 11/23/24 20:00 Room Air 11/23/24 20:00 11/23/24 19:56 11/23/24 18:39 Room Air 11/23/24 18:27 11/23/24 18:27 11/23/24 18:00 133/96 H 96 Room Air 11/23/24 17:03 11/23/24 17:00 Room Air 11/23/24 16:10 11/23/24 16:00 11/23/24 16:00 130/88 94 L Room Air 11/23/24 15:00 Room Air 11/23/24 14:00 90 L Room Air 11/23/24 14:00 127/86 99 Room Air 11/23/24 13:00 Room Air 11/23/24 12:00 11/23/24 12:00 11/23/24 12:00 116/56 L 96 Room Air 11/23/24 11:52 11/23/24 11:00 Room Air 11/23/24 10:59 11/23/24 10:59 11/23/24 10:59 95 Room Air 11/23/24 10:00 125/68 92 L Vapotherm 11/23/24 09:00 Room Air Intake and Output 11/23/24 11/24/24 11/24/24 23:59 07:59 15:59 Intake Total 480 / 1165 390 / 390 Output Total 275 / 2550 600 / 600 Balance 205 / -1385 -210 / -210 Intake: Intake, Oral Amount 480 / 720 240 / 240 Intake, Total IV Amount 150 / 150 Ampicillin Sodium 2 gm In 0.9 % 100 / 100 Sodium Chloride 100 ml @ 200 mls/hr IV Q8H [facility] Rx#:[id number] Cefepime HCl 1 gm In 0.9 % 50 / 50 Sodium Chloride 50 ml @ 100 mls /hr IV Q12H [facility] Rx#:[id number] Output: Output, Urine Amount 275 / 2550 600 / 600 Other: Number of Unmeasured Voids 0 Number of Bowel Movements 1 Weight 111.584 kg 111.584 kg Patient Weight 11/24/24 23:59 Weight 111.584 kg Laboratory Results - last 24 hr 11/23/24 11:14: POC Glucose 87 11/23/24 12:55: Vancomycin Trough 16.8 H 11/23/24 16:58: Sodium 137, Potassium 4.1, Chloride 108 H, Carbon Dioxide 22, Anion Gap 11.1, BUN 55 H, Creatinine 2.30 H, Estimated Creat Clear 21, Estimated GFR 21 L, Est GFR ( Amer) 26 L, Glucose 100, Calcium 7.6 L, Total Bilirubin 0.6, AST 3912 H* D, ALT 2229 H*, Alkaline Phosphatase 108, Total Protein 5.4 L, Albumin 2.5 L, Globulin 2.9, Albumin/Globulin Ratio 0.9 L 11/23/24 17:32: POC Glucose 103 11/23/24 18:00: Stool Occult Blood Negative 11/23/24 20:05: POC Glucose 111 H 11/24/24 05:27: POC Glucose 113 H 11/24/24 06:20: WBC 6.7 D, RBC 4.30, Hgb 9.5 L, Hct 32.1 L, MCV 74.7 L, MCH 22.1 L, MCHC 29.6 L, RDW 17.2, Plt Count 173, MPV 11.4 H, Neut % (Auto) 80.1 H, Lymph % (Auto) 14.2, [place] % (Auto) 4.3, Eos % (Auto) 0.7, Baso % (Auto) 0.3, Neut # (Auto) 5.3, Lymph # (Auto) 1.0, [place] # (Auto) 0.3, Eos # (Auto) 0.1, Baso # (Auto) 0.0, PT 12.1, INR 1.11 H, Sodium 136, Potassium 4.0, Chloride 108 H, Carbon Dioxide 19 L, Anion Gap 13.0, BUN 51 H, Creatinine 2.10 H, Estimated Creat Clear 23, Estimated GFR 24 L, Est GFR ( Amer) 29 L, Glucose 116 H, Calcium 7.7 L, Magnesium 2.1, Iron 47, TIBC 225 L, Iron Saturation 20.02095, Total Bilirubin 0.8, ALT 1967 H*, Alkaline Phosphatase 152 H, Total Protein 6.0 L, Albumin 2.8 L D, Globulin 3.2, Albumin/Globulin Ratio 0.9 L I & O for Labs for Last 24 Hours: Intake & Output 11/21/24 11/22/24 11/23/24 11/24/24 23:59 23:59 23:59 23:59 Intake Total 640.875 / 970.875 700 / 850 775 / 1165 390 / 390 Output Total 1050 / 1050 600 / 600 2150 / 2550 600 / 600 Balance -409.125 / -79.125 100 / 250 -1375 / -1385 -210 / -210 Weight 112 kg 111.4 kg 111.266 kg 111.584 kg Microbiology Reports for the Last 24 Hours: Microbiology 11/19/24 18:00 Blood Blood Culture - Preliminary NO GROWTH AFTER 4 DAYS 11/19/24 17:50 Blood Blood Culture - Preliminary NO GROWTH AFTER 4 DAYS 11/21/24 15:44 Nose - Nasal MRSA Culture - Final Negative The patient's infection will respond to the chosen ABx?: Yes (BLOOD CX NO GROWTH AT 4 DAYS, AFEBRILE OVER 24 HR, WBC 6.7) Is the patient receiving the right drug, dose, and route?: Yes Could a more targeted ABx be ordered?: No
[2024-11-24] MEDS: ASPIRIN EC 81MG TABLET 81 MG PO (08:59)
[2024-11-24] MEDS: METOPROLOL SUCCINATE XL 100MG TABLET 100 MG PO (08:59)
[2024-11-24] MEDS: DIGOXIN 0.125MG TABLET 125 MCG PO ×3 (08:59→18:09)
[2024-11-24] MEDS: APIXABAN 5MG TABLET 5 MG PO ×2 (09:00→21:10)
[2024-11-24] MEDS: OSELTAMIVIR PHOSPHATE 6MG/ML ORAL SUSP 60ML 30 MG PO (09:00)
[2024-11-24] MEDS: CEFEPIME HCL 1 GM in 0.9 % SODIUM CHLORIDE 50 ML IV ×2 (09:00→21:09)
[2024-11-24] MEDS: LACTULOSE 20GM/30ML UDC 20 GM PO ×3 (09:00→21:10)
[2024-11-24] MEDS: ACETYLCYSTEINE 20% 30ML BOTTLE 6000 MG PO (09:00)
[2024-11-24] MEDS: ALLOPURINOL 100MG TABLET 100 MG PO (09:00)
--- NOTE | 2024-11-24 09:12 | EXP.MED.FU ---
Subjective *Date: 11/24/24 *Time: 12:10 Interval history: Patient awake and alert but oriented x 1 today. Mental status has declined again over the course of the day per nursing. Patient will occasionally follow commands. Bilirubin still normal at 0.8, AST decreased to 2938 today,, ALT decreased to 1967 this morning. Alk phos with mild elevation of 152. PT has normalized at 12.1. Hemoglobin steady at 9.5 with normal iron levels normal B12 levels earlier in the week. Hemoccult negative. Continues acetylcysteine daily. Exam Data for Last 24 hours Vital signs and Labs for Last 24 Hours: Temp Pulse Resp BP Pulse Ox O2 Del Method O2 Flow Rate 97.8 F 133 H 20 87/61 L 97 Room Air 2 11/24/24 04:00 11/24/24 08:59 11/24/24 06:00 11/24/24 08:16 11/24/24 06:00 11/24/24 06:59 11/22/24 06:48 Laboratory Results - last 24 hr 11/23/24 11:14: POC Glucose 87 11/23/24 12:55: Vancomycin Trough 16.8 H 11/23/24 16:58: Sodium 137, Potassium 4.1, Chloride 108 H, Carbon Dioxide 22, Anion Gap 11.1, BUN 55 H, Creatinine 2.30 H, Estimated Creat Clear 21, Estimated GFR 21 L, Est GFR ( Amer) 26 L, Glucose 100, Calcium 7.6 L, Total Bilirubin 0.6, AST 3912 H* D, ALT 2229 H*, Alkaline Phosphatase 108, Total Protein 5.4 L, Albumin 2.5 L, Globulin 2.9, Albumin/Globulin Ratio 0.9 L 11/23/24 17:32: POC Glucose 103 11/23/24 18:00: Stool Occult Blood Negative 11/23/24 20:05: POC Glucose 111 H 11/24/24 05:27: POC Glucose 113 H 11/24/24 06:20: WBC 6.7 D, RBC 4.30, Hgb 9.5 L, Hct 32.1 L, MCV 74.7 L, MCH 22.1 L, MCHC 29.6 L, RDW 17.2, Plt Count 173, MPV 11.4 H, Neut % (Auto) 80.1 H, Lymph % (Auto) 14.2, [place] % (Auto) 4.3, Eos % (Auto) 0.7, Baso % (Auto) 0.3, Neut # (Auto) 5.3, Lymph # (Auto) 1.0, [place] # (Auto) 0.3, Eos # (Auto) 0.1, Baso # (Auto) 0.0, PT 12.1, INR 1.11 H, Sodium 136, Potassium 4.0, Chloride 108 H, Carbon Dioxide 19 L, Anion Gap 13.0, BUN 51 H, Creatinine 2.10 H, Estimated Creat Clear 23, Estimated GFR 24 L, Est GFR ( Amer) 29 L, Glucose 116 H, Calcium 7.7 L, Magnesium 2.1, Iron 47, TIBC 225 L, Iron Saturation 20.15428, Total Bilirubin 0.8, ALT 1967 H*, Alkaline Phosphatase 152 H, Total Protein 6.0 L, Albumin 2.8 L D, Globulin 3.2, Albumin/Globulin Ratio 0.9 L I & O for Last 24 hours: Intake & Output 11/21/24 11/22/24 11/23/24 11/24/24 11:59 11:59 11:59 11:59 Intake Total 1845.207 640 665 870 Output Total 8273 838 9268 1650 Balance 660.064 -310 -435 -364 Weight 112 kg 111.4 kg 111.266 kg 111.584 kg Microbiology Reports for the Last 24 Hours: Microbiology 11/19/24 18:00 Blood Blood Culture - Preliminary NO GROWTH AFTER 4 DAYS 11/19/24 17:50 Blood Blood Culture - Preliminary NO GROWTH AFTER 4 DAYS 11/21/24 15:44 Nose - Nasal MRSA Culture - Final Negative Constitutional Constitutional: no acute distress and morbidly obese *Routine HEENT Exam Head: Present normocephalic and atraumatic *Routine Respiratory Exam Respiratory: Present rhonchi (Throughout bilateral lower lobes and left upper lobe) *Routine Cardiovascular Exam Cardiovascular: Present tachycardia and irregular rhythm *Routine Abdominal Exam Abdominal: Present soft, distended (Moderate soft distention) and obese *Routine Neurological Exam Neurological: Present alert, motor deficit (Left upper and left lower extremities at baseline) and hearing grossly intact Comments: Patient A&O x 1 today does not follow all directions. Assessment and Plan *Assessment and plan (1) Anemia: Status: Acute Category: Medical Code(s): D64.9 - Anemia, unspecified (2) Obstipation: Status: Acute Category: Medical Code(s): K59.00 - Constipation, unspecified (3) Septic shock: Status: Acute Category: Medical Code(s): A41.9 - Sepsis, unspecified organism; R65.21 - Severe sepsis with septic shock (4) Ischemic hepatitis: Status: Acute Category: Medical Code(s): K72.00 - Acute and subacute hepatic failure without coma (5) Acute HFrEF (heart failure with reduced ejection fraction): Status: Acute Category: Medical Code(s): I50.21 - Acute systolic (congestive) heart failure Plan 1. Ischemic hepatitis/septic shock/heart failure exacerbation Significant jump in transaminases with normal bilirubin and alk phos after hypotensive/ischemic insult. Upon arrival, LFTs within normal limits. No obstruction or infarction seen on imaging. Unlikely Budd-Chiari. Currently appears to be classic ischemic hepatitis secondary to acute hypoperfusion event (CHF exacerbation with diuresis plus septic shock). Development of ATN and significantly elevated lactate dehydrogenase consistent with ischemic hepatitis. Patient remains normotensive off of pressors. AST decreased to 2938 today. ALT decreased to 1967 today. Bilirubin remains normal but could still increase as transaminases improved. Alk phos with mild elevation at 152. PT has normalized at 12.1. I expect continued improvement of AST and ALT over the next week or so. May see some mild elevations of bilirubin and alk phos as a normal course of recovery. Continue acetylcysteine. Will continue to monitor bilirubin and prothrombin time to rule out development of acute liver failure. Will monitor LFTs, PT. 2. Anemia Hemoglobin relatively steady at 9.5 today. Microcytic and hypochromic. However, iron levels normal and Hemoccult negative. Does not look like a GI blood loss.
[2024-11-24 09:23] LABS: Aspartate Amino Transferase 2938 U/L (14-36)
--- NOTE | 2024-11-24 10:15 | P.PN_ITS ---
Subjective *Date: 11/24/24 *Time: 12:41 Interval history: No acute respiratory vents overnight. Patient denies any new respiratory complaints. Pulmonology Exam Inpatient Vital signs and Labs for Last 24 Hours: Temp Pulse Resp BP Pulse Ox O2 Del Method O2 Flow Rate 97.4 F L 133 H 20 87/61 L 97 Room Air 2 11/24/24 08:00 11/24/24 08:59 11/24/24 06:00 11/24/24 08:16 11/24/24 06:00 11/24/24 09:00 11/22/24 06:48 Laboratory Results - last 24 hr 11/23/24 11:14: POC Glucose 87 11/23/24 12:55: Vancomycin Trough 16.8 H 11/23/24 16:58: Sodium 137, Potassium 4.1, Chloride 108 H, Carbon Dioxide 22, Anion Gap 11.1, BUN 55 H, Creatinine 2.30 H, Estimated Creat Clear 21, Estimated GFR 21 L, Est GFR ( Amer) 26 L, Glucose 100, Calcium 7.6 L, Total Bilirubin 0.6, AST 3912 H* D, ALT 2229 H*, Alkaline Phosphatase 108, Total Protein 5.4 L, Albumin 2.5 L, Globulin 2.9, Albumin/Globulin Ratio 0.9 L 11/23/24 17:32: POC Glucose 103 11/23/24 18:00: Stool Occult Blood Negative 11/23/24 20:05: POC Glucose 111 H 11/24/24 05:27: POC Glucose 113 H 11/24/24 06:20: WBC 6.7 D, RBC 4.30, Hgb 9.5 L, Hct 32.1 L, MCV 74.7 L, MCH 22.1 L, MCHC 29.6 L, RDW 17.2, Plt Count 173, MPV 11.4 H, Neut % (Auto) 80.1 H, Lymph % (Auto) 14.2, [place] % (Auto) 4.3, Eos % (Auto) 0.7, Baso % (Auto) 0.3, Neut # (Auto) 5.3, Lymph # (Auto) 1.0, [place] # (Auto) 0.3, Eos # (Auto) 0.1, Baso # (Auto) 0.0, PT 12.1, INR 1.11 H, Sodium 136, Potassium 4.0, Chloride 108 H, Carbon Dioxide 19 L, Anion Gap 13.0, BUN 51 H, Creatinine 2.10 H, Estimated Creat Clear 23, Estimated GFR 24 L, Est GFR ( Amer) 29 L, Glucose 116 H, Calcium 7.7 L, Magnesium 2.1, Iron 47, TIBC 225 L, Iron Saturation 20.07654, Total Bilirubin 0.8, AST 2938 H*, ALT 1967 H*, Alkaline Phosphatase 152 H, Total Protein 6.0 L, Albumin 2.8 L D, Globulin 3.2, Albumin/Globulin Ratio 0.9 L Temp Pulse Resp BP Pulse Ox O2 Del Method O2 Flow Rate 102.4 F H 71 18 160/67 H 93 L Room Air 11/21/24 11:01 11/21/24 11:01 11/21/24 11:01 11/21/24 11:01 11/21/24 11:01 11/21/24 11:20 11/21/24 04:35 Laboratory Results - last 24 hr 11/20/24 08:15: Chlamy pneumoniae PCR Not detected, Adenovirus (PCR) Not detected, B. pertussis DNA (PCR) Not detected, Coronavirus OC43 (PCR) Not detected, Coronavirus HKU1 (PCR) Not detected, Coronavirus 229E (PCR) Not detected, SARS-CoV-2 (PCR) Not detected, Coronavirus NL63 (PCR) Not detected, Human Metapneumovir PCR Not detected, Influenza A (H1) PCR Not detected, Influ A (H1N1/09) PCR Detected A, Influenza A (H3) PCR Not detected, Influenza Type A (PCR) Not detected, Influenza Type B (PCR) Not detected, M. pneumoniae (PCR) Not detected, Parainfluenza 1 (PCR) Not detected, Parainfluenza 2 (PCR) Not detected, Parainfluenza 3 (PCR) Not detected, Parainfluenza 4 (PCR) Not detected, RSV (PCR) Not detected, Entero/Rhino (PCR) Not detected 11/20/24 11:30: POC Glucose 195 H 11/20/24 15:00: Sodium 133 L, Potassium 5.1, Chloride 101, Carbon Dioxide 22, Anion Gap 15.1 H, BUN 52 H, Creatinine 2.70 H, Estimated Creat Clear 18, Estimated GFR 18 L*, Est GFR ( Amer) 21 L, Glucose 231 H D, Calcium 7.4 L , Total Bilirubin 0.4, AST 2654 H* D, ALT 958 H*, Alkaline Phosphatase 102, Total Protein 5.4 L, Albumin 2.7 L, Globulin 2.7, Albumin/Globulin Ratio 1.0 L, Lipase 20 L 11/20/24 16:10: APTT 32.6 L 11/20/24 16:51: POC Glucose 225 H 11/20/24 21:40: APTT 50.2, Sodium 132 L, Potassium 4.8, Chloride 100, Carbon Dioxide 25, Anion Gap 11.8, BUN 53 H, Creatinine 2.80 H, Estimated Creat Clear 18, Estimated GFR 17 L*, Est GFR ( Amer) 21 L, Glucose 214 H, Calcium 7.2 L, Total Bilirubin 0.4, AST 2398 H*, ALT 1006 H*, Alkaline Phosphatase 93, Total Protein 5.2 L, Albumin 2.5 L, Globulin 2.7, Albumin/Globulin Ratio 0.9 L 11/21/24 04:50: WBC 9.5 D, RBC 4.22, Hgb 9.4 L D, Hct 31.5 L, MCV 74.6 L, MCH 22.3 L, MCHC 29.8 L, RDW 16.6, Plt Count 256 D, MPV 11.6 H, Neut % (Auto) 86.0 H, Lymph % (Auto) 10.9, [place] % (Auto) 2.7, Eos % (Auto) 0.0 L, Baso % (Auto) 0.1, Neut # (Auto) 8.2 H, Lymph # (Auto) 1.0, [place] # (Auto) 0.3, Eos # (Auto) 0.0, Baso # (Auto) 0.0, APTT 33.9 L, Sodium 133 L, Potassium 5.4 H, Chloride 102, Carbon Dioxide 27, Anion Gap 9.4, BUN 57 H, Creatinine 2.60 H, Estimated Creat Clear 19, Estimated GFR 19 L*, Est GFR ( Amer) 22 L, Glucose 108 H D, Calcium 7.1 L, Magnesium 2.0, Iron 56, TIBC 209 L, Iron Saturation 26.32308, Ferritin 7100 H D, Total Bilirubin 0.7, AST 2790 H*, ALT 1167 H*, Alkaline Phosphatase 64, Total Protein 5.5 L, Albumin 2.5 L, Globulin 3.0, Albumin/Globulin Ratio 0.8 L, Vitamin B12 914 11/21/24 05:45: POC Glucose 109 11/21/24 08:43: Folate > 20.00 11/21/24 10:52: POC Glucose 95 I & O for Labs for Last 24 Hours: Intake & Output 11/21/24 11/22/24 11/23/24 11/24/24 23:59 23:59 23:59 23:59 Intake Total 640.875 / 970.875 700 / 850 775 / 1165 670 / 670 Output Total 1050 / 1050 600 / 600 2150 / 2550 600 / 600 Balance -409.125 / -79.125 100 / 250 -1375 / -1385 70 / 70 Weight 246 lb 14.684 oz 245 lb 9.519 oz 245 lb 4.8 oz 246 lb Intake & Output 11/18/24 11/19/24 11/20/24 11/21/24 23:59 23:59 23:59 23:59 Intake Total 1170 / 1170 488.284 / 3743.316 0780.837 / 3085.837 330.875 / 330.875 Output Total 1350 / 1350 1440 / 1440 950 / 950 700 / 700 Balance -180 / -180 -951.716 / -552.400 6899.837 / 2135.837 -369.125 / -369.125 Weight 236 lb 6.4 oz 241 lb 1.6 oz 240 lb 4.862 oz 246 lb 14.684 oz Microbiology Reports for the Last 24 Hours: Microbiology 11/19/24 18:00 Blood Blood Culture - Preliminary NO GROWTH AFTER 4 DAYS 11/19/24 17:50 Blood Blood Culture - Preliminary NO GROWTH AFTER 4 DAYS 11/21/24 15:44 Nose - Nasal MRSA Culture - Final Negative Microbiology 11/20/24 05:45 Rectum CRE Surveillance Culture - Final 11/19/24 18:00 Blood Blood Culture - Preliminary NO GROWTH AFTER 24 HOURS 11/19/24 17:50 Blood Blood Culture - Preliminary NO GROWTH AFTER 24 HOURS Constitutional: Present severe distress Head: Present normocephalic and atraumatic ENT: Present normal exam, normal oropharynx and mucous membranes moist Neck: Present normal inspection and full ROM Respiratory: Present crackles, diminished air movement and able to speak in complete sentences; Absent prolonged expiratory phase, rhonchi or wheezes Cardiac: Present S1/S2, Tachycardia and radial pulses present GI: Present soft and distention; Absent tenderness or guarding Rectal (female): Present deferred (female): Present deferred Skin: Present intact; Absent cyanosis or jaundice Neuro: Present alert and awake; Absent oriented x 3 Extremities: Present normal inspection; Absent clubbing or cyanosis Psychiatric: Present normal affect and cooperative Assessment and Plan *Assessment and plan (1) Influenza A with pneumonia: Status: Acute Category: Medical Code(s): J09.X1 - Influenza due to identified novel influenza A virus with pneumonia (2) Ischemic hepatitis: Status: Acute Category: Medical Code(s): K72.00 - Acute and subacute hepatic failure without coma (3) Septic shock: Status: Acute Category: Medical Code(s): A41.9 - Sepsis, unspecified organism; R65.21 - Severe sepsis with septic shock Plan Mr. Waters is a 64-year-old female no significant smoking history, using inhalers on as-needed basis at baseline carries a diagnosis of asthma not any oxygen supplementation initially presented to the hospital worsening respiratory's found to be in heart failure exacerbation, relatively stable up until a week. Patient noted acute decline in her clinical status potential shock needing 3 vasopressors to maintain her MAP at 65 and above possible ischemic hepatitis for further evaluation and management. Patient respiratory viral PCR panel upon admission negative however repeat PCR panel positive for influenza pneumonia. Her echo does show reduced EF at 25%. Patient on examination today appeared to be in moderate respiratory distress. Saturating 94%. No significant wheezing noted on auscultation. Initiate broad- spectrum antibiotics including vancomycin and cefepime. Lipase and platelet counts within normal limits. Alk phos and total bili within normal limits. CRP mildly elevated at 21 Leukocytosis improving. Continue to have febrile episodes Tmax of 102. Arterial Doppler right upper quadrant not concerning for splenic vein thrombosis. Repeat chest x-ray and CT abdomen no obvious alternate source of infection. Interval update: No acute respiratory vents overnight. Continue to remain on room air. Completed 5-day course of Tamiflu. Improving AST ALT. Nasal MRSA PCR negative. Blood cultures no growth. Plan: DuoNebs 4 times daily as needed Oxygen supplementation only as needed Given negative blood cultures and nasal MRSA PCR being negative, and resolved shock will plan to wean antibiotics. # Thank you for involving pulmonary in this patient care. Will continue to follow.
[2024-11-24 11:02] LABS: POC Glucose,Bedside 145 (70-110)
[2024-11-24 11:37] LABS: Ferritin 3650 ng/ml (11.1-264)
--- NOTE | 2024-11-24 12:45 | P.PN_ITS ---
Subjective Subjective Date: 11/24/24 Time: 09:30 Interval history: Remains slightly altered today - arousable but cannot readily state date or location. Denies pain. Exam Data for Last 24 hours Vital signs and Labs for Last 24 Hours: Temp Pulse Resp BP Pulse Ox O2 Del Method O2 Flow Rate 97.4 F L 134 H 24 133/102 H 100 Room Air 2 11/24/24 08:00 11/24/24 10:00 11/24/24 10:00 11/24/24 10:00 11/24/24 10:00 11/24/24 11:00 11/22/24 06:48 Laboratory Results - last 24 hr 11/23/24 12:55: Vancomycin Trough 16.8 H 11/23/24 16:58: Sodium 137, Potassium 4.1, Chloride 108 H, Carbon Dioxide 22, Anion Gap 11.1, BUN 55 H, Creatinine 2.30 H, Estimated Creat Clear 21, Estimated GFR 21 L, Est GFR ( Amer) 26 L, Glucose 100, Calcium 7.6 L, Total Bilirubin 0.6, AST 3912 H* D, ALT 2229 H*, Alkaline Phosphatase 108, Total Protein 5.4 L, Albumin 2.5 L, Globulin 2.9, Albumin/Globulin Ratio 0.9 L 11/23/24 17:32: POC Glucose 103 11/23/24 18:00: Stool Occult Blood Negative 11/23/24 20:05: POC Glucose 111 H 11/24/24 05:27: POC Glucose 113 H 11/24/24 06:20: WBC 6.7 D, RBC 4.30, Hgb 9.5 L, Hct 32.1 L, MCV 74.7 L, MCH 22.1 L, MCHC 29.6 L, RDW 17.2, Plt Count 173, MPV 11.4 H, Neut % (Auto) 80.1 H, Lymph % (Auto) 14.2, [place] % (Auto) 4.3, Eos % (Auto) 0.7, Baso % (Auto) 0.3, Neut # (Auto) 5.3, Lymph # (Auto) 1.0, [place] # (Auto) 0.3, Eos # (Auto) 0.1, Baso # (Auto) 0.0, PT 12.1, INR 1.11 H, Sodium 136, Potassium 4.0, Chloride 108 H, Carbon Dioxide 19 L, Anion Gap 13.0, BUN 51 H, Creatinine 2.10 H, Estimated Creat Clear 23, Estimated GFR 24 L, Est GFR ( Amer) 29 L, Glucose 116 H, Calcium 7.7 L, Magnesium 2.1, Iron 47, TIBC 225 L, Iron Saturation 20.98343, Ferritin 3650 H D, Total Bilirubin 0.8, AST 2938 H*, ALT 1967 H*, Alkaline Phosphatase 152 H, Total Protein 6.0 L, Albumin 2.8 L D, Globulin 3.2, Albumin/Globulin Ratio 0.9 L 11/24/24 10:56: POC Glucose 145 H I & O for Last 24 hours: Intake & Output 11/21/24 11/22/24 11/23/24 11/24/24 23:59 23:59 23:59 23:59 Intake Total 640.875 / 970.875 700 / 850 775 / 1165 1110 / 1110 Output Total 1050 / 1050 600 / 600 2150 / 2550 850 / 850 Balance -409.125 / -79.125 100 / 250 -1375 / -1385 260 / 260 Weight 246 lb 14.684 oz 245 lb 9.519 oz 245 lb 4.8 oz 246 lb Microbiology Reports for the Last 24 Hours: Microbiology 11/19/24 18:00 Blood Blood Culture - Preliminary NO GROWTH AFTER 4 DAYS 11/19/24 17:50 Blood Blood Culture - Preliminary NO GROWTH AFTER 4 DAYS 11/21/24 15:44 Nose - Nasal MRSA Culture - Final Negative Constitutional Constitutional: no acute distress and cooperative *Routine HEENT Exam Eye: Present PERRL *Routine Respiratory Exam Respiratory: Present CTA bilaterally; Absent accessory muscle use, wheezes or crackles *Routine Cardiovascular Exam Cardiovascular: Present RRR, Normal S1 and Normal S2; Absent murmur, gallop or rubs *Routine Abdominal Exam Abdominal: Present soft; Absent tenderness *Routine Extremities Exam Extremities: Present pulses intact; Absent cyanosis or edema *Routine Skin Exam Skin: Present intact; Absent erythema or wounds *Routine Neurological Exam Neurological: Present alert and oriented X3 Comments: unable to name hospital or year Routine Psychiatric Exam Psychiatric: Present cooperative Progress Note: A&P Assessment and plan (1) Influenza A with pneumonia: Status: Acute (2) Ischemic hepatitis: Status: Acute (3) Septic shock: Status: Acute (4) Atrial fibrillation with rapid ventricular response: Status: Acute (5) Acute HFrEF (heart failure with reduced ejection fraction): Status: Acute Assessment and Plan Assessment and Plan for All Diagnoses:: Septic shock/multi-organ failure due to Influenza A - Resolved - EF 25% 11/22: Stable 11/23: Stable - Severe hypotension 11/22: improving, off pressors 11/23: stable back on BB - ELIEZER - Cr up from 1.5 to 2.8 11/22: improving to 2.6 11/23: trending down to 2.4 - Transaminitis with AST/ALT >2k 11/22: worsening with ALT 2934 11/23: peaked at 7,421 now trending down - AMS 11/22: improving slightly 11/23: remains somnolent Acute HFrEF, NICM - new dx with ProBNP 26k, pulm vacsular congestion, GOMEZ, orthopnea, EF 25% - ECHO shows new globally reduced EF. Was normal on ECHO 06/2024 in [place]. - LHC 07/2024 [place] - Trivial CAD, preserved EDP and LV function - LHC <6 mo ago showed trivial CAD, no utility in repeating LHC here. Will obtain outpatient cardiac MRI to help evaluate etiology of CM. - 11/18: reduce Bumex to 1mg TID, Change Irbesartan to Entresto, Continue Aldactone, add Jardiance. Pt agreeable to LifeVest. - 11/21: GDMT on hold due to septic shock. Monitor volume status. Currently euvolemic - 11/22: GDMT still on hold due to recovering shock. ProBNP down from 26,700 to 18,200. No pulm effusion or edema on CXR. Appears euvolemic. LifeVest on hold until day of discharge. - 11/23: Euvolemic. GDMT still on hold - 11/24: Euvolemic. GDMT on hold due to hypotension and resolving ELIEZER. Paroxysmal Atrial Fibrillation - New diagnosis this admission - 11/22: Resumed BB but HR still 130-140s - pt asymptomatic - 11/23: Start Dig 250mcg now then 125 daily starting tonight. Resume OAC (was previously on this due to LUE DVT) - 11/24: RVR continues. Continue Metoprolol 100. Increase Dig to max dose with her GFR which is 125 q6h. Add 1L fluid [id number]. ELIEZER on CKD - baseline Cr 1.5, up to 2.8 - due to hypotension - 11/21: improved slightly to 2.6 after vol resuscitation. Cont to monitor and dose adjust meds. - 11/22: stable at 2.6 - 11/23: improving to 2.4 - 11/24: improving to 2.1 Transaminitis - Shock Liver - likely hepatic congestion from CHF - improving with vol resuscitation - 11/22: worsening with ALT up to 2934. Abdominal ultrasound cannot rule out cholecystitis. CT abdomen-atrophic pancreas, cannot rule out pancreatitis or other mesenteric inflammatory process. Plans per Hospitalist. Consider GI consult. - 11/23: peaked at 7,421, last was 5.557. Abd US and CT unrevealing. Ammonia normal. INR 1.3. Most likely etiology is shock liver in setting of EF 25% in setting of septic shock from Flu A. Continue to dose adjust meds. - 11/24: Improving daily AMS - likely metabolic encephalopathy from septic shock - 11/22: Improving slightly - 11/23: Remains somnolent - 11/24: Somnolent for me. Discussed with Hospitalist who states her AMS is mostly behavioral and she responds better when she is inclined to do so. Morbid Obesity, BMI 40 - life limiting - consider GLP-1 outpatient DM-II - poorly controlled with A1C 11 - add Jardiance for CV benefit - consider GLP-1 given BMI 40 Hx of CVA with left hemiparesis - requires assistance with all ADLs at baseline Hx of LUE DVT - jugular and subclavian veins per Venous [place] - repeat Venous here is neg - 11/22: Heparin DC yesterday for LP. Resume IVAN - 11/23: Discussed with Hospitalist. Ok to resume OAC today. Htn - 11/22: meds on hold due to shock/hypotension - 11/24: Continue efforts at rate control. Increase Dig to 125 q6h.
[2024-11-24] MEDS: 0.9 % SODIUM CHLORIDE 1000ML 1,000 ML 100 ML IV (12:54)
--- NOTE | 2024-11-24 14:03 | HMH.PTEV ---
Physical Therapy Evaluation Rehab PT IP Evaluation Start: 11/24/24 10:50 Freq: ONCE Status: Active Protocol: Document 11/24/24 13:59 [facility] (Rec: 11/24/24 14:03 [facility] [id number]) Subjective/History History History 64-year-old female with a medical history significant for HFpEF, type 2 diabetes, CVA with left-sided weakness, asthma, hypertension who presents with shortness of breath. She states it is more prominent when she is try to fall asleep. Denies fever/ chills, coughing, chest pain, abdominal pain. Workup in the ED significant for BNP 26,700 , with CXR showing pulmonary edema. She is alert and oriented to person and place at this time. She reports she lives with her daughter who provides all of her care for her ADLs at baseline. She uses a w/c for primary mobility and requires assistance with all transfers at baseline. Subjective Subjective Pt reports feeling weak this date, agrees to mobility assessment. Rehab PT IP Eval Objective Appearance Patient Behavior Appropriate Patient Orientation Person,Place Difficulty following instructions none Speech Pattern Clear Ambulation Patient Able to Ambulate No Balance Ability to Arise Unable Sitting Balance Leans or slides in chair Dynamic Sitting Balance Ability Poor Transfers Bed Transfer Ability Moderate x 2 (50% assist) Sit to Stand Bed Transfer Ability Maximum x 2 (75% assist) Rehab PT IP prob,goals,plan Problems Date of Evaluation: 11/24/24 PT IP Problems Bed Mobility,Transfers Rehab Potential Rehab Potential Fair Plan PT Intervention Plan Bed Mobility,Transfers, Therapeutic Exercise PT Plan Frequency Daily Duration LOS Discharge Goals Bed Transfer Ability Moderate x 1 (50% assist) Sit to Stand Chair Transfer Ability Maximum x 1 (75% assist) Discharge Plan PT Discharge Plan Pt is currently most appropriate for rehab placement once medically stable for d/c., however if pt is able to meet all rehab goals prior to d/c and family is able to provide 24 hr assistance, she may be able to return home. Skilled therapy is indicated to improve pt general strength and transfer abilities in order to aid pt return to baseline function. Eval Complexity Eval Charge Codes 92859 - High Complexity PHYSICIAN CERTIFICATION: I certify the specified therapy services for Faiza Waters are required, authorized, and reviewed every 30 days.
--- NOTE | 2024-11-24 14:16 | HMH.OTEV ---
OT Inpatient Evaluation Rehab OT IP Evaluation Start: 11/24/24 10:50 Freq: ONCE Status: Active Protocol: Document 11/24/24 14:06 [facility] (Rec: 11/24/24 14:16 [facility] [id number]) Rehab OT IP Assessment Subjective History Pt oriented x 3 on arrival. Pt agreeable to engage in therapy evaluation. Pt admitted on 11/16/24 due to CHF exacerbation. History and physical: Arthritis Renal disease HTN (hypertension), benign HLD (hyperlipidemia) GERD (gastroesophageal reflux disease) COPD (chronic obstructive pulmonary disease) Asthma Anxiety Type 2 diabetes mellitus TIA (transient ischemic attack ) Faiza Waters is a 64-year-old female with a medical history significant for HFpEF, type 2 diabetes, CVA with left-sided weakness, asthma, hypertension who presents with shortness of breath. She states it is more prominent when she is try to fall asleep. Denies fever /chills, coughing, chest pain, abdominal pain. Workup in the ED significant for BNP 26, 700, with CXR showing pulmonary edema. Case discussed with ED provider and decision was made to admit patient for HFpEF exacerbation . Subjective Pt reports prior to being in the hospital, she lived with her daughter. Pt claims she is normally dependent upon daughter for completion of all IADLs. She also requires assistance with ADLs (dressing and bathing). Pt normally uses wheelchair at all times for functional transfers. Pt can completed stand pivots to and from wheelchair with assistance from her daughter. Pt has left side weakness due to past CVA. Objective Patient Orientation Person,Place,Birthday Left Upper Extremity Gross ROM Sev Limitation >75% Shoulder ROM Limitations Muscle Weakness,Muscle Tone Elbow ROM Limitations Muscle Weakness,Muscle Tone Wrist Limitations of Range of Motion Muscle Weakness,Muscle Tone Bed Mobility bed mobility-scooting,bed mobility - supine/sit Assist Level Maximum x 2 (75% assist) Lower Body Dressing Ability Unable/dependent Performing Toilet Hygiene Ability Unable/dependent Rehab OT IP prob,goals,plan Problems Date of Evaluation: 11/24/24 OT IP Problems Bed Mobility,Transfers,Balance ,Self care,Safety Rehab Potential Rehab Potential Good Equipment Needs Assistive Devices Rolling / Wheeled Walker Plan OT intervention Plan Bed Mobility,Transfers,Balance ,Self care,Safety,Therapeutic Exercise OT Plan Frequency Daily Duration LOS Discharge Goals Bed Mobility Ability Assistance x1 Sit to Stand Chair Transfer Ability Moderate x 1 (50% assist) Chair Transfer Ability Maximum x 1 (75% assist) Chair Transfer Technique Stand Pivot Feeding Ability Assist with Tray Set Up Lower Body Dressing Ability Maximum Assistance Upper Body Dressing Ability Minimal Assistance Bathing Ability Maximum Assistance Performing Toilet Hygiene Ability Maximum Assistance Overall Commode/Toilet Transfer Ability Maximum Assistance Commode/Toilet Transfer Technique Sit to/from Ambulatory Discharge Plan OT Discharge Plan Pt will continue to be seen for OT services while at [facility]. Pt would benefit most from short term rehab at [facility] for continued skilled therapy services. If patient reluctant, pt could return home with daughter and 27/04 care. Therapist would recommend OT evaluation if she returns home for continued skilled therapy services. Eval Complexity Eval Charge Codes 93201 - Moderate Complexity PHYSICIAN CERTIFICATION: I certify the specified therapy services for Faiza Waters are required, authorized, and reviewed every 30 days.
[2024-11-24 16:52] LABS: POC Glucose,Bedside 155 (70-110)
--- NOTE | 2024-11-24 17:19 | P.PN_ITS ---
Subjective *Date: 11/24/24 *Time: 19:51 Interval history: Patient denies any abdominal pain today, has had no full bowel movements in the past 24 hours. Stable on room air. No nausea or vomiting. Afebrile. Working with therapy today Medical Exam Vital signs and Labs for Last 24 Hours: Vital Signs Temp Pulse Pulse Resp BP Pulse Ox O2 Del Method 11/24/24 17:00 Room Air 11/24/24 16:00 96 H 29 H 124/90 97 Room Air 11/24/24 15:00 Room Air 11/24/24 14:00 132 H 20 146/91 H 94 L Room Air 11/24/24 13:00 Room Air 11/24/24 12:00 97.5 F L 11/24/24 12:00 125 H 22 132/80 96 Room Air 11/24/24 12:00 120 H 11/24/24 11:00 Room Air 11/24/24 10:00 134 H 24 133/102 H 100 Room Air 11/24/24 09:00 Room Air 11/24/24 08:59 133 H 11/24/24 08:00 130 H 11/24/24 08:00 142 H Room Air 11/24/24 08:00 97.4 F L 11/24/24 06:59 Room Air 11/24/24 06:30 113 H 11/24/24 06:30 124 H 11/24/24 06:00 132 H 20 123/79 97 Room Air 11/24/24 05:00 Room Air 11/24/24 04:00 97.8 F 11/24/24 04:00 130 H 18 123/77 95 Room Air 11/24/24 04:00 130 H 11/24/24 03:00 Room Air 11/24/24 02:00 131 H 18 157/91 H 98 Room Air 11/24/24 02:00 131 H 96 Room Air 11/24/24 01:00 Room Air 11/24/24 00:00 145 H 18 130/83 97 Room Air 11/24/24 00:00 120 H 11/24/24 00:00 97.6 F 11/23/24 23:37 122 H 11/23/24 23:37 126 H 11/23/24 23:00 Room Air 11/23/24 22:00 125 H 19 137/77 93 L Room Air 11/23/24 21:55 135 H 11/23/24 21:00 Room Air 11/23/24 20:00 144 H 20 136/90 95 Room Air 11/23/24 20:00 144 H Room Air 11/23/24 20:00 130 H 11/23/24 19:56 97.7 F 11/23/24 18:39 Room Air 11/23/24 18:27 127 H 11/23/24 18:27 123 H 11/23/24 18:00 139 H 18 133/96 H 96 Room Air Intake and Output 11/24/24 11/24/24 11/24/24 07:59 15:59 23:59 Intake Total 390 / 1590 720 / 1590 480 / 1590 Output Total 600 / 850 250 / 850 Balance -210 / 740 470 / 740 480 / 740 Intake: Intake, Oral Amount 240 / 1400 680 / 1400 480 / 1400 Intake, Total IV Amount 150 / 190 40 / 190 Ampicillin Sodium 2 gm In 0.9 % 100 / 100 Sodium Chloride 100 ml @ 200 mls/hr IV Q8H DEJA Rx#:[id number] Cefepime HCl 1 gm In 0.9 % 50 / 90 40 / 90 Sodium Chloride 50 ml @ 100 mls /hr IV Q12H DEJA Rx#:[id number] Output: Output, Urine Amount 600 / 850 250 / 850 Other: Number of Unmeasured Voids 0 1 Number of Bowel Movements 1 2 Weight 111.584 kg 111.584 kg Patient Weight 11/24/24 23:59 Weight 111.584 kg Laboratory Results - last 24 hr 11/23/24 16:58: Sodium 137, Potassium 4.1, Chloride 108 H, Carbon Dioxide 22, Anion Gap 11.1, BUN 55 H, Creatinine 2.30 H, Estimated Creat Clear 21, Estimated GFR 21 L, Est GFR ( Amer) 26 L, Glucose 100, Calcium 7.6 L, Total Bilirubin 0.6, AST 3912 H* D, ALT 2229 H*, Alkaline Phosphatase 108, Total Protein 5.4 L, Albumin 2.5 L, Globulin 2.9, Albumin/Globulin Ratio 0.9 L 11/23/24 17:32: POC Glucose 103 11/23/24 18:00: Stool Occult Blood Negative 11/23/24 20:05: POC Glucose 111 H 11/24/24 05:27: POC Glucose 113 H 11/24/24 06:20: WBC 6.7 D, RBC 4.30, Hgb 9.5 L, Hct 32.1 L, MCV 74.7 L, MCH 22.1 L, MCHC 29.6 L, RDW 17.2, Plt Count 173, MPV 11.4 H, Neut % (Auto) 80.1 H, Lymph % (Auto) 14.2, [place] % (Auto) 4.3, Eos % (Auto) 0.7, Baso % (Auto) 0.3, Neut # (Auto) 5.3, Lymph # (Auto) 1.0, [place] # (Auto) 0.3, Eos # (Auto) 0.1, Baso # (Auto) 0.0, PT 12.1, INR 1.11 H, Sodium 136, Potassium 4.0, Chloride 108 H, Carbon Dioxide 19 L, Anion Gap 13.0, BUN 51 H, Creatinine 2.10 H, Estimated Creat Clear 23, Estimated GFR 24 L, Est GFR ( Amer) 29 L, Glucose 116 H, Calcium 7.7 L, Magnesium 2.1, Iron 47, TIBC 225 L, Iron Saturation 20.84219, Ferritin 3650 H D, Total Bilirubin 0.8, AST 2938 H*, ALT 1967 H*, Alkaline Phosphatase 152 H, Total Protein 6.0 L, Albumin 2.8 L D, Globulin 3.2, Albumin/Globulin Ratio 0.9 L 11/24/24 10:56: POC Glucose 145 H 11/24/24 16:43: POC Glucose 155 H I & O for Labs for Last 24 Hours: Intake & Output 11/21/24 11/22/24 11/23/24 11/24/24 23:59 23:59 23:59 23:59 Intake Total 640.875 / 970.875 700 / 850 775 / 1165 1590 / 1590 Output Total 1050 / 1050 600 / 600 2150 / 2550 850 / 850 Balance -409.125 / -79.125 100 / 250 -1375 / -1385 740 / 740 Weight 112 kg 111.4 kg 111.266 kg 111.584 kg Microbiology Reports for the Last 24 Hours: Microbiology 11/19/24 18:00 Blood Blood Culture - Preliminary NO GROWTH AFTER 4 DAYS 11/19/24 17:50 Blood Blood Culture - Preliminary NO GROWTH AFTER 4 DAYS Constitutional: Present no acute distress, morbidly obese, chronically ill appearing and cooperative Head: Present atraumatic and normocephalic ENT: Present normal exam Respiratory: Present rhonchi and normal respiratory effort; Absent wheezes or crackles Cardiac: Present Regular Rhythm and Tachycardia GI: Present soft, distention and normal bowel sounds; Absent tenderness Extremities: Present normal inspection and full ROM Skin: Present intact; Absent erythema Neuro: Present Grossly Intact, alert, awake and moves all extremities Comment:: oriented to self and place Assessment and Plan *Assessment and plan (1) Ischemic hepatitis: Status: Acute Category: Medical Code(s): K72.00 - Acute and subacute hepatic failure without coma (2) Acute exacerbation of chronic heart failure: Status: Acute Category: Medical Code(s): I50.9 - Heart failure, unspecified (3) Septic shock: Status: Acute Category: Medical Code(s): A41.9 - Sepsis, unspecified organism; R65.21 - Severe sepsis with septic shock (4) Influenza A with pneumonia: Status: Acute Category: Medical Code(s): J09.X1 - Influenza due to identified novel influenza A virus with pneumonia (5) Deep vein thrombosis (DVT) of left upper extremity: Status: Acute Category: Medical Code(s): I82.622 - Acute embolism and thrombosis of deep veins of left upper extremity (6) Acute HFrEF (heart failure with reduced ejection fraction): Status: Acute Category: Medical Code(s): I50.21 - Acute systolic (congestive) heart failure Plan Faiza Waters is a 64-year-old female with a medical history significant for HFpEF, type 2 diabetes, CVA with left-sided weakness, asthma, hypertension who presents with shortness of breath. She states it is more prominent when she is try to fall asleep. Denies fever/chills, coughing, chest pain, abdominal pain. Workup in the ED significant for BNP 26,700, with CXR showing pulmonary edema. Case discussed with ED provider and decision was made to admit patient HFpEF exacerbation and orthopnea. Patient condition stabilizing, starting to see a trend down in the liver enzymes. De-escalate to MedSurg level of care. Having bowel movements. Pulmonology, cardiology, GI assisting with care. Prognosis guarded. Problems addressed as follows: #Acute metabolic encephalopathy, improving #Influenza A #Septic shock #Ischemic hepatitis, shock liver #encephalopathy ? On 11/19/2024, patient exhibited lethargy, very somnolent. Further workup with CT head, CT chest, CBC, CMP, VBG did not reveal remarkable findings at that time. However, patient did have a fever of 100.5 later in the afternoon. Started vancomycin, cefepime. Later in the evening, patient's pressures dropped to MAPs mid 50s. Transferred to ICU, maxed on Levophed but had continued hypotension. Given HFrEF, started dobutamine which worsened hypotension. Discontinued. Started vasopressin with improvement in MAP greater than 65. Also started milrinone. Received hydrocortisone 100 mg at stress dose steroid. Small fluid boluses were also administered as patient likely got over diuresed and is now in ATN. - Liver enzymes continue to improve. Bilirubin 0.8, AST 2900, ALT 1900, alk phos 152. Having bowel movements. - Liver Doppler ruled out thrombosis/Budd-Chiari syndrome. Did show gallbladder wall thickening, acalculous cystitis not ruled out. However, patient has no abdominal pain whatsoever. ? White count normal at 6.7, hemoglobin stable at 9.5, Repeat CBC, CMP, magnesium ordered for the morning -Wean antibiotics today. Discontinue ampicillin and vancomycin. Continue cefepime for 24 more hours. Cultures remain negative. -Complete Tamiflu today with day 5 of therapy ? Completed NAC therapy today #ELIEZER, ATN ? Kidney function with no worsening today. BUN 51, creatinine 2.1. Sodium 136, potassium 4.0. -Holding diuretics #HFrEF # Atrial fibrillation ? ECHO in March 2022 revealed grade 2 diastolic dysfunction. ? ECHO 11/17/2024 LVEF 25%, G2DD. ? Was initially started on GDMT and diuresis, holding these at this time given sepsis, ATN, ischemic hepatitis. ? Continue metoprolol succinate increased to 100 mg this morning. -Discussed case with cardiology today, continue digoxin 125 mcg every 6 hours pending improvement rate control. If liver enzymes improve, will consider adding amiodarone Type 2 diabetes ? Hemoglobin A1c 11.3, well above goal. ? LDSSI, ACHS glucose checks. - Morning glucose 116 ? Will hold Lantus 35 units nightly due to low normal blood sugars without it. Discontinued metformin, Farxiga at this time given above . #History of CVA with left-sided weakness ? continue Aspirin, holding statin due to ischemic hepatitis. Hold Plavix for now. Holding statin due to shock liver. Unclear why patient is on triple therapy. ? Daughter is primary commercial tire service technician at home, helps patient get in wheelchair to get around. -Therapy evaluated patient today. PT and OT recommend skilled placement. Case management assisting with care/referral # History of left IJ DVT ? Resume Eliquis. Full code SCDs Remove Edouard catheter today
--- NOTE | 2024-11-24 17:36 | PC.NURSE ---
patient is alert and oriented X3. pt has refused being turned, stating that she is comfortable and doesnt want to be bothered. HR has remained in the 120s-140s throughout the shift, hospitalist and cardiology aware. 100 metoprolol and numerous does of digoxin given with no change to hr. fluids administered per mar. bp cuff and heart monitor reapplied numerous times throughout the shift due to pt pulling them off. pt educated on importance of leaving leads on. patient has multiple bowel movements this shift. sinclair removed per dr orders and purewick placed. pt removed purewick numerous times this shift. educated pt on importance of leaving it in place. patient tolerating room air with O2 sats remaining >90%. spoke with daughter about pt this shift. no complaints of pain. bed alarm is on and functioning. call button is in reach.
[2024-11-24] MEDS: PRAMIPEXOLE 0.125MG TABLET 0.125 MG PO (21:09)
--- NOTE | 2024-11-24 21:53 | PC.NURSE ---
yesterday patient was alert and oriented, now patient is confused, unable to answer questions, asking for help but not able to say what she needs help with, patient is pulling at leads and taking clothes off, patient was shouting move, move papaw SANIA was notified, new orders to check ammonia level
[2024-11-24 22:22] LABS: Ammonia 17 umol/L (9-30)
--- NOTE | 2024-11-24 22:36 | XR_ITS ---
PROCEDURE INFORMATION: Exam: XR Chest Exam date and time: 11/24/2024 10:36 PM Age: 64 years old Clinical indication: Wheezing TECHNIQUE: Imaging protocol: Radiologic exam of the chest. Views: 1 view. COMPARISON: CR XR CHEST PORTABLE 11/22/2024 9:23 AM FINDINGS: Lungs: Low lung volumes. Left basilar consolidation versus atelectasis. Pleural spaces: Unremarkable. No pleural effusion. No pneumothorax. Heart/Mediastinum: Stable cardiomegaly. Bones/joints: Unremarkable. IMPRESSION: Atelectasis versus consolidation in the retrocardiac left lower lobe. Correlate clinically.
[2024-11-25] VITALS (15 sets, daily range): BP systolic 134–162; BP diastolic 71–108; PULSE 68–142; RESP 18–21; TEMP 36.1–36.6; O2SAT 96–100; BMI 42.0
[2024-11-25 00:02] LABS: VBG Base Excess -10.2 mmol/L (-2.4-2.3); VBG HCO3 14.9 mmol/L (23-30); VBG Oxygen Saturation 98.8 % (50-70); VBG PCO2 25.6 mmol/L (35-51); VBG PH 7.38 mmol/L (7.31-7.41); VBG Total CO2 15.7 mmol/L (23-27)
[2024-11-25 00:04] LABS: Lactate Venous 2.6 mmol/L (0.4-2.0)
[2024-11-25] MEDS: FUROSEMIDE 20 MG/2 ML VIAL IV (00:14)
[2024-11-25] MEDS: DIGOXIN 0.125MG TABLET 125 MCG PO ×2 (00:14→06:48)
[2024-11-25 01:24] LABS: POC Glucose,Bedside 149 (70-110)
[2024-11-25 03:08] LABS: Reflex Lactic Add Lactic Reflex
[2024-11-25 04:20] LABS: Lactic Acid Follow Up (RFLX 1) 2.6 mmol/L (0.7-2.1)
[2024-11-25 05:12] LABS: Reflex Lactic (2 hrs) Add Lactic Reflex
--- NOTE | 2024-11-25 05:54 | PC.NURSE ---
pt has been awake most of the night, alert to self. does not always respond to questions when asked but cooperates and responds to commands. bed alarm on for pt safety no needs at this time.
[2024-11-25 06:00] LABS: POC Glucose,Bedside 165 (70-110)
[2024-11-25 06:04] LABS: Basophils % 0.3 % (0.1-2.0); Eosinophils % 0.2 % (0.1-12.0); Hematocrit 33.5 % (37.0-47.0); Hemoglobin 10.1 g/dL (12.2-16.2); Lymphocytes # 1.5 K/mm3 (0.7-4.5); Lymphocytes % 14.6 % (10-50); Mean Corpuscular HGB Conc 30.1 g/dL (31.8-35.4); Mean Corpuscular Hemoglobin 22.2 pg (27.0-31.2); Mean Corpuscular Volume 73.8 fl (81-99); Mean Platelet Volume 11.9 fl (7.4-10.4); Monocytes # 0.6 K/mm3 (0.1-1.0); Neutrophils # 7.7 K/mm3 (1.8-7.8); Neutrophils % 77.6 % (37.0-80.0); Platelet Count 194 K/mm3 (142-424); Red Blood Count 4.54 M/mm3 (4.20-5.40); Red Cell Distribution Width 17.2 % (11.5-17.5); White Blood Count 9.9 K/mm3 (4.8-10.8)
[2024-11-25 06:06] LABS: Albumin Level 3.1 g/dl (3.5-5.0); Chloride 109 mmol/L (98-107); Potassium 4.2 mmoL/L (3.5-5.1); Sodium 139 mmol/L (136-145)
[2024-11-25 06:08] LABS: Blood Urea Nitrogen 50 mg/dl (7-17); Creatinine Clearance Estimated 21 mL/min (50-200); Estimated Glomerular Filt Rate 21 ml/min (>60); GFR (African American) 26 ML/MIN (>60)
[2024-11-25 06:09] LABS: Alkaline Phosphatase 143 U/L (38-126); Anion Gap 19.2 mEq/L (5-15); Bilirubin,Total 1.1 mg/dl (0.2-1.3); Carbon Dioxide 15 mmol/L (22.0-30.0); Globulin 3.1 g/dL (1.3-3.2); Glucose 171 mg/dl (74-100); Total Protein,Serum 6.2 g/dl (6.3-8.2)
[2024-11-25 06:14] LABS: Lactic Acid Follow up (RFLX 2) 2.8 mmol/L (0.7-2.1)
[2024-11-25 06:21] LABS: Alanine Aminotransferase 1540 U/L (12-78); Aspartate Amino Transferase 1458 U/L (14-36)
[2024-11-25] MEDS: IPRATROPIUM/ALBUTEROL 3 ML NEB IH ×4 (06:26→23:26)
[2024-11-25 06:31] LABS: Magnesium 2.2 mg/dl (1.6-2.3)
--- NOTE | 2024-11-25 08:22 | SW/DCPLANNER ---
Addendum entered by [facility] 12/01/24 12:55: Daughter and other family members at bedside. Their plan is to return home ([address] in [facility]) w/ Hospice services. Patient has all needed DME at this address. The plan is to discharge patient home today w/ [facility] to admit tomorrow morning. Patient/family, MD and January w/ [facility] are agreeable w/ this plan. Addendum entered by [facility] 12/01/24 08:34: I spoke w/ Jennifer this AM regarding family discussion from last night. Jennifer stated they are leaning towards home w/ Hospice but family wants to come to bedside this AM to make decision together. Jennifer is agreeable for information to be faxed to [facility] while waiting for family discussion at bedside. I will continue to follow up w/ , [facility] and family. Addendum entered by [facility] 11/30/24 13:07: MD had a lengthy discussion w/ patient's daughter (Jennifer) and sister regarding goals of care. Per Jennifer she will need to speak w/ other daughter whom resides in [facility] today prior to pursing Hospice services. Jennifer has requested to go to other daughters home rather than speak via phone. Jennifer will follow up w/ me once she speaks w/ her sister this evening. also discussed code status w/ Jennifer as well. I will continue to follow up w/ Jennifer. I will update [facility] of possible referral tomorrow morning. I will also update Maritza piper/ [facility]. Addendum entered by [facility] 11/29/24 08:24: Per Maritza piper/ [facility] precert will be started this AM for this patient. I will continue to follow up. Addendum entered by [facility] 11/28/24 15:47: Speech Eval has been faxed to Maritza piper/ [facility]. Addendum entered by [facility] 11/28/24 13:21: Maritza piper/ [facility] completed bedside evaluation w/ patient and daughter today. Maritza stated that patient is appropriate for [facility] but will need completed Speech Eval prior to starting auth. Speech is aware of new order at this time. I will continue to follow up w/ patient, family, and [facility]. Discharge date is unknown at this time. Addendum entered by Shirley [facility] 11/28/24 10:36: Maritza piper/ [facility] will be at bedside today to evaluate this patient. I have asked Maritza to coordinate w/ daughter to be at bedside when she plans to arrive. Addendum entered by [facility] 11/28/24 08:38: I spoke w/ patient's daughter regarding plans once medically stable for discharge. PT/OT recommend SNF level of care at time of discharge. I did explain [facility] placement again w/ daughter and she voiced that patient would not be able to afford this option. Daughter and I also discussed [facility] and she is interested in this option and would like for patient information to be faxed. I will fax info to Maritza piper/ [facility] and continue to follow up. Discharge date is unknown at this time. Daughter plans to be at bedside today. Addendum entered by Shirley Galicia 11/25/24 09:48: I spoke w/ patient's daughter (Jennifer) regarding plans once medically stable for discharge. Jennifer stated that she resides at home w/ this patient and prefers that patient return back home at time of discharge. Due to residing in [place] [facility] I would be able to set up home health services for patient. I also explained to patient's daughter placement and how this would work under her [facility] benefit. I will continue to follow up w/ patient and her daughter. Discharge date is unknown at this time. Original Note: I attempted to speak w/ this patient regarding discharge plans once medically stable for discharge. PT/OT evaluated patient and recommended placement vs home 27/04 care if improved. Patient was not able to answer my questions this AM. Patient would make eye contact then look away. I will follow up w/ patient's family via phone today.
--- NOTE | 2024-11-25 10:07 | DIET.NUTRFU ---
RD saw patient this morning secondary to refusal of meals. She refused all meals on and lunch on Thursday. Upon visit today she would not make eye contact she looked away and did not answer any of my questions. She also refused medication today. Completely different mental status then when met upon admit in ICU. Offered to add glucerna in and she did not reply. LBM 11/25, urine output yesterday at 2150ml. Liver enzymes still elevated with some improvement. Renal labs still elevated 50/2.3. Will add supplements and review meal intake with provider
--- NOTE | 2024-11-25 11:41 | P.PN_ITS ---
Subjective Subjective Date: 11/25/24 Time: 10:00 Interval history: Pt remains in A-fib RVR 130s. BP stable 130s. Her mental status has declined - unable to answer any questions today. Exam Data for Last 24 hours Vital signs and Labs for Last 24 Hours: Temp Pulse Resp BP Pulse Ox O2 Del Method O2 Flow Rate 97.8 F 119 H 18 134/71 96 Room Air 2 11/25/24 04:00 11/25/24 09:45 11/25/24 09:45 11/25/24 09:45 11/25/24 09:45 11/25/24 09:45 11/22/24 06:48 Laboratory Results - last 24 hr 11/24/24 16:43: POC Glucose 155 H 11/24/24 21:22: POC Glucose 149 H 11/24/24 22:02: Ammonia 17 11/24/24 22:37: VBG pH 7.38, VBG pCO2 25.6 L, VBG pO2 157.0 H, VBG HCO3 14.9 L, VBG Total CO2 15.7 L, VBG O2 Saturation 98.8 H, VBG Base Excess -10.2 L, VBG Lactic Acid 2.6 H 11/25/24 03:29: Lactate 2.6 H 11/25/24 05:46: WBC 9.9 D, RBC 4.54, Hgb 10.1 L, Hct 33.5 L, MCV 73.8 L, MCH 22.2 L, MCHC 30.1 L, RDW 17.2, Plt Count 194, MPV 11.9 H, Neut % (Auto) 77.6, Lymph % (Auto) 14.6, Bartholomew % (Auto) 6.0, Eos % (Auto) 0.2, Baso % (Auto) 0.3, Neut # (Auto) 7.7, Lymph # (Auto) 1.5, Bartholomew # (Auto) 0.6, Eos # (Auto) 0.0, Baso # (Auto) 0.0, Sodium 139, Potassium 4.2, Chloride 109 H, Carbon Dioxide 15 L, Anion Gap 19.2 H, BUN 50 H, Creatinine 2.30 H, Estimated Creat Clear 21, Est imated GFR 21 L, Est GFR ( Amer) 26 L, Glucose 171 H D, Lactate 2.8 H, Calcium 8.0 L, Magnesium 2.2, Total Bilirubin 1.1, AST 1458 H* D, ALT 1540 H*, Alkaline Phosphatase 143 H, Total Protein 6.2 L, Albumin 3.1 L D, Globulin 3.1, Albumin/Globulin Ratio 1.0 L 11/25/24 05:52: POC Glucose 165 H I & O for Last 24 hours: Intake & Output 11/22/24 11/23/24 11/24/24 11/25/24 23:59 23:59 23:59 23:59 Intake Total 700 / 850 775 / 1165 2161 / 2161 Output Total 600 / 600 2150 / 2550 850 / 850 0 / 0 Balance 100 / 250 -1375 / -1385 1311 / 1311 0 / 0 Weight 245 lb 9.519 oz 245 lb 4.8 oz 246 lb 246 lb 9.6 oz Microbiology Reports for the Last 24 Hours: Microbiology 11/19/24 18:00 Blood Blood Culture - Final NO GROWTH AFTER 5 DAYS 11/19/24 17:50 Blood Blood Culture - Final NO GROWTH AFTER 5 DAYS Constitutional Constitutional: no acute distress and cooperative *Routine HEENT Exam Eye: Present PERRL *Routine Respiratory Exam Respiratory: Present CTA bilaterally; Absent accessory muscle use, wheezes or crackles *Routine Cardiovascular Exam Cardiovascular: Present RRR, Normal S1 and Normal S2; Absent murmur, gallop or rubs *Routine Abdominal Exam Abdominal: Present soft; Absent tenderness *Routine Extremities Exam Extremities: Present pulses intact; Absent cyanosis or edema *Routine Skin Exam Skin: Present intact; Absent erythema or wounds *Routine Neurological Exam Neurological: Present alert; Absent oriented X3 Comments: unable to answer any questions or participate in care today Routine Psychiatric Exam Psychiatric: Present cooperative Progress Note: A&P Assessment and plan (1) Ischemic hepatitis: Status: Acute (2) Acute exacerbation of chronic heart failure: Status: Acute (3) Septic shock: Status: Acute (4) Influenza A with pneumonia: Status: Acute (5) Deep vein thrombosis (DVT) of left upper extremity: Status: Acute (6) Acute HFrEF (heart failure with reduced ejection fraction): Status: Acute (7) Atrial fibrillation with rapid ventricular response: Status: Acute Assessment and Plan Assessment and Plan for All Diagnoses:: Septic shock/multi-organ failure due to Influenza A - Resolved - EF 25% 11/22: Stable 11/23: Stable - Severe hypotension 11/22: improving, off pressors 11/23: stable back on BB - ELIEZER - Cr up from 1.5 to 2.8 11/22: improving to 2.6 11/23: trending down to 2.4 - Transaminitis with AST/ALT >2k 11/22: worsening with ALT 2934 11/23: peaked at 7,421 now trending down - AMS 11/22: improving slightly 11/23: remains somnolent 11/25: significantl worse - Hospitalist evaluating Acute HFrEF, NICM - new dx with ProBNP 26k, pulm vacsular congestion, GOMEZ, orthopnea, EF 25% - ECHO shows new globally reduced EF. Was normal on ECHO 06/2024 in [place]. - LHC 07/[place] - Trivial CAD, preserved EDP and LV function - LHC <6 mo ago showed trivial CAD, no utility in repeating LHC here. Will obtain outpatient cardiac MRI to help evaluate etiology of CM. - 11/18: reduce Bumex to 1mg TID, Change Irbesartan to Entresto, Continue Aldactone, add Jardiance. Pt agreeable to LifeVest. - 11/21: GDMT on hold due to septic shock. Monitor volume status. Currently euvolemic - 11/22: GDMT still on hold due to recovering shock. ProBNP down from 26,700 to 18,200. No pulm effusion or edema on CXR. Appears euvolemic. LifeVest on hold until day of discharge. - 11/23: Euvolemic. GDMT still on hold - 11/24: Euvolemic. GDMT on hold due to hypotension and resolving ELIEZER. - 11/25: No change Paroxysmal Atrial Fibrillation - New diagnosis this admission - 11/22: Resumed BB but HR still 130-140s - pt asymptomatic - 11/23: Start Dig 250mcg now then 125 daily starting tonight. Resume OAC (was previously on this due to LUE DVT) - 11/24: RVR continues. Continue Metoprolol 100. Increase Dig to max dose with her GFR which is 125 q6h. Add 1L fluid [id number]. - 11/25: No change but this will be first full day of Digoxin. LFTs trending down, could consider Amio later. Will keep NPO Thursday after midnight for possible ALIYA/DCCV Thursday. ELIEZER on CKD - baseline Cr 1.5, up to 2.8 - due to hypotension - 11/21: improved slightly to 2.6 after vol resuscitation. Cont to monitor and dose adjust meds. - 11/22: stable at 2.6 - 11/23: improving to 2.4 - 11/24: improving to 2.1 - 11/25: 2.3 Transaminitis - Shock Liver - likely hepatic congestion from CHF - improving with vol resuscitation - 11/22: worsening with ALT up to 2934. Abdominal ultrasound cannot rule out cholecystitis. CT abdomen-atrophic pancreas, cannot rule out pancreatitis or other mesenteric inflammatory process. Plans per Hospitalist. Consider GI consult. - 11/23: peaked at 7,421, last was 5.557. Abd US and CT unrevealing. Ammonia normal. INR 1.3. Most likely etiology is shock liver in setting of EF 25% in setting of septic shock from Flu A. Continue to dose adjust meds. - 11/24: Improving daily - 11/25: AST down to 1458, ALT down to 1540 AMS - likely metabolic encephalopathy from septic shock - 11/22: Improving slightly - 11/23: Remains somnolent - 11/24: Somnolent for me. Discussed with Hospitalist who states her AMS is mostl y behavioral and she responds better when she is inclined to do so. - 11/25: Significantly worse. Hospitalist evaluating. Possibly Cefapime induced. Morbid Obesity, BMI 40 - life limiting - consider GLP-1 outpatient DM-II - poorly controlled with A1C 11 - add Jardiance for CV benefit - consider GLP-1 given BMI 40 Hx of CVA with left hemiparesis - requires assistance with all ADLs at baseline Hx of LUE DVT - jugular and subclavian veins per Venous 09/27 - repeat Venous here is neg - 11/22: Heparin DC yesterday for LP. Resume IVAN - 11/23: Discussed with Hospitalist. Ok to resume OAC today. Htn - 11/22: meds on hold due to shock/hypotension - 11/25 Summary: Continue Dig for now. Consider ALIYA/DCCV next week if no improvement over the weekend.
--- NOTE | 2024-11-25 14:49 | CT_ITS ---
FINAL REPORT TECHNIQUE: Thin section axial images were obtained from skull base to vertex without contrast. Coronal reconstruction images were obtained from the axial data. Exam was performed using dose reduction techniques such as automated exposure control, adjustment of the mA and kV according to patient size, and use of iterative reconstruction technique. CLINICAL HISTORY: Encephalopathy, prev. stroke, inc. Lt face droop COMPARISON: 11/19/2024 FINDINGS: No mass effect or midline shift. No intracranial hemorrhage. No hydrocephalus. There are bilateral periventricular hypodensities, unchanged from prior. There are chronic appearing bilateral basal ganglia infarcts. There is a new hypodensity in the right cerebellum, could represent late acute or early subacute ischemia. The basilar cisterns are preserved. The soft tissues are without acute abnormality. No acute osseous abnormality is identified. IMPRESSION: No intracranial hemorrhage. New hypodensity in the right cerebellum concerning for late acute or early subacute infarct. Recommend MRI. Additional chronic findings as detailed above. Reviewed, Interpreted and Dictated by Della Koenig MD Transcribed by Loretta Lancaster Authenticated and [facility]
--- NOTE | 2024-11-25 15:01 | HMH.ITSTN ---
Yuki RN to call when ready for CT
--- NOTE | 2024-11-25 16:27 | EXP.ACUTE.PN ---
Subjective *Date: 11/25/24 *Time: 16:27 Interval history: Patient less responsive today. Will make eye contact but not answering questions. When asked if she wants her daughter to come visit she said yes. Did not answer any other questions for me today. Not following directions. Appears more confused/encephalopathic. Afebrile. Stable on room air. Blood pressure stable. Remains tachycardic with heart rate 110-130. Seeing improvement in liver enzymes. Reevaluated later in the day when her daughter came to visit. Daughter states she is drastically different mentally and concern for increased left-sided facial droop. Residual deficits from previous strokes with left-sided deficits. We were discussing patient's condition and need for possible rehab. Patient then chimed in that she did not want to go to a correction. She appeared to be understanding our conversation even though we were not talking to her directly and had an appropriate response in the context of the conversation. Medical Exam Vital signs and Labs for Last 24 Hours: Vital Signs Temp Pulse Pulse Resp BP Pulse Ox O2 Del Method 11/25/24 16:05 100 H 11/25/24 12:14 87 11/25/24 12:14 88 11/25/24 12:00 97.8 F 104 H 19 157/99 H 96 Room Air 11/25/24 11:00 Room Air 11/25/24 09:45 119 H 18 134/71 96 Room Air 11/25/24 09:21 Room Air 11/25/24 09:21 97 Room Air 11/25/24 09:00 Room Air 11/25/24 08:00 130 H 11/25/24 07:00 Room Air 11/25/24 06:48 130 H 11/25/24 06:26 124 H 11/25/24 06:26 130 H 11/25/24 05:00 Room Air 11/25/24 04:00 140 H 11/25/24 04:00 97.8 F 135 H 18 148/108 H 97 Room Air 11/25/24 03:00 Room Air 11/25/24 01:00 Room Air 11/25/24 00:14 142 H 11/25/24 00:00 120 H 11/25/24 00:00 96.9 F L 128 H 18 162/103 H 97 Room Air 11/24/24 23:22 121 H 11/24/24 23:22 124 H 02/20/25 23:22 94 L Room Air 11/24/24 23:00 Room Air 11/24/24 21:00 Room Air 11/24/24 20:00 Room Air 11/24/24 20:00 130 H 11/24/24 20:00 98.5 F 129 H 16 154/93 H 97 Room Air 11/24/24 18:48 110 H 11/24/24 18:48 115 H 11/24/24 18:48 Room Air 11/24/24 18:09 146 H 11/24/24 17:00 Room Air Intake and Output 11/25/24 11/25/24 11/25/24 07:59 15:59 23:59 Output Total 0 / 0 Balance 0 / 0 Output: Output, Urine Amount 0 / 0 Other: Number of Unmeasured Voids 1 1 Number of Bowel Movements 1 1 Weight 111.856 kg Patient Weight 11/25/24 23:59 Weight 111.856 kg Laboratory Results - last 24 hr 11/24/24 16:43: POC Glucose 155 H 11/24/24 21:22: POC Glucose 149 H 11/24/24 22:02: Ammonia 17 11/24/24 22:37: VBG pH 7.38, VBG pCO2 25.6 L, VBG pO2 157.0 H, VBG HCO3 14.9 L, VBG Total CO2 15.7 L, VBG O2 Saturation 98.8 H, VBG Base Excess -10.2 L, VBG Lactic Acid 2.6 H 11/25/24 03:29: Lactate 2.6 H 11/25/24 05:46: WBC 9.9 D, RBC 4.54, Hgb 10.1 L, Hct 33.5 L, MCV 73.8 L, MCH 22.2 L, MCHC 30.1 L, RDW 17.2, Plt Count 194, MPV 11.9 H, Neut % (Auto) 77.6, Lymph % (Auto) 14.6, [place] % (Auto) 6.0, Eos % (Auto) 0.2, Baso % (Auto) 0.3, Neut # (Auto) 7.7, Lymph # (Auto) 1.5, [place] # (Auto) 0.6, Eos # (Auto) 0.0, Baso # (Auto) 0.0, Sodium 139, Potassium 4.2, Chloride 109 H, Carbon Dioxide 15 L, Anion Gap 19.2 H, BUN 50 H, Creatinine 2.30 H, Estimated Creat Clear 21, Estimated GFR 21 L, Est GFR ( Amer) 26 L, Glucose 171 H D, Lactate 2.8 H, Calcium 8.0 L, Magnesium 2.2, Total Bilirubin 1.1, AST 1458 H* D, ALT 1540 H*, Alkaline Phosphatase 143 H, Total Protein 6.2 L, Albumin 3.1 L D, Globulin 3.1, Albumin/Globulin Ratio 1.0 L 11/25/24 05:52: POC Glucose 165 H I & O for Labs for Last 24 Hours: Intake & Output 11/22/24 11/23/24 11/24/24 11/25/24 23:59 23:59 23:59 23:59 Intake Total 700 / 850 775 / 1165 2161 / 2161 Output Total 600 / 600 2150 / 2550 850 / 850 0 / 0 Balance 100 / 250 -1375 / -1385 1311 / 1311 0 / 0 Weight 111.4 kg 111.266 kg 111.584 kg 111.856 kg Microbiology Reports for the Last 24 Hours: Microbiology 11/19/24 18:00 Blood Blood Culture - Final NO GROWTH AFTER 5 DAYS 11/19/24 17:50 Blood Blood Culture - Final NO GROWTH AFTER 5 DAYS Constitutional: Present no acute distress, morbidly obese and chronically ill appearing Comment:: Not cooperating with questions or following directions Head: Present atraumatic and normocephalic ENT: Present normal exam Comment:: Slight left-sided facial droop at mouth Respiratory: Present rhonchi and normal respiratory effort; Absent wheezes or crackles Comment:: Tachycardic, irregularly irregular GI: Present soft and normal bowel sounds; Absent distention or tenderness Extremities: Present normal inspection and full ROM Skin: Present intact; Absent erythema Neuro: Present Grossly Intact, alert, awake and moves all extremities Comment:: Unable to assess orientation as she is not answering questions today Assessment and Plan *Assessment and plan (1) Ischemic hepatitis: Status: Acute Category: Medical Code(s): K72.00 - Acute and subacute hepatic failure without coma (2) Acute exacerbation of chronic heart failure: Status: Acute Category: Medical Code(s): I50.9 - Heart failure, unspecified (3) Septic shock: Status: Acute Category: Medical Code(s): A41.9 - Sepsis, unspecified organism; R65.21 - Severe sepsis with septic shock (4) Influenza A with pneumonia: Status: Acute Category: Medical Code(s): J09.X1 - Influenza due to identified novel influenza A virus with pneumonia (5) Deep vein thrombosis (DVT) of left upper extremity: Status: Acute Category: Medical Code(s): I82.622 - Acute embolism and thrombosis of deep veins of left upper extremity (6) Acute HFrEF (heart failure with reduced ejection fraction): Status: Acute Category: Medical Code(s): I50.21 - Acute systolic (congestive) heart failure (7) Encephalopathy: Status: Acute Category: Medical Code(s): G93.40 - Encephalopathy, unspecified Plan Faiza Waters is a 64-year-old female with a medical history significant for HFpEF, type 2 diabetes, CVA with left-sided weakness, asthma, hypertension who presents with shortness of breath. She states it is more prominent when she is try to fall asleep. Denies fever/chills, coughing, chest pain, abdominal pain. Workup in the ED significant for BNP 26,700, with CXR showing pulmonary edema. Case discussed with ED provider and decision was made to admit patient HFpEF exacerbation and orthopnea. Patient's liver enzymes improving. Stable on room air. Finished antibiotics and Tamiflu. Appears more confused today and not cooperating with exam or answering questions. Will obtain a CT of her head. Continues to require inpatient management. Having bowel movements. Pulmonology, cardiology, GI assisting with care. Prognosis guarded. Problems addressed as follows: #Acute metabolic encephalopathy, improving #Influenza A #Septic shock #Ischemic hepatitis, shock liver #encephalopathy ? On 11/19/2024, patient exhibited lethargy, very somnolent. Further workup with CT head, CT chest, CBC, CMP, VBG did not reveal remarkable findings at that time. However, patient did have a fever of 100.5 later in the afternoon. Started vancomycin, cefepime. Later in the evening, patient's pressures dropped to MAPs mid 50s. Transferred to ICU, maxed on Levophed but had continued hypotension. Given HFrEF, started dobutamine which worsened hypotension. Discontinued. Started vasopressin with improvement in MAP greater than 65. Also started milrinone. Received hydrocortisone 100 mg at stress dose steroid. Small fluid boluses were also administered as patient likely got over diuresed and is now in ATN. Has not needed pressors for at least 4 days. -Remains on room air with O2 sats greater than 90%. - Liver enzymes continue to improve. Bilirubin 1.1, AST 1400, ALT 1500, alk phos 143 - Liver Doppler ruled out thrombosis/Budd-Chiari syndrome. Did show gallbladder wall thickening, acalculous cystitis not ruled out. However, patient has no abdominal pain ? Repeat CBC, CMP, magnesium ordered for the morning -White count remains normal at 9.9, hemoglobin 10.1. -Completed Tamiflu, NAC, antibiotics discontinued today. Concerned that cefepime may be a component in her altered mental status. Cultures remain negative. #ELIEZER, ATN ? BUN 50, creatinine 2.3. Sodium 139. Potassium 4.2, magnesium 2.2. Stable findings -Holding diuretics due to poor p.o. intake. #HFrEF # Atrial fibrillation ? ECHO in March 2022 revealed grade 2 diastolic dysfunction. ? ECHO 11/17/2024 LVEF 25%, G2DD. ? Was initially started on GDMT and diuresis, holding these at this time given sepsis, ATN, ischemic hepatitis. ? Continue metoprolol succinate increased to 100 mg this morning, will add metoprolol succinate 50 mg nightly. Discussed case with cardiology today, continue digoxin 125 mcg every 6 hours pending improvement rate control. If liver enzymes improve, will consider adding amiodarone -If not taking oral medication, initiate metoprolol tartrate 10 mg every 6 hours as needed for heart rate above 100 -If no improvement in heart rate, will consider ALIYA and cardioversion on Thursday. Type 2 diabetes ? Hemoglobin A1c 11.3, well above goal. ? LDSSI, ACHS glucose checks. - Morning glucose 171 ? Will hold Lantus 35 units nightly due to low normal blood sugars without it. Discontinued metformin, Farxiga at this time given above . #History of CVA with left-sided weakness ? continue Aspirin, holding statin due to ischemic hepatitis. Hold Plavix for now. Unclear why patient is on triple therapy. ? Daughter is primary preassembler and inspector at home, helps patient get in wheelchair to get around. - Therapy evaluated patient today. PT and OT recommend skilled placement. Case management assisting with care/referral. # History of left IJ DVT: Eliquis. Full code SCDs
--- NOTE | 2024-11-25 17:50 | PC.NURSE ---
PATIENT HAS REMAINED IN BED THIS SHIFT. PATIENT TURNED Q2H TOLERATED. T/O TODAY, PT HAS BEEN UNABLE TO ANSWER MOST QUESTIONS. PATIENT WILL MAKE EYE CONTACT WITH STAFF BUT WILL NOT HOLD IT LONG. PATIENT IS ABLE TO FOLLOW FEW COMMANDS. BRIEF IN PLACE. PO MEDS HELD THIS SHIFT-MD OTTO AWARE AND OKAY WITH THIS. PATIENT WITH NO PO INTAKE THIS SHIFT, ATTEMPTED SIP OF WATER WHICH PATIENT COULDN'T TOLERATE. MD AWARE OF THIS ALSO. DAUGHTER CAME TO BEDSIDE FOR A BIT, AND PATIENT RESPONDED TO HER A TAD BIT MORE. PATIENT HAS HAD NO NEEDS OR C/O THIS SHIFT. VSS.
[2024-11-25 20:07] LABS: POC Glucose,Bedside 161 (70-110)
[2024-11-25] MEDS: METOPROLOL TARTRATE 5MG/5ML VIAL 10 MG IV (20:37)
[2024-11-25] MEDS: LACTULOSE 20GM/30ML UDC 20 GM PO (20:46)
[2024-11-25] MEDS: APIXABAN 5MG TABLET 5 MG PO (20:46)
[2024-11-25] MEDS: METOPROLOL SUCCINATE XL 50MG TABLET 50 MG PO (20:52)
[2024-11-25] MEDS: SODIUM BICARBONATE 650MG TABLET 1300 MG PO (22:34)
[2024-11-25] MEDS: ACETAMINOPHEN 325MG TAB 650 MG PO (22:34)
[2024-11-25] MEDS: PRAMIPEXOLE 0.125MG TABLET 0.125 MG PO (22:34)
[2024-11-26] VITALS (17 sets, daily range): BP systolic 125–157; BP diastolic 79–89; PULSE 64–146; RESP 16–20; TEMP 36.4–36.9; O2SAT 92–99; BMI 42.0
[2024-11-26] MEDS: DIGOXIN 0.125MG TABLET 125 MCG PO ×4 (00:27→18:53)
[2024-11-26] MEDS: IPRATROPIUM/ALBUTEROL 3 ML NEB IH ×4 (06:14→23:15)
--- NOTE | 2024-11-26 07:02 | PC.NURSE ---
at beggining of shift pt done very well. was able to identify name, place, and year. also able to hold a conversation although responses were delayed. rhonchi and wheezes heard t/o bilat lung norris. t/o shift, pt began moaning and said yes when asked if she was in pain, treated with tylenol and pt got a couple hrs of sleep. crackles now heard at bases of lungs adn pt not responding to questions or swallow po meds as well like she was at start of shift. ruby notified. cb within reach, bed alarm on for pt safety.
[2024-11-26 07:27] LABS: POC Glucose,Bedside 174 (70-110)
[2024-11-26 07:28] LABS: Basophils % 0.4 % (0.1-2.0); Eosinophils % 0.4 % (0.1-12.0); Hemoglobin 9.9 g/dL (12.2-16.2); Lymphocytes # 1.7 K/mm3 (0.7-4.5); Lymphocytes % 15.3 % (10-50); Mean Corpuscular Hemoglobin 22.3 pg (27.0-31.2); Mean Corpuscular Volume 74.3 fl (81-99); Mean Platelet Volume 11.5 fl (7.4-10.4); Monocytes # 0.6 K/mm3 (0.1-1.0); Monocytes % 5.2 % (1.7-9.3); Neutrophils # 8.5 K/mm3 (1.8-7.8); Neutrophils % 77.1 % (37.0-80.0); Platelet Count 195 K/mm3 (142-424); Red Blood Count 4.44 M/mm3 (4.20-5.40); Red Cell Distribution Width 17.6 % (11.5-17.5); White Blood Count 11.1 K/mm3 (4.8-10.8)
[2024-11-26 07:50] LABS: Chloride 110 mmol/L (98-107)
[2024-11-26 07:51] LABS: Albumin Level 3.1 g/dl (3.5-5.0); Potassium 3.9 mmoL/L (3.5-5.1); Sodium 140 mmol/L (136-145)
[2024-11-26 07:54] LABS: Albumin/Globulin Ratio 0.9 (1.1-1.8); Alkaline Phosphatase 149 U/L (38-126); Anion Gap 22.9 mEq/L (5-15); Aspartate Amino Transferase 719 U/L (14-36); Bilirubin,Total 1.1 mg/dl (0.2-1.3); Blood Urea Nitrogen 57 mg/dl (7-17); Calcium 8.1 mg/dl (8.4-10.2); Carbon Dioxide 11 mmol/L (22.0-30.0); Creatinine Clearance Estimated 20 mL/min (50-200); Estimated Glomerular Filt Rate 19 ml/min (>60); GFR (African American) 23 ML/MIN (>60); Globulin 3.3 g/dL (1.3-3.2); Glucose 184 mg/dl (74-100); Total Protein,Serum 6.4 g/dl (6.3-8.2)
--- NOTE | 2024-11-26 08:16 | P.PN_ITS ---
Subjective *Date: 11/26/24 *Time: 18:16 Interval history: Patient sisters at bedside. 1 sister is coming her hair. Patient is more interactive today. Asked when she could go home. Answering questions. Slurred speech and slow to respond but making good eye contact and more interactive. Sitting in bedside chair, slumping to the left slightly. Denies chest pain, shortness of breath, nausea or vomit Medical Exam Vital signs and Labs for Last 24 Hours: Vital Signs Temp Pulse Pulse Resp BP Pulse Ox O2 Del Method 11/26/24 07:00 Room Air 11/26/24 07:00 146 H 11/26/24 06:16 90 11/26/24 06:16 99 H 11/26/24 06:16 92 L Room Air 11/26/24 05:00 Room Air 11/26/24 04:00 140 H 11/26/24 03:59 97.9 F 139 H 18 127/80 98 Room Air 11/26/24 03:00 Room Air 11/26/24 01:00 Room Air 11/26/24 00:27 138 H 11/26/24 00:00 130 H 11/26/24 00:00 97.9 F 136 H 20 127/89 99 Room Air 11/25/24 23:26 113 H 11/25/24 23:26 123 H 11/25/24 23:00 Room Air 11/25/24 21:00 Room Air 11/25/24 20:00 130 H 11/25/24 20:00 Room Air 11/25/24 20:00 97.6 F 135 H 21 145/100 H 100 Room Air 11/25/24 18:44 121 H 11/25/24 18:44 128 H 11/25/24 18:39 Room Air 11/25/24 17:00 Room Air 11/25/24 16:05 100 H 11/25/24 16:00 97.8 F 68 19 139/77 96 Room Air 11/25/24 16:00 Room Air 11/25/24 15:00 Room Air 11/25/24 13:00 Room Air 11/25/24 12:14 87 11/25/24 12:14 88 11/25/24 12:00 120 H 11/25/24 12:00 97.8 F 104 H 19 157/99 H 96 Room Air 11/25/24 11:00 Room Air 11/25/24 09:45 119 H 18 134/71 96 Room Air 11/25/24 09:21 Room Air 11/25/24 09:21 97 Room Air 11/25/24 09:00 Room Air Intake and Output 11/25/24 11/26/24 11/26/24 23:59 07:59 15:59 Intake Total 50 / 50 Output Total 0 / 0 0 / 0 Balance 0 / 0 0 50 Intake: Intake, Oral Amount Output: Output, Urine Amount 0 / 0 0 / 0 Other: Number of Unmeasured Voids 1 1 Number of Bowel Movements 1 Weight 111.629 kg Patient Weight 11/26/24 23:59 Weight 111.629 kg Laboratory Results - last 24 hr 11/25/24 20:00: POC Glucose 161 H 11/26/24 06:59: POC Glucose 174 H 11/26/24 07:00: WBC 11.1 H, RBC 4.44, Hgb 9.9 L, Hct 33.0 L, MCV 74.3 L, MCH 22.3 L, MCHC 30.0 L, RDW 17.6 H, Plt Count 195, MPV 11.5 H, Neut % (Auto) 77.1, Lymph % (Auto) 15.3, [place] % (Auto) 5.2, Eos % (Auto) 0.4, Baso % (Auto) 0.4, Neut # (Auto) 8.5 H, Lymph # (Auto) 1.7, [place] # (Auto) 0.6, Eos # (Auto) 0.0, Baso # (Auto) 0.0 I & O for Labs for Last 24 Hours: Intake & Output 11/23/24 11/24/24 11/25/24 11/26/24 23:59 23:59 23:59 23:59 Intake Total 775 / 1165 2161 / 2161 Output Total 2150 / 2550 850 / 850 0 / 0 0 / 0 Balance -1375 / -1385 1311 / 1311 0 / 0 Weight 111.266 kg 111.584 kg 111.856 kg 111.629 kg Constitutional: Present no acute distress, morbidly obese and chronically ill appearing Head: Present atraumatic and normocephalic ENT: Present normal exam Comment:: Slight left-sided facial droop at mouth Respiratory: Present rhonchi and normal respiratory effort; Absent wheezes or crackles Comment:: Speech slurred Comment:: Tachycardic, irregularly irregular GI: Present soft and normal bowel sounds; Absent distention or tenderness Extremities: Present normal inspection and full ROM Skin: Present intact; Absent erythema Neuro: Present Grossly Intact, alert, awake and moves all extremities Comment:: Oriented to self. Answering questions appropriate Assessment and Plan *Assessment and plan (1) Ischemic hepatitis: Status: Acute Category: Medical Code(s): K72.00 - Acute and subacute hepatic failure without coma (2) Cerebellar stroke: Status: Acute Category: Medical Code(s): I63.9 - Cerebral infarction, unspecified (3) Acute exacerbation of chronic heart failure: Status: Acute Category: Medical Code(s): I50.9 - Heart failure, unspecified (4) Septic shock: Status: Acute Category: Medical Code(s): A41.9 - Sepsis, unspecified organism; R65.21 - Severe sepsis with septic shock (5) Influenza A with pneumonia: Status: Acute Category: Medical Code(s): J09.X1 - Influenza due to identified novel influenza A virus with pneumonia (6) Deep vein thrombosis (DVT) of left upper extremity: Status: Acute Category: Medical Code(s): I82.622 - Acute embolism and thrombosis of deep veins of left upper extremity (7) Acute HFrEF (heart failure with reduced ejection fraction): Status: Acute Category: Medical Code(s): I50.21 - Acute systolic (congestive) heart failure (8) Encephalopathy: Status: Acute Category: Medical Code(s): G93.40 - Encephalopathy, unspecified Plan Faiza Waters is a 64-year-old female with a medical history significant for HFpEF, type 2 diabetes, CVA with left-sided weakness, asthma, hypertension who presents with shortness of breath. She states it is more prominent when she is try to fall asleep. Denies fever/chills, coughing, chest pain, abdominal pain. Workup in the ED significant for BNP 26,700, with CXR showing pulmonary edema. Case discussed with ED provider and decision was made to admit patient HFpEF exacerbation and orthopnea. Patient's liver enzymes improving. Stable on room air. Finished antibiotics and Tamiflu. Some improvement in mentation today. Family at bedside. Continues to require inpatient management. Found to have stroke on CT last night. Pulmonology, cardiology, GI assisting with care. Prognosis guarded. Problems addressed as follows: Acute on chronic strokes -CT obtained yesterday due to patient not being back to baseline. Found to have subacute right sided cerebellar stroke -History of previous strokes noted on CT. -Will resume Lipitor when the result follows. Continuing aspirin. Maintaining normotensive state. -Continue anticoagulation with apixaban twice daily #Acute metabolic encephalopathy, improving #Influenza A #Septic shock #Ischemic hepatitis, shock liver #encephalopathy ? On 11/19/2024, patient exhibited lethargy, very somnolent. Further workup with CT head, CT chest, CBC, CMP, VBG did not reveal remarkable findings at that time. However, patient did have a fever of 100.5 later in the afternoon. Started vancomycin, cefepime. Later in the evening, patient's pressures dropped to MAPs mid 50s. Transferred to ICU, maxed on Levophed but had continued hypotension. Given HFrEF, started dobutamine which worsened hypotension. Discontinued. Started vasopressin with improvement in MAP greater than 65. Also started milrinone. Received hydrocortisone 100 mg at stress dose steroid. Small fluid boluses were also administered as patient likely got over diuresed and is now in ATN. Has not needed pressors for at least 4 days. -Remains on room air with O2 sats greater than 90%. - Liver enzymes continue to improve. Bilirubin 1.1, AST 719, ALT 1178, alk phos 140 - Liver Doppler ruled out thrombosis/Budd-Chiari syndrome. Did show gallbladder wall thickening, acalculous cystitis not ruled out. However, patient has no abdominal pain ? Repeat CBC, CMP, magnesium ordered for the morning -White count remains normal at 11, hemoglobin 9.9. -Completed Tamiflu, NAC, and antibiotics. Seeing some improvement in mentation after stopping cefepime. Cultures remain negative #ELIEZER, ATN ? BUN 57, creatinine 2.5. Sodium 140, potassium 3.9, magnesium 2.2. Stable findings -Holding diuretics due to poor p.o. intake. #HFrEF # Atrial fibrillation ? ECHO in March 2022 revealed grade 2 diastolic dysfunction. ? ECHO 11/17/2024 LVEF 25%, G2DD. ? Was initially started on GDMT and diuresis, holding these at this time given sepsis, ATN, ischemic hepatitis. ? Continue metoprolol succinate increased to 100 mg BID, continue digoxin 125 mcg every 6 hours pending improvement rate control. If liver enzymes improve, will consider adding amiodarone -If not taking oral medication, initiate metoprolol tartrate 10 mg every 6 hours as needed for heart rate above 100 -If no improvement in heart rate, will consider ALIYA and cardioversion on Thursday. Type 2 diabetes ? Hemoglobin A1c 11.3, well above goal. ? LDSSI, ACHS glucose checks. - Morning glucose 171 ? Will hold Lantus 35 units nightly due to low normal blood sugars without it. Discontinued metformin, Farxiga at this time given above . #History of CVA with left-sided weakness ? continue Aspirin, holding statin due to ischemic hepatitis. Hold Plavix for now. Unclear why patient is on triple therapy. ? Daughter is primary revenue cycle analyst at home, helps patient get in wheelchair to get around. - Therapy evaluated patient today. PT and OT recommend skilled placement. Case management assisting with care/referral. # History of left IJ DVT: Ashleyquis. Full code SCDs
[2024-11-26 08:47] LABS: Alanine Aminotransferase 1178 U/L (12-78)
[2024-11-26 09:26] LABS: Magnesium 2.2 mg/dl (1.6-2.3)
[2024-11-26] MEDS: LACTATED RINGERS 1000ML 1,000 ML 150 ML IV (09:53)
[2024-11-26] MEDS: METOPROLOL TARTRATE 5MG/5ML VIAL 10 MG IV (10:33)
--- NOTE | 2024-11-26 10:43 | PC.NURSE ---
patient is alert x1. she is able to respond to her name but only shakes head yes or no. patient refused PO meds this AM. HR remains in the 130s-150s. treated per DEC. HR currently 120s-130s
[2024-11-26 11:39] LABS: POC Glucose,Bedside 173 (70-110)
[2024-11-26] MEDS: LACTULOSE 20GM/30ML UDC 20 GM PO ×2 (13:29→21:36)
--- NOTE | 2024-11-26 15:40 | PC.NURSE ---
patient was able to eat a few bites of lunch that family brought in for her. patient tolerated 1300 PO dig but refused sodium tabs. patient sat up in the chair this afternoon. assisted patient back in bed with lift. patient had 1 large BM. she has became more alert throughout shift and is able to have small conversations.remains on room air. bed alarm on, call light within reach.
[2024-11-26 18:12] LABS: POC Glucose,Bedside 217 (70-110)
[2024-11-26] MEDS: APIXABAN 5MG TABLET 5 MG PO (21:36)
[2024-11-26] MEDS: PRAMIPEXOLE 0.125MG TABLET 0.125 MG PO (21:36)
[2024-11-26] MEDS: SODIUM BICARBONATE 650MG TABLET 1300 MG PO (21:36)
[2024-11-26] MEDS: METOPROLOL SUCCINATE XL 50MG TABLET 100 MG PO (21:38)
[2024-11-26] MEDS: ACETAMINOPHEN 325MG TAB 650 MG PO (21:45)
[2024-11-26] MEDS: humaLOG 100 UNITS/ML 10ML VIAL (SSI) SUBCUT (22:07)
[2024-11-26 22:17] LABS: POC Glucose,Bedside 201 (70-110)
[2024-11-26] MEDS: MORPHINE 2MG/ML SYRINGE 2 MG IV (23:00)
[2024-11-27] VITALS (11 sets, daily range): BP systolic 129–156; BP diastolic 81–98; PULSE 100–120; RESP 20–22; TEMP 35.8–36.4; O2SAT 94–100; BMI 204.1
--- NOTE | 2024-11-27 05:52 | PC.NURSE ---
Addendum entered by Sahra Shukla RN 11/27/24 06:50: improved hr t/o night also. hr has been under 120bpm still in afib Original Note: no significant changes from previous shift. pt has slept all night. c/o pain earlier in shift, pt was tearingful and starting to yell out. notified ruby and treated per dec with relief.
--- NOTE | 2024-11-27 06:00 | XR_ITS ---
PROCEDURE INFORMATION: Exam: XR Chest Exam date and time: 11/27/2024 6:17 AM Age: 64 years old Clinical indication: Other: Cough, rhonchi TECHNIQUE: Imaging protocol: Radiologic exam of the chest. Views: 1 view. COMPARISON: CR XR CHEST PORTABLE 11/24/2024 10:36 PM FINDINGS: Lungs: Patchy opacities throughout both lungs likely representing atelectasis or infection. Pleural spaces: Unremarkable. No pleural effusion. No pneumothorax. Heart/Mediastinum: Moderate cardiomegaly. Bones/joints: Unremarkable. IMPRESSION: Patchy opacities throughout both lungs likely representing atelectasis or infection. Moderate cardiomegaly.
[2024-11-27] MEDS: IPRATROPIUM/ALBUTEROL 3 ML NEB IH ×3 (06:35→18:06)
[2024-11-27] MEDS: BUMETANIDE 1MG/4ML VIAL 2 MG IV (09:45)
--- NOTE | 2024-11-27 10:29 | EXP.ACUTE.PN ---
Subjective *Date: 11/27/24 *Time: 18:31 Interval history: Patient not wanting to get out of bed today. Less responsive to staff without family at bedside. Did get to bedside chair, requesting to get back in bed. Poor p.o. intake. Remained stable on room air. Afebrile. No nausea or vomiting. Having bowel movements. Medical Exam Vital signs and Labs for Last 24 Hours: Vital Signs Temp Pulse Pulse Resp BP Pulse Ox O2 Del Method 11/27/24 10:17 96.6 F L 110 H 22 138/98 H 96 Room Air 11/27/24 09:00 Room Air 11/27/24 08:00 Room Air 11/27/24 06:49 Room Air 11/27/24 06:36 105 H 11/27/24 06:36 119 H 11/27/24 06:36 97 Room Air 11/27/24 05:00 Nasal Cannula 11/27/24 04:00 110 H 11/27/24 03:00 Room Air 11/27/24 01:00 Room Air 11/27/24 00:00 120 H 11/26/24 23:55 117 H 11/26/24 23:54 118 H 11/26/24 23:00 Room Air 11/26/24 21:00 Room Air 11/26/24 20:00 Room Air 11/26/24 20:00 120 H 11/26/24 18:53 130 H 11/26/24 18:33 Room Air 11/26/24 18:15 119 H 11/26/24 18:00 127 H 11/26/24 17:00 Room Air 11/26/24 16:00 130 H 11/26/24 16:00 97.5 F L 86 18 155/81 H 98 Room Air 11/26/24 15:00 Room Air 11/26/24 13:29 130 H 11/26/24 13:00 Room Air 11/26/24 12:00 130 H 11/26/24 12:00 98.4 F 135 H 16 157/87 H 98 Room Air 11/26/24 11:13 133 H 11/26/24 11:13 129 H 11/26/24 11:13 94 L Room Air 11/26/24 11:00 Room Air O2 Flow Rate 11/27/24 10:17 11/27/24 09:00 11/27/24 08:00 11/27/24 06:49 11/27/24 06:36 11/27/24 06:36 11/27/24 06:36 11/27/24 05:00 3 11/27/24 04:00 11/27/24 03:00 11/27/24 01:00 11/27/24 00:00 11/26/24 23:55 11/26/24 23:54 11/26/24 23:00 11/26/24 21:00 11/26/24 20:00 11/26/24 20:00 11/26/24 18:53 11/26/24 18:33 11/26/24 18:15 11/26/24 18:00 11/26/24 17:00 11/26/24 16:00 11/26/24 16:00 11/26/24 15:00 11/26/24 13:29 11/26/24 13:00 11/26/24 12:00 11/26/24 12:00 11/26/24 11:13 11/26/24 11:13 11/26/24 11:13 11/26/24 11:00 Intake and Output 11/26/24 11/27/24 11/27/24 23:59 07:59 15:59 Intake Total 60 / 150 Balance 60 / 150 Intake: Intake, Oral Amount 60 / 150 Other: Number of Bowel Movements 1 Weight 542.3 kg Patient Weight 11/27/24 23:59 Weight 542.3 kg Laboratory Results - last 24 hr 11/26/24 11:30: POC Glucose 173 H 11/26/24 17:49: POC Glucose 217 H 11/26/24 22:00: POC Glucose 201 H I & O for Labs for Last 24 Hours: Intake & Output 11/24/24 11/25/24 11/26/24 11/27/24 23:59 23:59 23:59 23:59 Intake Total 2161 / 2161 150 / 150 Output Total 850 / 850 0 / 0 0 / 0 Balance 1311 / 1311 0 / 0 150 / 150 Weight 111.584 kg 111.856 kg 111.629 kg 542.3 kg Constitutional: Present no acute distress, morbidly obese and chronically ill appearing Head: Present atraumatic and normocephalic ENT: Present normal exam Comment:: Slight left-sided facial droop at mouth Respiratory: Present rhonchi and normal respiratory effort; Absent wheezes or crackles Comment:: Speech slurred Comment:: Tachycardic, irregularly irregular GI: Present soft and normal bowel sounds; Absent distention or tenderness Extremities: Present normal inspection and full ROM Skin: Present intact; Absent erythema Neuro: Present Grossly Intact, alert, awake and moves all extremities Comment:: Oriented to self. Answering questions appropriate Assessment and Plan *Assessment and plan (1) Ischemic hepatitis: Status: Acute Category: Medical Code(s): K72.00 - Acute and subacute hepatic failure without coma (2) Cerebellar stroke: Status: Acute Category: Medical Code(s): I63.9 - Cerebral infarction, unspecified (3) Acute exacerbation of chronic heart failure: Status: Acute Category: Medical Code(s): I50.9 - Heart failure, unspecified (4) Septic shock: Status: Acute Category: Medical Code(s): A41.9 - Sepsis, unspecified organism; R65.21 - Severe sepsis with septic shock (5) Influenza A with pneumonia: Status: Acute Category: Medical Code(s): J09.X1 - Influenza due to identified novel influenza A virus with pneumonia (6) Deep vein thrombosis (DVT) of left upper extremity: Status: Acute Category: Medical Code(s): I82.622 - Acute embolism and thrombosis of deep veins of left upper extremity (7) Acute HFrEF (heart failure with reduced ejection fraction): Status: Acute Category: Medical Code(s): I50.21 - Acute systolic (congestive) heart failure (8) Encephalopathy: Status: Acute Category: Medical Code(s): G93.40 - Encephalopathy, unspecified Plan Faiza Waters is a 64-year-old female with a medical history significant for HFpEF, type 2 diabetes, CVA with left-sided weakness, asthma, hypertension who presents with shortness of breath. She states it is more prominent when she is try to fall asleep. Denies fever/chills, coughing, chest pain, abdominal pain. Workup in the ED significant for BNP 26,700, with CXR showing pulmonary edema. Case discussed with ED provider and decision was made to admit patient HFpEF exacerbation and orthopnea. Patient's liver enzymes improving. Stable on room air. Finished antibiotics and Tamiflu. Some improvement in mentation today. Family at bedside. Continues to require inpatient management. Found to have stroke on 11/25 CT head. Pulmonology, cardiology, GI assisting with care. Prognosis guarded. Problems addressed as follows: Acute on chronic strokes -CT obtained 11/25 found to have subacute right sided cerebellar stroke -History of previous strokes noted on CT. -Will resume Lipitor when the result follows. Continuing aspirin. Maintaining normotensive state. -Continue anticoagulation with apixaban twice daily #Acute metabolic encephalopathy, improving #Influenza A #Septic shock #Ischemic hepatitis, shock liver #encephalopathy ? On 11/19/2024, patient exhibited lethargy, very somnolent. Further workup with CT head, CT chest, CBC, CMP, VBG did not reveal remarkable findings at that time. However, patient did have a fever of 100.5 later in the afternoon. Started vancomycin, cefepime. Later in the evening, patient's pressures dropped to MAPs mid 50s. Transferred to ICU, maxed on Levophed but had continued hypotension. Given HFrEF, started dobutamine which worsened hypotension. Discontinued. Started vasopressin with improvement in MAP greater than 65. Also started milrinone. Received hydrocortisone 100 mg at stress dose steroid. Small fluid boluses were also administered as patient likely got over diuresed and is now in ATN. Has not needed pressors for at least 4 days. -Remains on room air with O2 sats greater than 90%. - Liver enzymes continue to improve. Bilirubin 0.9, AST 348, ALT 879, alk phos 137. - Liver Doppler ruled out thrombosis/Budd-Chiari syndrome. Did show gallbladder wall thickening, acalculous cystitis not ruled out. However, patient has no abdominal pain ? Repeat CBC, CMP, magnesium ordered for the morning -White count remains normal at 11, hemoglobin 9.9. -Completed Tamiflu, NAC, and antibiotics. Seeing some improvement in mentation after stopping cefepime. Cultures remain negative #ELIEZER, ATN ? BUN 57, creatinine 2.5. Sodium 140, potassium 3.9, magnesium 2.2. Stable findings -Holding diuretics due to poor p.o. intake. #HFrEF # Atrial fibrillation ? ECHO in March 2022 revealed grade 2 diastolic dysfunction. ? ECHO 11/17/2024 LVEF 25%, G2DD. ?Heart rate showing some improvement. Fluctuating between 90 and 120. Continue metoprolol succinate, increase to 100 mg twice daily. Continue digoxin 62.5 mcg every 48 hours renally dosed. - If liver enzymes improve, will consider adding amiodarone -If not taking oral medication, initiate metoprolol tartrate 10 mg every 6 hours as needed for heart rate above 100 -If no improvement in heart rate, will consider ALIYA and cardioversion on Thursday. Type 2 diabetes ? Hemoglobin A1c 11.3, well above goal. Glucose 138 this morning ? LDSSI, ACHS glucose checks. ? Will hold Lantus 35 units nightly due to low normal blood sugars without it. Discontinued metformin, Farxiga at this time given above . #History of CVA with left-sided weakness ? continue Aspirin, holding statin due to ischemic hepatitis. Hold Plavix for now. Unclear why patient is on triple therapy. ? Daughter is primary window treatment installer at home, helps patient get in wheelchair to get around. - Therapy evaluated patient today. PT and OT recommend skilled placement. Case management assisting with care/referral. # History of left IJ DVT: Jurgen. Full code SCDs
[2024-11-27 10:56] LABS: POC Glucose,Bedside 123 (70-110)
[2024-11-27 11:33] LABS: Basophils % 0.4 % (0.1-2.0); Eosinophils # 0.2 K/mm3 (0.0-0.4); Eosinophils % 2.3 % (0.1-12.0); Hemoglobin 9.7 g/dL (12.2-16.2); Lymphocytes # 1.6 K/mm3 (0.7-4.5); Lymphocytes % 21.1 % (10-50); Mean Corpuscular HGB Conc 29.4 g/dL (31.8-35.4); Mean Corpuscular Hemoglobin 22.8 pg (27.0-31.2); Mean Corpuscular Volume 77.6 fl (81-99); Mean Platelet Volume 11.1 fl (7.4-10.4); Monocytes # 0.5 K/mm3 (0.1-1.0); Monocytes % 6.4 % (1.7-9.3); Neutrophils # 5.2 K/mm3 (1.8-7.8); Neutrophils % 68.6 % (37.0-80.0); Platelet Count 170 K/mm3 (142-424); Red Blood Count 4.25 M/mm3 (4.20-5.40); Red Cell Distribution Width 18.4 % (11.5-17.5); White Blood Count 7.6 K/mm3 (4.8-10.8)
[2024-11-27 11:39] LABS: Albumin Level 2.9 g/dl (3.5-5.0); Chloride 112 mmol/L (98-107); Potassium 3.5 mmoL/L (3.5-5.1); Sodium 143 mmol/L (136-145)
[2024-11-27 11:42] LABS: Albumin/Globulin Ratio 0.9 (1.1-1.8); Alkaline Phosphatase 133 U/L (38-126); Anion Gap 13.5 mEq/L (5-15); Aspartate Amino Transferase 348 U/L (14-36); Bilirubin,Total 0.9 mg/dl (0.2-1.3); Blood Urea Nitrogen 58 mg/dl (7-17); Calcium 8.2 mg/dl (8.4-10.2); Carbon Dioxide 21 mmol/L (22.0-30.0); Creatinine Clearance Estimated 20 mL/min (50-200); Estimated Glomerular Filt Rate 20 ml/min (>60); GFR (African American) 25 ML/MIN (>60); Globulin 3.1 g/dL (1.3-3.2); Glucose 138 mg/dl (74-100); Magnesium 2.3 mg/dl (1.6-2.3)
[2024-11-27 11:48] LABS: Alanine Aminotransferase 879 U/L (12-78)
--- NOTE | 2024-11-27 12:42 | PC.NURSE ---
patient refused 0900 meds. when talking to the patient she would open her eyes to her name and touch, but would not keep them open. when assisted to give her a drink of water patient turned head away. patient eventually took two small sips of water.
--- NOTE | 2024-11-27 13:32 | PC.NURSE ---
SRNA notified me a patients axillary temp of 96.6 this AM. patients room was on 69 degrees, the fan was circulating and blankets were off. adjusted room temp and turned off fan. patient felt warm to the touch. applied blankets. SRNA rechecked patients and it was 96.8 axillary. patient had the blankets off, applied new warm blankets to patient.
--- NOTE | 2024-11-27 16:05 | PC.NURSE ---
notified of rectal temp of 96.6. more warm blankets applied.
[2024-11-27 17:57] LABS: POC Glucose,Bedside 136 (70-110)
--- NOTE | 2024-11-27 18:08 | PC.NURSE ---
patient assisted from bed to chair with lift for dinner. patient refused to eat and spit out food. she only took a few sips of water.
[2024-11-27 20:07] LABS: POC Glucose,Bedside 124 (70-110)
[2024-11-27] MEDS: SODIUM BICARBONATE 650MG TABLET 1300 MG PO (20:23)
[2024-11-27] MEDS: APIXABAN 5MG TABLET 5 MG PO (20:24)
[2024-11-27] MEDS: PRAMIPEXOLE 0.125MG TABLET 0.125 MG PO (20:24)
[2024-11-27] MEDS: OXYCODONE 5MG W/APAP 325MG TABLET 1 EACH PO (21:58)
[2024-11-27] MEDS: METOPROLOL TARTRATE 5MG/5ML VIAL 10 MG IV (22:24)
[2024-11-28] VITALS (11 sets, daily range): BP systolic 131–158; BP diastolic 71–112; PULSE 99–140; RESP 16–20; TEMP 35.9–36.8; O2SAT 90–98; BMI 41.5
--- NOTE | 2024-11-28 02:30 | PC.NURSE ---
PT IS RESTING IN BED. PT HAS BEEN CONFUSED T/O THE SHIFT. WILL FOLLOW SIMPLE COMMANDS. LEFT SIDE FLACCID. PT TOLERATED PILLS CRUSHED IN APPLESAUCE. PT STATED HER BACK WAS HURTING. HOSPITALIST ORDERED A ONE TIME DOSE OF PERCOCET. PT REMAINS IN UNCONTROLLED AFIB ON TELEMETRY. MEDICATED WITH METOPROLOL IV PER MAR FOR HR MAINTAINING IN THE 120'S. LUNG SOUNDS DIMINISHED WITH SCATTERED RHONCHI. ABDOMEN SOFT/LARGE WITH HYPOACTIVE BOWEL SOUNDS. REDNESS AND SMALL OPEN AREA NOTED TO BUTTOCKS. TURNED AND REPOSITIONED FREQUENTLY HOWEVER PT OFTEN REMOVES WEDGE AND THROWS IT TO THE FLOOR. O2 SATURATION HAS MAINTAINED 90-95% ON ROOM AIR. WILL CONTINUE TO MONITOR.
[2024-11-28 05:17] LABS: POC Glucose,Bedside 136 (70-110)
[2024-11-28] MEDS: IPRATROPIUM/ALBUTEROL 3 ML NEB IH ×4 (06:05→23:32)
[2024-11-28 06:51] LABS: Basophils % 0.4 % (0.1-2.0); Eosinophils # 0.2 K/mm3 (0.0-0.4); Eosinophils % 2.4 % (0.1-12.0); Hematocrit 36.2 % (37.0-47.0); Hemoglobin 10.4 g/dL (12.2-16.2); Lymphocytes # 1.4 K/mm3 (0.7-4.5); Lymphocytes % 13.6 % (10-50); Mean Corpuscular HGB Conc 28.7 g/dL (31.8-35.4); Mean Corpuscular Hemoglobin 22.3 pg (27.0-31.2); Mean Corpuscular Volume 77.5 fl (81-99); Mean Platelet Volume 11.8 fl (7.4-10.4); Monocytes # 0.5 K/mm3 (0.1-1.0); Monocytes % 4.8 % (1.7-9.3); Neutrophils # 7.7 K/mm3 (1.8-7.8); Neutrophils % 77.8 % (37.0-80.0); Platelet Count 228 K/mm3 (142-424); Red Blood Count 4.67 M/mm3 (4.20-5.40); Red Cell Distribution Width 19.2 % (11.5-17.5); White Blood Count 9.9 K/mm3 (4.8-10.8)
[2024-11-28 06:57] LABS: Albumin Level 3.1 g/dl (3.5-5.0); Chloride 111 mmol/L (98-107); Potassium 3.6 mmoL/L (3.5-5.1); Sodium 143 mmol/L (136-145)
[2024-11-28 07:00] LABS: Alanine Aminotransferase 738 U/L (12-78); Alkaline Phosphatase 133 U/L (38-126); Anion Gap 14.6 mEq/L (5-15); Aspartate Amino Transferase 259 U/L (14-36); Bilirubin,Total 0.8 mg/dl (0.2-1.3); Blood Urea Nitrogen 55 mg/dl (7-17); Carbon Dioxide 21 mmol/L (22.0-30.0); Creatinine Clearance Estimated 20 mL/min (50-200); Estimated Glomerular Filt Rate 20 ml/min (>60); GFR (African American) 25 ML/MIN (>60); Globulin 3.2 g/dL (1.3-3.2); Total Protein,Serum 6.3 g/dl (6.3-8.2)
[2024-11-28 07:01] LABS: Calcium 8.2 mg/dl (8.4-10.2); Glucose 166 mg/dl (74-100)
[2024-11-28 07:07] LABS: C-Reactive Protein 16.7 mg/L (0-4)
--- NOTE | 2024-11-28 08:30 | PC.NURSE ---
Morning meds being held until decision is made regarding ALIYA/cardioversion.
--- NOTE | 2024-11-28 08:43 | PC.NURSE ---
TECH NOTE; NOTIFIED NURSE OF 0800 VITAL SIGNS Saravanan CHAMORRO, SRNA
[2024-11-28 09:09] LABS: Magnesium 2.2 mg/dl (1.6-2.3); Phosphorous 4.8 mg/dl (2.5-4.5)
[2024-11-28 09:27] LABS: Procalcitonin 0.428 ng/mL (0.0-2.0)
[2024-11-28] MEDS: METOPROLOL SUCCINATE XL 100MG TABLET 100 MG PO (09:53)
[2024-11-28] MEDS: LACTULOSE 20GM/30ML UDC 20 GM PO (09:53)
[2024-11-28] MEDS: ALLOPURINOL 100MG TABLET 100 MG PO (09:53)
[2024-11-28] MEDS: ASPIRIN EC 81MG TABLET 81 MG PO (09:53)
[2024-11-28] MEDS: POLYETHYLENE GLYCOL 3350 17 GM PACKET PO (09:54)
[2024-11-28] MEDS: SODIUM BICARBONATE 650MG TABLET 1300 MG PO (09:54)
--- NOTE | 2024-11-28 10:23 | EXP.CARD.PN ---
Subjective Subjective Date: 11/28/24 Time: 10:24 Principal diagnosis: AEugenio rouse with RVR, Septic shock with metabolic encephalopathy Interval history: 64 yo WF in bed sleeping. Nursing relates mentation without significant improvement (waxes and wanes throughout the day). This is my first time seeing her. She is refusing her oral meds half the time. Consideration for ALIYA/Cardioversion will be postponed for now Exam Data for Last 24 hours Vital signs and Labs for Last 24 Hours: Temp Pulse Resp BP Pulse Ox O2 Del Method O2 Flow Rate 96.7 F L 121 H 16 131/96 H 97 Room Air 3 11/28/24 08:00 11/28/24 08:00 11/28/24 08:00 11/28/24 08:00 11/28/24 08:00 11/28/24 09:00 11/27/24 23:37 Laboratory Results - last 24 hr 11/27/24 10:49: POC Glucose 123 H 11/27/24 11:17: WBC 7.6 D, RBC 4.25, Hgb 9.7 L, Hct 33.0 L, MCV 77.6 L, MCH 22.8 L, MCHC 29.4 L, RDW 18.4 H, Plt Count 170, MPV 11.1 H, Neut % (Auto) 68.6, Lymph % (Auto) 21.1, [place] % (Auto) 6.4, Eos % (Auto) 2.3, Baso % (Auto) 0.4, Neut # (Auto) 5.2, Lymph # (Auto) 1.6, [place] # (Auto) 0.5, Eos # (Auto) 0.2, Baso # (Auto) 0.0, Sodium 143, Potassium 3.5, Chloride 112 H, Carbon Dioxide 21 L, Anion Gap 13.5, BUN 58 H, Creatinine 2.40 H, Estimated Creat Clear 20, Estimated GFR 20 L, Est GFR ( Amer) 25 L, Glucose 138 H, Calcium 8.2 L, Magnesium 2.3, Total Bilirubin 0.9, AST 348 H* D, ALT 879 H*, Alkaline Phosphatase 133 H, Total Protein 6.0 L, Albumin 2.9 L, Globulin 3.1, Albumin/Globulin Ratio 0.9 L 11/27/24 17:47: POC Glucose 136 H 11/27/24 19:56: POC Glucose 124 H 11/28/24 05:08: POC Glucose 136 H 11/28/24 05:51: WBC 9.9 D, RBC 4.67, Hgb 10.4 L, Hct 36.2 L, MCV 77.5 L, MCH 22.3 L, MCHC 28.7 L, RDW 19.2 H, Plt Count 228 D, MPV 11.8 H, Neut % (Auto) 77.8, Lymph % (Auto) 13.6, [place] % (Auto) 4.8, Eos % (Auto) 2.4, Baso % (Auto) 0.4, Neut # (Auto) 7.7, Lymph # (Auto) 1.4, [place] # (Auto) 0.5, Eos # (Auto) 0.2, Baso # (Auto) 0.0, Sodium 143, Potassium 3.6, Chloride 111 H, Carbon Dioxide 21 L, Anion Gap 14.6, BUN 55 H, Creatinine 2.40 H, Estimated Creat Clear 20, Estimated GFR 20 L, Est GFR ( Amer) 25 L, Glucose 166 H D, Calcium 8.2 L, Phosphorus 4.8 H, Magnesium 2.2, Total Bilirubin 0.8, AST 259 H D, ALT 738 H*, Alkaline Phosphatase 133 H, C-Reactive Protein 16.7 H, Total Protein 6.3, Albumin 3.1 L, Globulin 3.2, Albumin/Globulin Ratio 1.0 L, Procalcitonin 0.428 I & O for Last 24 hours: Intake & Output 11/25/24 11/26/24 11/27/24 11/28/24 11:59 11:59 11:59 11:59 Intake Total 1251 / 1251 50 / 50 130 / 130 120 / 120 Output Total 250 / 250 0 / 0 0 / 0 Balance 1001 / 1001 50 / 50 130 / 130 120 / 120 Weight 246 lb 9.6 oz 246 lb 1.6 oz 1195 lb 9.069 oz 243 lb 5 oz Constitutional Comments: sleeping *Routine Cardiovascular Exam Cardiovascular: Present tachycardia and irregularly irregular Progress Note: A&P Assessment and plan (1) Ischemic hepatitis: Status: Acute (2) Cerebellar stroke: Status: Acute (3) Acute exacerbation of chronic heart failure: Status: Acute (4) Septic shock: Status: Acute (5) Influenza A with pneumonia: Status: Acute (6) Deep vein thrombosis (DVT) of left upper extremity: Status: Acute (7) Acute HFrEF (heart failure with reduced ejection fraction): Status: Acute (8) Encephalopathy: Status: Acute (9) Atrial fibrillation with rapid ventricular response: Status: Acute Assessment and Plan Assessment and Plan for All Diagnoses:: 1. Septic shock/multi-organ failure due to Influenza A - improving - EF 25% - Severe hypotension, resolved and back on beta blockers - ELIEZER - Cr down to 2.4 - Transaminitis, improving - AMS, likely some underlying alteration with history of CVA 2. Acute HFrEF, NICM - new dx with ProBNP 26k, pulm vascular congestion, GOMEZ, orthopnea, EF 25% - ECHO shows new globally reduced EF. Was normal on ECHO 06/2024 in [place]. - LHC 07[place] - Trivial CAD, preserved EDP and LV function - Will obtain outpatient cardiac MRI to help evaluate etiology of CM. -holding GDMT due to renal functions 3. Paroxysmal Atrial Fibrillation -New diagnosis this admission -on metoprolol succ 100 mg BID and digoxin (renal dosing) -switch from eliquis to xarelto (renal dose) due to medication refusal at times -postpone ALIYA/Cardioversion until pt is mentally capable of giving consent 4. ELIEZER on CKD - baseline Cr 1.5 -currently Cr 2.4 5. Transaminitis - Shock Liver - likely hepatic congestion from CHF - improving 6. AMS - likely metabolic encephalopathy from septic shock - possibly acute exacerbation of underlying issues related to prior CVA in combo with septic shock 7. Morbid Obesity, BMI 40 - life limiting - consider GLP-1 outpatient 8. DM-II - poorly controlled with A1C 11 - add Jardiance for CV benefit if mentation and renal function improve - consider GLP-1 given BMI 40 9. Hx of CVA with left hemiparesis - requires assistance with all ADLs at baseline 10. Hx of LUE DVT - jugular and subclavian veins per Venous 09/27 - repeat Venous here is neg - 11/22: Heparin DC yesterday for LP. Resume IVAN - 11/23: Discussed with Hospitalist. Ok to resume OAC today. 11. HTN -on metoprolol succinate 100 mg BID Switch eliquis to xarelto since pt taking meds only once daily postpone ALIYA/Cardioversion until mentation back to baseline and pt can give consent
--- NOTE | 2024-11-28 10:47 | DIET.NUTRFU ---
Patient continues to refuse meals and now holding food and spitting out, nursing requesting swallow study, order in
[2024-11-28 11:35] LABS: POC Glucose,Bedside 171 (70-110)
--- NOTE | 2024-11-28 15:36 | HMH.SLDYSPHA ---
Speech & Language Evaluation Speech/Language Dysphagia Evaluation Start: 11/28/24 14:46 Freq: ONCE Status: Active Protocol: Document 11/28/24 14:46 AYDEE (Rec: 11/28/24 15:36 ECLARK laptop) Co-signed By [facility] Lenora Dysphagia Assess/Goals/Plan Assessment Date of Evaluation: 11/28/24 Evaluation Type Initial Certification Assessment/Problems holding food, spitting food out per MD order Does Patient Qualify for Service Yes Qualify/Failure Comment Based on clinical observations made throughout clinical bedside swallow evaluation and family interview, further skilled speech therapy services are warranted at this time for diet tolerance and texture analysis. Recommendations PHYSICIAN CERTIFICATION: The specified therapy services are required, authorized, and reviewed every 30 days. Pt will be seen # times/week 3 for # weeks 4 Diet Recommendations Pureed Liquid Type Recommendations Normal/Thin SL Swallow Guidelines Assist w/all meals,Alt bite w/ sip thru meal,High aspiration risk,Standard Aspiration Prec. ,Chk mough for pocketing,Crush meds as allowed*,Eat at slow rate,Oral Care Education,Oral care pre/post meals,Reflux precautions Dysphagia Swallow Precautions/Strategies Sitting Upright (90 deg),No Straw,Small Bites and Sips, Alternate Liquids/Solids Plan Anticipate reaching STG in # weeks 2 Anticipate reaching LTG in # weeks 4 Pt/Guardian verbally ack understanding Yes of dx/prognosis/goals G -code Required No STG-Other Comment/Non-Specific 1. Pt will tolerate least restrictive diet for 80% of PO trials during hospital stay at [facility]. 2. Pt will participate in texture analysis during hospital stay at [facility]. Hammer Smith Goals Diet Puree with Liquids Thin Liquids Pt will be able to eat foods w/more Yes normal consistency Education Instructions provided CAMPAIGN MANAGEMENT SENIOR MANAGER discussed clinical observations made throughout bedside CSE, diet recommendations, and aspiration precautions/ compensatory strategies with pt, family, nursing, and CM, all of which expressed understanding. Pt/Caregiver able to recall information Able to recall/restate Reinforcement needed No Speech & Language HPI History Present Illness Description of Patient Problem CAMPAIGN MANAGEMENT SENIOR MANAGER pulled the following information from pt's H&P and recent chest x-ray: Faiza Waters is a 64-year-old female with a medical history significant for HFpEF, type 2 diabetes, CVA with left-sided weakness, asthma, hypertension who presents with shortness of breath. She states it is more prominent when she is try to fall asleep. Denies fever /chills, coughing, chest pain, abdominal pain. Workup in the ED significant for BNP 26, 700, with CXR showing pulmonary edema. Case discussed with ED provider and decision was made to admit patient for HFpEF exacerbation . chest x-ray: IMPRESSION: Patchy opacities throughout both lungs likely representing atelectasis or infection. Pt/Caregiver Concerns Family stated that prior to hospitalization, pt had trouble swallowing breads. Family stated pt does not choke on any foods, however she has been refusing to eat and will expectorate masticated bolus. CAMPAIGN MANAGEMENT SENIOR MANAGER asked pt if she had any pain while swallowing and pt shook head no . Rehab Services Assessed Speech therapy Is this evaluation r/t stroke? No Language Primary Language [place] Therapy History Seen by other SL therapists Yes Who/When/Recommendations Family stated pt had a MBSS done prior to stay at [facility], but did not share results of study with CAMPAIGN MANAGEMENT SENIOR MANAGER. General Information General Current Food Consistancy Regular,Thin Liquids Dentition Poor Dentition Oxygen Status Room Air Ability to Follow Directions Poor Communication Ability Severe Impairment Dysphagia:Food Presentation Evaluation Food Type Pureed,Mechanical Soft,Liquid, Pudding Normal/Thin Liquid Response Unable to suck straw Pudding Consistency Liquid Response Pocketing,Residual on tongue Dysphagia Evaluation Pureed Food Pocketing,Residual on tongue Behavior Response Dysphagia Evaluation Mechanical Soft Difficulty chewing,Pocketing, Food Behavior Response Residual on tongue Dysphagia Evaluation Summary A clinical bedside swallow evaluation was completed this afternoon with pt sitting upright in bed and with poor dentition. CAMPAIGN MANAGEMENT SENIOR MANAGER asked pt orientation questions, to which pt did not answer. CAMPAIGN MANAGEMENT SENIOR MANAGER and nursing repositioned pt for evaluation. CAMPAIGN MANAGEMENT SENIOR MANAGER presented pt with thin liquid (water) via cup and straw, pudding, and puree (applesauce). CAMPAIGN MANAGEMENT SENIOR MANAGER terminated study after trialing pureed foods d/t pt's mentation. Pt did not exhibit any overt s/sx of aspiration during study. Pt had difficulty forming adequate seal on thin liquid via straw trial. Pt was observed to have lingual residual on pudding and pureed trials. Pt was observed to be pocketing pudding and puree trials and required max verbal cues to swallow. Pt's voice quality was observed to be clear on all consistencies trialed. Family then entered room during evaluation and presented pt with chopped mechanical soft food (chopped deli ham), and CAMPAIGN MANAGEMENT SENIOR MANAGER observed. Pt exhibited prolonged and weak mastication and manipulation of bolus, and then expectorated bolus. CAMPAIGN MANAGEMENT SENIOR MANAGER recommends pureed foods/thin liquids via open cup w/ compensatory strategies including assist w/ meals, no straw, alt. bites/sips, small bites/sips, sitting upright during and 30-60 mins after meal, and slow rate. CAMPAIGN MANAGEMENT SENIOR MANAGER will fu for diet tolerance/texture analysis. Stroke Dysphagia Assessment PHYSICIAN CERTIFICATION: I certify the specified therapy services for Faiza Waters are required, authorized, and reviewed every 30 days.
[2024-11-28] MEDS: humaLOG 100 UNITS/ML 10ML VIAL (SSI) SUBCUT (17:00)
[2024-11-28] MEDS: RIVAROXABAN 15MG TABLET 15 MG PO (17:00)
[2024-11-28 17:02] LABS: POC Glucose,Bedside 231 (70-110)
--- NOTE | 2024-11-28 17:15 | PC.NURSE ---
Attempted to feed patient pureed diet. She initially drank water from cup without straw but after one bite she began to refuse oral intake. Multiple attempts to convince her to eat were made with patient continuing to refuse intake
--- NOTE | 2024-11-28 17:52 | P.PN_ITS ---
Subjective *Date: 11/28/24 *Time: 22:21 Interval history: Patient not wanting to get out of bed today. Less responsive to staff without family at bedside. Did get to bedside chair. Worked with therapy today. Remained stable on room air. Afebrile. Heart rate somewhat better controlled between 90 and 1 teens. Having bowel movements. Afebrile. Medical Exam Vital signs and Labs for Last 24 Hours: Vital Signs Temp Pulse Pulse Resp BP Pulse Ox O2 Del Method 11/28/24 17:00 Room Air 11/28/24 16:12 140 H 11/28/24 16:00 97.8 F 130 H 18 137/71 91 L Room Air 11/28/24 15:00 Room Air 11/28/24 14:46 Room Air 11/28/24 13:00 Room Air 11/28/24 12:59 131 H 11/28/24 12:59 130 H 11/28/24 12:00 130 H 11/28/24 12:00 120 H 20 133/89 94 L Room Air 11/28/24 09:00 Room Air 11/28/24 08:00 130 H 11/28/24 08:00 96.7 F L 121 H 16 131/96 H 97 Room Air 11/28/24 08:00 112 H Room Air 11/28/24 06:46 Room Air 11/28/24 06:05 107 H 11/28/24 06:05 121 H 11/28/24 04:50 Room Air 11/28/24 04:00 110 H 11/28/24 04:00 97.5 F L 99 H 20 158/105 H 98 Room Air 11/28/24 02:45 Room Air 11/28/24 01:00 Room Air 11/28/24 00:00 98.2 F 146/112 H 96 Room Air 11/28/24 00:00 110 H 11/27/24 23:37 Room Air 11/27/24 22:34 Room Air 11/27/24 20:00 Room Air 11/27/24 20:00 110 H 11/27/24 20:00 97.5 F L 114 H 20 153/81 H 94 L Room Air 11/27/24 19:51 Room Air 11/27/24 19:22 110 H 11/27/24 19:22 101 H 11/27/24 18:49 Room Air O2 Flow Rate 02/24/25 17:00 11/28/24 16:12 11/28/24 16:00 11/28/24 15:00 11/28/24 14:46 11/28/24 13:00 11/28/24 12:59 11/28/24 12:59 11/28/24 12:00 11/28/24 12:00 11/28/24 09:00 11/28/24 08:00 11/28/24 08:00 11/28/24 08:00 11/28/24 06:46 11/28/24 06:05 11/28/24 06:05 11/28/24 04:50 11/28/24 04:00 11/28/24 04:00 11/28/24 02:45 11/28/24 01:00 11/28/24 00:00 11/28/24 00:00 11/27/24 23:37 3 11/27/24 22:34 11/27/24 20:00 11/27/24 20:00 11/27/24 20:00 11/27/24 19:51 11/27/24 19:22 11/27/24 19:22 11/27/24 18:49 Intake and Output 11/28/24 11/28/24 11/28/24 07:59 15:59 23:59 Intake Total 0 / 340 340 / 340 Output Total 0 / 0 Balance 0 / 340 0 / 340 340 / 340 Intake: Intake, Oral Amount 0 / 340 340 / 340 Output: Output, Urine Amount 0 / 0 Other: Number of Unmeasured Voids 1 1 Number of Bowel Movements 1 Weight 110.365 kg Patient Weight 11/28/24 23:59 Weight 110.365 kg Laboratory Results - last 24 hr 11/27/24 17:47: POC Glucose 136 H 11/27/24 19:56: POC Glucose 124 H 11/28/24 05:08: POC Glucose 136 H 11/28/24 05:51: WBC 9.9 D, RBC 4.67, Hgb 10.4 L, Hct 36.2 L, MCV 77.5 L, MCH 22.3 L, MCHC 28.7 L, RDW 19.2 H, Plt Count 228 D, MPV 11.8 H, Neut % (Auto) 77.8, Lymph % (Auto) 13.6, [place] % (Auto) 4.8, Eos % (Auto) 2.4, Baso % (Auto) 0.4, Neut # (Auto) 7.7, Lymph # (Auto) 1.4, [place] # (Auto) 0.5, Eos # (Auto) 0.2, Baso # (Auto) 0.0, Sodium 143, Potassium 3.6, Chloride 111 H, Carbon Dioxide 21 L, Anion Gap 14.6, BUN 55 H, Creatinine 2.40 H, Estimated Creat Clear 20, Estimated GFR 20 L, Est GFR ( Amer) 25 L, Glucose 166 H D, Calcium 8.2 L, Phosphorus 4.8 H, Magnesium 2.2, Total Bilirubin 0.8, AST 259 H D, ALT 738 H*, Alkaline Phosphatase 133 H, C-Reactive Protein 16.7 H, Total Protein 6.3, Albumin 3.1 L, Globulin 3.2, Albumin/Globulin Ratio 1.0 L, Procalcitonin 0.428 11/28/24 11:25: POC Glucose 171 H 11/28/24 16:54: POC Glucose 231 H I & O for Labs for Last 24 Hours: Intake & Output 11/25/24 11/26/24 11/27/24 11/28/24 23:59 23:59 23:59 23:59 Intake Total 150 / 150 150 / 150 340 / 340 Output Total 0 / 0 0 / 0 0 / 0 0 / 0 Balance 0 / 0 150 / 150 150 / 150 340 / 340 Weight 111.856 kg 111.629 kg 542.3 kg 110.365 kg Constitutional: Present no acute distress, morbidly obese and chronically ill appearing Head: Present atraumatic and normocephalic ENT: Present normal exam Comment:: Slight left-sided facial droop at mouth Respiratory: Present rhonchi and normal respiratory effort; Absent wheezes or crackles Comment:: Speech slurred Comment:: Tachycardic, irregularly irregular GI: Present soft and normal bowel sounds; Absent distention or tenderness Extremities: Present normal inspection and full ROM Skin: Present intact; Absent erythema Neuro: Present Grossly Intact, alert, awake and moves all extremities Comment:: Oriented to self. Answering questions appropriate Assessment and Plan *Assessment and plan (1) Ischemic hepatitis: Status: Acute Category: Medical Code(s): K72.00 - Acute and subacute hepatic failure without coma (2) Cerebellar stroke: Status: Acute Category: Medical Code(s): I63.9 - Cerebral infarction, unspecified (3) Acute exacerbation of chronic heart failure: Status: Acute Category: Medical Code(s): I50.9 - Heart failure, unspecified (4) Septic shock: Status: Acute Category: Medical Code(s): A41.9 - Sepsis, unspecified organism; R65.21 - Severe sepsis with septic shock (5) Influenza A with pneumonia: Status: Acute Category: Medical Code(s): J09.X1 - Influenza due to identified novel influenza A virus with pneumonia (6) Deep vein thrombosis (DVT) of left upper extremity: Status: Acute Category: Medical Code(s): I82.622 - Acute embolism and thrombosis of deep veins of left upper extremity (7) Acute HFrEF (heart failure with reduced ejection fraction): Status: Acute Category: Medical Code(s): I50.21 - Acute systolic (congestive) heart failure (8) Encephalopathy: Status: Acute Category: Medical Code(s): G93.40 - Encephalopathy, unspecified Plan Faiza Waters is a 64-year-old female with a medical history significant for HFpEF, type 2 diabetes, CVA with left-sided weakness, asthma, hypertension who presents with shortness of breath. She states it is more prominent when she is try to fall asleep. Denies fever/chills, coughing, chest pain, abdominal pain. Workup in the ED significant for BNP 26,700, with CXR showing pulmonary edema. Case discussed with ED provider and decision was made to admit patient HFpEF exacerbation and orthopnea. Patient's liver enzymes improving. Stable on room air. Finished antibiotics and Tamiflu. Some improvement in mentation today. Family at bedside. Continues to require inpatient management. Found to have stroke on 11/25 CT head. Pulmonology, cardiology, GI assisting with care. Prognosis guarded. Problems addressed as follows: Acute on chronic strokes -CT obtained 11/25 found to have subacute right sided cerebellar stroke -History of previous strokes noted on CT. -Will resume Lipitor when the result follows. Continuing aspirin. Maintaining normotensive state. -Continue anticoagulation with apixaban twice daily #Acute metabolic encephalopathy, improving #Influenza A #Septic shock #Ischemic hepatitis, shock liver #encephalopathy ? On 11/19/2024, patient exhibited lethargy, very somnolent. Further workup with CT head, CT chest, CBC, CMP, VBG did not reveal remarkable findings at that time. However, patient did have a fever of 100.5 later in the afternoon. Started vancomycin, cefepime. Later in the evening, patient's pressures dropped to MAPs mid 50s. Transferred to ICU, maxed on Levophed but had continued hypotension. Given HFrEF, started dobutamine which worsened hypotension. Discontinued. Started vasopressin with improvement in MAP greater than 65. Also started milrinone. Received hydrocortisone 100 mg at stress dose steroid. Small fluid boluses were also administered as patient likely got over diuresed and is now in ATN. Has not needed pressors for at least 4 days. -Remains on room air with O2 sats greater than 90%. - Liver enzymes continue to improve. Bilirubin 0.8, AST 259, ALT 738, alk phos 123. CRP down to 16.7. Pro-Po significantly improved at 0.428, down from 1.94. White count remains normal at 9.9, hemoglobin 10.4.. - Liver Doppler ruled out thrombosis/Budd-Chiari syndrome. Did show gallbladder wall thickening, acalculous cystitis not ruled out. However, patient has no abdominal pain ? Repeat CBC, CMP, magnesium ordered for the morning -Completed Tamiflu, NAC, and antibiotics. Seeing some improvement in mentation after stopping cefepime. Cultures remain negative #ELIEZER, ATN ? BUN 55, creatinine 2.4, potassium 3.6, magnesium 2.2. Sodium 143. -Administered 1 dose of diuretic due to volume status and crackles with breathing. #HFrEF # Atrial fibrillation ? ECHO in March 2022 revealed grade 2 diastolic dysfunction. ? ECHO 11/17/2024 LVEF 25%, G2DD. ?Heart rate showing some improvement. Fluctuating between 90 and 120. Continue metoprolol succinate, increase to 100 mg twice daily. Continue digoxin 62.5 mcg every 48 hours renally dosed. - If liver enzymes improve, will consider adding amiodarone -If not taking oral medication, initiate metoprolol tartrate 10 mg every 6 hours as needed for heart rate above 100 -Heart rate showing some improvement. Will hold on ALIYA and cardioversion today. Patient not consistently taking medications therefore concern for cardioverting and not taking anticoagulation. Type 2 diabetes ? Hemoglobin A1c 11.3, well above goal. Glucose 166 this morning ? LDSSI, ACHS glucose checks. ? Will hold Lantus 35 units nightly due to low normal blood sugars without it. Discontinued metformin, Farxiga at this time given above . #History of CVA with left-sided weakness ? continue Aspirin, holding statin due to ischemic hepatitis. Hold Plavix for now. Unclear why patient is on triple therapy. ? Daughter is primary power shovel mechanic at home, helps patient get in wheelchair to get around. - Therapy evaluated patient today. PT and OT recommend skilled placement. Case management assisting with care/referral. -Being evaluated for inpatient rehab at [facility]. Anticipate discharge to rehab if accepted. # History of left IJ DVT: Eliquis. Full code SCDs
[2024-11-28 21:12] LABS: POC Glucose,Bedside 164 (70-110)
[2024-11-29] VITALS (9 sets, daily range): BP systolic 131–151; BP diastolic 87–108; PULSE 95–140; RESP 16–20; TEMP 36.1–36.4; O2SAT 92–96; BMI 41.5
--- NOTE | 2024-11-29 05:06 | PC.NURSE ---
Pt has made no attempts at speaking this shift, turns away from video game script writer when nurse talks to pt. Pt did begin to cry with BP attempts and was moving arm. Staff has replaced telemetry leads through the night as pt continues to pull them off. HR has been 120s-140s through the night. FSBS was 164 at 9 pm. Did not administer coverage as pt is not eating or drinking . Unable to give meds as she had no attempts at swallowing the one pill given with applesauce.
[2024-11-29] MEDS: IPRATROPIUM/ALBUTEROL 3 ML NEB IH ×4 (06:14→23:09)
[2024-11-29 06:23] LABS: POC Glucose,Bedside 130 (70-110)
[2024-11-29 06:52] LABS: Basophils % 0.2 % (0.1-2.0); Eosinophils % 0.1 % (0.1-12.0); Hematocrit 39.2 % (37.0-47.0); Hemoglobin 11.3 g/dL (12.2-16.2); Lymphocytes # 1.4 K/mm3 (0.7-4.5); Lymphocytes % 8.4 % (10-50); Mean Corpuscular HGB Conc 28.8 g/dL (31.8-35.4); Mean Corpuscular Hemoglobin 22.3 pg (27.0-31.2); Mean Corpuscular Volume 77.5 fl (81-99); Mean Platelet Volume 12.2 fl (7.4-10.4); Monocytes # 0.5 K/mm3 (0.1-1.0); Monocytes % 2.8 % (1.7-9.3); Neutrophils % 87.3 % (37.0-80.0); Platelet Count 389 K/mm3 (142-424); Red Blood Count 5.06 M/mm3 (4.20-5.40); Red Cell Distribution Width 20.5 % (11.5-17.5); White Blood Count 17.2 K/mm3 (4.8-10.8)
[2024-11-29 06:55] LABS: MANUAL DIFFERENTIAL MANUAL DIFFERENTIAL (MANUAL DIFF)
[2024-11-29 07:04] LABS: Albumin Level 3.5 g/dl (3.5-5.0); Chloride 112 mmol/L (98-107); Potassium 4.5 mmoL/L (3.5-5.1); Sodium 145 mmol/L (136-145)
[2024-11-29 07:06] LABS: Blood Urea Nitrogen 56 mg/dl (7-17); Creatinine Clearance Estimated 18 mL/min (50-200); Estimated Glomerular Filt Rate 17 ml/min (>60); GFR (African American) 21 ML/MIN (>60)
[2024-11-29 07:07] LABS: Alkaline Phosphatase 159 U/L (38-126); Anion Gap 22.5 mEq/L (5-15); Aspartate Amino Transferase 294 U/L (14-36); Bilirubin,Total 1.5 mg/dl (0.2-1.3); Calcium 8.6 mg/dl (8.4-10.2); Carbon Dioxide 15 mmol/L (22.0-30.0); Globulin 3.5 g/dL (1.3-3.2); Glucose 136 mg/dl (74-100)
[2024-11-29 07:13] LABS: Alanine Aminotransferase 718 U/L (12-78)
[2024-11-29 08:05] LABS: Magnesium 2.4 mg/dl (1.6-2.3)
--- NOTE | 2024-11-29 08:18 | PC.NURSE ---
Attempted to give patient oral metoprolol and digoxin. Patient unable to swallow pills and spit them back out
[2024-11-29 08:41] LABS: Lymphocytes % 10 % (10-50); Monocytes % 6 % (2-9); Neutrophils % 84 % (42-76); Total Cells Counted 100
[2024-11-29 08:42] LABS: Hypochromasia 2+; Platelet Estimate Normal
[2024-11-29] MEDS: PIPERACILLIN/TAZO 2.25 GM in 0.9 % SODIUM CHLORIDE 50 ML IV ×3 (08:59→20:26)
--- NOTE | 2024-11-29 09:58 | PC.NURSE ---
Attempted to administer patient's oral cardiac meds with pudding. Patient uncooperative and not willing to try
--- NOTE | 2024-11-29 10:03 | PC.NURSE ---
TECH NOTE; NURSE NOTIFIED OF VITAL SIGNS FOR [address] PABLO, SRNA
[2024-11-29] MEDS: SODIUM CHLORIDE 3% 15ML NEB 3 ML IH (10:48)
[2024-11-29 11:25] LABS: POC Glucose,Bedside 102 (70-110)
--- NOTE | 2024-11-29 12:30 | PC.NURSE ---
Attempted to feed patient lunch. She attempted one bite of sherbet and one drink of water. Refused other efforts
[2024-11-29 13:20] LABS: Basophils % 0.1 % (0.1-2.0); Hematocrit 43.9 % (37.0-47.0); Lymphocytes # 1.4 K/mm3 (0.7-4.5); Lymphocytes % 6.3 % (10-50); Mean Corpuscular HGB Conc 28.7 g/dL (31.8-35.4); Mean Corpuscular Hemoglobin 22.6 pg (27.0-31.2); Mean Corpuscular Volume 78.8 fl (81-99); Mean Platelet Volume 12.2 fl (7.4-10.4); Monocytes # 0.6 K/mm3 (0.1-1.0); Monocytes % 2.8 % (1.7-9.3); Neutrophils # 19.3 K/mm3 (1.8-7.8); Neutrophils % 89.2 % (37.0-80.0); Platelet Count 316 K/mm3 (142-424); Red Blood Count 5.57 M/mm3 (4.20-5.40); Red Cell Distribution Width 21.3 % (11.5-17.5); White Blood Count 21.7 K/mm3 (4.8-10.8)
[2024-11-29 13:30] LABS: Hemoglobin 12.6 g/dL (12.2-16.2)
--- NOTE | 2024-11-29 13:30 | PC.NURSE ---
Dr. Esparza at bedside
--- NOTE | 2024-11-29 13:50 | EXP.PHA.CONS ---
Pharmacy Consult Date: 11/29/24 Time: 13:50 Referring provider: DR MCKEON Reason for Consult:: VANCOMYCIN DOSING CONSULT Allergies Allergy/AdvReac Type Severity Reaction Status Date / Time lisinopril Allergy Severe Hives Verified 11/16/24 14:58 strawberry Allergy Severe Anaphylaxis Verified 11/16/24 14:58 codeine AdvReac Severe Vomiting Verified 11/16/24 14:58 Penicillins AdvReac Severe Vomiting Verified 11/16/24 14:58 Home Medications ?Medication ?Instructions ?Recorded ?Confirmed ?Type insulin lispro 100 unit/mL 0 unit SQ DIRECTED 04/01/22 11/16/24 History subcutaneous cartridge blood sugar diagnostic (OneTouch #100 ea 05/09/22 11/16/24 Rx Verio test strips) blood-glucose transmitter (Dexcom #1 ea 03/30/24 11/16/24 Rx G6 Transmitter device) atorvastatin 40 mg tablet (Lipitor) 40 mg PO DAILY #90 tabs 05/27/24 11/16/24 Rx albuterol sulfate 90 mcg/actuation 2 puff inhalation Q4HP PRN 11/16/24 11/16/24 History aerosol inhaler shortness of breath or wheezing allopurinol 100 mg tablet 100 mg PO DAILY 11/16/24 11/16/24 History apixaban 5 mg tablet (Eliquis) 5 mg PO BID 11/16/24 11/16/24 History aspirin 81 mg tablet,delayed 81 mg PO DAILY 11/16/24 11/16/24 History release budesonide-formoterol HFA 160 2 puff inhalation BID 11/16/24 11/16/24 History mcg-4.5 mcg/actuation aerosol inhaler (Symbicort) clopidogrel 75 mg tablet 75 mg PO DAILY 11/16/24 11/16/24 History diltiazem HCl 240 mg 240 mg PO DAILY 11/16/24 11/16/24 History capsule,extended release 24 hr famotidine 40 mg tablet 40 mg PO BID 11/16/24 11/16/24 History ferrous sulfate 325 mg (65 mg 325 mg PO BID 11/16/24 11/16/24 History iron) tablet (FeroSul) fluoxetine 20 mg capsule 20 mg PO DAILY 11/16/24 11/16/24 History gabapentin 100 mg capsule 100 mg PO TID 11/16/24 11/16/24 History hydralazine 50 mg tablet 50 mg PO TID 11/16/24 11/16/24 History isosorbide mononitrate 120 mg 120 mg PO DAILY 11/16/24 11/16/24 History tablet,extended release 24 hr loratadine 10 mg tablet (Allergy 10 mg PO DAILY 11/16/24 11/16/24 History Relief (loratadine)) losartan 100 mg tablet 100 mg PO DAILY 11/16/24 11/16/24 History metformin 500 mg tablet,extended 1,000 mg PO BID 11/16/24 11/16/24 History release 24 hr metoprolol succinate 100 mg 100 mg PO BID 11/16/24 11/16/24 History tablet,extended release 24 hr montelukast 10 mg tablet 10 mg PO PM 11/16/24 11/16/24 History pramipexole 0.125 mg tablet 0.125 mg PO DAILY 11/16/24 11/16/24 History ranolazine 1,000 mg 1,000 mg PO BID 11/16/24 11/16/24 History tablet,extended release,12 hr tiotropium bromide 18 mcg capsule 1 cap inhalation DAILY 11/16/24 11/16/24 History with inhalation device (Spiriva with HandiHaler) torsemide 10 mg tablet 20 mg PO DAILY 11/16/24 11/16/24 History New Prescriptions to Start Prescriptions: Height: 1.63 m Weight: 110.365 kg Laboratory Results:: Laboratory Results - last 24 hr 11/28/24 16:54: POC Glucose 231 H 11/28/24 20:57: POC Glucose 164 H 11/29/24 05:50: WBC 17.2 H D, RBC 5.06, Hgb 11.3 L, Hct 39.2, MCV 77.5 L, MCH 22.3 L, MCHC 28.8 L, RDW 20.5 H, Plt Count 389 D, MPV 12.2 H, Neut % (Auto) 87.3 H, Lymph % (Auto) 8.4 L, [place] % (Auto) 2.8, Eos % (Auto) 0.1, Baso % (Auto) 0.2, Neut # (Auto) 15.0 H, Lymph # (Auto) 1.4, [place] # (Auto) 0.5, Eos # (Auto) 0.0, Baso # (Auto) 0.0, Total Counted 100, Neutrophils % (Manual) 84 H, Lymphocytes % (Manual) 10, Monocytes % (Manual) 6, Platelet Estimate Normal, Hypochromasia 2+, Sodium 145, Potassium 4.5 D, Chloride 112 H, Carbon Dioxide 15 L, Anion Gap 22.5 H, BUN 56 H, Creatinine 2.80 H, Estimated Creat Clear 18, Estimated GFR 17 L*, Est GFR ( Amer) 21 L, Glucose 136 H, Calcium 8.6, Magnesium 2.4 H, Total Bilirubin 1.5 H, AST 294 H, ALT 718 H*, Alkaline Phosphatase 159 H, Total Protein 7.0, Albumin 3.5 D, Globulin 3.5 H, Albumin/Globulin Ratio 1.0 L 11/29/24 06:15: POC Glucose 130 H 11/29/24 11:17: POC Glucose 102 11/29/24 13:00: WBC 21.7 H* D, RBC 5.57 H, Hgb 12.6 D, Hct 43.9, MCV 78.8 L, MCH 22.6 L, MCHC 28.7 L, RDW 21.3 H, Plt Count 316, MPV 12.2 H, Neut % (Auto) 89.2 H, Lymph % (Auto) 6.3 L, [place] % (Auto) 2.8, Eos % (Auto) 0.0 L, Baso % (Auto) 0.1, Neut # (Auto) 19.3 H, Lymph # (Auto) 1.4, [place] # (Auto) 0.6, Eos # (Auto) 0.0, Baso # (Auto) 0.0 Medical History: Medical History (Updated 11/26/24 @ 15:49 by Chidi Flanagan MD) Septic shock Ischemic hepatitis Influenza A with pneumonia Arthritis Renal disease HTN (hypertension), benign HLD (hyperlipidemia) GERD (gastroesophageal reflux disease) COPD (chronic obstructive pulmonary disease) Asthma Anxiety Type 2 diabetes mellitus TIA (transient ischemic attack) Assessment and Plan Assessment and plan all Dx Assessment and Plan for all problems:: Pharmacokinetic dosing service Objective: Age: 64 yo Serum creatinine: 2.8 mg/dL Height: 64.2 Inches Weight (kg): 110.365 Diagnosis: PNEUMONIA Assessment: IBW (kg): 55.16 Dosing wt(kg): 110.365 Estimated Creatinine clearance (ml/min): 17.7 CRCL method: Cockcroft and Gault using ibw(default). Drug selected: Vancomycin Vd (liters): 77.3 (factor used: 0.7 L/kg) Cole (hr-1): 0.019 Half life (hrs): 36.48 CLvanco=?? 1.469 L/hr Recommended dose: 1500 mg Interval: 48 hrs Infusion time (hrs): 2.0 Predicted peak (mcg/mL): 31.8 Predicted trough (mcg/mL): 13.27 Total body weight is being used for vancomycin dosing. Recommendations: Give Vancomycin 1500 mg q 48 hrs with an expected Cpeak of 31.8 mcg/ml and an expected Ctrough of 13.27 mcg/ml AUC 0-24 /ASHLEY Data: ASHLEY 0.5 mcg/mL:?? AUC/ASHLEY:? 1021.1 ASHLEY 1.0 mcg/mL:?? AUC/ASHLEY:? 510.6 --------- ASHLEY 1.5 mcg/mL:?? AUC/ASHLEY:? 340.4 ASHLEY 2.0 mcg/mL:?? AUC/ASHLEY:? 255.3 Thank you for the consult
[2024-11-29] MEDS: NYSTATIN TOPICAL POWDER 30GM TP ×3 (14:11→20:36)
[2024-11-29] MEDS: VANCOMYCIN/WATER FOR INJ (PEG) 1.5 GM/300 ML PIGGYBACK IV (14:12)
[2024-11-29] MEDS: ENOXAPARIN 120MG/0.8ML SYRINGE 110 MG SUBCUT (14:13)
[2024-11-29] MEDS: DIGOXIN 0.25MG/ML 2ML AMPUL 62.5 MCG IV (14:14)
--- NOTE | 2024-11-29 14:28 | P.PN_ITS ---
Subjective Subjective Date: 11/29/24 Time: 14:28 Principal diagnosis: A. padma with RVR, Septic shock with metabolic encephalopathy Interval history: 64 yo WF in bed NAD Will look at me but does not interact. Nurse relates rare response. Tele shows A. padma with rate of 120 bpm Exam Data for Last 24 hours Vital signs and Labs for Last 24 Hours: Temp Pulse Resp BP Pulse Ox O2 Del Method O2 Flow Rate 97.0 F L 118 H 18 131/108 H 92 L Room Air 3 11/29/24 08:00 11/29/24 14:14 11/29/24 10:49 11/29/24 08:00 11/29/24 08:00 11/29/24 10:43 11/27/24 23:37 Laboratory Results - last 24 hr 11/28/24 16:54: POC Glucose 231 H 11/28/24 20:57: POC Glucose 164 H 11/29/24 05:50: WBC 17.2 H D, RBC 5.06, Hgb 11.3 L, Hct 39.2, MCV 77.5 L, MCH 22.3 L, MCHC 28.8 L, RDW 20.5 H, Plt Count 389 D, MPV 12.2 H, Neut % (Auto) 87.3 H, Lymph % (Auto) 8.4 L, [place] % (Auto) 2.8, Eos % (Auto) 0.1, Baso % (Auto) 0.2, Neut # (Auto) 15.0 H, Lymph # (Auto) 1.4, [place] # (Auto) 0.5, Eos # (Auto) 0.0, Baso # (Auto) 0.0, Total Counted 100, Neutrophils % (Manual) 84 H, Lymphocytes % (Manual) 10, Monocytes % (Manual) 6, Platelet Estimate Normal, Hypochromasia 2+, Sodium 145, Potassium 4.5 D, Chloride 112 H, Carbon Dioxide 15 L, Anion Gap 22.5 H, BUN 56 H, Creatinine 2.80 H, Estimated Creat Clear 18, Estimated GFR 17 L*, Est GFR ( Amer) 21 L, Glucose 136 H, Calcium 8.6, Magnesium 2.4 H, Total Bilirubin 1.5 H, AST 294 H, ALT 718 H*, Alkaline Phosphatase 159 H, Total Protein 7.0, Albumin 3.5 D, Globulin 3.5 H, Albumin/Globulin Ratio 1.0 L 11/29/24 06:15: POC Glucose 130 H 11/29/24 11:17: POC Glucose 102 11/29/24 13:00: WBC 21.7 H* D, RBC 5.57 H, Hgb 12.6 D, Hct 43.9, MCV 78.8 L, MCH 22.6 L, MCHC 28.7 L, RDW 21.3 H, Plt Count 316, MPV 12.2 H, Neut % (Auto) 89.2 H, Lymph % (Auto) 6.3 L, [place] % (Auto) 2.8, Eos % (Auto) 0.0 L, Baso % (Auto) 0.1, Neut # (Auto) 19.3 H, Lymph # (Auto) 1.4, [place] # (Auto) 0.6, Eos # (Auto) 0.0, Baso # (Auto) 0.0 I & O for Last 24 hours: Intake & Output 11/27/24 11/28/24 11/29/24 11/30/24 11:59 11:59 11:59 11:59 Intake Total 130 / 130 120 / 120 340 / 340 0 / 0 Output Total 0 / 0 Balance 130 / 130 120 / 120 340 / 340 0 / 0 Weight 1195 lb 9.069 oz 243 lb 5 oz 243 lb 5.011 oz 243 lb 5.011 oz Constitutional Constitutional: no acute distress *Routine Cardiovascular Exam Cardiovascular: Present tachycardia and irregularly irregular *Routine Extremities Exam Extremities: Present edema Progress Note: A&P Assessment and plan (1) Ischemic hepatitis: Status: Acute (2) Cerebellar stroke: Status: Acute (3) Acute exacerbation of chronic heart failure: Status: Acute (4) Septic shock: Status: Acute (5) Influenza A with pneumonia: Status: Acute (6) Deep vein thrombosis (DVT) of left upper extremity: Status: Acute (7) Acute HFrEF (heart failure with reduced ejection fraction): Status: Acute (8) Encephalopathy: Status: Acute (9) Atrial fibrillation with rapid ventricular response: Status: Acute Assessment and Plan Assessment and Plan for All Diagnoses:: 1. Septic shock/multi-organ failure due to Influenza A - improving - EF 25% - Severe hypotension, resolved and back on beta blockers - ELIEZER - Cr up to 2.8 - Transaminitis, improving - AMS, likely some underlying alteration with history of CVA and worsened by another CVA this admission 2. Acute HFrEF, NICM - new dx with ProBNP 26k, pulm vascular congestion, GOMEZ, orthopnea, EF 25% - ECHO shows new globally reduced EF. Was normal on ECHO 06/2024 in [place]. - LHC 07/2024 [place] - Trivial CAD, preserved EDP and LV function -consider outpatient cardiac MRI to help evaluate etiology of CM. -holding GDMT due to renal functions 3. Paroxysmal Atrial Fibrillation -New diagnosis this admission -on metoprolol succ 100 mg BID and digoxin (renal dosing) -switch from eliquis to xarelto (renal dose) due to medication refusal at times -postpone ALIYA/Cardioversion until pt is mentally capable of giving consent 4. ELIEZER on CKD - baseline Cr 1.5 -currently Cr 2.8 5. Transaminitis - Shock Liver - likely hepatic congestion from CHF - stable 6. AMS - likely metabolic encephalopathy from septic shock - possibly acute exacerbation of underlying issues related to prior CVA in combo with septic shock 7. Morbid Obesity, BMI 40 - life limiting - consider GLP-1 outpatient 8. DM-II - poorly controlled with A1C 11 - add Jardiance for CV benefit if mentation and renal function improve - consider GLP-1 given BMI 40 9. Hx of CVA with left hemiparesis - requires assistance with all ADLs at baseline 10. Hx of LUE DVT - jugular and subclavian veins per Venous 09/27 [place] - repeat Venous here is neg - 11/22: Heparin DC yesterday for LP. Resume IVAN - 11/23: Discussed with Hospitalist. Ok to resume OAC today. 11. HTN -on metoprolol succinate 100 mg BID Pt only taking meds part of the time. Now has worsening CXR Will use combo of oral and IV to help try and control HR/BP but goals of care discussion need to be had with family. Effects of recent CVA unknown but likely more extensive than CT able to relate.
--- NOTE | 2024-11-29 15:30 | PC.NURSE ---
Phone call made to patient's daughter Jennifer updating her on patient condition and discussed that Dr. Esparza would like to speak with her when she is able to come to the hospital. Jennifer stated that she will be here 11/30/24 and will ask for Dr. Esparza when she gets here
--- NOTE | 2024-11-29 16:16 | PC.NURSE ---
Patient continues to have minimal interaction with staff. Able to follow one step commands. On room air. Uncontrolled a fib despite IVP digoxin. Patient unable to take pills and refuses to eat even with assistance. No nonverbal indications of pain. Turned prn with patient scooting back to prone or left side. One incontinent BM. Minimal urine output. NS bolus and maintenance fluids ordered. Antibiotics administered per orders. Family to come to hospital 11/30/[address] to discuss plan with Dr. Esparza.
[2024-11-29 16:46] LABS: Microscopic, Urine URINE MICROSCOPIC (MICROSCOPIC)
[2024-11-29 16:50] LABS: Bilirubin,Urine Negative (Negative); Blood, Urine 2+ (Negative); Color,Urine YELLOW (Yellow); Glucose,Urine (UA) Negative (Negative); Ketones,Urine Negative (Negative); Leukocyte Esterase,Urine 2+ (Negative); Nitrate,Urine Negative (Negative); Protein,Urine 3+ (Negative); Specific Gravity, Urine >= 1.030 (1.005-1.030); Urobilinogen,Urine 0.2 EU/dl (0.2)
[2024-11-29 16:51] LABS: Appearance,Urine Slightly Cloudy (Clear)
[2024-11-29] MEDS: 0.9 % SODIUM CHLORIDE 1000ML 500 ML IV (17:09)
[2024-11-29] MEDS: 0.9 % SODIUM CHLORIDE 1000ML 1,000 ML 75 ML IV (17:10)
[2024-11-29 17:12] LABS: RBC,Urine TNTC #/hpf (0-3); WBC,Urine TNTC #/hpf (0-3)
[2024-11-29 17:13] LABS: Bacteria,Urine 4+ /lpf; Yeast,Urine 3+ /lpf
--- NOTE | 2024-11-29 17:22 | EXP.PN ---
Subjective *Date: 11/29/24 *Time: 17:22 Interval history: Patient continues to be encephalopathic, not cooperating with most commands and looking the other way when speaking to her. Infection and stroke likely painful factor. Started antibiotics, goals of conversation tomorrow with family. Exam Data for Last 24 hours Vital signs and Labs for Last 24 Hours: Temp Pulse Resp BP Pulse Ox O2 Del Method O2 Flow Rate 97.2 F L 130 H 20 132/93 H 95 Room Air 3 11/29/24 12:00 11/29/24 16:00 11/29/24 12:00 11/29/24 12:00 11/29/24 12:00 11/29/24 16:52 11/27/24 23:37 Laboratory Results - last 24 hr 11/28/24 20:57: POC Glucose 164 H 11/29/24 05:50: WBC 17.2 H D, RBC 5.06, Hgb 11.3 L, Hct 39.2, MCV 77.5 L, MCH 22.3 L, MCHC 28.8 L, RDW 20.5 H, Plt Count 389 D, MPV 12.2 H, Neut % (Auto) 87.3 H, Lymph % (Auto) 8.4 L, [place] % (Auto) 2.8, Eos % (Auto) 0.1, Baso % (Auto) 0.2, Neut # (Auto) 15.0 H, Lymph # (Auto) 1.4, [place] # (Auto) 0.5, Eos # (Auto) 0.0, Baso # (Auto) 0.0, Total Counted 100, Neutrophils % (Manual) 84 H, Lymphocytes % (Manual) 10, Monocytes % (Manual) 6, Platelet Estimate Normal, Hypochromasia 2+, Sodium 145, Potassium 4.5 D, Chloride 112 H, Carbon Dioxide 15 L, Anion Gap 22.5 H, BUN 56 H, Creatinine 2.80 H, Estimated Creat Clear 18, Estimated GFR 17 L*, Est GFR ( Amer) 21 L, Glucose 136 H, Calcium 8.6, Magnesium 2.4 H, Total Bilirubin 1.5 H, AST 294 H, ALT 718 H*, Alkaline Phosphatase 159 H, Total Protein 7.0, Albumin 3.5 D, Globulin 3.5 H, Albumin/Globulin Ratio 1.0 L 11/29/24 06:15: POC Glucose 130 H 11/29/24 11:17: POC Glucose 102 11/29/24 13:00: WBC 21.7 H* D, RBC 5.57 H, Hgb 12.6 D, Hct 43.9, MCV 78.8 L, MCH 22.6 L, MCHC 28.7 L, RDW 21.3 H, Plt Count 316, MPV 12.2 H, Neut % (Auto) 89.2 H, Lymph % (Auto) 6.3 L, [place] % (Auto) 2.8, Eos % (Auto) 0.0 L, Baso % (Auto) 0.1, Neut # (Auto) 19.3 H, Lymph # (Auto) 1.4, [place] # (Auto) 0.6, Eos # (Auto) 0.0, Baso # (Auto) 0.0 11/29/24 16:37: Urine Color Yellow, Urine Appearance Slightly cloudy, Urine pH 6.0, Ur Specific [place] >= 1.030, Urine Protein 3+ A, Urine Glucose (UA) Negative, Urine Ketones Negative, Urine Blood 2+ A, Urine Nitrate Negative, Urine Bilirubin Negative, Urine Urobilinogen 0.2, Ur Leukocyte Esterase 2+ A, Urine RBC Tntc, Urine WBC Tntc, Ur Squamous Epith Cells 3-5, Urine Bacteria 4+, Urine Yeast 3+ I & O for Last 24 hours: Intake & Output 11/26/24 11/27/24 11/28/24 11/29/24 23:59 23:59 23:59 23:59 Intake Total 150 / 150 150 / 150 340 / 340 150 / 150 Output Total 0 / 0 0 / 0 0 / 0 Balance 150 / 150 150 / 150 340 / 340 150 / 150 Weight 111.629 kg 542.3 kg 110.365 kg 110.365 kg Constitutional Constitutional: no acute distress Comments: Not cooperating much on exam, looking the other way when speaking to her. *Routine HEENT Exam Head: Present normocephalic Eye: Present EOMI and PERRL ENT: Present mucous membranes moist *Routine Neck Exam Neck: Present supple; Absent lymphadenopathy *Routine Respiratory Exam Respiratory: Present CTA bilaterally *Routine Cardiovascular Exam Cardiovascular: Present RRR *Routine Abdominal Exam Abdominal: Present soft and normoactive bowel sounds; Absent tenderness *Routine Extremities Exam Extremities: Absent cyanosis, clubbing or edema *Routine Skin Exam Skin: Present warm; Absent rash *Routine Neurological Exam Neurological: Present alert Assessment and Plan *Assessment and plan (1) Ischemic hepatitis: Status: Acute Category: Medical Code(s): K72.00 - Acute and subacute hepatic failure without coma (2) Cerebellar stroke: Status: Acute Category: Medical Code(s): I63.9 - Cerebral infarction, unspecified (3) Acute exacerbation of chronic heart failure: Status: Acute Category: Medical Code(s): I50.9 - Heart failure, unspecified (4) Septic shock: Status: Acute Category: Medical Code(s): A41.9 - Sepsis, unspecified organism; R65.21 - Severe sepsis with septic shock (5) Influenza A with pneumonia: Status: Acute Category: Medical Code(s): J09.X1 - Influenza due to identified novel influenza A virus with pneumonia (6) Deep vein thrombosis (DVT) of left upper extremity: Status: Acute Category: Medical Code(s): I82.622 - Acute embolism and thrombosis of deep veins of left upper extremity (7) Acute HFrEF (heart failure with reduced ejection fraction): Status: Acute Category: Medical Code(s): I50.21 - Acute systolic (congestive) heart failure (8) Encephalopathy: Status: Acute Category: Medical Code(s): G93.40 - Encephalopathy, unspecified Plan Patient is a 64-year-old female with a medical history significant for HFpEF, type 2 diabetes, CVA with left-sided weakness, asthma, hypertension who presents with shortness of breath. She states it is more prominent when she is try to fall asleep. Denies fever/chills, coughing, chest pain, abdominal pain. Workup in the ED significant for BNP 26,700, with CXR showing pulmonary edema. Case discussed with ED provider and decision was made to admit patient HFpEF exacerbation and orthopnea. Patient's liver enzymes improving. Stable on room air. Finished antibiotics and Tamiflu. Some improvement in mentation today. Family at bedside. Continues to require inpatient management. Found to have stroke on 11/25 CT head. Pulmonology, cardiology, GI assisting with care. Prognosis guarded. Problems addressed as follows: #Acute metabolic encephalopathy #Sepsis #Hospital-acquired pneumonia #UTI ? WBC increased to 21.7 today, continues to be tachycardic and slightly tachypneic. ? CXR shows diffuse patchy opacities, though continues to be on room air saturating 95%. ? UA suggestive of UTI. ? Started vancomycin, Zosyn. ? Encephalopathy likely multifactorial with underlying infection and new stroke. Unfortunately, I believe CT head on 11/25/24 which showed subacute right sided cerebellar stroke does not demonstrate the full extent of the stroke. Patient is too agitated for MRI today. Consider tomorrow. ? Patient is also increasingly refusing oral intake over the past few days. While encephalopathy may be a factor, if this is related to a stroke this unfortunately would be incompatible with aggressive treatment she needs for her history of CVA, HFrEF, and other significant comorbidities as below. Patient and family would benefit from a goals of care conversation. Family will be coming in tomorrow for that. #Acute on chronic strokes ? CT obtained 11/25 found to have subacute right sided cerebellar stroke ? History of previous strokes noted on CT. ? Continue aspirin 81 mg, therapeutic Lovenox. Holding statin due to ischemic hepatitis as below. #ELIEZER, ATN ? Creatinine bumped to from 2.4-2.8 today. Minimal urine output. Looks dry on exam. ? Given 500 mL bolus. Started IV NS at 75 ml/h since patient is refusing oral intake. #Influenza A #Septic shock #Ischemic hepatitis, shock liver ? On 11/19/2024, patient exhibited lethargy, very somnolent. Further workup with CT head, CT chest, CBC, CMP, VBG did not reveal remarkable findings at that time. However, patient did have a fever of 100.5 later in the afternoon. Started vancomycin, cefepime. Later in the evening, patient's pressures dropped to MAPs mid 50s. Transferred to ICU, maxed on Levophed but had continued hypotension. Given HFrEF, started dobutamine which worsened hypotension. Discontinued. Started vasopressin with improvement in MAP greater than 65. Also started milrinone. Received hydrocortisone 100 mg at stress dose steroid. Small fluid boluses were also administered as patient likely got over diuresed and is now in ATN. Has not needed pressors for at least 4 days. ? Remains on room air with O2 sats greater than 90%. ? Liver enzymes continue to improve. Bilirubin 0.8, AST 259, ALT 738, alk phos 123. CRP down to 16.7. Pro-Po significantly improved at 0.428, down from 1.94. White count remains normal at 9.9, hemoglobin 10.4.. ? Liver Doppler ruled out thrombosis/Budd-Chiari syndrome. Did show gallbladder wall thickening, acalculous cystitis not ruled out. However, patient has no abdominal pain ? Repeat CBC, CMP, magnesium ordered for the morning ? Completed Tamiflu, NAC, and antibiotics. Seeing some improvement in mentation after stopping cefepime. Cultures remain negative #HFrEF #Atrial fibrillation ? ECHO in March 2022 revealed grade 2 diastolic dysfunction. ? ECHO 11/17/2024 LVEF 25%, G2DD. ? Heart rate showing some improvement. Fluctuating between 90 and 120. Continue metoprolol succinate 100 mg twice daily. Continue digoxin 62.5 mcg every 48 hours renally dosed. ? If liver enzymes improve, will consider adding amiodarone or diltiazem. ? If not taking oral medication, initiate metoprolol tartrate 10 mg every 6 hours as needed for heart rate above 100. ? Heart rate showing some improvement. Will hold on ALIYA and cardioversion today. Patient not consistently taking medications therefore concern for cardioverting and not taking anticoagulation. #Type 2 diabetes ? Hemoglobin A1c 11.3, well above goal. Glucose 166 this morning ? [facility] glucose checks. ? Will hold Lantus 35 units nightly due to low normal blood sugars without it. Discontinued metformin, Farxiga at this time given above #History of CVA with left-sided weakness ? continue Aspirin, holding statin due to ischemic hepatitis. ? Daughter is primary fish hatchery worker at home, helps patient get in wheelchair to get around. ? Therapy evaluated patient today. PT and OT recommend skilled placement. Case management assisting with care/referral. ? Being evaluated for inpatient rehab at [facility]. #History of left IJ DVT ?Therapeutic Lovenox. Therapeutic Lovenox Full code DVT prophylaxis: SCDs
[2024-11-29 17:24] LABS: POC Glucose,Bedside 94 (70-110)
[2024-11-29] MEDS: METOPROLOL TARTRATE 5MG/5ML VIAL 10 MG IV (18:10)
[2024-11-29 20:41] LABS: POC Glucose,Bedside 101 (70-110)
[2024-11-30] VITALS (12 sets, daily range): BP systolic 107–135; BP diastolic 52–104; PULSE 54–136; RESP 12–19; TEMP 35.8–36.6; O2SAT 93–98; BMI 40.6
[2024-11-30] MEDS: METOPROLOL TARTRATE 5MG/5ML VIAL 10 MG IV ×2 (00:19→05:56)
[2024-11-30] MEDS: PIPERACILLIN/TAZO 2.25 GM in 0.9 % SODIUM CHLORIDE 50 ML IV ×4 (02:24→21:01)
[2024-11-30] MEDS: 0.9 % SODIUM CHLORIDE 1000ML 1,000 ML 75 ML IV (02:24)
--- NOTE | 2024-11-30 04:49 | PC.NURSE ---
Addendum entered by Madhavi Tavares RN 11/30/24 06:03: Metoprolol 10 mg given IV for HR 120-130s without notable changes in rate. Original Note: Pt has been less responsive this shift. She has only opened her eyes a time or two and that was with turning. She has reacted by pulling her arm away and/or swatting at marine underwriter while providing care. She has refused all oral intake this shift. With each attempt, pt closes her mouth. Nurse attempted to give pt a bite of applesauce prior to oral meds at bedtime, and pt would not take applesauce. She continues to maintain 02 sats above 90 on RA. BP has been slightly elevated at times but pt becomes agitated with BP checks. Pt continues to have uncontrolled a fib. Medicated with Lopressor per MAR with no change in HR. Pt has not shown any signs of discomfort unless being stimulated.
[2024-11-30 05:43] LABS: POC Glucose,Bedside 137 (70-110)
[2024-11-30 05:47] LABS: Basophils % 0.2 % (0.1-2.0); Hematocrit 36.5 % (37.0-47.0); Lymphocytes # 1.9 K/mm3 (0.7-4.5); Lymphocytes % 9.9 % (10-50); Mean Corpuscular HGB Conc 28.8 g/dL (31.8-35.4); Mean Corpuscular Hemoglobin 22.5 pg (27.0-31.2); Mean Corpuscular Volume 78.2 fl (81-99); Mean Platelet Volume 11.2 fl (7.4-10.4); Monocytes # 0.9 K/mm3 (0.1-1.0); Monocytes % 4.6 % (1.7-9.3); Neutrophils # 16.3 K/mm3 (1.8-7.8); Platelet Count 305 K/mm3 (142-424); Red Blood Count 4.67 M/mm3 (4.20-5.40); Red Cell Distribution Width 21.3 % (11.5-17.5); White Blood Count 19.4 K/mm3 (4.8-10.8)
[2024-11-30 05:55] LABS: MANUAL DIFFERENTIAL MANUAL DIFFERENTIAL (MANUAL DIFF)
[2024-11-30 05:59] LABS: Chloride 114 mmol/L (98-107); Potassium 5.4 mmoL/L (3.5-5.1); Sodium 148 mmol/L (136-145)
[2024-11-30 06:00] LABS: Ammonia < 9 umol/L (9-30)
[2024-11-30 06:01] LABS: Blood Urea Nitrogen 75 mg/dl (7-17); Creatinine Clearance Estimated 26 mL/min (50-200); Estimated Glomerular Filt Rate 12 ml/min (>60); GFR (African American) 15 ML/MIN (>60); Hemoglobin 10.6 g/dL (12.2-16.2)
[2024-11-30 06:02] LABS: Alkaline Phosphatase 150 U/L (38-126); Bilirubin,Total 1.6 mg/dl (0.2-1.3); Calcium 8.1 mg/dl (8.4-10.2); Carbon Dioxide 15 mmol/L (22.0-30.0); Glucose 143 mg/dl (74-100); Magnesium 2.4 mg/dl (1.6-2.3); Total Protein,Serum 6.7 g/dl (6.3-8.2)
[2024-11-30 06:09] LABS: Alanine Aminotransferase 1009 U/L (12-78); Anion Gap 24.4 mEq/L (5-15); Aspartate Amino Transferase 1267 U/L (14-36)
[2024-11-30 08:07] LABS: Anisocytosis 1+; Lymphocytes % 8 % (10-50); Monocytes % 5 % (2-9); Neutrophils % 87 % (42-76); Platelet Estimate Normal; Total Cells Counted 100
[2024-11-30 08:08] LABS: Ovalocytes 1+
--- NOTE | 2024-11-30 08:11 | MR_ITS ---
FINAL REPORT TECHNIQUE: Multiplanar MR without contrast CLINICAL HISTORY: Stroke during admission, worsening encephalopathy COMPARISON: 04/03/2022 FINDINGS: Diffusion sequences demonstrate small foci of abnormal signal in the right frontal lobe, 8 x 4 mm in size, and in the right anterior cerebellum, 11 x 7 mm in size, consistent with acute infarcts. There are numerous other chronic foci of ischemia present, the largest in the right periventricular frontal lobe. These are compatible with moderate chronic ischemic gliotic disease. Moderate generalized atrophy is present. No mass, hemorrhage or edema is seen. Ventricles are normal. Major vascular flow voids are intact. IMPRESSION: Acute nonhemorrhagic right cerebellar and right frontal white matter infarcts. Reviewed, Interpreted and Dictated by iGna Myers MD Transcribed by Ryann Ochoa Authenticated and [facility]
--- NOTE | 2024-11-30 08:14 | XR_ITS ---
FINAL REPORT TECHNIQUE: Single view chest CLINICAL HISTORY: f/u cxr opacities COMPARISON: 11/27/2024 FINDINGS: A single view of the chest was obtained. The heart is enlarged. The lungs are clear. There is no pneumothorax. IMPRESSION: No acute cardiopulmonary process. Reviewed, Interpreted and Dictated by Gina Myers MD Transcribed by Ashlyn Hopkins Authenticated and . [facility]
[2024-11-30] MEDS: HALOPERIDOL LACTATE 5 MG/ML VIAL IM (09:02)
[2024-11-30] MEDS: DEXTROSE 5 % IN WATER 1,000 ML 100 ML IV ×2 (09:02→21:01)
[2024-11-30] MEDS: NYSTATIN TOPICAL POWDER 30GM TP ×4 (09:16→21:04)
[2024-11-30 09:36] LABS: Albumin Level 3.3 g/dl (3.5-5.0); Globulin 3.4 g/dL (1.3-3.2)
[2024-11-30] MEDS: IPRATROPIUM/ALBUTEROL 3 ML NEB IH ×2 (10:44→18:21)
--- NOTE | 2024-11-30 10:50 | EXP.MED.FU ---
Subjective *Date: 11/30/24 *Time: 16:41 Interval history: Patient not readily responsive to commands. Bilirubin up to 1.6, AST rebound up to 1267. ALT rebound up to 1009. Alk phos stable at 150. WBC at 19.4, HGB stable at 10.4. Exam Data for Last 24 hours Vital signs and Labs for Last 24 Hours: Temp Pulse Resp BP Pulse Ox O2 Del Method O2 Flow Rate 97.6 F 136 H 17 113/56 L 94 L Room Air 3 11/30/24 08:00 11/30/24 10:43 11/30/24 08:00 11/30/24 08:00 11/30/24 08:00 11/30/24 09:00 11/27/24 23:37 Laboratory Results - last 24 hr 11/29/24 11:17: POC Glucose 102 11/29/24 13:00: WBC 21.7 H* D, RBC 5.57 H, Hgb 12.6 D, Hct 43.9, MCV 78.8 L, MCH 22.6 L, MCHC 28.7 L, RDW 21.3 H, Plt Count 316, MPV 12.2 H, Neut % (Auto) 89.2 H, Lymph % (Auto) 6.3 L, [place] % (Auto) 2.8, Eos % (Auto) 0.0 L, Baso % (Auto) 0.1, Neut # (Auto) 19.3 H, Lymph # (Auto) 1.4, [place] # (Auto) 0.6, Eos # (Auto) 0.0, Baso # (Auto) 0.0 11/29/24 16:37: Urine Color Yellow, Urine Appearance Slightly cloudy, Urine pH 6.0, Ur Specific [place] >= 1.030, Urine Protein 3+ A, Urine Glucose (UA) Negative, Urine Ketones Negative, Urine Blood 2+ A, Urine Nitrate Negative, Urine Bilirubin Negative, Urine Urobilinogen 0.2, Ur Leukocyte Esterase 2+ A, Urine RBC Tntc, Urine WBC Tntc, Ur Squamous Epith Cells 3-5, Urine Bacteria 4+, Urine Yeast 3+ 11/29/24 17:14: POC Glucose 94 11/29/24 20:34: POC Glucose 101 11/30/24 05:33: POC Glucose 137 H 11/30/24 05:35: WBC 19.4 H, RBC 4.67, Hgb 10.6 L D, Hct 36.5 L, MCV 78.2 L, MCH 22.5 L, MCHC 28.8 L, RDW 21.3 H, Plt Count 305, MPV 11.2 H, Neut % (Auto) 84.0 H, Lymph % (Auto) 9.9 L, [place] % (Auto) 4.6, Eos % (Auto) 0.0 L, Baso % (Auto) 0.2, Neut # (Auto) 16.3 H, Lymph # (Auto) 1.9, [place] # (Auto) 0.9, Eos # (Auto) 0.0, Baso # (Auto) 0.0, Total Counted 100, Neutrophils % (Manual) 87 H, Lymphocytes % (Manual) 8 L, Monocytes % (Manual) 5, Platelet Estimate Normal, RBC Morphology Not Reportable, Anisocytosis 1+, Ovalocytes 1+, Sodium 148 H, Potassium 5.4 H, Chloride 114 H, Carbon Dioxide 15 L, Anion Gap 24.4 H, BUN 75 H D, Creatinine 3.70 H D, Estimated Creat Clear 26, Estimated GFR 12 L*, Est GFR ( Amer) 15 L* D, Glucose 143 H, Calcium 8.1 L, Magnesium 2.4 H, Total Bilirubin 1.6 H, AST 1267 H* D, ALT 1009 H*, Alkaline Phosphatase 150 H, Ammonia < 9 L, Total Protein 6.7, Albumin 3.3 L, Globulin 3.4 H, Albumin/Globulin Ratio 1.0 L I & O for Last 24 hours: Intake & Output 11/27/24 11/28/24 11/29/24 11/30/24 11:59 11:59 11:59 11:59 Intake Total 130 335 965 5381 Output Total 0 Balance 130 238 961 5987 Weight 542.3 kg 110.365 kg 110.365 kg 107.819 kg Microbiology Reports for the Last 24 Hours: Microbiology 11/29/24 16:37 Urine,Clean Catch Urine Culture - Preliminary Constitutional Constitutional: obese and chronically ill appearing *Routine HEENT Exam Head: Present normocephalic *Routine Respiratory Exam Respiratory: Present decreased breath sounds *Routine Abdominal Exam Abdominal: Present soft and distended (Moderately distended with gas bloat) Assessment and Plan *Assessment and plan (1) Obstipation: Status: Acute Category: Medical Code(s): K59.00 - Constipation, unspecified (2) Morbid obesity with body mass index (BMI) of 40.0 to 44.9 in adult: Status: Acute Category: Medical Code(s): E66.01 - Morbid (severe) obesity due to excess calories; Z68.41 - Body mass index [BMI] 40.0-44.9, adult (3) Acute HFrEF (heart failure with reduced ejection fraction): Status: Acute Category: Medical Code(s): I50.21 - Acute systolic (congestive) heart failure (4) Ischemic hepatitis: Status: Acute Category: Medical Code(s): K72.00 - Acute and subacute hepatic failure without coma (5) Septic shock: Status: Acute Category: Medical Code(s): A41.9 - Sepsis, unspecified organism; R65.21 - Severe sepsis with septic shock (6) Anemia: Status: Acute Category: Medical Code(s): D64.9 - Anemia, unspecified (7) Encephalopathy: Status: Acute Category: Medical Code(s): G93.40 - Encephalopathy, unspecified Plan 1. Ischemic hepatitis/septic shock/heart failure exacerbation Significant jump in transaminases with normal bilirubin and alk phos after hypotensive/ischemic insult. Upon arrival, LFTs within normal limits. No obstruction or infarction seen on imaging. Unlikely Budd-Chiari. Currently appears to be classic ischemic hepatitis secondary to acute hypoperfusion event (CHF exacerbation with diuresis plus septic shock). Development of ATN and significantly elevated lactate dehydrogenase consistent with ischemic hepatitis. Patient remains normotensive off of pressors. Transaminases gradually improving over the past week., Acetylcysteine was discontinued over the weekend as she was making such improvements. Had a rebound elevation of liver enzymes this morning with bilirubin at 1.6, AST 294 yesterday at 1267 today. ALT 718 yesterday at 1009 today. Alk phos relatively stable at 150. Will check PT/INR tomorrow along with liver enzymes. Monitoring for acute liver failure on top of the ischemic insult. 2. Anemia Hemoglobin relatively steady at 10.6 today. Microcytic and hypochromic. However, iron levels normal and Hemoccult negative. Does not look like a GI blood loss. 3. Obstipation Patient on MiraLAX daily
[2024-11-30 11:55] LABS: POC Glucose,Bedside 178 (70-110)
[2024-11-30] MEDS: ENOXAPARIN 120MG/0.8ML SYRINGE 110 MG SUBCUT (15:50)
--- NOTE | 2024-11-30 16:23 | P.PN_ITS ---
Subjective *Date: 11/30/24 *Time: 16:23 Interval history: Patient continues to be essentially aphasic. Extensive GOC with the family today, will likely start hospice care tomorrow after speaking to the rest of family. Exam Data for Last 24 hours Vital signs and Labs for Last 24 Hours: Temp Pulse Resp BP Pulse Ox O2 Del Method O2 Flow Rate 97.3 F L 77 18 119/79 98 Room Air 3 11/30/24 12:00 11/30/24 12:00 11/30/24 12:00 11/30/24 12:00 11/30/24 12:00 11/30/24 15:00 11/27/24 23:37 Laboratory Results - last 24 hr 11/29/24 16:37: Urine Color Yellow, Urine Appearance Slightly cloudy, Urine pH 6.0, Ur Specific [place] >= 1.030, Urine Protein 3+ A, Urine Glucose (UA) Negative, Urine Ketones Negative, Urine Blood 2+ A, Urine Nitrate Negative, Urine Bilirubin Negative, Urine Urobilinogen 0.2, Ur Leukocyte Esterase 2+ A, Urine RBC Tntc, Urine WBC Tntc, Ur Squamous Epith Cells 3-5, Urine Bacteria 4+, Urine Yeast 3+ 11/29/24 17:14: POC Glucose 94 11/29/24 20:34: POC Glucose 101 11/30/24 05:33: POC Glucose 137 H 11/30/24 05:35: WBC 19.4 H, RBC 4.67, Hgb 10.6 L D, Hct 36.5 L, MCV 78.2 L, MCH 22.5 L, MCHC 28.8 L, RDW 21.3 H, Plt Count 305, MPV 11.2 H, Neut % (Auto) 84.0 H , Lymph % (Auto) 9.9 L, [place] % (Auto) 4.6, Eos % (Auto) 0.0 L, Baso % (Auto) 0.2, Neut # (Auto) 16.3 H, Lymph # (Auto) 1.9, [place] # (Auto) 0.9, Eos # (Auto) 0.0, Baso # (Auto) 0.0, Total Counted 100, Neutrophils % (Manual) 87 H, Lymphocytes % (Manual) 8 L, Monocytes % (Manual) 5, Platelet Estimate Normal, RBC Morphology Not Reportable, Anisocytosis 1+, Ovalocytes 1+, Sodium 148 H, Potassium 5.4 H, Chloride 114 H, Carbon Dioxide 15 L, Anion Gap 24.4 H, BUN 75 H D, Creatinine 3.70 H D, Estimated Creat Clear 26, Estimated GFR 12 L*, Est GFR ( Amer) 15 L* D, Glucose 143 H, Calcium 8.1 L, Magnesium 2.4 H, Total Bilirubin 1.6 H, AST 1267 H* D, ALT 1009 H*, Alkaline Phosphatase 150 H, Ammonia < 9 L, Total Protein 6.7, Albumin 3.3 L, Globulin 3.4 H, Albumin/Globulin Ratio 1.0 L 11/30/24 11:48: POC Glucose 178 H I & O for Last 24 hours: Intake & Output 11/27/24 11/28/24 11/29/24 11/30/24 23:59 23:59 23:59 23:59 Intake Total 150 / 150 340 / 340 150 / 535 1809 / 1809 Output Total 0 / 0 0 / 0 Balance 150 / 150 340 / 340 150 / 535 1809 / 1809 Weight 542.3 kg 110.365 kg 110.365 kg 107.819 kg Microbiology Reports for the Last 24 Hours: Microbiology 11/29/24 16:37 Urine,Clean Catch Urine Culture - Preliminary Constitutional Constitutional: no acute distress Comments: Not cooperating much on exam, looking the other way when speaking to her. Aphasic. *Routine HEENT Exam Head: Present normocephalic Eye: Present EOMI and PERRL ENT: Present mucous membranes moist *Routine Neck Exam Neck: Present supple; Absent lymphadenopathy *Routine Respiratory Exam Respiratory: Present CTA bilaterally *Routine Cardiovascular Exam Cardiovascular: Present RRR *Routine Abdominal Exam Abdominal: Present soft and normoactive bowel sounds; Absent tenderness *Routine Extremities Exam Extremities: Absent cyanosis, clubbing or edema *Routine Skin Exam Skin: Present warm; Absent rash *Routine Neurological Exam Neurological: Present alert Assessment and Plan *Assessment and plan (1) Ischemic hepatitis: Status: Acute Category: Medical Code(s): K72.00 - Acute and subacute hepatic failure without coma (2) Cerebellar stroke: Status: Acute Category: Medical Code(s): I63.9 - Cerebral infarction, unspecified (3) Acute exacerbation of chronic heart failure: Status: Acute Category: Medical Code(s): I50.9 - Heart failure, unspecified (4) Septic shock: Status: Acute Category: Medical Code(s): A41.9 - Sepsis, unspecified organism; R65.21 - Severe sepsis with septic shock (5) Influenza A with pneumonia: Status: Acute Category: Medical Code(s): J09.X1 - Influenza due to identified novel influenza A virus with pneumonia (6) Deep vein thrombosis (DVT) of left upper extremity: Status: Acute Category: Medical Code(s): I82.622 - Acute embolism and thrombosis of deep veins of left upper extremity (7) Acute HFrEF (heart failure with reduced ejection fraction): Status: Acute Category: Medical Code(s): I50.21 - Acute systolic (congestive) heart failure (8) Encephalopathy: Status: Acute Category: Medical Code(s): G93.40 - Encephalopathy, unspecified Plan Patient is a 64-year-old female with a medical history significant for HFpEF, type 2 diabetes, CVA with left-sided weakness, asthma, hypertension who presents with shortness of breath. She states it is more prominent when she is try to fall asleep. Denies fever/chills, coughing, chest pain, abdominal pain. Workup in the ED significant for BNP 26,700, with CXR showing pulmonary edema. Case discussed with ED provider and decision was made to admit patient HFpEF exacerbation and orthopnea. Patient's liver enzymes improving. Stable on room air. Finished antibiotics and Tamiflu. Some improvement in mentation today. Family at bedside. Continues to require inpatient management. Found to have stroke on 11/25 CT head. Pulmonology, cardiology, GI assisting with care. Prognosis guarded. Problems addressed as follows: #Acute metabolic encephalopathy #Sepsis #Hospital-acquired pneumonia #UTI ? WBC increased to improved to 19.4 from 21, continues to be tachycardic and slightly tachypneic. ? CXR shows diffuse patchy opacities, though continues to be on room air saturating 95%. ? UA suggestive of UTI. ? Continue vancomycin, Zosyn. ? Encephalopathy likely multifactorial with underlying infection and new strokes. ? Patient is also increasingly refusing oral intake over the past few days. Refusing oral intake, including fluids, food, medications. Kidney, liver function significantly worsening. While encephalopathy may be a factor, if this is related to a stroke this unfortunately would be incompatible with aggressive treatment she needs for her history of CVA, HFrEF, and other significant comorbidities as below. ? Had extensive goals of care conversation with patient's daughter, Jennifer, and sister, Monie, regarding patient's unfortunate deteriorating mental state as mentioned above. Hospice care was discussed, daughter is interested. She would like to speak to patient's other daughter before coming to a decision tomorrow. #Acute on chronic strokes ? CT obtained 11/25 found to have subacute right sided cerebellar stroke ? History of previous strokes noted on CT. ? MRI 11/30/2024 reveals acute right cerebellar and frontal lobe infarcts. This would certainly explain patient's encephalopathy, aphasia. ? Continue aspirin 81 mg, therapeutic Lovenox. Holding statin due to ischemic hepatitis as below. #ELIEZER, ATN ? Creatinine worsened to 3.7 today. Minimal urine output. Looks dry on exam. ? Started D5 at 100 mL/h given hypernatremia. #Influenza A #Septic shock #Ischemic hepatitis, shock liver ? On 11/19/2024, patient exhibited lethargy, very somnolent. Further workup with CT head, CT chest, CBC, CMP, VBG did not reveal remarkable findings at that time. However, patient did have a fever of 100.5 later in the afternoon. Started vancomycin, cefepime. Later in the evening, patient's pressures dropped to MAPs mid 50s. Transferred to ICU, maxed on Levophed but had continued hypotension. Given HFrEF, started dobutamine which worsened hypotension. Discontinued. Started vasopressin with improvement in MAP greater than 65. Also started milrinone. Received hydrocortisone 100 mg at stress dose steroid. Small fluid boluses were also administered as patient likely got over diuresed and is now in ATN. Has not needed pressors for at least 4 days. ? Remains on room air with O2 sats greater than 90%. ? Liver enzymes are worsening due to poor oral intake. AST/ALT 1267/1009. ? Liver Doppler ruled out thrombosis/Budd-Chiari syndrome. Did show gallbladder wall thickening, acalculous cystitis not ruled out. However, patient has no abdominal pain ? Repeat CBC, CMP, magnesium ordered for the morning ? Completed Tamiflu, NAC, and antibiotics. Cultures remain negative #HFrEF #Atrial fibrillation ? ECHO in March 2022 revealed grade 2 diastolic dysfunction. ? ECHO 11/17/2024 LVEF 25%, G2DD. ? Heart rate showing some improvement. Fluctuating between 90 and 120. Continue metoprolol succinate 100 mg twice daily. Continue digoxin 62.5 mcg every 48 hours renally dosed. ? If liver enzymes improve, will consider adding amiodarone or diltiazem. - Therapeutic Lovenox as patient is refusing oral intake. ? If not taking oral medication, initiate metoprolol tartrate 10 mg every 6 hours as needed for heart rate above 100. #Type 2 diabetes ? Hemoglobin A1c 11.3, well above goal. Glucose 166 this morning ? LDSSI, ACHS glucose checks. ? Will hold Lantus 35 units nightly due to low normal blood sugars without it. Discontinued metformin, Farxiga at this time given above #History of CVA with left-sided weakness ? continue Aspirin, holding statin due to ischemic hepatitis. ? Daughter is primary account manager trainee at home, helps patient get in wheelchair to get around. ? Therapy evaluated patient today. PT and OT recommend skilled placement. Case management assisting with care/referral. ? No longer a candidate for SNF as not medically stable. #History of left IJ DVT ?Therapeutic Lovenox. Full code DVT prophylaxis: Therapeutic Lovenox
[2024-11-30 19:06] LABS: POC Glucose,Bedside 267 (70-110)
[2024-11-30] MEDS: humaLOG 100 UNITS/ML 10ML VIAL (SSI) SUBCUT (21:01)
[2024-12-01] VITALS (8 sets, daily range): BP systolic 122–152; BP diastolic 69–79; PULSE 86–120; RESP 14–15; TEMP 35.8–36.6; O2SAT 97–100; BMI 42.3
[2024-12-01] MEDS: IPRATROPIUM/ALBUTEROL 3 ML NEB IH ×3 (00:52→11:51)
[2024-12-01] MEDS: PIPERACILLIN/TAZO 2.25 GM in 0.9 % SODIUM CHLORIDE 50 ML IV ×2 (02:44→08:42)
--- NOTE | 2024-12-01 04:48 | PC.NURSE ---
pt will sometimes open eyes to voice, no eye contact and withdraws to pain, at this time GCS 8. [id number], small, healing, stage 2 on buttocks with redness. early in shift pt still had not had uop. bladder scan showed 478, notified luis enrique and he gave verbal orders for a straight cath. 500ml uop with straight cath. bed alarm still on for pt safety. oral care provided.
[2024-12-01 05:47] LABS: POC Glucose,Bedside 271 (70-110)
[2024-12-01] MEDS: humaLOG 100 UNITS/ML 10ML VIAL (SSI) SUBCUT (05:48)
[2024-12-01 06:23] LABS: Basophils % 0.1 % (0.1-2.0); Eosinophils # 0.1 K/mm3 (0.0-0.4); Eosinophils % 0.5 % (0.1-12.0); Hematocrit 32.2 % (37.0-47.0); Hemoglobin 9.5 g/dL (12.2-16.2); Lymphocytes # 1.2 K/mm3 (0.7-4.5); Lymphocytes % 8.6 % (10-50); Mean Corpuscular HGB Conc 29.5 g/dL (31.8-35.4); Mean Corpuscular Hemoglobin 22.7 pg (27.0-31.2); Mean Corpuscular Volume 76.8 fl (81-99); Mean Platelet Volume 11.4 fl (7.4-10.4); Monocytes # 0.7 K/mm3 (0.1-1.0); Monocytes % 5.4 % (1.7-9.3); Neutrophils # 11.5 K/mm3 (1.8-7.8); Neutrophils % 84.4 % (37.0-80.0); Platelet Count 234 K/mm3 (142-424); Red Blood Count 4.19 M/mm3 (4.20-5.40); Red Cell Distribution Width 21.7 % (11.5-17.5); White Blood Count 13.6 K/mm3 (4.8-10.8)
[2024-12-01 06:37] LABS: INR 1.66 (0.9-1.1); Prothrombin Time 17.7 seconds (10.1-12.5)
[2024-12-01 07:15] LABS: Alanine Aminotransferase 709 U/L (12-78); Albumin Level 2.7 g/dl (3.5-5.0); Albumin/Globulin Ratio 0.8 (1.1-1.8); Alkaline Phosphatase 110 U/L (38-126); Anion Gap 13.2 mEq/L (5-15); Aspartate Amino Transferase 616 U/L (14-36); Bilirubin,Total 1.3 mg/dl (0.2-1.3); Carbon Dioxide 18 mmol/L (22.0-30.0); Chloride 113 mmol/L (98-107); Creatinine Clearance Estimated 13 mL/min (50-200); Estimated Glomerular Filt Rate 12 ml/min (>60); GFR (African American) 15 ML/MIN (>60); Globulin 3.2 g/dL (1.3-3.2); Glucose 285 mg/dl (74-100); Magnesium 2.3 mg/dl (1.6-2.3); Potassium 4.2 mmoL/L (3.5-5.1); Sodium 140 mmol/L (136-145); Total Protein,Serum 5.9 g/dl (6.3-8.2)
[2024-12-01 07:17] LABS: Blood Urea Nitrogen 95 mg/dl (7-17)
--- NOTE | 2024-12-01 07:19 | EXP.PN ---
Subjective *Date: 12/01/24 *Time: 07:19 Interval history: Patient aphasic and sleeping. No new abdominal complaints. Not responding to commands or questions this morning. Exam Data for Last 24 hours Vital signs and Labs for Last 24 Hours: Temp Pulse Resp BP Pulse Ox O2 Del Method O2 Flow Rate 97.8 F 99 H 15 143/79 H 99 Room Air 3 12/01/24 04:00 12/01/24 06:42 12/01/24 04:00 12/01/24 04:00 12/01/24 06:42 12/01/24 06:54 11/27/24 23:37 Laboratory Results - last 24 hr 11/30/24 05:35: Total Counted 100, Neutrophils % (Manual) 87 H, Lymphocytes % (Manual) 8 L, Monocytes % (Manual) 5, Platelet Estimate Normal, RBC Morphology Not Reportable, Anisocytosis 1+, Ovalocytes 1+, Albumin 3.3 L, Globulin 3.4 H, Albumin/Globulin Ratio 1.0 L 11/30/24 11:48: POC Glucose 178 H 11/30/24 18:55: POC Glucose 267 H 12/01/24 05:39: POC Glucose 271 H 12/01/24 05:53: WBC 13.6 H D, RBC 4.19 L, Hgb 9.5 L, Hct 32.2 L, MCV 76.8 L, MCH 22.7 L, MCHC 29.5 L, RDW 21.7 H, Plt Count 234, MPV 11.4 H, Neut % (Auto) 84.4 H, Lymph % (Auto) 8.6 L, [place] % (Auto) 5.4, Eos % (Auto) 0.5, Baso % (Auto) 0.1, Neut # (Auto) 11.5 H, Lymph # (Auto) 1.2, [place] # (Auto) 0.7, Eos # (Auto) 0.1, Baso # (Auto) 0.0, PT 17.7 H, INR 1.66 H, Sodium 140, Potassium 4.2 D, Chloride 113 H, Carbon Dioxide 18 L, Anion Gap 13.2, BUN 95 H D, Creatinine 3.70 H, Estimated Creat Clear 13, Estimated GFR 12 L*, Est GFR ( Amer) 15 L*, Glucose 285 H, Calcium 7.0 L, Magnesium 2.3, Total Bilirubin 1.3, AST 616 H* D, ALT 709 H*, Alkaline Phosphatase 110, Total Protein 5.9 L, Albumin 2.7 L D, Globulin 3.2, Albumin/Globulin Ratio 0.8 L I & O for Last 24 hours: Intake & Output 11/28/24 11/29/24 11/30/24 12/01/24 23:59 23:59 23:59 23:59 Intake Total 340 / 340 150 / 535 2758 / 2758 954 / 954 Output Total 0 / 0 500 / 500 Balance 340 / 340 150 / 535 2758 / 2258 454 / 454 Weight 243 lb 5 oz 243 lb 5.011 oz 237 lb 11.2 oz 248 lb Microbiology Reports for the Last 24 Hours: Microbiology 11/29/24 16:47 Blood Blood Culture - Preliminary NO GROWTH AFTER 24 HOURS 11/29/24 16:47 Blood Blood Culture - Preliminary NO GROWTH AFTER 24 HOURS 11/29/24 16:37 Urine,Clean Catch Urine Culture - Preliminary Assessment and Plan *Assessment and plan (1) Ischemic hepatitis: Status: Acute Category: Medical Code(s): K72.00 - Acute and subacute hepatic failure without coma (2) Obstipation: Status: Acute Category: Medical Code(s): K59.00 - Constipation, unspecified Plan 1. Ischemic hepatitis. The patient still has markedly elevated transaminases with hepatocellular injury and does have multiorgan involvement with shock kidney (ATN) and some pulmonary failure. She has had 2 strokes. Family is considering hospice and hospice has been consulted. The patient does not appear to have responded to acetylcysteine as an effort to restore hepatic glutathione. We will continue to follow.
--- NOTE | 2024-12-01 08:14 | PC.NURSE ---
I spoke with hospitalist regarding pt increasing agitation and restlessness. nno @ this time. turrned pt and gave her a bath to help settle her.
[2024-12-01] MEDS: NYSTATIN TOPICAL POWDER 30GM TP (08:42)
--- NOTE | 2024-12-01 09:59 | PC.NURSE ---
i spoke with pts family to give an update on pt condition. the daughter states she will be in later today.
[2024-12-01 11:49] LABS: POC Glucose,Bedside 257 (70-110)
--- NOTE | 2024-12-01 11:59 | PC.NURSE ---
16f sinclair inserted using sterile technique. urine sent to lab
[2024-12-01 13:49] LABS: Vancomycin,Trough 23.2 ug/mL (5.0-10.0)
--- NOTE | 2024-12-01 14:27 | EXP.DC.SUM ---
General Admission date:: 11/16/24 HPI HPI HPI: Faiza Waters is a 64-year-old female with a medical history significant for HFpEF, type 2 diabetes, CVA with left-sided weakness, asthma, hypertension who presents with shortness of breath. She states it is more prominent when she is try to fall asleep. Denies fever/chills, coughing, chest pain, abdominal pain. Workup in the ED significant for BNP 26,700, with CXR showing pulmonary edema. Case discussed with ED provider and decision was made to admit patient for HFpEF exacerbation. Per admission H&P - This is a 64-year-old female admitted for heart failure exacerbation with BNP over 26,000. She was aggressively diuresed. Late 11/19?early 11/20, patient became acutely hypotensive, spiked a fever (Tmax 102), found to have influenza pneumonia, treated with vancomycin, cefepime, ampicillin. Systolic blood pressure below 80, started on Levophed and vasopressin. Single dose of hydrocortisone and started on Tamiflu. Soon after acute event, patient found to have elevations in AST and ALT at 160/86 with normal bilirubin and alk phos. That increased to bilirubin 0.7, AST of 2790, ALT of 1167, and alk phos of 64 this morning. Concern for ischemic hepatitis secondary to profound hypotension. Liver Doppler completed with concern for Budd-Chiari showed no signs of hepatic infarct or obstruction today. She does have a history of fatty liver disease but no signs of underlying cirrhosis. Patient also found to have renal dysfunction and acute encephalopathy after significant hypotensive/hypoperfusion event. Since initial event, patient has been gradually weaned off of vasopressors and is maintaining MAP above 65 independently. She is scheduled for LP with concern for encephalopathy in a febrile patient. Hospital Course Hospital Course Hospital Course: Patient is a 64-year-old female with a medical history significant for HFpEF, type 2 diabetes, CVA with left-sided weakness, asthma, hypertension who presents with shortness of breath. She states it is more prominent when she is try to fall asleep. Denies fever/chills, coughing, chest pain, abdominal pain. Workup in the ED significant for BNP 26,700, with CXR showing pulmonary edema. Case discussed with ED provider and decision was made to admit patient HFpEF exacerbation and orthopnea. Hospital course complicated by septic shock, new strokes and as a result deteriorating physical and cognitive status. #Acute on chronic strokes ? CT obtained 11/25 found to have subacute right sided cerebellar stroke ? History of previous strokes noted on CT. ? MRI 11/30/2024 reveals acute right cerebellar and frontal lobe infarcts. This would certainly explain patient's worsening encephalopathy, aphasia. ? Continue aspirin 81 mg, Eliquis. Holding statin due to ischemic hepatitis as below. ? Patient was also increasingly refusing oral intake over the past few days, including fluids, food, medications. Kidney, liver function significantly worsening. Unfortunately patient encephalopathy and refusing oral intake is incompatible with aggressive treatment she needs for her history of CVA, HFrEF, and other significant comorbidities as below. ? Had extensive goals of care conversation with patient's daughter, Jennifer, and sister, Monie, regarding patient's unfortunate deteriorating mental and physical state as mentioned above. Hospice care was discussed, and daughter decided to pursue that option. Hospice care was consulted, agreed to accept patient into home hospice to which she was discharged. #Influenza A #Septic shock #Ischemic hepatitis, shock liver #UTI #Hospital-acquired pneumonia ? On 11/19/2024, patient exhibited lethargy, very somnolent. Further workup with CT head, CT chest, CBC, CMP, VBG did not reveal remarkable findings at that time. However, patient did have a fever of 100.5 later in the afternoon. Started vancomycin, cefepime. Later in the evening, patient's pressures dropped to MAPs mid 50s. Transferred to ICU, maxed on Levophed but had continued hypotension. Given HFrEF, started dobutamine which worsened hypotension. Discontinued. Started vasopressin with improvement in MAP greater than 65. Also started milrinone. Received hydrocortisone 100 mg at stress dose steroid. Small fluid boluses were also administered as patient likely got over diuresed and is now in ATN. Has not needed pressors for at least 4 days. ? Liver enzymes are worsening due to poor oral intake. AST/ALT 1267/1009. ? Liver Doppler ruled out thrombosis/Budd-Chiari syndrome. Did show gallbladder wall thickening, acalculous cystitis not ruled out. However, patient has no abdominal pain. ? Completed Tamiflu, NAC, and antibiotics. Cultures remain negative #ELIEZER, ATN ? Creatinine worsened to 3.7 today. Minimal urine output. Looks dry on exam. Refusing oral intake. #HFrEF #Atrial fibrillation ? ECHO in March 2022 revealed grade 2 diastolic dysfunction. ? ECHO 11/17/2024 LVEF 25%, G2DD. ? Heart rate showing some improvement. Fluctuating between 90 and 120. Continue metoprolol succinate 100 mg twice daily. Continue digoxin 62.5 mcg every 48 hours renally dosed. ? Continue Eliquis. #Type 2 diabetes ? Hemoglobin A1c 11.3, well above goal. Glucose 166 this morning ? [facility] glucose checks. ? Will hold Lantus 35 units nightly due to low normal blood sugars without it. Discontinued metformin, Farxiga at this time given above #History of CVA with left-sided weakness ? continue Aspirin, holding statin due to ischemic hepatitis. ? Daughter is primary oxygen therapist at home, helps patient get in wheelchair to get around. ? Therapy evaluated patient today. PT and OT recommend skilled placement. No longer a candidate for SNF as not medically stable. #History of left IJ DVT ? Continue Eliquis. Total time spent on discharge: 32 minutes on chart review, counseling, documentation, and direct care with patient. Exam Data for Last 24 hours Vital signs and Labs for Last 24 Hours: Temp Pulse Resp BP Pulse Ox O2 Del Method O2 Flow Rate 96.5 F L 110 H 14 122/71 99 Room Air 3 12/01/24 08:00 12/01/24 11:52 12/01/24 08:00 12/01/24 08:00 12/01/24 11:52 12/01/24 11:52 11/27/24 23:37 Laboratory Results - last 24 hr 11/30/24 18:55: POC Glucose 267 H 12/01/24 05:39: POC Glucose 271 H 12/01/24 05:53: WBC 13.6 H D, RBC 4.19 L, Hgb 9.5 L, Hct 32.2 L, MCV 76.8 L, MCH 22.7 L, MCHC 29.5 L, RDW 21.7 H, Plt Count 234, MPV 11.4 H, Neut % (Auto) 84.4 H, Lymph % (Auto) 8.6 L, [place] % (Auto) 5.4, Eos % (Auto) 0.5, Baso % (Auto) 0.1, Neut # (Auto) 11.5 H, Lymph # (Auto) 1.2, [place] # (Auto) 0.7, Eos # (Auto) 0.1, Baso # (Auto) 0.0, PT 17.7 H, INR 1.66 H, Sodium 140, Potassium 4.2 D, Chloride 113 H, Carbon Dioxide 18 L, Anion Gap 13.2, BUN 95 H D, Creatinine 3.70 H, Estimated Creat Clear 13, Estimated GFR 12 L*, Est GFR ( Amer) 15 L*, Glucose 285 H, Calcium 7.0 L, Magnesium 2.3, Total Bilirubin 1.3, AST 616 H* D, ALT 709 H*, Alkaline Phosphatase 110, Total Protein 5.9 L, Albumin 2.7 L D, Globulin 3.2, Albumin/Globulin Ratio 0.8 L 12/01/24 11:40: POC Glucose 257 H 12/01/24 12:55: Vancomycin Trough 23.2 H I & O for Last 24 hours: Intake & Output 11/28/24 11/29/24 11/30/24 12/01/24 23:59 23:59 23:59 23:59 Intake Total 340 / 340 150 / 535 2758 / 2758 954 / 954 Output Total 0 / 0 500 / 500 Balance 340 / 340 150 / 535 2758 / 2258 454 / 454 Weight 110.365 kg 110.365 kg 107.819 kg 112.491 kg Microbiology Reports for the Last 24 Hours: Microbiology 11/29/24 16:37 Urine,Clean Catch Urine Culture - Final 11/29/24 16:47 Blood Blood Culture - Preliminary NO GROWTH AFTER 24 HOURS 11/29/24 16:47 Blood Blood Culture - Preliminary NO GROWTH AFTER 24 HOURS Constitutional Constitutional: no acute distress Comments: Not cooperating much on exam, looking the other way when speaking to her. Aphasic. *Routine HEENT Exam Head: Present normocephalic Eye: Present EOMI and PERRL ENT: Present mucous membranes moist *Routine Neck Exam Neck: Present supple; Absent lymphadenopathy *Routine Respiratory Exam Respiratory: Present CTA bilaterally *Routine Cardiovascular Exam Cardiovascular: Present RRR *Routine Abdominal Exam Abdominal: Present soft and normoactive bowel sounds; Absent tenderness *Routine Extremities Exam Extremities: Absent cyanosis, clubbing or edema *Routine Skin Exam Skin: Present warm; Absent rash *Routine Neurological Exam Neurological: Present alert Results Data Completed and Pending Labs on day of discharge: Labs from last 24 hours 12/01/24 12/01/24 12/01/24 12:55 11:40 05:53 WBC 13.6 H D RBC 4.19 L Hgb 9.5 L Hct 32.2 L MCV 76.8 L MCH 22.7 L MCHC 29.5 L RDW 21.7 H Plt Count 234 MPV 11.4 H Neut % (Auto) 84.4 H Lymph % (Auto) 8.6 L [place] % (Auto) 5.4 Eos % (Auto) 0.5 Baso % (Auto) 0.1 Neut # (Auto) 11.5 H Lymph # (Auto) 1.2 [place] # (Auto) 0.7 Eos # (Auto) 0.1 Baso # (Auto) 0.0 PT 17.7 H INR 1.66 H Sodium 140 Potassium 4.2 D Chloride 113 H Carbon Dioxide 18 L Anion Gap 13.2 BUN 95 H D Creatinine 3.70 H Estimated Creat Clear 13 Estimated GFR 12 L* Est GFR ( Amer) 15 L* Glucose 285 H POC Glucose 257 H Calcium 7.0 L Magnesium 2.3 Total Bilirubin 1.3 AST 616 H* D ALT 709 H* Alkaline Phosphatase 110 Total Protein 5.9 L Albumin 2.7 L D Globulin 3.2 Albumin/Globulin Ratio 0.8 L Vancomycin Trough 23.2 H 12/01/24 11/30/24 05:39 18:55 WBC RBC Hgb Hct MCV MCH MCHC RDW Plt Count MPV Neut % (Auto) Lymph % (Auto) [place] % (Auto) Eos % (Auto) Baso % (Auto) Neut # (Auto) Lymph # (Auto) [place] # (Auto) Eos # (Auto) Baso # (Auto) PT INR Sodium Potassium Chloride Carbon Dioxide Anion Gap BUN Creatinine Estimated Creat Clear Estimated GFR Est GFR ( Amer) Glucose POC Glucose 271 H 267 H Calcium Magnesium Total Bilirubin AST ALT Alkaline Phosphatase Total Protein Albumin Globulin Albumin/Globulin Ratio Vancomycin Trough Preliminary micro results at discharge 11/29/24 16:47 Blood Culture - Preliminary Blood NO GROWTH AFTER 24 HOURS 11/29/24 16:47 Blood Culture - Preliminary Blood NO GROWTH AFTER 24 HOURS DS: Diagnosis Discharge Diagnosis (1) Ischemic hepatitis: Status: Acute Code(s): K72.00 - Acute and subacute hepatic failure without coma (2) Obstipation: Status: Acute Code(s): K59.00 - Constipation, unspecified Meds Home Medications and Allergies Home Medications ?Medication ?Instructions ?Recorded ?Confirmed ?Type insulin lispro 100 unit/mL 0 unit SQ DIRECTED 04/01/22 11/16/24 History subcutaneous cartridge blood sugar diagnostic (OneTouch #100 ea 05/09/22 11/16/24 Rx Verio test strips) blood-glucose transmitter (Dexcom #1 ea 03/30/24 11/16/24 Rx G6 Transmitter device) atorvastatin 40 mg tablet (Lipitor) 40 mg PO DAILY #90 tabs 05/27/24 11/16/24 Rx albuterol sulfate 90 mcg/actuation 2 puff inhalation Q4HP PRN 11/16/24 11/16/24 History aerosol inhaler shortness of breath or wheezing allopurinol 100 mg tablet 100 mg PO DAILY 11/16/24 11/16/24 History apixaban 5 mg tablet (Eliquis) 5 mg PO BID 11/16/24 11/16/24 History aspirin 81 mg tablet,delayed 81 mg PO DAILY 11/16/24 11/16/24 History release budesonide-formoterol HFA 160 2 puff inhalation BID 11/16/24 11/16/24 History mcg-4.5 mcg/actuation aerosol inhaler (Symbicort) clopidogrel 75 mg tablet 75 mg PO DAILY 11/16/24 11/16/24 History fluoxetine 20 mg capsule 20 mg PO DAILY 11/16/24 11/16/24 History gabapentin 100 mg capsule 100 mg PO TID 11/16/24 11/16/24 History metformin 500 mg tablet,extended 1,000 mg PO BID 11/16/24 11/16/24 History release 24 hr metoprolol succinate 100 mg 100 mg PO BID 11/16/24 11/16/24 History tablet,extended release 24 hr montelukast 10 mg tablet 10 mg PO PM 11/16/24 11/16/24 History pramipexole 0.125 mg tablet 0.125 mg PO DAILY 11/16/24 11/16/24 History tiotropium bromide 18 mcg capsule 1 cap inhalation DAILY 11/16/24 11/16/24 History with inhalation device (Spiriva with HandiHaler) digoxin 125 mcg (0.125 mg) tablet 62.5 mcg (1/2 x 125 mcg (0.125 12/01/24 Rx mg)) PO Q48H 30 days #8 tabs haloperidol 5 mg tablet 5 mg PO Q4HP PRN agitation #100 12/08/24 Rx tabs New Prescriptions to Start Prescriptions: digoxin Mark Esparza Allergies Allergy/AdvReac Type Severity Reaction Status Date / Time lisinopril Allergy Severe Hives Verified 11/16/24 14:58 strawberry Allergy Severe Anaphylaxis Verified 11/16/24 14:58 codeine AdvReac Severe Vomiting Verified 11/16/24 14:58 Penicillins AdvReac Severe Vomiting Verified 11/16/24 14:58 Discharge Plan Disposition Patient Disposition: Hospice - Home Condition: Fair Discharge Order Discharge Orders: Discharge Order (Routine); Ordered 12/01/24 Ordered By: Mark Esparza Follow up Plan Follow up with: Seven Bolton PA [Physician Roller Helper] - 11/30/24 10:15 am Oscar Hauser MD [Primary Care Provider] - 11/25/24 11:20 am Prescriptions/Medication Reconciliation: New digoxin 125 mcg (0.125 mg) Tablet 62.5 mcg PO Q48H 30 Days Qty: 8 0RF Continued atorvastatin [Lipitor] 40 mg tablet 40 mg PO DAILY Qty: 90 3RF (DME) OneTouch Verio test strips Strip See Rx Instructions .Route Qty: 100 2RF Rx Instructions: Test 4 times daily or As directed (DME) Dexcom G6 Transmitter Device See Rx Instructions .ROUTE .COMPLEX Qty: 1 1RF Dose Instruction: APPLY ONE TRANSMITTER DIRECTED ON TOP OF SENSOR AND REPLACE EVERY 90 DAYS Rx Instructions: APPLY ONE TRANSMITTER DIRECTED ON TOP OF SENSOR AND REPLACE EVERY 90 DAYS insulin lispro 100 UNIT/ML cartridge 0 unit SQ DIRECTED Rx Instructions: INSULIN PUMP Eliquis 5 mg tablet 5 mg PO BID Patient Comments: TAKE ONE TABLET BY MOUTH TWICE DAILY aspirin 81 mg tablet,delayed release (DR/EC) 81 mg PO DAILY montelukast 10 mg tablet 10 mg PO PM tiotropium bromide [Spiriva with HandiHaler] 18 mcg capsule, w/inhalation device 1 cap INHALATION DAILY Patient Comments: INHALE contents of ONE capsule BY MOUTH EVERY DAY budesonide-formoterol [Symbicort] 160-4.5 mcg/actuation HFA aerosol inhaler 2 puff INHALATION BID Patient Comments: INHALE 2 puffs BY MOUTH TWICE DAILY metoprolol succinate 100 mg tablet extended release 24 hr 100 mg PO BID clopidogrel 75 mg tablet 75 mg PO DAILY allopurinol 100 mg tablet 100 mg PO DAILY pramipexole 0.125 mg tablet 0.125 mg PO DAILY gabapentin 100 mg capsule 100 mg PO TID albuterol sulfate 90 mcg/actuation HFA aerosol inhaler 2 puff inhalation Q4HP PRN (Reason: shortness of breath or wheezing) fluoxetine 20 mg capsule 20 mg PO DAILY metformin 500 mg tablet extended release 24 hr 1,000 mg PO BID Discontinued torsemide 10 mg tablet 20 mg PO DAILY ranolazine 1,000 mg tablet extended release 12 hr 1,000 mg PO BID diltiazem HCl 240 mg capsule,extended release 24hr 240 mg PO DAILY famotidine 40 mg tablet 40 mg PO BID isosorbide mononitrate 120 mg tablet extended release 24 hr 120 mg PO DAILY ferrous sulfate [FeroSul] 325 mg (65 mg iron) tablet 325 mg PO BID hydralazine 50 mg tablet 50 mg PO TID losartan 100 mg tablet 100 mg PO DAILY loratadine [Allergy Relief (loratadine)] 10 mg tablet 10 mg PO DAILY No Action haloperidol 5 mg tablet 5 mg PO Q4HP PRN (Reason: agitation) Qty: 100 10RF Problem Reconciliation Problems Reviewed?: Yes Patient Discharge Instructions Patient Instructions: Heart Failure, DI for Heart Failure, DI for H1N1 Influenza -- Adult, Catheter-Associated Urinary Tract Infection Print Language: Korean Providers Primary Care Provider: Oscar Hauser Admit Provider: Mark Esparza Attending Provider: Mark Esparza
[2024-12-01 14:31] LABS: Creatinine,Urine Random 69 mg/dL (Not Estab.); Urea Nitrogen,Urine Random 566 mg/dl (Not Estab.)
--- NOTE | 2024-12-01 15:39 | PC.NURSE ---
pt has been discahrged vis EMS. Family meeting her @ the house. All belongins including glasses taken michael darion the daughter. Hospice will be @ home around 0900 in the morning
== END 2024-12-01 15:35 | disposition home or self-care (01) | DRG 291 ==
LOC: ER 15:37 → 2ND 16:33 → ICU 11-19 20:28 → 2ND 11-21 15:41
PROVIDERS: Internal Medicine Adolescent Medicine; Internal Medicine Pulmonary Disease; Nurse Practitioner Acute Care; Nurse Practitioner Family; Physician Assistant; Admitting Provider Student in an Organized Health Care Education/Training Program; Emergency Provider Emergency Medicine; PCP Family Medicine; Visit Provider Student in an Organized Health Care Education/Training Program
DX: I11.0 Hypertensive heart disease with heart failure (principal); A41.9 Sepsis, unspecified organism; G93.41 Metabolic encephalopathy; I50.23 Acute on chronic systolic (congestive) heart failure; K72.00 Acute and subacute hepatic failure without coma; J10.00 Influenza due to other identified influenza virus with unspecified type of pneumonia; I63.89 Other cerebral infarction; R65.21 Severe sepsis with septic shock; I82.622 Acute embolism and thrombosis of deep veins of left upper extremity; Z68.41 Body mass index [BMI] 40.0-44.9, adult; I69.354 Hemiplegia and hemiparesis following cerebral infarction affecting left non-dominant side; R47.01 Aphasia; N39.0 Urinary tract infection, site not specified; N17.9 Acute kidney failure, unspecified; E66.01 Morbid (severe) obesity due to excess calories; Y95 Nosocomial condition; I48.91 Unspecified atrial fibrillation; E11.9 Type 2 diabetes mellitus without complications; K59.00 Constipation, unspecified; D64.9 Anemia, unspecified; Z88.5 Allergy status to narcotic agent; Z79.01 Long term (current) use of anticoagulants; Z88.0 Allergy status to penicillin; Z79.899 Other long term (current) drug therapy; Z79.4 Long term (current) use of insulin; Z88.8 Allergy status to other drugs, medicaments and biological substances; Z79.51 Long term (current) use of inhaled steroids; Z79.82 Long term (current) use of aspirin
CPT/HCPCS: 36415; 70450; 70551; 71045; 71250; 74176; 80048; 80053; 80074; 80076; 80202; 80307; 81001; 82140; 82272; 82330; 82570; 82607; 82728; 82746; 82803; 82962; 83036; 83540; 83550; 83605; 83615; 83690; 83735; 83880; 84100; 84145; 84484; 84540; 85007; 85025; 85378; 85610; 85651; 85730; 86140; 86803; 87040; 87081; 87086; 87389; 87633; 87636; 92610; 93005; 93306; 93971; 93975; 94640; 94761; 97163; 97166; 97530; 99291; G0328; J0290; J0295; J0456; J0692; J0696; J1160; J1250; J1630; J1644; J1650; J1939; J1940; J2260; J2270; J2543; J3370; J3372; J3475; J7030; J7050; J7060; J7120; J7613; J7620